=== PATIENT | male | born 1935 | race Caucasian/White ===

== ENCOUNTER 2016-10-13 13:57 | Inpatient (IN) | payer MEDICARE ==
[~2016-10-13] VITALS: Ht 180.3 cm; Wt 93.0 kg
[2016-10-13 04:48] VITALS: PULSE 89
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
[2016-10-13 14:02] VITALS: BP 120/74; PULSE 102; RESP 25; O2SAT 96
[2016-10-13] MEDS ORDERED: 0.9% Sodium Chloride 1,000 ML IV ONE (14:09)
[2016-10-13] MEDS ORDERED: Clindamycin Inj 900 MG in IV Premix 1 EACH IV ONE (14:10)
[2016-10-13] MEDS ORDERED: Vancomycin Dose per Pharmacist XX ONE (14:10)
[2016-10-13] MEDS ORDERED: Meropenem Inj 2,000 MG in 0.9% Sodium Chloride 100 ML IV ONE (14:10)
[2016-10-13 14:19] LABS: BASOPHILS % (AUTO) 0.1 % (0-3); EOSINOPHILS % (AUTO) 0.1 % (0-5); MONOCYTES % (AUTO) 10.7 % (4-12); Mean Corpuscular Hemoglobin 28.7 pg (27.0-35.0); Mean Corpuscular Volume 84.2 fL (81-100); NEUTROPHILS % (AUTO) 84.4 % (40-74); Platelet Count 275 bil/L (150-400)
--- NOTE | 2016-10-13 14:21 | DRSVH ---
PROCEDURE: CT BRAIN (TPA) ([id number]) INDICATIONS: Stroke TECHNIQUE: Noncontrast 4.5 mm thick angled axial sections acquired from the foramen magnum to the vertex, with c oronal reformats. COMPARISON: None. FINDINGS: Image quality: Excellent. CSF spaces: Basal cisterns are patent. No extra-axial fluid collections. The ventricles are symmet gina in size and shape. Brain: No intracranial bleeds or masses. There is cerebral volume loss for age, with resultant vent ricular and sulcal prominence. There are periventricular and deep white matter chronic small vessel ischemic changes. There is intracranial internal carotid artery atherosclerosis. Skull and face: Calvarium and visualized facial bones appear intact, without suspicious lesions. Sinuses: Visualized sinuses and mastoids are clear. IMPRESSION: No acute process. Findings relayed to Dr. Smallwood via the ER administrative assistant front desk staff person Mart yates on 10.13.16 at 1419 hrs. This study fulfills neurological imaging criteria for inclusion or exclusion of acute stroke therapie s based on available published neurological guidelines. Dictated by: Osito Goldstein M.D. on 10/13/2016 at 14:18 Approved by: Osito Goldstein M.D. on 10/13/2016 at 14:19
[2016-10-13 14:38] LABS: INR 2.26 ratio
[2016-10-13] MEDS ORDERED: Vancomycin Inj 2,000 MG in 0.9% Sodium Chloride 500 ML IV ONE (14:40)
[2016-10-13 14:43] LABS: TROPONIN T < 0.010 ug/L (0.0-0.011)
[2016-10-13 15:19] VITALS: BP 105/71; PULSE 93; RESP 20; O2SAT 99
--- NOTE | 2016-10-13 15:43 | DRSVH ---
PROCEDURE: X-RAY RIGHT FOOT COMPLETE, MINIMUM THREE VIEWS ([id number]) INDICATIONS: necrosis TECHNIQUE: 2 views of the foot were acquired. COMPARISON: None. FINDINGS: Bones: No fractures or dislocations. No suspicious bony lesions. Soft tissues: No tibiotalar joint effusion. Achilles tendon appears normal. There is a 1.6 cm oval radiolucency in the plantar soft tissues beneath the first metatarsal head compatible with ulceration . There is extensive calcification in the region of the plantar aponeurosis. Vascular calcifications in the distal leg. IMPRESSION: 1. Soft tissue ulceration under the first metatarsal head. Generalized swelling. No osteomyelitis or subcutaneous air is seen. 2. Calcific plantar fasciitis. 3. Small vessel calcifications may reflect diabetes. Dictated by: Dillon Stewart M.D. on 10/13/2016 at 15:39 Approved by: Dillon Stewart M.D. on 10/13/2016 at 15:42
[2016-10-13 17:27] VITALS: BP 177/77; PULSE 77; RESP 20; O2SAT 99
[2016-10-13] MEDS ORDERED: Ondansetron 2 mg/mL 2 mL Inj IVPUSH PRN (18:10)
[2016-10-13] MEDS ORDERED: Polyethylene Glycol (PEG) 17 Gm Powder PO PRN (18:10)
[2016-10-13] MEDS ORDERED: Alum-Mag Hydrox-Simeth 30 mL Suspension PO PRN (18:10)
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
[2016-10-13 19:23] VITALS: BP 109/65; PULSE 125; RESP 20; O2SAT 99
[2016-10-13] MEDS ORDERED: METO-272 PO (19:26)
[2016-10-13] MEDS ORDERED: WARF5TAB PO (19:26)
[2016-10-13] MEDS ORDERED: METF500T7 PO (19:27)
[2016-10-13] MEDS ORDERED: METF-495 PO (19:27)
[2016-10-13] MEDS ORDERED: LISI10TA PO (19:27)
[2016-10-13] MEDS ORDERED: WARF7.5T PO (19:27)
--- NOTE | 2016-10-13 19:30 | PCM.CONPHA ---
Subjective Date of Service: October 13, 2016 fall and foot ulcer Reason for Pharmacy Consult: Vancomycin Dosing Objective Vital Signs Date Time Temp Pulse Resp B/P Pulse Ox O2 Delivery O2 Flow Rate FiO2 10/13/16 17:27 36.2 77 20 177/77 99 Room Air 10/13/16 15:19 38.5 93 20 105/71 99 Room Air 10/13/16 14:02 38.5 102 25 120/74 96 Room Air Test 10/13/16 14:15 10/13/16 18:48 White Blood Count 19.8th/mm3 (3.8-10.1) Red Blood Count 4.63mil/mm3 (4.40-5.80) Hemoglobin 13.3g/dL (13.8-17.2) Hematocrit 39.0% (41.0-50.0) Mean Corpuscular Volume 84.2fL (81-100) Mean Corpuscular Hemoglobin 28.7pg (27.0-35.0) Mean Corpuscular Hemoglobin Concent 34.1% (32.0-37.0) Red Cell Distribution Width 13.1% (12.3-15.4) Platelet Count 275bil/L (150-400) Neutrophils (%) (Auto) 84.4% (40-74) Lymphocytes (%) (Auto) 4.2% (14-46) Monocytes (%) (Auto) 10.7% (4-12) Eosinophils (%) (Auto) 0.1% (0-5) Basophils (%) (Auto) 0.1% (0-3) Prothrombin Time 24.6sec (8.1-12.5) Prothromb Time International Ratio 2.26ratio Activated Partial Thromboplast Time 39.7sec (22.8-33.0) Sodium Level 130mEq/L (134-144) Potassium Level 4.4mEq/L (3.5-5.2) Chloride Level 92mEq/L (97-108) Carbon Dioxide Level 19mmol/L (18-29) Blood Urea Nitrogen 19mg/dL (8-27) Creatinine 0.81mg/dL (0.76-1.27) Estimat Glomerular Filtration Rate 97mL/min (>59) Glucose Level 243mg/dL (60-99) Calcium Level 9.3mg/dL (8.5-10.1) Total Bilirubin 2.9mg/dL (0.0-1.2) Aspartate Amino Transf (AST/SGOT) 41U/L (0-50) Alanine Aminotransferase (ALT/SGPT) 23U/L (0-44) Alkaline Phosphatase 130U/L (25-160) Troponin T < 0.010ug/L (0.0-0.011) Pro-B-Type Natriuretic Peptide 1945pg/mL (0-486) Total Protein 7.4g/dL (6.4-8.4) Albumin 3.5g/dL (3.4-5.0) Lactic Acid Level 1.3mmol/L (0.4-2.0) Assessment/Plan Assessment/Plan VANCOMYCIN MANAGEMENT A\ 81yo M with Rt foot infection and sepsis with PMH of Diabetes Pt supplied Cq=117jv Wt=99kg Pt received Vancomycin 2000mg IV x1 in the ER 10/13 1440; Goal Vancomycin trough 10-15 SCr=0.81 GFR=92 WBC=19.8 and febrile Also receiving Zosyn Cultures pending P\ Will start Vancomycin 1000mg IV Q12H starting at 0300 and vancomycin trough before the 4th dose 10/15 0230 Creatinine daily x3 Pharmacy will continue to monitor and adjust vancomycin as necessary. Felipe [facility] October 13, 2016 19:30
--- NOTE | 2016-10-13 19:30 | NUR ---
Med history Med history obtained based on pt. description of medications and needs to be verified for accuracy when his clinic and pharmacy: [facility] ([place]) open tomorrow morning at 0800.
--- NOTE | 2016-10-13 19:43 | DRSVH ---
PROCEDURE: X-RAY CHEST, TWO VIEWS ([id number]) INDICATIONS: 81 year-old male with fever and syncope. TECHNIQUE: 2 views of the chest were acquired. COMPARISON: None. FINDINGS: Surgical changes and devices: None. Lungs and pleura: No pleural effusions or pneumothorax. Lungs are clear. Mediastinum: Mediastinal contours are normal. There is moderate cardiomegaly. Bones and chest wall: No suspicious bony abnormalities. There is thoracic spine disc degeneration. Soft tissues appear unremarkable. IMPRESSION: Moderate cardiomegaly, without acute cardiopulmonary disease. Dictated by: Wade Royal M.D. on 10/13/2016 at 19:40 Approved by: Wade Royal M.D. on 10/13/2016 at 19:41
[2016-10-13 19:50] VITALS: BP 107/75; PULSE 100; RESP 16; O2SAT 97
[2016-10-13] MEDS: 0.9% Sodium Chloride 1,000 ML IV SCH (20:25)
[2016-10-13] MEDS: Insulin Human REGular 300 Unit/3 mL Inj SUBQ SCH (20:27)
[2016-10-13 22:16] LABS: APPEARANCE,URINE HAZY (CLEAR,HAZY); COLOR,URINE AMBER (YELLOW); OCCULT BLOOD,URINE SMALL (NEGATIVE); PH,URINE 5.5 (5.0-8.0)
[2016-10-13 22:18] LABS: ICTOTEST,URINE NEGATIVE (Negative)
[2016-10-14] VITALS (19 sets, daily range): BP systolic 90–144; BP diastolic 5–81; PULSE 75–97; RESP 13–20; O2SAT 96–99
[2016-10-14] MEDS: Piperacillin-Tazo 3.375 Gm Inj 3.375 GM in Dextrose 5% Minibag Plus 50 ML IV SCH ×3 (00:49→16:40)
[2016-10-14] MEDS ORDERED: Vancomycin Inj 1,000 MG in IV Premix 1 EACH IV SCH (03:00)
[2016-10-14 03:21] LABS: BASOPHILS % (AUTO) 0.1 % (0-3); EOSINOPHILS % (AUTO) 0.1 % (0-5); MONOCYTES % (AUTO) 10.5 % (4-12); Mean Corpuscular Hemoglobin 28.4 pg (27.0-35.0); Mean Corpuscular Volume 85.7 fL (81-100); NEUTROPHILS % (AUTO) 81.3 % (40-74); Platelet Count 224 bil/L (150-400)
[2016-10-14 03:34] LABS: INR 2.88 ratio
[2016-10-14 03:57] LABS: Magnesium 1.9 mg/dL (1.6-2.6)
--- NOTE | 2016-10-14 05:56 | NUR ---
Admit Pt arrived to [facility] room 2007 at approx. 1930 from ED via bed; all belongings transferred with pt. Admit documentation and med rec completed per patient's best ability; medication doses to be confirmed via fax this AM from pt's clinic per admit nurse. Tele afib 100s-120s, pt asymptomatic. Able to transfer with SBA, though pt encouraged to be NWB to affected foot and elevate extremity as much as possible. Pt denies pain. RA. VSS. Information on advance directives given to pt. MRSA swab and UA obtained and sent to lab.
[2016-10-14] MEDS: 0.9% Sodium Chloride 1,000 ML IV SCH ×3 (08:08→22:40)
[2016-10-14] MEDS: Insulin Human REGular 300 Unit/3 mL Inj SUBQ SCH ×4 (08:08→22:40)
[2016-10-14] MEDS ORDERED: Vancomycin Dose per Pharmacist XX SCH (08:30)
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
[2016-10-14] MEDS ORDERED: Gentamicin 40 mg/mL 2 mL Inj IRRIGATION ONE (12:36)
[2016-10-14] MEDS ORDERED: Lactated Ringer's 1,000 ML IV ONE (12:36)
[2016-10-14] MEDS ORDERED: Lactated Ringer's 500 ML IV PRN (13:03)
[2016-10-14] MEDS ORDERED: Lactated Ringer's 1,000 ML IV SCH (13:03)
[2016-10-14] MEDS ORDERED: Labetalol 5 mg/mL 4 mL Inj IV PRN (13:05)
[2016-10-14] MEDS ORDERED: Atropine 0.4 mg/mL Inj IVPUSH PRN (13:05)
[2016-10-14] MEDS ORDERED: Phenylephrine 10,000 mCg/mL Inj IVPUSH PRN (13:05)
[2016-10-14] MEDS ORDERED: EPHEDrine Sulfate 50 mg/mL Inj IVPUSH PRN (13:05)
[2016-10-14] MEDS ORDERED: fentaNYL-PF 50 mCg/mL 2 mL Inj IVPUSH PRN (13:05)
[2016-10-14] MEDS ORDERED: Ondansetron 2 mg/mL 2 mL Inj IVPUSH PRN (13:05)
[2016-10-14] MEDS ORDERED: Propofol 10,000 mCg/mL 20 mL Inj ONE (13:31)
[2016-10-14] MEDS ORDERED: fentaNYL-PF 50 mCg/mL 2 mL Inj ONE (13:31)
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
--- NOTE | 2016-10-14 13:35 | PCM.ANEP1 ---
Post Anesthesia Phase 1 PACU Phase 1 Assessment Date of Service: October 14, 2016 Vital Signs Vital Signs Date Time Temp Pulse Resp B/P Pulse Ox O2 Delivery O2 Flow Rate FiO2 10/14/16 13:25 87 17 98/54 98 Room Air 10/14/16 13:23 36.9 82 15 93/5 99 Room Air 10/14/16 11:35 37.4 75 18 144/81 98 Room Air 10/14/16 08:00 97 10/14/16 07:56 37.1 96 20 114/49 96 Room Air Anesthetic Administered: MAC Level of Alertness: Awake, talking BURGESS's with Equal Strength: Yes Pain: No Nausea or Vomiting: No Cardiovascular Function and Hy: No Oxygen Delivery: Room Air Lungs: Clear to Auscultation, Normal Air Movement Dermatome Level: Full Sensation Complications: No Follow up Care: No Bryn Handley MD October 14, 2016 13:35
--- NOTE | 2016-10-14 13:45 | NUR ---
Wound Care Wound orders received, Podiatry note reviewed. Podiatry to manage wound care during hospitalization.
--- NOTE | 2016-10-14 16:23 | NUR ---
Social Work: Initial Assessment Data & Assessment: See Initial Assessment. EMR reviewed. Patient is a 81 y/o male that admitted on 10/13/16 with foot infection, sepsis and AFIB with RVR per H&P. Patient's NOK is Kenny Delgado, but the patient was unable to recall the telephone number. Patient does not have a PCP. Patient re-admit score is 2 no risk. Patient's insurance is Medicare. Patient does not have VA or LTC benefits. Patient lives home alone . Patient reports being independent at baseline with no DME. Patient does not drive. Patient use [employer] for transportation. Patient has no history of HH or SNF. Patient currently has a PT evaluation pending. SW will continue to follow the patient and assist with discharge planning needs. SW wrote contact information on [employer]. Plan: SW will continue to follow and assist patient with discharge planning needs. Attila Driscoll LMSW, JODI Addendum: 10/14/16 at 1630 by ATTILA TOBIAS Amended: Links added.
[2016-10-14] MEDS ORDERED: Magnesium Hydroxide 10 mL Oral Concentration PO ONE (22:25)
[2016-10-15] VITALS (7 sets, daily range): BP systolic 113–135; BP diastolic 70–85; PULSE 89–97; RESP 18–20; O2SAT 94–97
[2016-10-15] MEDS: Piperacillin-Tazo 3.375 Gm Inj 3.375 GM in Dextrose 5% Minibag Plus 50 ML IV SCH ×4 (00:38→18:56)
[2016-10-15] MEDS ORDERED: Vancomycin Serum Trough XX ONE (02:30)
[2016-10-15 03:01] LABS: INR 2.28 ratio
--- NOTE | 2016-10-15 05:45 | NUR ---
Right Lower Extremity Pt BG at HS 310; 4 units administered for coverage. Pt able to rest throughout night, no c/o pain. Encouraged to elevate RLE as much as possible. VSS. Afib 100s-120s. RLE dressing C/D/I, CSM intact.
[2016-10-15 07:41] LABS: BASOPHILS % (AUTO) 0.2 % (0-3); EOSINOPHILS % (AUTO) 0.7 % (0-5); MONOCYTES % (AUTO) 10.2 % (4-12); Mean Corpuscular Hemoglobin 28.4 pg (27.0-35.0); Mean Corpuscular Volume 87.1 fL (81-100); NEUTROPHILS % (AUTO) 81.8 % (40-74); Platelet Count 248 bil/L (150-400)
[2016-10-15] MEDS: Insulin Human REGular 300 Unit/3 mL Inj SUBQ SCH ×4 (08:33→20:50)
[2016-10-15] MEDS: 0.9% Sodium Chloride 1,000 ML IV SCH (08:34)
--- NOTE | 2016-10-15 09:27 | NUR ---
Evaluation completed. Please go to "Notes" then click on "Assessments and Notes" (bottom left corner of screen). Then select appropriate discipline tab on top of screen.
--- NOTE | 2016-10-15 13:45 | NUR ---
[facility] signed
--- NOTE | 2016-10-15 16:07 | PCM.PNMED ---
Subjective Date of Service October 15, 2016 Subjective Mr. Varma is a cheerful, vigorous 81-year-old man here with non-insulin- dependent diabetes mellitus, atrial fibrillation on Coumadin here with right foot cellulitis and sepsis, now s/p right foot plantar I&D and debridement with Dr Cortez on 10/14/16. Our patient is more tired today, but still cheerful, has a good appetite, normal voiding and stooling. Exam Vital Signs Vital Sign - Last Date Time Temp Pulse Resp B/P Pulse Ox O2 Delivery O2 Flow Rate FiO2 10/15/16 11:04 92 10/15/16 08:24 36.6 20 135/85 97 Room Air Intake and Output 10/14/16 10/14/16 10/15/16 Cumulative From/Thru 15:00 23:00 07:00 10/13/16 19:50 - 10/15/16 06:08 Intake Total 1873 ml 820 ml 2308 ml 6042 ml Output Total 1365 ml 600 ml 875 ml 2840 ml Balance 508 ml 220 ml 1433 ml 3202 ml Intake Oral 873 ml 820 ml 400 ml 2093 ml IV Total 1000 ml 1908 ml 3949 ml Output Urine Total 1350 ml 600 ml 875 ml 2825 ml Estimated Blood Loss 15 ml 15 ml # Bowel Movements 1 1 Exam General: Alert, Oriented X3, Cooperative, No Acute Distress Head: Normal Eyes: EOMI, Scleral Anicteric Nose: Mucous Membr Moist/[place] Mouth: Mucous Membr Moist/[place] Chest & Lungs: Chest Wall Normal, Clear to auscultation & percussion Cardiovascular: Other (irreg/irreg), normal rate Abdomen: Non-tender, Non-distended, Normoactive bowel tones, Soft Extremities: 2+ edema of right foot up the the right knee, left lower extremity without significant edema Skin: Right foot under extensive post-surgical dressings which we did not disturb, no sign of erythema or drainage. Neurological: Grossly Neurologically Intact, Cranial Nerves 2-12 Intact, Normal Speech Lab and Diagnostics Result Diagram: 10/15/168 10/15/16 0238 X-Rays, CTs and MRIs Date of Service: 10/13/16 4148 PROCEDURE: CT BRAIN (TPA) ([id number]) IMPRESSION: No acute process. Dictated by: Osito Goldstein M.D. on 10/13/2016 at 14:18 Approved by: Osito Goldstein M.D. on 10/13/2016 at 14:19 Date of Service: 10/13/16 1409 PROCEDURE: X-RAY RIGHT FOOT COMPLETE, MINIMUM THREE VIEWS ([id number]) IMPRESSION: 1. Soft tissue ulceration under the first metatarsal head. Generalized swelling. No osteomyelitis or subcutaneous air is seen. 2. Calcific plantar fasciitis. 3. Small vessel calcifications may reflect diabetes. Dictated by: Dillon Stewart M.D. on 10/13/2016 at 15:39 Approved by: Dillon Stewart M.D. on 10/13/2016 at 15:42 12-lead ECG Afib at rate of abou 115 bpm Assessment & Plan 81 year old male with history of non-insulin dependent diabetes mellitus and atrial fibrillation (on Coumadin) presents to the hospital with questionable fall vs syncope and noted to be febrile with possible sepsis and significant cellulitis of right foot. 1. Sepsis with source of right foot cellulitis. Present on admission. Improving -White blood cell count 11.1, down from 19.8 on admission, pulse and respirations normal -MRSA nasal screen negative -Blood culture positive for gram-positive cocci -Continue Vanco and Zosyn 2. Right foot cellulitis. Present on admission. Active -Podiatry in the person of Dr Cortez took the patient to the OR on 10/14/16 for I& D and debridement of the right plantar foot abcess -Podiatry will change the dressing daily -Podiatry indicates possible return to OR on 10/17/16 for further debridement. 3. Ground-level fall, present on admission. Under evaluation -Brain CT negative for any acute process -Troponins negative -A. fib with RVR may have contributed to his weakness along with the sepsis 4. Mild hyponatremia, present on admission, resolved 5. Chronic A. fib with acute RVR, present on admission. active -Patient reports attempt many years ago to electrocardioversion from A. fib that was unsuccessful -Tele reports rate around 110 with runs around 150 and spikes with activity to 180. -Continue Telemetry -Heparin 5000 sq TID until after possible surgery on Monday -Metoprolol restarted 10/15/16 -Dr. Ferreira of cardiology reviewed the patient's chart on 10/14/16 and gave the opinion that this patient is a good surgical candidate, given his stable chronic atrial fibrillation with a normal rate, normal systolic blood pressure, and vigorous daily activity. 6. Diabetes mellitus type II, present on admission. Not controlled -HA1c is 7.9 -Hold metformin -Started patient on low-dose correctional scale insulin while hospitalized 7. Elevated Hepatic Enzymes, not present on admission. active -AST/ALT is 151/48, Alk Phos 181 secondary to ischemic injury with A Fib vs possible right sided heart failure -monitor -order Echo tomorrow if not improving 8. Hyponatremia, not present on admission. Active -possibly from fluid overload -monitor 9. Lactic acidosis, present on admission. -Likely due to dehydration, resolved on 10/14, but with transaminitis and hyponatremia manifesting on 10/15 it may be returning -LA with morning labs PRN medications available for nausea, heartburn, constipation: Ondansetron, Maalox, Senna, Miralax Patient is admitted under inpatient status with expected length of stay greater than 2 midnights due to severity of presenting symptoms, risk of adverse event, and complexity of treatment plan. Pain Evaluation: Adequate Pain Control GI Prophylaxis: Not indicated VTE Prophylaxis: Theraputic Anticoag with Warfarin Resuscitation Status: CPR: Attempt Resuscitation (discussed and verified with patient) Attending Statement The patient was seen and examined together with Dr. Rizzo on 10/15/2016 and I agree with the history, exam and plan as outlined in the note above. . Jose Alfredo Rizzo DO October 15, 2016 16:06 Ean Jimenes MD October 16, 2016 16:34
[2016-10-15] MEDS: Vancomycin Dose per Pharmacist XX SCH (17:18)
[2016-10-15] MEDS: Heparin 5,000 Unit/mL Inj SUBQ SCH (17:18)
[2016-10-15] MEDS: Vancomycin Inj 1,000 MG in IV Premix 1 EACH IV SCH (17:20)
--- NOTE | 2016-10-15 18:06 | NUR ---
Arrhythmia Per cafeteria monitor, Pt having frequent/brief accelerations in HR to the 150s-180s, Pt normally takes metoprolol at home, spoke with MD, Pt restarted on PO metoprolol this afternoon, cafeteria monitor reports that accelerations less frequent this afternoon.
--- NOTE | 2016-10-15 20:04 | PCM.PNPOD ---
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 no complaints of pain. 1 day status post I& D of right foot abscess. no new complaints overnight. Postop General: No Complaints Gastrointestinal: Good Appetite Pain Management: No or Minimal Pain Objective Vital Sign - Last Date Time Temp Pulse Resp B/P Pulse Ox O2 Delivery O2 Flow Rate FiO2 10/15/16 16:07 36.7 93 18 127/74 97 Room Air Intake and Output 10/14/16 10/14/16 10/15/16 Cumulative From/Thru 15:00 23:00 07:00 10/13/16 19:50 - 10/15/16 06:08 Intake Total 1873 ml 820 ml 2308 ml 6042 ml Output Total 1365 ml 600 ml 875 ml 2840 ml Balance 508 ml 220 ml 1433 ml 3202 ml Intake Oral 873 ml 820 ml 400 ml 2093 ml IV Total 1000 ml 1908 ml 3949 ml Output Urine Total 1350 ml 600 ml 875 ml 2825 ml Estimated Blood Loss 15 ml 15 ml # Bowel Movements 1 1 Result Diagram: 10/15/16 0238 10/15/16 0238 Lab Test 10/13/16 14:15 10/13/16 18:48 10/13/16 22:00 10/14/16 03:00 Activated Partial Thromboplast Time 39.7sec (22.8-33.0) Hemoglobin A1c 7.9% (4.8-5.6) Troponin T < 0.010ug/L (0.0-0.011) Pro-B-Type Natriuretic Peptide 1945pg/mL (0-486) Lactic Acid Level 1.3mmol/L (0.4-2.0) Urine Color [place] (YELLOW) Urine Appearance Hazy (CLEAR,HAZY) Urine pH 5.5 (5.0-8.0) Urine Specific [place] 1.035 (1.003-1.035) Urine Protein 100mg/dL (NEG,TRACE) Urine Glucose (UA) >1000mg/dL (NEGATIVE) Urine Ketones 15mg/dL (NEGATIVE) Urine Occult Blood Small (NEGATIVE) Urine Nitrite Negative (NEGATIVE) Urine Bilirubin Negative (NEGATIVE) Urine Ictotest Negative (Negative) Urine Urobilinogen 2.0mg/dL (NORMAL) Urine Leukocyte Esterase Negative (NEGATIVE) Urine RBC 0-2/hpf (0-2) Urine WBC 0-5/hpf (0-5) Urine Epithelial Cells Few/hpf (NONE-MOD) Urine Crystals None seen (NONE SEEN) Urine Bacteria Few/hpf (NONE-FEW) Urine Hyaline Casts 5/20/lpf (NONE) Urine Granular Casts Occasional (NONE SEEN) Urine Waxy Casts None seen (NONE SEEN) Urine Red Blood Cell Casts None seen (NONE SEEN) Urine White Blood Cell Casts None seen (NONE SEEN) Urine Mucus Present (None Seen) Urine Trichomonas None seen (NONE SEEN) Urine Yeast None (NONE SEEN) Urinalysis Comment None Urine Culture Reflexed Not indicated Magnesium Level 1.9mg/dL (1.6-2.6) Procalcitonin 0.99ng/mL (0.00-0.08) Test 10/15/16 02:38 White Blood Count 11.1th/mm3 (3.8-10.1) Red Blood Count 3.80mil/mm3 (4.40-5.80) Hemoglobin 10.8g/dL (13.8-17.2) Hematocrit 33.1% (41.0-50.0) Mean Corpuscular Volume 87.1fL (81-100) Mean Corpuscular Hemoglobin 28.4pg (27.0-35.0) Mean Corpuscular Hemoglobin Concent 32.6% (32.0-37.0) Red Cell Distribution Width 13.3% (12.3-15.4) Platelet Count 248bil/L (150-400) Neutrophils (%) (Auto) 81.8% (40-74) Lymphocytes (%) (Auto) 6.4% (14-46) Monocytes (%) (Auto) 10.2% (4-12) Eosinophils (%) (Auto) 0.7% (0-5) Basophils (%) (Auto) 0.2% (0-3) Prothrombin Time 24.8sec (8.1-12.5) Prothromb Time International Ratio 2.28ratio Sodium Level 129mEq/L (134-144) Potassium Level 4.9mEq/L (3.5-5.2) Chloride Level 94mEq/L (97-108) Carbon Dioxide Level 15mmol/L (18-29) Blood Urea Nitrogen 16mg/dL (8-27) Creatinine 0.41mg/dL (0.76-1.27) Estimat Glomerular Filtration Rate 213mL/min (>59) Glucose Level 164mg/dL (60-99) Calcium Level 7.9mg/dL (8.5-10.1) Total Bilirubin 1.1mg/dL (0.0-1.2) Aspartate Amino Transf (AST/SGOT) 151U/L (0-50) Alanine Aminotransferase (ALT/SGPT) 48U/L (0-44) Alkaline Phosphatase 181U/L (25-160) Total Protein 5.1g/dL (6.4-8.4) Albumin 2.4g/dL (3.4-5.0) Vancomycin Level Trough 2.9mcg/mL Exam General: Alert, Oriented X3, Cooperative, No Acute Distress Lungs: Clear to Auscultation, Normal Air Movement Lower Extremities: Right: Edema localized Extremity warm Lower Extremity Pulses: Palpable: Right Dorsalis Pedis (faint) Right Posterior Tibal (faint) Postop Sensory Motor: Distal Motor Intact, Motor 5/5 Podiatry WOUND : Wound Location/Description right foot plantar ulceration full thickness to tendon without exposed bone. minimal purulent discharge is noted. no mal odor. minimal erythema extending only to the wound edge. local edema. medial 1st metatarsal I&D incision site full thickness wound without exposed bone. local necrotic tissue to the wound edges approx. .5cm proximally and plantarly. no purulent discharge is noted. no mal odor. minimal surrounding erythema. Incision General Appearence: Erythmia, Necrotic Surgical Cast or Splint: None Assessment & Plan Impression improving DM ulcer with cellulitis of the right foot Problems: Plan dressing changed today. wound flushed with 10% betadine in saline solution. packing gauze changed. wound dressed with packing gauze, 4x4 gauze, ABD pads kerlix and tape. Dressing to be changed daily by podiatry service only. Continue broad spectrum ABX. will follow wound cultures. consult infectious disease for senior living ABX recs once culture results are finalized. non weightbearing right foot. plan for return to OR for wound debridement monday10/17/16. podiatry will follow daily. VTE Prophylaxis: Theraputic Anticoag with Warfarin Buster Cortez DPM October 15, 2016 20:04
[2016-10-16] VITALS (10 sets, daily range): BP systolic 105–149; BP diastolic 73–98; PULSE 69–99; RESP 16–26; O2SAT 96–100
[2016-10-16] MEDS: Heparin 5,000 Unit/mL Inj SUBQ SCH ×3 (00:53→17:15)
[2016-10-16] MEDS: Piperacillin-Tazo 3.375 Gm Inj 3.375 GM in Dextrose 5% Minibag Plus 50 ML IV SCH ×3 (00:54→17:15)
[2016-10-16 03:17] LABS: EOSINOPHILS % (AUTO) 1.8 % (0-5); Mean Corpuscular Hemoglobin 28.7 pg (27.0-35.0); Mean Corpuscular Volume 86.3 fL (81-100); NEUTROPHILS % (AUTO) 76.3 % (40-74); Platelet Count 257 bil/L (150-400)
[2016-10-16 03:18] LABS: BASOPHILS % (AUTO) 0.2 % (0-3)
[2016-10-16 03:30] LABS: INR 1.71 ratio
[2016-10-16] MEDS: Vancomycin Inj 1,000 MG in IV Premix 1 EACH IV SCH (05:24)
--- NOTE | 2016-10-16 06:05 | NUR ---
Right Foot RLE dressing in place, C/D/I, CSM intact, pt denies pain. Encouraged to elevate extremity as tolerated, NWB when OOB. Pt able to rest throughout shift, no acute events. VSS, tele afib 80s.
[2016-10-16] MEDS ORDERED: Insulin GLARgine 100 Unit/mL Syringe SUBQ ONE (08:00)
[2016-10-16] MEDS: Vancomycin Dose per Pharmacist XX SCH (08:11)
[2016-10-16] MEDS: Insulin Human REGular 300 Unit/3 mL Inj SUBQ SCH ×3 (08:15→17:24)
--- NOTE | 2016-10-16 17:13 | PCM.PNMED ---
Subjective Date of Service October 16, 2016 Subjective Hospital day 4. No events overnight. Patient reports that he is feeling well today. He has been up out of bed and into the chair, but is otherwise nonweightbearing given his right foot infection. Denies fever/chills, rash. Focused ROS otherwise negative except as noted above. Exam Vital Signs Vital Sign - Last Date Time Temp Pulse Resp B/P Pulse Ox O2 Delivery O2 Flow Rate FiO2 10/16/16 13:28 Room Air 10/16/16 12:29 37.4 89 20 105/73 97 Intake and Output 10/15/16 10/15/16 10/16/16 Cumulative From/Thru 15:00 23:00 07:00 10/13/16 19:50 - 10/16/16 06:31 Intake Total 1794 ml 644 ml 8480 ml Output Total 1800 ml 1925 ml 6565 ml Balance -6 ml -1281 ml 1915 ml Intake Oral 874 ml 350 ml 3317 ml IV Total 920 ml 294 ml 5163 ml Output Urine Total 1800 ml 1925 ml 6550 ml Estimated Blood Loss 15 ml # Bowel Movements 1 1 3 Exam General: Alert, Oriented X3, Cooperative, No Acute Distress Head: Normal, atraumatic Eyes: Pupils equal and reactive to light bilaterally, EOMI, Scleral Anicteric conjunctiva are not injected Nose: Mucous Membr Moist/[place] Mouth: Mucous Membr Moist/[place]. No soft palate petechiae. Chest & Lungs: Chest Wall Normal, Clear to auscultation & percussion Cardiovascular: Other (irreg/irreg), normal rate. No murmur appreciated. Radial and posterior tibial pulses are 2+ bilaterally. Abdomen: Non-tender, Non-distended, Normoactive bowel tones, Soft Extremities: 2+ edema of right foot up the the right knee, left lower extremity without significant edema. Nails and finger/toe tips are without peripheral signs of endocarditis. Skin: Right foot under extensive post-surgical dressings which we did not disturb, no sign of erythema or drainage. Neurological: Grossly Neurologically Intact, Cranial Nerves 2-12 Intact, Normal Speech Psych: Normal mood and affect. IVs and Medications Medications Reviewed: Medications were reviewed in detail Lab and Diagnostics Laboratory Tests Test 10/16/16 03:05 White Blood Count 10.0th/mm3 (3.8-10.1) Red Blood Count 4.08mil/mm3 (4.40-5.80) Hemoglobin 11.7g/dL (13.8-17.2) Hematocrit 35.2% (41.0-50.0) Mean Corpuscular Volume 86.3fL (81-100) Mean Corpuscular Hemoglobin 28.7pg (27.0-35.0) Mean Corpuscular Hemoglobin Concent 33.2% (32.0-37.0) Red Cell Distribution Width 13.1% (12.3-15.4) Platelet Count 257bil/L (150-400) Neutrophils (%) (Auto) 76.3% (40-74) Lymphocytes (%) (Auto) 8.8% (14-46) Monocytes (%) (Auto) 12.0% (4-12) Eosinophils (%) (Auto) 1.8% (0-5) Basophils (%) (Auto) 0.2% (0-3) Band Neutrophils % 1% (1-5) Prothrombin Time 18.5sec (8.1-12.5) Prothromb Time International Ratio 1.71ratio Sodium Level 134mEq/L (134-144) Potassium Level 4.2mEq/L (3.5-5.2) Chloride Level 99mEq/L (97-108) Carbon Dioxide Level 23mmol/L (18-29) Blood Urea Nitrogen 12mg/dL (8-27) Creatinine 0.64mg/dL (0.76-1.27) Estimat Glomerular Filtration Rate 127mL/min (>59) Glucose Level 171mg/dL (60-99) Lactic Acid Level 1.1mmol/L (0.4-2.0) Calcium Level 8.6mg/dL (8.5-10.1) Total Bilirubin 1.2mg/dL (0.0-1.2) Aspartate Amino Transf (AST/SGOT) 60U/L (0-50) Alanine Aminotransferase (ALT/SGPT) 45U/L (0-44) Alkaline Phosphatase 196U/L (25-160) Total Protein 5.8g/dL (6.4-8.4) Albumin 2.6g/dL (3.4-5.0) Procalcitonin 0.40ng/mL (0.00-0.08) Result Diagram: 10/16/16 0305 10/16/16 0305 Microbiology 10/13: Blood cultures 2/4 positive for staph aureus, 2/4 positive for coag- negative staph. Both are pansensitive. * Please note CoNS is sensitive to clindamycin, erythromycin, Linezolid, oxacillin, rifampin, tetracycline, Bactrim, Vanco MRSA nasal screen negative 10/14: Abscess and surgical foot sample both growing staph aureus and strep viridans. 10/16: Repeat blood cultures now pending X-Rays, CTs and MRIs Date of Service: 10/13/16 1358 PROCEDURE: CT BRAIN (TPA) ([id number]) IMPRESSION: No acute process. Dictated by: Osito Goldstein M.D. on 10/13/2016 at 14:18 Approved by: Osito Goldstein M.D. on 10/13/2016 at 14:19 Date of Service: 10/13/16 1409 PROCEDURE: X-RAY RIGHT FOOT COMPLETE, MINIMUM THREE VIEWS ([id number]) IMPRESSION: 1. Soft tissue ulceration under the first metatarsal head. Generalized swelling. No osteomyelitis or subcutaneous air is seen. 2. Calcific plantar fasciitis. 3. Small vessel calcifications may reflect diabetes. Dictated by: Dillon Stewart M.D. on 10/13/2016 at 15:39 Approved by: Dillon Stewart M.D. on 10/13/2016 at 15:42 12-lead ECG 10/13/16: Afib RVR with rate of 113. No ST or T-wave changes suggestive of acute ischemia. Assessment & Plan 81 year old male with history of non-insulin dependent diabetes mellitus and atrial fibrillation (on Coumadin) presents to the hospital with questionable fall vs syncope and noted to be febrile with possible sepsis and significant cellulitis of right foot. Hospital day 4. 1. Sepsis with source of right foot cellulitis in the setting of diabetic ulceration. Present on admission. Resolved -WBC greater than 12,000, tachycardia, fever greater than 38C, tachypnea: All at time of admission -Microbiological workup as noted above -Continue Zosyn, and stopped vancomycin in the setting of negative MRSA screen ( also to save this gentleman's renal function given his age) -Appropriate IV fluid administration at time of presentation -Lactic acid normalized with fluid resuscitation 2. Right foot cellulitis and setting of diabetic ulceration. Present on admission. -Podiatry took the patient to the OR on 10/14/16 for I&D and debridement of the right plantar foot ulcer/abscess (microbiology on sample as noted above) -Podiatry will continue to follow with dressing changes -Podiatry indicates possible return to OR on 10/17/16 for further debridement. 3. Ground-level fall without LOC, prior to admission. -Brain CT negative for any acute process -Troponins negative -A. fib with RVR may have contributed to his weakness along with the sepsis -Seizure unlikely -Continue to monitor -Echo ordered (for evaluation of positive blood cultures), and we will see if this demonstrates any structural heart disease. 4. Mild hyponatremia, presumed acute. Present on admission. -Improved with fluid administration, and suspicion is for hypovolemic etiology -We will continue to monitor labs closely. 5. Chronic A. fib with acute RVR, present on admission. -Patient reports attempt many years ago to electrocardioversion from A. fib that was unsuccessful -Continue Telemetry -As we are holding his warfarin for surgical procedures, we will initiate therapeutic heparin drip today (please notify podiatry of this addition so that medication can be held for needed procedures) -Metoprolol restarted 10/15/16 6. Diabetes mellitus type II, present on admission. Not controlled -HA1c is 7.9 -Hold metformin for now -Change low-dose to medium-dose correctional scale insulin while hospitalized -Added one-time dose of Lantus 6 units today, and patient's blood sugars continue to be high. * Lantus tonight at bedtime 7. Elevated Hepatic Enzymes, not present on admission. Improving -Echo as noted -Monitor CMP 8. Staph bacteremia, acute. Present on admission -Potentially related to his right foot infection as noted in detail above -MSSA and coag-negative staph (appears to be very sensitive) -Concern for the possibility of possible endocarditis * Repeat blood cultures * Echo -Management of right foot infection as noted above 9. Lactic acidosis, present on admission. Resolved PRN medications available for nausea, heartburn, constipation: Ondansetron, Maalox, Senna, Miralax Patient is admitted under inpatient status with expected length of stay greater than 2 midnights due to severity of presenting symptoms, risk of adverse event, and complexity of treatment plan. Disposition: Likely to discharge in several days. Anticipate patient will go home, but we will see what physical therapy recommends once they have been able to assess him pregnancies this will likely not occur until his debridement/ surgeries have come to a conclusion). Pain Evaluation: Adequate Pain Control GI Prophylaxis: Not indicated VTE Prophylaxis: Other (therapeutic heparin drip as warfarin is being held for surgical interventions) Resuscitation Status: CPR: Attempt Resuscitation Attending Statement The patient was seen and examined together with Dr. Martinez on 10/16/2016 and I agree with the history, exam and plan as outlined in the note above. . Ren Dowling DO October 16, 2016 17:13 Ean Jimenes MD October 31, 2016 08:00
[2016-10-16] MEDS: Insulin LISPRO 300 Unit/3 mL Inj SUBQ SCH ×2 (17:30→22:12)
--- NOTE | 2016-10-16 18:10 | PCM.PNPOD ---
Subjective Date of Service: October 16, 2016 Date of Service: October 16, 2016 Visit Information: Reason for Visit Foot Infection, Sepsis, Afib W/Rvr Surgery/Surgery Date Post-Op Day # Date of Admission: October 13, 2016 at 17:51 Hospital Day # Subjective: day 2 status post incision and drainage of right foot abscess/cellulitis. no new events overnight. no complaints of pain. Postop General: No Complaints Gastrointestinal: Good Appetite Pain Management: No or Minimal Pain Postop Activity: Ambulates with Assist Device Objective Vital Sign - Last Date Time Temp Pulse Resp B/P Pulse Ox O2 Delivery O2 Flow Rate FiO2 10/16/16 17:05 36.6 69 26 149/98 97 Room Air Intake and Output 10/15/16 10/15/16 10/16/16 Cumulative From/Thru 15:00 23:00 07:00 10/13/16 19:50 - 10/16/16 06:31 Intake Total 1794 ml 644 ml 8480 ml Output Total 1800 ml 1925 ml 6565 ml Balance -6 ml -1281 ml 1915 ml Intake Oral 874 ml 350 ml 3317 ml IV Total 920 ml 294 ml 5163 ml Output Urine Total 1800 ml 1925 ml 6550 ml Estimated Blood Loss 15 ml # Bowel Movements 1 1 3 Result Diagram: 10/16/16 0305 10/16/16 0305 Lab Test 10/13/16 14:15 10/13/16 22:00 10/14/16 03:00 10/15/16 02:38 Hemoglobin A1c 7.9% (4.8-5.6) Troponin T < 0.010ug/L (0.0-0.011) Pro-B-Type Natriuretic Peptide 1945pg/mL (0-486) Urine Color Annia (YELLOW) Urine Appearance Hazy (CLEAR,HAZY) Urine pH 5.5 (5.0-8.0) Urine Specific [place] 1.035 (1.003-1.035) Urine Protein 100mg/dL (NEG,TRACE) Urine Glucose (UA) >1000mg/dL (NEGATIVE) Urine Ketones 15mg/dL (NEGATIVE) Urine Occult Blood Small (NEGATIVE) Urine Nitrite Negative (NEGATIVE) Urine Bilirubin Negative (NEGATIVE) Urine Ictotest Negative (Negative) Urine Urobilinogen 2.0mg/dL (NORMAL) Urine Leukocyte Esterase Negative (NEGATIVE) Urine RBC 0-2/hpf (0-2) Urine WBC 0-5/hpf (0-5) Urine Epithelial Cells Few/hpf (NONE-MOD) Urine Crystals None seen (NONE SEEN) Urine Bacteria Few/hpf (NONE-FEW) Urine Hyaline Casts 10/22/lpf (NONE) Urine Granular Casts Occasional (NONE SEEN) Urine Waxy Casts None seen (NONE SEEN) Urine Red Blood Cell Casts None seen (NONE SEEN) Urine White Blood Cell Casts None seen (NONE SEEN) Urine Mucus Present (None Seen) Urine Trichomonas None seen (NONE SEEN) Urine Yeast None (NONE SEEN) Urinalysis Comment None Urine Culture Reflexed Not indicated Magnesium Level 1.9mg/dL (1.6-2.6) Vancomycin Level Trough 2.9mcg/mL Test 10/16/16 03:05 10/16/16 17:40 White Blood Count 10.0th/mm3 (3.8-10.1) Red Blood Count 4.08mil/mm3 (4.40-5.80) Hemoglobin 11.7g/dL (13.8-17.2) Hematocrit 35.2% (41.0-50.0) Mean Corpuscular Volume 86.3fL (81-100) Mean Corpuscular Hemoglobin 28.7pg (27.0-35.0) Mean Corpuscular Hemoglobin Concent 33.2% (32.0-37.0) Red Cell Distribution Width 13.1% (12.3-15.4) Platelet Count 257bil/L (150-400) Neutrophils (%) (Auto) 76.3% (40-74) Lymphocytes (%) (Auto) 8.8% (14-46) Monocytes (%) (Auto) 12.0% (4-12) Eosinophils (%) (Auto) 1.8% (0-5) Basophils (%) (Auto) 0.2% (0-3) Band Neutrophils % 1% (1-5) Prothrombin Time 18.5sec (8.1-12.5) Prothromb Time International Ratio 1.71ratio Sodium Level 134mEq/L (134-144) Potassium Level 4.2mEq/L (3.5-5.2) Chloride Level 99mEq/L (97-108) Carbon Dioxide Level 23mmol/L (18-29) Blood Urea Nitrogen 12mg/dL (8-27) Creatinine 0.64mg/dL (0.76-1.27) Estimat Glomerular Filtration Rate 127mL/min (>59) Glucose Level 171mg/dL (60-99) Lactic Acid Level 1.1mmol/L (0.4-2.0) Calcium Level 8.6mg/dL (8.5-10.1) Total Bilirubin 1.2mg/dL (0.0-1.2) Aspartate Amino Transf (AST/SGOT) 60U/L (0-50) Alanine Aminotransferase (ALT/SGPT) 45U/L (0-44) Alkaline Phosphatase 196U/L (25-160) Total Protein 5.8g/dL (6.4-8.4) Albumin 2.6g/dL (3.4-5.0) Procalcitonin 0.40ng/mL (0.00-0.08) Exam General: Alert, Oriented X3, Cooperative, No Acute Distress Lungs: Clear to Auscultation, Normal Air Movement Lower Extremities: Right: Edema localized Extremity warm Lower Extremity Pulses: Palpable: Right Dorsalis Pedis (faint) Right Posterior Tibal (faint) Postop Sensory Motor: Distal Motor Intact, Motor 5/5 Podiatry WOUND : Wound Location/Description right foot medial incision and drainage incision with local necrotic wound edges. minimal local erythema extending over the dorsum of the forefoot. no exposed bone or tendon. no mal odor. no purulent drainage noted. right plantar foot ulceration full thickness to subcutaneous tissue and tendon without exposed bone. no mal odor. no purulent drainage noted. no surrounding erythema. Surgical Cast or Splint: None Assessment & Plan Impression improving right foot status post incision and drainage Problems: Plan dressing changed today and wound flushed with betadine and saline solution. wound packed with iodoform packing gauze, dry sterile gauze, kerlix and a loosely applied delfin bandage. partial weight bearing to right heel for toileting and transfers only. continue IV antibiotics. consult Infectious disease tomorrow for residential antibiotic recommendation. plan for return to the OR tomorrow after 5pm for further washout and wound debridement. please make NPO tomorrow after 9 AM. podiatry to follow daily. VTE Prophylaxis: Other (therapeutic heparin drip as warfarin is being held for surgical interventions) Ullom,Buster A DPM October 16, 2016 18:10
[2016-10-16] MEDS: Heparin 25,000 UNIT in 0.9% Sodium Chloride 475 ML IV SCH (18:15)
--- NOTE | 2016-10-16 19:53 | NUR ---
Heparin gtt Heparin gtt order on Pt for a fib/thrombosis prophylaxis this evening per MD, base PTT drawn by lab, initial rate 18units/Kg/Hr per protocol, Pt's admit weight 95.1kg, next PTT ordered for ~2230 tonight.
[2016-10-16] MEDS: Insulin GLARgine 100 Unit/mL Syringe SUBQ SCH (22:13)
[2016-10-17] VITALS (10 sets, daily range): BP systolic 99–150; BP diastolic 43–89; PULSE 65–99; RESP 16–20; O2SAT 96–98
[2016-10-17] MEDS: Piperacillin-Tazo 3.375 Gm Inj 3.375 GM in Dextrose 5% Minibag Plus 50 ML IV SCH ×4 (02:46→17:32)
[2016-10-17 05:35] LABS: BASOPHILS % (AUTO) 0.5 % (0-3); EOSINOPHILS % (AUTO) 2.5 % (0-5); MONOCYTES % (AUTO) 11.8 % (4-12); Mean Corpuscular Hemoglobin 28.1 pg (27.0-35.0); Mean Corpuscular Volume 85.7 fL (81-100); NEUTROPHILS % (AUTO) 69.6 % (40-74); Platelet Count 307 bil/L (150-400)
--- NOTE | 2016-10-17 05:37 | NUR ---
Heparin GTT Patient's PTT at 0009 this morning 66.4 at heparin dose of 18 units/kg/hour. No change to current dose, next PTT in six hours. No signs of bleeding noted.
[2016-10-17 06:22] LABS: INR 1.54 ratio
[2016-10-17] MEDS: Insulin LISPRO 300 Unit/3 mL Inj SUBQ SCH ×4 (08:16→22:48)
[2016-10-17] MEDS: Heparin 25,000 UNIT in 0.9% Sodium Chloride 475 ML IV SCH ×2 (10:46→21:07)
[2016-10-17] MEDS: Heparin 5,000 Unit/mL Inj IVPUSH PRN (12:10)
[2016-10-17] MEDS ORDERED: Dextrose 10% 250 ML IV PRN (12:15)
[2016-10-17] MEDS ORDERED: Propofol 10,000 mCg/mL 20 mL Inj ONE (12:34)
[2016-10-17] MEDS ORDERED: Vancomycin Serum Trough XX ONE (15:30)
--- NOTE | 2016-10-17 16:27 | NUR ---
Heparin gtt Heparin drip running at 19units/kg/hr at beginning of shift. PTT at 1115 was 36.4, bolus of 2400units of heparin given and rate increased to 21units/kg/hr as per protocol in AUG. Heparin drip put on hold starting at 1215 as per MD orders, pt will be going for surgery this evening.
[2016-10-17] MEDS ORDERED: Lactated Ringer's 1,000 ML IV ONE (17:09)
[2016-10-17] MEDS ORDERED: Lidocaine 2%-Epi 1:100,000 20 mL Inj INFILTRATE ONE (17:32)
--- NOTE | 2016-10-17 17:33 | PCM.PNMED ---
Subjective Date of Service October 17, 2016 Subjective Mr. Varma is an 81 year old male with history of non-insulin dependent diabetes mellitus and atrial fibrillation (on Coumadin) who presented to the hospital with right foot cellulitis and bacteremia. Today is hospital day 5. No overnight events. This morning, he states that he does not have fever, chills, cough, chest pain, or dyspnea. His right foot does not hurt. Exam Vital Signs Vital Sign - Last Date Time Temp Pulse Resp B/P Pulse Ox O2 Delivery O2 Flow Rate FiO2 10/17/16 12:29 36.9 71 20 124/73 96 Room Air Intake and Output 10/16/16 10/16/16 10/17/16 Cumulative From/Thru 15:00 23:00 07:00 10/13/16 19:50 - 10/17/16 06:10 Intake Total 1363 ml 1234 ml 00059 ml Output Total 1700 ml 3200 ml 91134 ml Balance -337 ml -1966 ml -388 ml Intake Oral 940 ml 800 ml 5057 ml IV Total 423 ml 434 ml 6020 ml Output Urine Total 1700 ml 3200 ml 97591 ml Estimated Blood Loss 15 ml # Voids 6 6 # Bowel Movements 2 1 6 Exam General: Alert, Oriented X3, Cooperative, No Acute Distress Head: Normal, atraumatic Eyes: EOMI, Scleral Anicteric conjunctiva are not injected Mouth: Mucous Membr Moist/[place]. Chest & Lungs: Chest Wall Normal, Clear to auscultation & percussion Cardiovascular: Other (irreg/irreg), normal rate. No murmur appreciated. Radial pulses are 2+ bilaterally. Abdomen: Non-tender, Non-distended, Normoactive bowel tones, Soft Extremities: 1+ edema of right foot up the the right knee, left lower extremity without significant edema. Nails and finger/toe tips are without peripheral signs of endocarditis. Skin: Right foot under extensive post-surgical dressings which we did not disturb, no sign of erythema or drainage. Neurological: Grossly Neurologically Intact, Cranial Nerves 2-12 Intact, Normal Speech Psych: Normal mood and affect. IVs and Medications Medications Reviewed: Medications were reviewed in detail Lab and Diagnostics Result Diagram: 10/17/1652910/17/16529 Microbiology 10/13: Blood cultures 2/4 positive for staph aureus, 2/4 positive for coag- negative staph. Both are pansensitive. * Please note CoNS is sensitive to clindamycin, erythromycin, Linezolid, oxacillin, rifampin, tetracycline, Bactrim, Vanco MRSA nasal screen negative 10/14: Abscess and surgical foot sample both growing staph aureus and strep viridans. 10/16: Repeat blood cultures now pending X-Rays, CTs and MRIs Date of Service: 10/13/16 1358 PROCEDURE: CT BRAIN (TPA) ([id number]) IMPRESSION: No acute process. Dictated by: Osito Goldstein M.D. on 10/13/2016 at 14:18 Approved by: Osito Goldstein M.D. on 10/13/2016 at 14:19 Date of Service: 10/13/16 1409 PROCEDURE: X-RAY RIGHT FOOT COMPLETE, MINIMUM THREE VIEWS ([id number]) IMPRESSION: 1. Soft tissue ulceration under the first metatarsal head. Generalized swelling. No osteomyelitis or subcutaneous air is seen. 2. Calcific plantar fasciitis. 3. Small vessel calcifications may reflect diabetes. Dictated by: Dillon Stewart M.D. on 10/13/2016 at 15:39 Approved by: Dillon Stewart M.D. on 10/13/2016 at 15:42 12-lead ECG 10/13/16: Afib RVR with rate of 113. No ST or T-wave changes suggestive of acute ischemia. Assessment & Plan 81 year old male with history of non-insulin dependent diabetes mellitus and atrial fibrillation (on Coumadin) presents to the hospital with questionable fall vs syncope and noted to be febrile with possible sepsis and significant cellulitis of right foot. Hospital day 4. 1. Sepsis with source of right foot cellulitis in the setting of diabetic ulceration. Present on admission. Resolved -WBC greater than 12,000, tachycardia, fever greater than 38C, tachypnea: All at time of admission -Microbiological workup as noted above -Continue Zosyn, and stopped vancomycin in the setting of negative MRSA screen ( also to save this gentleman's renal function given his age) -Appropriate IV fluid administration at time of presentation -Lactic acid normalized with fluid resuscitation -Consider transitioning to oral antibiotics once sensitivities are back from the foot culture -Infectious diseases consulted and following. Their time and recommendations are appreciated. 2. Right foot cellulitis and setting of diabetic ulceration. Present on admission. -Podiatry took the patient to the OR on 10/14/16 for I&D and debridement of the right plantar foot ulcer/abscess (microbiology on sample as noted above) -Podiatry will continue to follow with dressing changes -Podiatry indicates return to OR on 10/17/16, today, for further debridement. 3. Ground-level fall without LOC, prior to admission. -Brain CT negative for any acute process -Troponins negative -A. fib with RVR may have contributed to his weakness along with the sepsis -Seizure unlikely -Continue to monitor -Echo ordered (for evaluation of positive blood cultures), and we will see if this demonstrates any structural heart disease. Echocardiogram has been completed but results are not yet available. 4. Mild hyponatremia, presumed acute. Present on admission. -Improved with fluid administration, and suspicion is for hypovolemic etiology -We will continue to monitor labs closely. 5. Chronic A. fib with acute RVR, present on admission. -Patient reports attempt many years ago to electrocardioversion from A. fib that was unsuccessful -Continue Telemetry -As we are holding his warfarin for surgical procedures, we will initiate therapeutic heparin drip today (please notify podiatry of this addition so that medication can be held for needed procedures). Heparin was held prior to procedure today but should be resumed afterwards. -Metoprolol restarted 10/15/16 6. Diabetes mellitus type II, present on admission. Not controlled -HA1c is 7.9 -Hold metformin for now -Change low-dose to medium-dose correctional scale insulin while hospitalized -Added one-time dose of Lantus 6 units today, and patient's blood sugars continue to be high. * Lantus tonight at bedtime 7. Elevated Hepatic Enzymes, not present on admission. Improving -Echo as noted -Monitor CMP 8. Staph bacteremia, acute. Present on admission -Potentially related to his right foot infection as noted in detail above -MSSA and coag-negative staph (appears to be very sensitive) -Concern for the possibility of possible endocarditis * Repeat blood cultures * Echo -Management of right foot infection as noted above 9. Lactic acidosis, present on admission. Resolved PRN medications available for nausea, heartburn, constipation: Ondansetron, Maalox, Senna, Miralax Patient is admitted under inpatient status with expected length of stay greater than 2 midnights due to severity of presenting symptoms, risk of adverse event, and complexity of treatment plan. Disposition: Likely to discharge in several days. Anticipate patient will go home, but we will see what physical therapy recommends once they have been able to assess him pregnancies this will likely not occur until his debridement/ surgeries have come to a conclusion). GI Prophylaxis: Not indicated VTE Prophylaxis: Other (therapeutic heparin drip as warfarin is being held for surgical interventions) Resuscitation Status: CPR: Attempt Resuscitation Attending Statement The patient was seen and examined together with Dr. Garcia on 10/17/2016 and I agree with the history, exam and plan as outlined in the note above. . Norah Garcia DO October 17, 2016 17:00 Ean Jimenes MD October 18, 2016 16:11
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
[2016-10-17] MEDS ORDERED: Lactated Ringer's 500 ML IV PRN (17:38)
[2016-10-17] MEDS ORDERED: Lactated Ringer's 1,000 ML IV SCH (17:38)
[2016-10-17] MEDS ORDERED: HYDROmorphone 1 mg/mL Inj IVPUSH PRN (17:40)
[2016-10-17] MEDS ORDERED: EPHEDrine Sulfate 50 mg/mL Inj IVPUSH PRN (17:40)
[2016-10-17] MEDS ORDERED: fentaNYL-PF 50 mCg/mL 2 mL Inj IVPUSH PRN (17:40)
[2016-10-17] MEDS ORDERED: Phenylephrine 10,000 mCg/mL Inj IVPUSH PRN (17:40)
[2016-10-17] MEDS ORDERED: MetoCLOpramide 5 mg/mL 2 mL Inj IVPUSH PRN (17:40)
[2016-10-17] MEDS ORDERED: Dexamethasone 4 mg/mL Inj IVPUSH PRN (17:40)
[2016-10-17] MEDS ORDERED: Ondansetron 2 mg/mL 2 mL Inj IVPUSH PRN (17:40)
--- NOTE | 2016-10-17 18:04 | PCM.PODPO ---
Podiatry Operative Report Date of Service: October 17, 2016 (9455) Date of Service October 17, 2016 Pre Operative Diagnosis Abscess cellulitis right foot Diabetic foot ulceration right foot Post Operative Diagnosis Same as preoperative diagnoses Procedure Washout and debridement right foot Surgeon Surgeon: Buster Cortez Assistants: None Indication for Procedure Abscess and cellulitis of right foot Findings Liquefied fat necrosis of the right plantar first and second metatarsal abscesses extension into the plantar medial compartment and first webspace including the lateral aspect of the base of the right hallux. Full-thickness necrosis of the wound edge of the medial incision and drainage site Details of Procedure Patient identified in the preoperative holding area. Patient transported into the operating room and placed on the operating room table in the normal supine position. The patient was then prepped and draped in the normal aseptic technique a 10 mL block consisting of 2% lidocaine with epinephrine was given to the right first ray. Blunt dissection was performed through previous incision and drainage wound medially and through the plantar first metatarsal ulceration. Minimal purulent drainage was noted. A small collection of purulent drainage was identified coming from the lateral aspect of the hallux base and a stab incision with a #15 blade was made on the plantar and dorsal surface of the lateral aspect of the left hallux which was then probed and productive for a small amount less than 2 mL of purulent discharge. A fresh # 15 blade was then utilized to excise the wound edges of the medial incision and drainage site which were necrotic with approximately 1/2 cm including a portion that extended plantarly toward the plantar medial ulceration. Full-thickness debridement was performed of all necrotic and nonviable deep soft tissue. The abductor hallucis tendon was identified and found to be necrotic was excised. Capsular tissue appeared healthy overlying the first metatarsal head and there was no directly exposed bone. The sesamoid apparatus was identified and no directly necrosis of this area was noted. The entirety of this ulceration following full thickness excisional debridement was copiously flushed with large amounts of normal saline. Widespread compression was placed to the right foot and no further purulent discharge was noted. The wound was then packed with 1/2 inch iodoform packing gauze to all wounds which connected centrally to the plantar ulceration. The wounds were then dressed with sterile 4 x 4 gauze and AVD pads Kerlix and a noncompressive Nicanor bandage Grafts, Implants: None Complications There were no periprocedural complications identified. Condition Stable Anesthetic Administered: MAC Catheters: None Output, Estimated Blood Loss: 15 Blood Admin during surgery: No Surgical Cast or Splint: None Surgical Specimen Removed: Yes Specimen sent to Pathology: No Post Operative Plan Transfer back to floors when stable Restart inpatient medication per hospitalist service recommendations continue intravenous antibiotic therapy broad-spectrum, follow-up wound cultures and narrow appropriately Dressings are to be changed daily by the podiatry service only Please page me with any questions or concerns Patient is likely stable for discharge to outpatient care with wound care center follow-up visits within the next 24-48 hours provided long-term antibiotic plan has been established through infectious disease. I will discuss with the patient that at this time there is no exposed bone however he is still high risk for development of osteomyelitis of his right hallux and first metatarsal if this has not already occurred. Buster Cortez DPM October 17, 2016 18:04
--- NOTE | 2016-10-17 18:05 | PCM.ANEP1 ---
Post Anesthesia Phase 1 PACU Phase 1 Assessment Date of Service: October 17, 2016 ([id number]) Vital Signs Vital Signs Date Time Temp Pulse Resp B/P Pulse Ox O2 Delivery O2 Flow Rate FiO2 10/17/16 18:00 37.1 82 16 99/67 96 Room Air 10/17/16 12:29 36.9 71 20 124/73 96 Room Air 10/17/16 10:47 92 Anesthetic Administered: MAC Level of Alertness: Awake, talking BURGESS's with Equal Strength: Yes Pain: No Nausea or Vomiting: No Cardiovascular Function and Hy: No Oxygen Delivery: Room Air Lungs: Clear to Auscultation, Normal Air Movement Dermatome Level: Full Sensation Complications: No Follow up Care: No Jameson Moulton MD October 17, 2016 18:05
[2016-10-17] MEDS ORDERED: CeFAZolin Inj 2 GM in IV Premix 1 EACH IV SCH (18:45)
--- NOTE | 2016-10-17 18:45 | DRSVH ---
[facility] [address] [place] [address] Echocardiogram Report Name: RUSTY SILVESTRE Study Date: 10/17/2016 Height: 71 in Hospital Exam Location: [facility] Weight: 209 lb Gender: Male BSA: 2.1 m2 : 1935 Age: 81 yrs BP: 146/80 mmHg Reason For Study: POSITIVE BLOOD CULTURES Ordering Physician: Performed By: Nidia Sarah [facility], HOSPITALIST ([place]) Interpretation Summary Afib with controlled rate. Normal LV size; mild concentric LVH; normal wall motion and LV systolic function. EF is 55-60%. Severe biatrial enlargement; mild RV enlargement. Mitral valve leaflets are slightly calcified; mild central regurgitation. Aortic valve is a trileaflets structure; there is trace central aortic regurgitation. Tricuspid valve leaflets are normal; there is moderate central tricuspid regurgitation. Estimated PA systolic pressure is 43 mm Hg assuming RA pressure of 8 mm Hg. No obvious vegetations seen. However, if index of suspicion is high, consider ISREAL. Procedure: A two-dimensional transthoracic echocardiogram with color flow and Doppler was performed. The study quality was technically adequate. There is no prior echocardiogram noted for this patient. The patient was in atrial fibrillation with heart rates between 56-84 bpm during the exam. Left Ventricle: Proximal septal thickening is noted. The left ventricle is normal in size. There is mild concentric left ventricular hypertrophy. The ejection fraction is estimated to be 55-60%. Diastolic function could not be accurately assessed due to atrial fibrillation. Right Ventricle: The right ventricle is mildly dilated. Right ventricular systolic function is at the lower limits of normal. Atria: Both atria are severely dilated. There is no Doppler evidence for an interatrial shunt. Mitral Valve: The mitral valve leaflets are slightly calcified. There is no vegetation seen on the mitral valve. There are multiple regurgitant jets present. There is mild mitral regurgitation. Aortic Valve: The aortic valve is normal in structure and function. There is no aortic valvular vegetation. There is trace aortic regurgitation. Tricuspid Valve: The tricuspid valve leaflets are thin and pliable. There is no tricuspid valve vegetation. There is moderate tricuspid regurgitation. The right ventricular systolic pressure is estimated at 43 mmHg assuming a right atrial pressure of 8 mm Hg. Pulmonic Valve: The pulmonic valve leaflets are thin and pliable; valve motion is normal. There is no vegetation on the pulmonic valve. There is mild pulmonic regurgitation. Great Vessels: The aortic root is normal size. The ascending aorta is mildly enlarged. The aortic arch is mildly enlarged. The IVC is dilated (diameter is greater than 2.1 cm) yet it collapses greater than 50% with a sniff. This suggests a right atrial pressure of 8 mm Hg. Pericardium/ Pleura There is no pericardial effusion. MMode/2D Measurements & Calculations LVIDd: 4.9 cm RA long axis LVOT diam: 2.3 cm LVIDs: 2.9 cm LA A2 area: 34.6 cm AoV Opening FS: 41.7 % LA A4 area: 39.0 cm RA area EPSS: 0.32 cm LA length (vol) Ao root diam IVSd: 1.2 cm : 40.1 cm LVPWd: 1.2 cm LA vol: 156.9 ml RA vol asc Aorta Diam LA vol index : 182.ml RA Ao Arch Diam (Prox : 84.8 mm2 Trans): 3.4 cm IVC diam: 2.5 cm LV figueroa. diameter/BSA LV sys. diameter/BSA RVD1 (basal) TAPSE: 1.7 cm (cm/m^2): 2.3 (cm/m^2): 1.3 Doppler Measurements & Calculations Ao V2 max MV E max jerry Med Peak E' Jerry TR max jerry : 96.3 cm/sec : 79.1 cm/sec : 296.6 cm/sec Ao max PG MV P1/2t: 47.6 msec E/E' med: 8.1 TR max PG : 3.7 mmHg Lat Peak E' Jerry : 35.2 mmHg Ao mean PG MR ERO: 0.02 cm2 PA V2 max E/E' lat: 7.6 : 88.9 cm/sec LVOT Max Jerry E/e' average: 7.9 PA mean PG : 75.7 cm/sec PA Accel Time RASHI(I,D): 3.2 cm : 0.10 sec sev ratio MV P1/2t max jerry Ao V2 mean LV V1 max PG MR flow rate : 68.5 cm/sec : 11.1 cm3/sec MVA(P1/2t) Ao V2 VTI: 19.4 cm LV V1 VTI: 14.7 cm MR PISA radius : 4.6 cm2 RASHI(V,D): 3.4 cm2 PA V2 mean RASHI indexed to BSA : 59.5 cm/sec (cm^2/m^2): 1.5 Reading Physician:06:44 PM
--- NOTE | 2016-10-17 20:30 | NUR ---
Heparin gtt restarted Heprin gtt restarted at 18units/kg/hr after initial PTT drawn after surgery. Next ptt at 0200. Pilar Khan (staff occupational therapist) checked initial start rate of heparin infusion with this RN
--- NOTE | 2016-10-17 22:29 | CONS ---
[address] [address] CONSULTATION REPORT PATIENT: RUSTY SILVESTRE : 1935 MR#: [id number] ADMIT: 10/13/2016 JOB ID: [id number] DATE OF SERVICE: 10/17/2016 REQUESTING PHYSICIAN: I thank Dr. Garcia for this timely consult. REASON FOR CONSULT: Bacteremic right foot soft tissue infection in a diabetic. HISTORY OF PRESENT ILLNESS: The patient is an 81-year-old diabetic gentleman with multiple underlying medical problems including peripheral vascular disease and chronic atrial fibrillation. Despite his medical problems, he is in great shape and he says at the behest of his weigher and grader he bicycles all over the [place] He also sometimes rides public transportation and has aspirations of getting a new car in the near future. On October 13 the patient was riding his bicycle, actually in search of a new boot for a swollen tender right foot, when he fell and was found unresponsive by bystanders and transported. He was subsequently found to have a severe infection of his right foot. The history actually goes back further than October 13 to about October 07 when the patient had developed a callus on his plantar right foot and was attempting to file it down. He reports that he became too vigorous with the filing and soon willie blood. Following this self-inflicted wound he attempted to take care of his foot on his own, but it became red, swollen and tender over a period of several days. This in turn led him to his errand on October 13 when he was riding his bike to a store to try and find a more appropriate boot for a swollen tender foot; fell and was subsequently found and transported here. The patient reports that since his two debridements here in the hospital he is much improved. Surprisingly, he states that at no point during this did he have any fevers, chills or sweats, any pulmonary or GI symptoms, or really any constitutional symptoms of any kind. He also tells us, somewhat surprisingly, that he has very little neuropathy and has good sensation in his feet. The patient is mainly concerned now about getting out of the hospital and returning to his active lifestyle and perhaps buying a car. This evening, he says he has no fevers, chills, sweats, headache, cough, shortness of breath or GI symptomatology. He has minimal pain in his right foot even though it was just debrided within the last couple hours. PAST MEDICAL HISTORY: 1. Diabetes mellitus, longstanding. 2. Peripheral vascular disease. 3. Atrial fibrillation, requiring anticoagulation with Coumadin. SOCIAL HISTORY: The patient lives by himself in [place]. The patient is a lifelong nonsmoker, nondrinker. 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 He has many local friends and acquaintances, however. FAMILY HISTORY: Negative for heart disease or malignancy. REVIEW OF SYSTEMS: Patient has no headache, no visual change. No sore throat. No cough, shortness of breath, chest pain, nausea, vomiting, diarrhea, or dysuria. He says he has no neuropathy in his feet. No problems with his left foot and that his only ongoing medical problem is need for anticoagulation and this current infection in his right foot. Remainder of the review of systems negative. PHYSICAL EXAMINATION: Reveals a comfortable, elderly gentleman in no acute distress. Temp 37.1, his pulse is 65, respiratory rate 18, blood pressure 121/77. He is saturating well on room air. Examination of the mental status reveals him to be clear, alert and oriented. He does move around a bit from topic to topic, but is able to provide a helpful history. His head is without trauma. No temporal wasting. Eyes without scleral icterus or conjunctivitis. Oral cavity with reasonably poor dentition but no pharyngitis or thrush. No cervical adenopathy or JVD. Lungs are clear. Cardiac tones: Regular rate and rhythm without any significant murmur. Abdomen: Soft, nontender, without organomegaly. No Liu catheter. His right foot is in a postop boot that was just fashioned in the OR and so we obviously did not remove it. He does have a shallow abrasion over his left knee and his left ankle where he fell off the bicycle on the day of admission, which led in part to his transport here. On his exposed left foot though he has a diminished peripheral pulse but reasonable capillary refill. He does have intact sensation and does have good strength on the left. We are unable to completely assess his right foot. The patient has no evidence of synovitis. Neurologically: Grossly intact as mentioned. LABORATORIES: Include white count started off at 20,000; now 10,000. He did have a left shift, that is now resolved. His creatinine is 0.55. AST is coming down, it is now 53. Alk phos stable at 209. Albumin 2.7. Procalcitonin 0.4. Urinalysis without white cells. Micro studies include positive blood cultures for Staphylococcus aureus, two of four bottles from October 13 are positive. Two bottles also have coag-negative Staph interestingly, which is also oxacillin susceptible fortunately. MRSA screen of the nose is negative. Cultures from the foot abscess x2 have grown Staph aureus, which is also MSSA and Strep mitis which is penicillin sensitive. Followup blood cultures done yesterday at noon remain negative. IMAGING: Includes a foot x-ray from admission that shows small calcifications and calcific plantar fasciitis. Soft tissue ulceration is seen under the first metatarsal head but no involvement of the bone. Chest x-ray shows cardiomegaly. IMPRESSION: This is an unfortunate diabetic gentleman who about 10 days ago was filing a callus off his right foot and went a bit too deep. He subsequently developed a fairly severe right foot infection which has required two debridements of soft tissue, but no noted involvement of the bone so far. Tendon was involved, some actually had to be resected. This quite severe soft tissue foot infection has been associated with bacteremia and we now also must deal with workup and treatment of methicillin-sensitive Staphylococcus aureus bacteremia. RECOMMENDATIONS: 1. Echocardiogram has already been ordered. If this is equivocal, we may need to pursue a transesophageal echocardiogram. 2. Serial blood cultures were started yesterday and will order two more sets today. 3. Antibiotics will be switched from Zosyn to cefazolin and Flagyl. 4. The patient will require a peripherally inserted central catheter line for long-term IV antibiotics, but not until blood cultures are consistently and reproducibly negative. 5. Additional Podiatry workup per Dr. Cortez. Thank you very much for this consult.
[2016-10-17] MEDS: Insulin GLARgine 100 Unit/mL Syringe SUBQ SCH (22:48)
[2016-10-18] VITALS (9 sets, daily range): BP systolic 105–146; BP diastolic 0–86; PULSE 61–90; RESP 16–22; O2SAT 96–99
[2016-10-18] MEDS: Heparin 5,000 Unit/mL Inj IVPUSH PRN ×2 (04:01→11:35)
[2016-10-18] MEDS: CeFAZolin Inj 2 GM in IV Premix 1 EACH IV SCH ×3 (04:09→17:47)
[2016-10-18 06:54] LABS: BASOPHILS % (AUTO) 0.4 % (0-3); EOSINOPHILS % (AUTO) 2.1 % (0-5); MONOCYTES % (AUTO) 11.6 % (4-12); Mean Corpuscular Volume 86.2 fL (81-100); Platelet Count 338 bil/L (150-400)
[2016-10-18 06:58] LABS: INR 1.49 ratio
[2016-10-18] MEDS: Insulin LISPRO 300 Unit/3 mL Inj SUBQ SCH ×4 (08:51→21:41)
--- NOTE | 2016-10-18 09:48 | CONS ---
[address] [address] CONSULTATION REPORT PATIENT: RUSTY SILVESTRE : 1935 MR#: [id number] ADMIT: 10/13/2016 JOB ID: [id number] DATE OF SERVICE: 10/18/2016 CARDIOLOGY CONSULTATION: REASON FOR CONSULT: Hospitalist asked us to see this patient regarding ISREAL to rule out endocarditis for a MRSA bacteremia. CHIEF COMPLAINT: Infection of right foot. PRESENT HISTORY: This 81-year-old pleasant male who has a history of longstanding diabetes mellitus, chronic atrial fibrillation, anticoagulation, status post two cardioversions in the past. His section housekeeper is Dr. Lucero at [facility] who he has not seen from last couple of years. PVD got admitted on October 13, 2016 for right foot infection, ulcer and fall. He was found to have MRSA bacteremia and soft tissue infection of the right foot. He underwent debridement. Because of MRSA bacteremia, ID was consulted and he requested a ISREAL to rule out endocarditis. At present, the patient denies any fevers, chills or tender spot in his fingers or new vision disturbances or hematuria or new rashes. He had an echocardiogram on October 17, 2016 which revealed normal LV size with LV ejection fraction 55%-60%, lower limits of right ventricular function, severe biatrial enlargement, mild mitral regurgitation, trivial aortic regurgitation, moderate tricuspid regurgitation, pulmonary artery systolic pressure about 43 mmHg. No obvious vegetation was seen. The patient denies any history of dysphagia or esophageal varices or acid peptic disease or stomach ulcer or loose teeth or history of significant sleep apnea or cirrhosis liver. He can swallow okay. PAST MEDICAL HISTORY: 1. History of non insulin diabetes mellitus. 2. Chronic atrial fibrillation, was on Coumadin. 3. History of cardioversion in the past. PAST SURGICAL HISTORY: As stated above. ALLERGIES: No known allergies. MEDICATION IN THE HOSPITAL: He is getting cefazolin, IV heparin. He is on insulin, p.o. Flagyl, metoprolol tartrate 50 mg daily. SOCIAL HISTORY: Denies any tobacco abuse, alcohol abuse. FAMILY HISTORY: Noncontributory. REVIEW OF SYSTEMS: Ten point review of systems were obtained and negative except as stated above. PHYSICAL EXAMINATION: Blood pressure 146/79, heart rate 86, irregular, respiratory rate 20, oxygen saturation room air 96%. HEENT: No significant anemia, jaundice. Neck: No apparent JVP or carotid bruits. Chest: No obvious crepitation or rhonchi. CVS: S1 variable, P2 not significantly loud. No S3 no S4. No significant murmur on my physical examination. Abdomen: No obvious pulsatile mass or bruit. Extremities: The right foot under dressing. The left foot, no evidence of critical limb ischemia. LINEN ROOM WORKER: Alert, oriented to time, place and person. Able to move all the four extremities. LABORATORIES: WBC 9.4, hemoglobin 12.2, platelets 338. Polymorphs 72. Sodium 135, potassium 4.2, BUN 11, creatinine 0.51. Now bilirubin, AST, ALT normal. PTT 44.1. EKG on admission atrial fibrillation with controlled ventricular rate with some nonspecific ST-T changes. QTc 436 msec. It was done on October 13, 2016. ASSESSMENT AND PLAN: MRSA bacteremia with underlying infected right foot with underlying chronic AFib, type 2 diabetes mellitus, moderate TR on echocardiogram. I discussed with the patient about ISREAL. Benefits and risks, which include, but not limited to, risk of GI bleed, GI perforation, aspiration, anesthesia related complications, etc., and details discussed. The patient verbalizes the understanding. All the questions were answered. The patient has chronic atrial fibrillation. He is on rate control strategy plus anticoagulation. At present, he is getting IV heparin. Clinically he appears compensated. Thanks for the cardiology consult. We will proceed with ISREAL with the help of anesthesiologist.
[2016-10-18] MEDS ORDERED: Propofol 10,000 mCg/mL 20 mL Inj ONE (10:56)
--- NOTE | 2016-10-18 11:03 | PCM.PNMED ---
Subjective Date of Service October 18, 2016 Subjective tolerated washout well yesterday by Podiatry pt denied any pain on Rt foot had mild degree temp37.7 at [place] plan for ISREAL this afternoon per kept in NPO heparin gtt running Exam Vital Signs Vital Sign - Last Date Time Temp Pulse Resp B/P Pulse Ox O2 Delivery O2 Flow Rate FiO2 10/18/16 05:12 36.8 90 20 134/85 96 Room Air Intake and Output 10/17/16 10/17/16 10/18/16 Cumulative From/Thru 15:00 23:00 07:00 10/13/16 19:50 - 10/18/16 06:47 Intake Total 569 ml 1300 ml 01047 ml Output Total 200 ml 1200 ml 83461 ml Balance 369 ml 100 ml 81 ml Intake Oral 800 ml 5857 ml IV Total 569 ml 500 ml 7089 ml Output Urine Total 200 ml 1200 ml 40833 ml Estimated Blood Loss 15 ml # Voids 6 # Bowel Movements 6 IVs and Medications Medications Reviewed: Medications were reviewed in detail Lab and Diagnostics Result Diagram: 10/18/16 0555 10/18/16 0555 Microbiology 10/13: Blood cultures 2/4 positive for staph aureus, 2/4 positive for coag- negative staph. Both are pansensitive. * Please note CoNS is sensitive to clindamycin, erythromycin, Linezolid, oxacillin, rifampin, tetracycline, Bactrim, Vanco MRSA nasal screen negative 10/14: Abscess and surgical foot sample both growing staph aureus and strep viridans. 10/16: Repeat blood cultures now pending X-Rays, CTs and MRIs Date of Service: 10/13/16 1358 PROCEDURE: CT BRAIN (TPA) ([id number]) IMPRESSION: No acute process. Dictated by: Osito Goldstein M.D. on 10/13/2016 at 14:18 Approved by: Osito Goldstein M.D. on 10/13/2016 at 14:19 Date of Service: 10/13/16 1409 PROCEDURE: X-RAY RIGHT FOOT COMPLETE, MINIMUM THREE VIEWS ([id number]) IMPRESSION: 1. Soft tissue ulceration under the first metatarsal head. Generalized swelling. No osteomyelitis or subcutaneous air is seen. 2. Calcific plantar fasciitis. 3. Small vessel calcifications may reflect diabetes. Dictated by: Dillon Stewart M.D. on 10/13/2016 at 15:39 Approved by: Dillon Stewart M.D. on 10/13/2016 at 15:42 12-lead ECG 10/13/16: Afib RVR with rate of 113. No ST or T-wave changes suggestive of acute ischemia. Assessment & Plan 81 year old male with history of non-insulin dependent diabetes mellitus and atrial fibrillation (on Coumadin) presents to the hospital with questionable fall vs syncope and noted to be febrile with possible sepsis and significant cellulitis of right foot. acute, active #Right foot cellulitis and setting of diabetic ulceration. Present on admission. s/p 10/14/16 for I&D and debridement of the right plantar foot ulcer/ abscess, 10/17 again by Podiatry. TTE unremarkable. no s/s of OM. -appreciate Podiatry will continue to follow with dressing changes -s/p Zosyn, vancomycin, switched to [id number] q8h based on culture MSSA, BCX ngtd, likely 4wks course via PICC, appreciate ID input. -ISREAL today per . #Sepsis with source of right foot cellulitis in the setting of diabetic ulceration. Present on admission.WBC greater than 12,000, tachycardia, fever greater than 38C, tachypnea: All at time of admission, Resolved -pt is clinically stable, had minor episode fever, overall trends wbc improving. HD stable. -Microbiological workup as noted above #Chronic A. fib with acute RVR, present on admission. Patient reports attempt many years ago to electrocardioversion from A. fib that was unsuccessful -rate controlled well, continue Telemetry -As we are holding his warfarin for surgical procedures, started on heparin gtt , will resume coumadin today or tomorrow. -Metoprolol restarted 10/15/16 #Diabetes mellitus type II, HA1c is 7.9, -Hold metformin for now, -continue ow-dose to medium-dose correctional scale insulin, -increase lantus 6 to 10unit given fasting>180s, to promote faster healing process. chronic, stable, resolved #Ground-level fall without LOC, prior to admission. -Brain CT negative for any acute process -Troponins negative -A. fib with RVR may have contributed to his weakness along with the sepsis -Seizure unlikely -Continue to monitor -Echo ordered (for evaluation of positive blood cultures), and we will see if this demonstrates any structural heart disease. Echocardiogram has been completed but results are not yet available. #Mild hyponatremia, presumed acute. Present on admission. Improved with fluid administration, and suspicion is for hypovolemic etiology #Elevated Hepatic Enzymes, not present on admission. resolved. #Lactic acidosis, present on admission. Resolved Disposition: pending, likely home GI Prophylaxis: Not indicated VTE Prophylaxis: Other (therapeutic heparin drip as warfarin is being held for surgical interventions) Resuscitation Status: CPR: Attempt Resuscitation Time spent 35min Luis Kauffman MD October 18, 2016 08:06
--- NOTE | 2016-10-18 11:28 | NUR ---
Heparin gtt Heparin gtt running at 20 units/kg/hr. PTT 47.3. 25 unit bolus of heparin given and gtt increased by 2 units. Heparin gtt now running at 22 units/kg/hr per heparin protocol.
--- NOTE | 2016-10-18 14:15 | NUR ---
Off unit Patient off floor to [facility] with heparin gtt running per sleeve turner.
--- NOTE | 2016-10-18 14:25 | NUR ---
Pt received into room 1 CHAN for ISREAL procedure with Dr Valera and anesthesiologist. Ana Jarvis R.N. checked in patient, both iv's patent at present. Saline soln infusion infusing at 20cc/hr.That is stopped now and saline on anesthesia tubing attached. Pt is alert and oriented, talkative and pain free.
[2016-10-18] MEDS ORDERED: Lactated Ringer's 500 ML IV PRN (15:27)
[2016-10-18] MEDS ORDERED: Lactated Ringer's 1,000 ML IV SCH (15:27)
[2016-10-18] MEDS ORDERED: EPHEDrine Sulfate 50 mg/mL Inj IVPUSH PRN (15:30)
[2016-10-18] MEDS ORDERED: Phenylephrine 10,000 mCg/mL Inj IVPUSH PRN (15:30)
--- NOTE | 2016-10-18 15:31 | PCM.HPANE ---
Patient Data Surgeon Admitting Provider:Migue Garcia Attending Provider:Migue Garcia Primary Care Physician:La Nena Other Provider: Reason for Visit Foot Infection, Sepsis, Afib W/Rvr Ht/WT & BMI Height (Feet): 5 Height (Inches): 11.00 Weight (Kilograms): 94.800 Body Mass Index 29.35 Allergies Coded Allergies: No Known Allergies (Unverified , 10/13/16) Past Anesthesia History Anesthesia History: Denies:: Abnormal Airway, Anesthesia Reactions, Difficult Intubation, Fam Anesthesia Reaction, Fam Malignant Hypertherm, Malignant Hyperthermia Diabetes History Hx Diabetes?: Yes (type 2) Current Bedside Blood Glucose: 139 MRSA MRSA: No Medications Home Meds Incl Beta Ankit: Yes Date Beta Ankit Taken: October 17, 2016 Time Beta Ankit Taken: 0800 Reported Medications Lisinopril 10 Mg [id number] Mg PO DAILY 30 Days Ref 0 10/13/16 Metformin ER 500 Mg [id number] Mg PO QAM Ref 0 10/13/16 Metformin ER 500 Mg Tablet1,000 Mg PO HS Ref 0 10/13/16 Warfarin Sodium (Coumadin)7.5 Mg Tablet7.5 Mg PO DIRECTED 30 Days Ref 0 10/13/16 Warfarin Sodium (Coumadin)5 Mg Joytkh35 Mg PO monday 30 Days Ref 0 10/13/16 Metoprolol Succinate ER 50 Mg Tab.er.24h50 Mg PO DAILY Ref 0 10/13/16 History History of ENT Problems?: No HEENT History: Denies:: Abnormal Airway Cataracts Difficult Intubation Dysphagia Glaucoma Hearing Problem Sinus Problem TMJ Denture Type: None Teeth Condition: Missing Teeth Hx of Heart Problems?: Yes Cardiovascular History: Positive for:: Irregular Heartbeat Denies:: Cardiac Surgery Chest Pain Congestive Heart Failure Edema Heart Murmur Hypertension Pacemaker Thrombophlebitis Hx of Respiratory Problem?: No Respiratory History: Denies:: Tuberculosis Hx Neurologic Problems?: No Hx of GI Problems?: No Hx of Problems?: No Male Hx: Denies:: Prostate Problems Scrotal Mass Testicular Surgery Hx Musculoskeletal Problems?: No Hx of Psycho/Social Problems?: No Hx Surgeries?: No Hx Any Other Health Problems?: Yes Other History: Positive for:: Hospitalization ("Horse broke my pelvis once - no surgery") Denies:: Cancer Thyroid Disease History Blood Transfusions: Positive for:: Accept Blood Products? Denies:: Blood Transfusions Hx Diabetes: Yes (type 2)Bedside Blood Glucose: 139 Hx Alcohol Use: NoHx Substance Use: No Smoking Status: Never Smoker Have You Smoked inLast 12 mo: No Stop/Bang Treated for Sleep Apnea?: No Do You Have a CPAP Machine?: No S-Snoring: Do You Snore Loudly: No T-Tired: feel tired, fatigued: No O-Obsered: Observed not breath: No P-Blood Pressure: treated: No B- Body Mass Index > 35 kg/m2: No A- Age over 50: Yes N- Neck Large Circumference: No G- Gender Male: Yes PATSY Total Score: 1 Risk Assessment Category Category 1A: Patient has history of documented sleep apnea, and HAS NOT received any narcotic, sedative or anesthesia administration during this stay. Category 1B: Patient has history of documented sleep apnea, and HAS received any narcotic , sedative or anesthesia administration during this stay Category 2: Patient has SUSPECTED Obstructive Sleep Apnea, and HAS received any narcotic , sedative or anesthesia administration during this stay. Category 3: Patient has SUSPECTED Obstructive Sleep Apnea and HAS NOT received narcotic, sedative or anesthesia administration during this stay. Category 4: Outpatient in Procedural Areas with known sleep apnea or who screen positive for High Risk via the STOP/BANG questionnaire. Exam Exam Vital Signs Vital Signs Date Time Temp Pulse Resp B/P Pulse Ox O2 Delivery O2 Flow Rate FiO2 10/18/16 14:15 36.5 61 18 142/0 99 Room Air 10/18/16 10:13 Room Air 10/18/16 08:33 36.7 86 20 146/79 96 Room Air General Appearance: Alert, Oriented X3, Cooperative, No Acute Distress HEENT/AIRWAY: MP 2 Lungs: Clear to Auscultation, Normal Air Movement Heart: Other (irreg irreg) Meds/Labs/Diagnostics Admission Meds Current Medications Lidocaine/ Epinephrine 10 ml 10 ml STK-MED ONCE INFILTRATE Last administered on 10/17/16 17:32; Start 10/17/16 at 17:32; Stop 10/17/16 at 17:34; Status DC Lactated Ringer's 1,000 ml @ ud STK-MED ONCE IV Last administered on 17:09; Start 10/17/16 at 17:09; Stop 10/17/16 at 17:34; Status DC Cefazolin Sodium/ Dextrose/Premix (Ancef Inj / D5W 50mL/IV Premix) 50 ml @ 100 mls/hr Q8 IV Last administered on 10/17/16 19:55; Start 10/17/16 at 18:45; Stop 10/17/16 at 20:55; Status DC Metronidazole HCl 500 mg 500 mg Q12 PO Last administered on 10/18/16 08:51; Start 10/17/16 at 20:30 Cefazolin Sodium/ Dextrose/Premix (Ancef Inj / D5W 50mL/IV Premix) 50 ml @ 100 mls/hr Q8 IV Last administered on 10/18/16 08:51; Start 10/18/16 at 04:30 Metoprolol Tartrate (Lopressor) 50 mg DAILY PO Last administered on 10/18/16 08:52; Start 10/18/16 at 08:41; Stop 10/18/16 at 08:53; Status DC Bedside Blood Glucose: 139 Labs Test 10/13/16 14:15 10/13/16 22:00 10/14/16 03:00 10/15/16 02:38 Hemoglobin A1c 7.9% (4.8-5.6) Troponin T < 0.010ug/L (0.0-0.011) Pro-B-Type Natriuretic Peptide 1945pg/mL (0-486) Urine Color Annia (YELLOW) Urine Appearance Hazy (CLEAR,HAZY) Urine pH 5.5 (5.0-8.0) Urine Specific [place] 1.035 (1.003-1.035) Urine Protein 100mg/dL (NEG,TRACE) Urine Glucose (UA) >1000mg/dL (NEGATIVE) Urine Ketones 15mg/dL (NEGATIVE) Urine Occult Blood Small (NEGATIVE) Urine Nitrite Negative (NEGATIVE) Urine Bilirubin Negative (NEGATIVE) Urine Ictotest Negative (Negative) Urine Urobilinogen 2.0mg/dL (NORMAL) Urine Leukocyte Esterase Negative (NEGATIVE) Urine RBC 0-2/hpf (0-2) Urine WBC 0-5/hpf (0-5) Urine Epithelial Cells Few/hpf (NONE-MOD) Urine Crystals None seen (NONE SEEN) Urine Bacteria Few/hpf (NONE-FEW) Urine Hyaline Casts 5/20/lpf (NONE) Urine Granular Casts Occasional (NONE SEEN) Urine Waxy Casts None seen (NONE SEEN) Urine Red Blood Cell Casts None seen (NONE SEEN) Urine White Blood Cell Casts None seen (NONE SEEN) Urine Mucus Present (None Seen) Urine Trichomonas None seen (NONE SEEN) Urine Yeast None (NONE SEEN) Urinalysis Comment None Urine Culture Reflexed Not indicated Magnesium Level 1.9mg/dL (1.6-2.6) Vancomycin Level Trough 2.9mcg/mL Test 10/16/16 03:05 10/18/16 05:55 10/18/16 10:45 Band Neutrophils % 1% (1-5) Lactic Acid Level 1.1mmol/L (0.4-2.0) Procalcitonin 0.40ng/mL (0.00-0.08) White Blood Count 9.4th/mm3 (3.8-10.1) Red Blood Count 4.36mil/mm3 (4.40-5.80) Hemoglobin 12.2g/dL (13.8-17.2) Hematocrit 37.6% (41.0-50.0) Mean Corpuscular Volume 86.2fL (81-100) Mean Corpuscular Hemoglobin 28.0pg (27.0-35.0) Mean Corpuscular Hemoglobin Concent 32.4% (32.0-37.0) Red Cell Distribution Width 13.2% (12.3-15.4) Platelet Count 338bil/L (150-400) Neutrophils (%) (Auto) 72.0% (40-74) Lymphocytes (%) (Auto) 10.7% (14-46) Monocytes (%) (Auto) 11.6% (4-12) Eosinophils (%) (Auto) 2.1% (0-5) Basophils (%) (Auto) 0.4% (0-3) Prothrombin Time 16.1sec (8.1-12.5) Prothromb Time International Ratio 1.49ratio Sodium Level 135mEq/L (134-144) Potassium Level 4.2mEq/L (3.5-5.2) Chloride Level 99mEq/L (97-108) Carbon Dioxide Level 22mmol/L (18-29) Blood Urea Nitrogen 11mg/dL (8-27) Creatinine 0.51mg/dL (0.76-1.27) Estimat Glomerular Filtration Rate 165mL/min (>59) Glucose Level 192mg/dL (60-99) Calcium Level 8.4mg/dL (8.5-10.1) Total Bilirubin 0.8mg/dL (0.0-1.2) Aspartate Amino Transf (AST/SGOT) 35U/L (0-50) Alanine Aminotransferase (ALT/SGPT) 35U/L (0-44) Alkaline Phosphatase 199U/L (25-160) Total Protein 5.5g/dL (6.4-8.4) Albumin 3.0g/dL (3.4-5.0) Activated Partial Thromboplast Time 47.3sec (22.8-33.0) Plan Impression Patient chart reviewed, patient interviewed and anesthestic plan with risks, benefits, and alternatives discussed, and informed consent obtained. NPO per Anesth. Guidelines: Yes ASA Physical Status: ASA3 Severe Disease (A fib) Anesthetic Plan: GA, MAC Bene/Risks/Altern/Consents: Yes HP Complete Prior to Induction: Yes Bryn Handley MD October 18, 2016 14:54
--- NOTE | 2016-10-18 15:33 | PCM.ANEP1 ---
Post Anesthesia Phase 1 PACU Phase 1 Assessment Date of Service: October 17, 2016 ([id number]) Vital Signs Vital Signs Date Time Temp Pulse Resp B/P Pulse Ox O2 Delivery O2 Flow Rate FiO2 10/18/16 14:15 36.5 61 18 142/0 99 Room Air 10/18/16 10:13 Room Air 10/18/16 08:33 36.7 86 20 146/79 96 Room Air Anesthetic Administered: GA, MAC Level of Alertness: Awake, talking BURGESS's with Equal Strength: Yes Pain: Yes (unrated) Nausea or Vomiting: No Cardiovascular Function and Hy: No Oxygen Delivery: Room Air Lungs: Clear to Auscultation, Normal Air Movement Dermatome Level: Full Sensation Complications: No Follow up Care: No Bryn Handley MD October 18, 2016 15:33
--- NOTE | 2016-10-18 16:06 | NUR ---
Back on Unit Patient back on floor from ISREAL. Denies pain and nausea at this time. Patient repositions self to comfort. Call light and tray table within reach. Will continue to monitor patient hourly.
--- NOTE | 2016-10-18 16:10 | NUR ---
Pt tx back to room via wheelchair.He is fully recovered, able to transfer independently from stretcher to [facility] with standby assist. Report to RAntonia at [facility] on arrival to unit.
--- NOTE | 2016-10-18 16:25 | PCM.PNPOD ---
Subjective Date of Service: October 18, 2016 Date of Service: October 18, 2016 Visit Information: Reason for Visit Foot Infection, Sepsis, Afib W/Rvr Surgery/Surgery Date Post-Op Day # Date of Admission: October 13, 2016 at 17:51 Hospital Day # Subjective: Patient evaluated at bedside in no acute distress day 1 status post washout and debridement of right foot abscess and cellulitis. Patient underwent incision and drainage 4 days ago. He denies any significant discomfort of the right foot. He is scheduled to have an echocardiogram performed today. Postop General: No Complaints Gastrointestinal: Good Appetite Pain Management: No or Minimal Pain Objective Vital Sign - Last Date Time Temp Pulse Resp B/P Pulse Ox O2 Delivery O2 Flow Rate FiO2 10/18/16 16:00 75 18 110/78 99 Room Air 10/18/16 15:39 3.00 10/18/16 14:15 36.5 Intake and Output 10/17/16 10/17/16 10/18/16 Cumulative From/Thru 15:00 23:00 07:00 10/13/16 19:50 - 10/18/16 06:47 Intake Total 569 ml 1300 ml 38482 ml Output Total 200 ml 1200 ml 26957 ml Balance 369 ml 100 ml 81 ml Intake Oral 800 ml 5857 ml IV Total 569 ml 500 ml 7089 ml Output Urine Total 200 ml 1200 ml 01715 ml Estimated Blood Loss 15 ml # Voids 6 # Bowel Movements 6 Result Diagram: 10/18/16 0555 10/18/16 0555 Lab Test 10/13/16 14:15 10/13/16 22:00 10/14/16 03:00 10/15/16 02:38 Hemoglobin A1c 7.9% (4.8-5.6) Troponin T < 0.010ug/L (0.0-0.011) Pro-B-Type Natriuretic Peptide 1945pg/mL (0-486) Urine Color Annia (YELLOW) Urine Appearance Hazy (CLEAR,HAZY) Urine pH 5.5 (5.0-8.0) Urine Specific [place] 1.035 (1.003-1.035) Urine Protein 100mg/dL (NEG,TRACE) Urine Glucose (UA) >1000mg/dL (NEGATIVE) Urine Ketones 15mg/dL (NEGATIVE) Urine Occult Blood Small (NEGATIVE) Urine Nitrite Negative (NEGATIVE) Urine Bilirubin Negative (NEGATIVE) Urine Ictotest Negative (Negative) Urine Urobilinogen 2.0mg/dL (NORMAL) Urine Leukocyte Esterase Negative (NEGATIVE) Urine RBC 0-2/hpf (0-2) Urine WBC 0-5/hpf (0-5) Urine Epithelial Cells Few/hpf (NONE-MOD) Urine Crystals None seen (NONE SEEN) Urine Bacteria Few/hpf (NONE-FEW) Urine Hyaline Casts 10/22/lpf (NONE) Urine Granular Casts Occasional (NONE SEEN) Urine Waxy Casts None seen (NONE SEEN) Urine Red Blood Cell Casts None seen (NONE SEEN) Urine White Blood Cell Casts None seen (NONE SEEN) Urine Mucus Present (None Seen) Urine Trichomonas None seen (NONE SEEN) Urine Yeast None (NONE SEEN) Urinalysis Comment None Urine Culture Reflexed Not indicated Magnesium Level 1.9mg/dL (1.6-2.6) Vancomycin Level Trough 2.9mcg/mL Test 10/16/16 03:05 10/18/16 05:55 10/18/16 10:45 Band Neutrophils % 1% (1-5) Lactic Acid Level 1.1mmol/L (0.4-2.0) Procalcitonin 0.40ng/mL (0.00-0.08) White Blood Count 9.4th/mm3 (3.8-10.1) Red Blood Count 4.36mil/mm3 (4.40-5.80) Hemoglobin 12.2g/dL (13.8-17.2) Hematocrit 37.6% (41.0-50.0) Mean Corpuscular Volume 86.2fL (81-100) Mean Corpuscular Hemoglobin 28.0pg (27.0-35.0) Mean Corpuscular Hemoglobin Concent 32.4% (32.0-37.0) Red Cell Distribution Width 13.2% (12.3-15.4) Platelet Count 338bil/L (150-400) Neutrophils (%) (Auto) 72.0% (40-74) Lymphocytes (%) (Auto) 10.7% (14-46) Monocytes (%) (Auto) 11.6% (4-12) Eosinophils (%) (Auto) 2.1% (0-5) Basophils (%) (Auto) 0.4% (0-3) Prothrombin Time 16.1sec (8.1-12.5) Prothromb Time International Ratio 1.49ratio Sodium Level 135mEq/L (134-144) Potassium Level 4.2mEq/L (3.5-5.2) Chloride Level 99mEq/L (97-108) Carbon Dioxide Level 22mmol/L (18-29) Blood Urea Nitrogen 11mg/dL (8-27) Creatinine 0.51mg/dL (0.76-1.27) Estimat Glomerular Filtration Rate 165mL/min (>59) Glucose Level 192mg/dL (60-99) Calcium Level 8.4mg/dL (8.5-10.1) Total Bilirubin 0.8mg/dL (0.0-1.2) Aspartate Amino Transf (AST/SGOT) 35U/L (0-50) Alanine Aminotransferase (ALT/SGPT) 35U/L (0-44) Alkaline Phosphatase 199U/L (25-160) Total Protein 5.5g/dL (6.4-8.4) Albumin 3.0g/dL (3.4-5.0) Activated Partial Thromboplast Time 47.3sec (22.8-33.0) Exam General: Alert, Oriented X3, Cooperative, No Acute Distress Lungs: Clear to Auscultation, Normal Air Movement Lower Extremities: Right: Edema localized Extremity warm Lower Extremity Pulses: Palpable: Right Dorsalis Pedis (faint) Right Posterior Tibal (faint) Postop Sensory Motor: Distal Motor Intact, Motor 5/5 Podiatry WOUND : Wound Location/Description Right medial foot incision and drainage site without surrounding necrotic tissue this is full-thickness to capsular tissue without exposed tendon or bone. This wound connects subcutaneously to the plantar sub-first metatarsal wound. There is no noted purulent drainage today there is a minimal amount of serosanguineous drainage and a moderate amount of yellow drainage noted. There is no malodor erythema extends only to the wound edge Right sub-met one ulceration full-thickness to subcutaneous tissue without exposed bone or tendon this wound probes to the lateral aspect of the right hallux there is no purulent drainage noted there is minimal serosanguineous drainage and a moderate amount of yellow discharge noted. There is a minimal amount of local maceration tissue no surrounding erythema no malodor no signs of acute infection Surgical Cast or Splint: None Assessment & Plan Impression Stable right foot wound status post washout and debridement of right foot abscess Problems: Plan Dressing change today. The wounds were copious he flushed with large amounts of normal saline. The right foot appears stable at this time and there are no further signs of purulent drainage or collection. I have discussed in detail with the patient that although there is no directly exposed bone at this time I am still highly concerned for a possible underlying osteomyelitis of the right hallux and possible distal aspect of the first metatarsal. This patient demonstrates understanding however states repeatedly that he does not at this time was to have his toe amputated. We will continue with conservative local wound care at this time the wound was repacked with sterile 1/2 inch iodoform packing gauze and dressed with dry sterile gauze Kerlix and a noncompressive Nicanor bandage. This dressing is to be changed daily by the podiatry service. This patient has had minimal bleeding associated with his right foot wound and appears to have pretty significant peripheral arterial disease. It would likely benefit this patient significantly to have arterial duplex studies performed of the right lower extremity while he is admitted so that at some point in the future he may receive an interventional cardiology or vascular consultation regarding the blood flow to his lower extremity. Follow IV antibiotic recommendations per Dr. Zhu Partial weightbearing to the right heel for transfers and toileting only no prolonged ambulation Podiatry will continue to follow daily VTE Prophylaxis: Other (therapeutic heparin drip as warfarin is being held for surgical interventions) Buster Cortez DPM October 18, 2016 16:24
--- NOTE | 2016-10-18 17:22 | NUR ---
Heparin drip PTT came back at 88.2. Heparin dosing decreased by 1 unit per protocol. Now running at 21 units/kg/hr.
--- NOTE | 2016-10-18 18:25 | DRSVH ---
[facility] [address] [place] [address] Echocardiogram Report Name: RUSTY SILVESTRE Study Date: 10/18/2016 Height: 71 in Hospital Exam Location: [facility] Weight: 209 lb Gender: Male BSA: 2.1 m2 : 1935 Age: 81 yrs BP: 133/83 mmHg Reason For Study: Atrial fibrillation Performed By: Eleln Campuzano Referring Physician: ENA HERNÁNDEZ Interpretation Summary No obvious valvular vegetation seen. There is a thrombus seen in the left atrial appendage. Spontaneous contrast in LA. The left atrium is severely dilated. Injection of contrast documented no interatrial shunt. Moderate atherosclerotic plaque(s) in the aortic arch. The left ventricle is grossly normal size. The ejection fraction is estimated to be 50-55%. There is no LV thrombus. There is moderate mitral regurgitation. There is moderate tricuspid regurgitation. Procedure: Informed consent for Transesophageal Echocardiogram, and use of a contrast agent as needed, was obtained prior to the procedure. The transesophageal probe was passed without difficulty. Contrast injection with agitated saline was performed. The patient tolerated the procedure well without evidence of orophangeal or esophageal trauma. Comparison is made with the echocardiogram of 10/17/16. Sedation was managed by anesthesiologist; see anesthesiology notes for details. The usual views were obtained; basal, mid- esophageal, transgastric and aortic views. The patient's vital signs, including blood pressure, heart rate, pulse oximetry and cardiac rhythm were monitored throughout the procedure and remained stable. A 2D transesophageal echocardiogram with spectral and color flow Doppler was performed. The patient was in normal sinus rhythm during the exam. There were no complications. Left Ventricle: The left ventricle is grossly normal size. There is no thrombus. The ejection fraction is estimated to be 50-55%. Right Ventricle: The right ventricle is mildly dilated. Right ventricular systolic function is at the lower limits of normal. Atria: The left atrium is severely dilated. Spontaneous contrast in LA. There is a thrombus seen in the left atrial appendage. Spontaneous contrast in left atrial appendage. Injection of contrast documented no interatrial shunt. Mitral Valve: The mitral valve leaflets appear thickened, but open well. The mitral valve leaflets are mildly calcified. There is mild mitral annular calcification. There is no vegetation seen on the mitral valve. There is moderate mitral regurgitation. There are multiple regurgitant jets present. Aortic Valve: The aortic valve is trileaflet. The aortic valve opens well. The aortic valve is mildly calcified. There is no aortic valvular vegetation. There is no aortic valve stenosis. There is trace aortic regurgitation. Tricuspid Valve: The tricuspid valve is normal. There is no tricuspid valve vegetation. There is moderate tricuspid regurgitation. Pulmonic Valve: The pulmonic valve leaflets are thin and pliable; valve motion is normal. There is no vegetation on the pulmonic valve. There is mild to moderate pulmonic regurgitation. Great Vessels: Moderate atherosclerotic plaque(s) in the aortic arch. Reading Physician:IGNACIA
--- NOTE | 2016-10-18 19:23 | PROG NOTE ---
[address] [address] PROGRESS NOTE PATIENT: RUSTY SILVESTRE : 1935 MR#: [id number] ADMIT: 10/13/2016 JOB ID: [id number] DATE: 10/18/2016 REASON FOR FOLLOWUP: MSSA bacteremia arising from a severe right foot infection in a diabetic. INTERVAL HISTORY: Overnight, the patient has felt relatively well. No fevers, chills, sweats. No cough, nausea, vomiting, diarrhea, dysuria. He has minimal pain in his right foot despite the extensive soft tissue debridement which has been done. PHYSICAL EXAMINATION: Reveals an afebrile gentleman, temperature 36.5, pulse 75, respiratory rate 18, blood pressure 110/78 saturating well on room air. No acute distress. Oral cavity negative. Lungs clear. Cardiac tones irregularly irregular. Cardiac tones without new murmur. Abdomen is benign. His foot is dressed in a large bulky dressing with protruding toes he can move. LABORATORIES: Include a white count 9400, creatinine 0.51. Blood cultures from admission on the grew a Staph aureus. Followup blood cultures from the and remain negative. Cultures from the foot debridement grew Staph aureus and Strep mitis. The patient is currently receiving cefazolin in a dose of 2 g q.8 and tolerating that. Transesophageal echo was discussed with the paid search analyst. It shows no involvement of the valves though there is a large clot in the left atrium which probably reflects his 10 years of atrial fibrillation. The patient tells us his INR, which is monitored fairly regularly, is usually between 2.2 and 2.5 so I am not certain what else should be done and it was 2.2 on an admit, so he is doing fairly well with his anticoagulation and yet still has a large left atrial clot. IMPRESSION: This patient has an Methicillin-sensitive staphylococcus aureus bacteremia arising from a right foot infection in the setting of advanced diabetes. Despite this, there is no evidence of endocarditis and we can probably plan on about a four-week total course of IV antibiotics which would take us through about November 09 or . The patient could do this at home conceivably, though he does live alone or perhaps at a care home facility where he could also receive care for his right foot. RECOMMENDATIONS: 1. Will continue with Ancef. 2. In another day or two, it would be feasible to place a PICC and start to think about discharge or placement.
--- NOTE | 2016-10-18 21:36 | PCM.CONPHA ---
Subjective Date of Service: October 18, 2016 fall and foot ulcer Reason for Pharmacy Consult: Anticoagulation Management Objective Vital Signs Date Time Temp Pulse Resp B/P Pulse Ox O2 Delivery O2 Flow Rate FiO2 10/18/16 16:00 75 18 110/78 99 Room Air 10/18/16 15:45 77 18 121/65 98 Room Air 10/18/16 15:39 85 22 124/62 99 Nasal Cannula 3.00 10/18/16 15:36 78 22 125/70 99 Nasal Cannula 3.00 10/18/16 14:15 36.5 61 18 142/0 99 Room Air 10/18/16 10:13 Room Air 10/18/16 08:33 36.7 86 20 146/79 96 Room Air 10/18/16 05:12 36.8 90 20 134/85 96 Room Air 10/18/16 00:28 37.7 88 20 143/86 98 Room Air Intake and Output 10/16/16 10/17/16 10/18/16 00:00 00:00 00:00 Intake Total 4102 ml 2007 ml 1803 ml Output Total 2675 ml 3625 ml 3400 ml Balance 1427 ml -1618 ml -1597 ml Weight (Kilograms): 94.800 Height (Feet): 5 Height (Inches): 11.00 Test 10/13/16 14:15 10/13/16 22:00 10/14/16 03:00 10/15/16 02:38 Hemoglobin A1c 7.9% (4.8-5.6) Troponin T < 0.010ug/L (0.0-0.011) Pro-B-Type Natriuretic Peptide 1945pg/mL (0-486) Urine Color Annai (YELLOW) Urine Appearance Hazy (CLEAR,HAZY) Urine pH 5.5 (5.0-8.0) Urine Specific Taiban 1.035 (1.003-1.035) Urine Protein 100mg/dL (NEG,TRACE) Urine Glucose (UA) >1000mg/dL (NEGATIVE) Urine Ketones 15mg/dL (NEGATIVE) Urine Occult Blood Small (NEGATIVE) Urine Nitrite Negative (NEGATIVE) Urine Bilirubin Negative (NEGATIVE) Urine Ictotest Negative (Negative) Urine Urobilinogen 2.0mg/dL (NORMAL) Urine Leukocyte Esterase Negative (NEGATIVE) Urine RBC 0-2/hpf (0-2) Urine WBC 0-5/hpf (0-5) Urine Epithelial Cells Few/hpf (NONE-MOD) Urine Crystals None seen (NONE SEEN) Urine Bacteria Few/hpf (NONE-FEW) Urine Hyaline Casts 10/22/lpf (NONE) Urine Granular Casts Occasional (NONE SEEN) Urine Waxy Casts None seen (NONE SEEN) Urine Red Blood Cell Casts None seen (NONE SEEN) Urine White Blood Cell Casts None seen (NONE SEEN) Urine Mucus Present (None Seen) Urine Trichomonas None seen (NONE SEEN) Urine Yeast None (NONE SEEN) Urinalysis Comment None Urine Culture Reflexed Not indicated Magnesium Level 1.9mg/dL (1.6-2.6) Vancomycin Level Trough 2.9mcg/mL Test 10/16/16 03:05 10/18/16 05:55 10/18/16 16:39 Band Neutrophils % 1% (1-5) Lactic Acid Level 1.1mmol/L (0.4-2.0) Procalcitonin 0.40ng/mL (0.00-0.08) White Blood Count 9.4th/mm3 (3.8-10.1) Red Blood Count 4.36mil/mm3 (4.40-5.80) Hemoglobin 12.2g/dL (13.8-17.2) Hematocrit 37.6% (41.0-50.0) Mean Corpuscular Volume 86.2fL (81-100) Mean Corpuscular Hemoglobin 28.0pg (27.0-35.0) Mean Corpuscular Hemoglobin Concent 32.4% (32.0-37.0) Red Cell Distribution Width 13.2% (12.3-15.4) Platelet Count 338bil/L (150-400) Neutrophils (%) (Auto) 72.0% (40-74) Lymphocytes (%) (Auto) 10.7% (14-46) Monocytes (%) (Auto) 11.6% (4-12) Eosinophils (%) (Auto) 2.1% (0-5) Basophils (%) (Auto) 0.4% (0-3) Prothrombin Time 16.1sec (8.1-12.5) Prothromb Time International Ratio 1.49ratio Sodium Level 135mEq/L (134-144) Potassium Level 4.2mEq/L (3.5-5.2) Chloride Level 99mEq/L (97-108) Carbon Dioxide Level 22mmol/L (18-29) Blood Urea Nitrogen 11mg/dL (8-27) Creatinine 0.51mg/dL (0.76-1.27) Estimat Glomerular Filtration Rate 165mL/min (>59) Glucose Level 192mg/dL (60-99) Calcium Level 8.4mg/dL (8.5-10.1) Total Bilirubin 0.8mg/dL (0.0-1.2) Aspartate Amino Transf (AST/SGOT) 35U/L (0-50) Alanine Aminotransferase (ALT/SGPT) 35U/L (0-44) Alkaline Phosphatase 199U/L (25-160) Total Protein 5.5g/dL (6.4-8.4) Albumin 3.0g/dL (3.4-5.0) Activated Partial Thromboplast Time 88.2sec (22.8-33.0) Assessment/Plan Assessment/Plan Warfarin management per pharmacy Indication: atrial fibrillation Home dose: 10 mg on Mondays, 7.5 mg on all other days of the week Date -October INR 10 mg INR change 1.49 Warf Dose XXXXXX INR is subtherapeutic following held warfarin doses. Patient is anticoagulated on hep drip. Will order conservative dose. Give warfarin 7.5 mg PO once this evening. Pharmacy to continue to monitor and dose warfarin daily. Thank you, Annie Dumont Pharmacist Annie Dumont October 18, 2016 21:36
[2016-10-18] MEDS: Insulin GLARgine 100 Unit/mL Syringe SUBQ SCH (21:39)
[2016-10-19] MEDS: CeFAZolin Inj 2 GM in IV Premix 1 EACH IV SCH ×3 (00:25→17:21)
--- NOTE | 2016-10-19 02:09 | NUR ---
Pain/Heparin Drip On initial assessment, patient denied pain in right foot. Patient refused any kind of pain medication. At 1015. PTT result was 61.5. No changed in dosage per algorithm. Next PTT scheduled for 0415 on 10/19. VSS. Call light within reach. Care continues.
[2016-10-19] MEDS: Heparin 25K Unit/500mL 0.45 NS 25,000 UNIT in IV Premix 1 EACH IV SCH ×2 (02:53→16:07)
[2016-10-19 04:21] LABS: BASOPHILS % (AUTO) 0.7 % (0-3); EOSINOPHILS % (AUTO) 2.2 % (0-5); MONOCYTES % (AUTO) 12.7 % (4-12); Mean Corpuscular Hemoglobin 28.6 pg (27.0-35.0); NEUTROPHILS % (AUTO) 68.4 % (40-74)
[2016-10-19 04:41] LABS: Platelet Count 334 bil/L (150-400)
[2016-10-19 05:22] VITALS: BP 131/65; PULSE 71; RESP 16; O2SAT 94
[2016-10-19 07:38] VITALS: BP 133/79; PULSE 44; RESP 18; O2SAT 96
[2016-10-19 08:41] VITALS: PULSE 66
[2016-10-19] MEDS: Insulin LISPRO 300 Unit/3 mL Inj SUBQ SCH ×4 (08:51→21:52)
[2016-10-19 11:10] LABS: INR 1.51 ratio
--- NOTE | 2016-10-19 11:14 | PCM.PNMED ---
Subjective Date of Service October 19, 2016 Subjective pt tolerated ISREAL well, no complaints Coumadin resumed Exam Vital Signs Vital Sign - Last Date Time Temp Pulse Resp B/P Pulse Ox O2 Delivery O2 Flow Rate FiO2 10/19/16 08:41 66 10/19/16 07:38 36.9 18 133/79 96 Room Air 10/18/16 15:39 3.00 Intake and Output 10/18/16 10/18/16 10/19/16 Cumulative From/Thru 15:00 23:00 07:00 10/13/16 19:50 - 10/19/16 06:41 Intake Total 480 ml 1625 ml 68183 ml Output Total 2200 ml 2225 ml 32893 ml Balance -1720 ml -600 ml -2239 ml Intake Oral 480 ml 200 ml 6537 ml IV Total 1425 ml 8514 ml Output Urine Total 2200 ml 2225 ml 17875 ml Estimated Blood Loss 15 ml # Voids 6 # Bowel Movements 6 Exam NAD, comfortably laying down on the bed no JVD, MMM, no LAD RRR, nl s1, s2 no mrg CTAB, no w,c S,ND,NT,normoactive BS+ Rt foot, sterile dressed, XOCHITL bandaged IVs and Medications Medications Reviewed: Medications were reviewed in detail Lab and Diagnostics Result Diagram: 10/19/16 04110/19/16 0415 Microbiology 10/13: Blood cultures 2/4 positive for staph aureus, 2/4 positive for coag- negative staph. Both are pansensitive. * Please note CoNS is sensitive to clindamycin, erythromycin, Linezolid, oxacillin, rifampin, tetracycline, Bactrim, Vanco MRSA nasal screen negative 10/14: Abscess and surgical foot sample both growing staph aureus and strep viridans. 10/16: Repeat blood cultures now pending X-Rays, CTs and MRIs Date of Service: 10/13/16 1448 PROCEDURE: CT BRAIN (TPA) ([id number]) IMPRESSION: No acute process. Dictated by: Osito Goldstein M.D. on 10/13/2016 at 14:18 Approved by: Osito Goldstein M.D. on 10/13/2016 at 14:19 Date of Service: 10/13/16 1409 PROCEDURE: X-RAY RIGHT FOOT COMPLETE, MINIMUM THREE VIEWS ([id number]) IMPRESSION: 1. Soft tissue ulceration under the first metatarsal head. Generalized swelling. No osteomyelitis or subcutaneous air is seen. 2. Calcific plantar fasciitis. 3. Small vessel calcifications may reflect diabetes. Dictated by: Dillon Stewart M.D. on 10/13/2016 at 15:39 Approved by: Dillon Stewart M.D. on 10/13/2016 at 15:42 12-lead ECG 10/13/16: Afib RVR with rate of 113. No ST or T-wave changes suggestive of acute ischemia. Assessment & Plan 81 year old male with history of non-insulin dependent diabetes mellitus and atrial fibrillation (on Coumadin) presents to the hospital with questionable fall vs syncope and noted to be febrile with possible sepsis and significant cellulitis of right foot. acute, active #Right foot cellulitis and setting of diabetic ulceration. Present on admission. s/p 10/14/16 for I&D and debridement of the right plantar foot ulcer/ abscess, 10/17 again by Podiatry. TTE/ISREAL unremarkable. no s/s of OM. -appreciate Podiatry will continue to follow with dressing changes -s/p Zosyn, vancomycin, switched to [id number] q8h based on culture MSSA, BCX ngtd, likely 4wks course via PICC, appreciate ID input. #Sepsis with source of right foot cellulitis in the setting of diabetic ulceration. Present on admission.WBC greater than 12,000, tachycardia, fever greater than 38C, tachypnea: All at time of admission, Resolved -pt is clinically stable, overall trends wbc improving. HD stable. -Microbiological workup as noted above #Chronic A. fib with acute RVR, present on admission. Patient reports attempt many years ago to electrocardioversion from A. fib that was unsuccessful -rate controlled well, continue Telemetry -bridge with heparin gtt, resume coumadin -Metoprolol restarted 10/15/16 #Diabetes mellitus type II, HA1c is 7.9, -Hold metformin for now, -continue ow-dose to medium-dose correctional scale insulin, -increase lantus 6 to 10unit given fasting>180s, to promote faster healing process. chronic, stable, resolved #Ground-level fall without LOC, prior to admission. -Brain CT negative for any acute process -Troponins negative -A. fib with RVR may have contributed to his weakness along with the sepsis -Seizure unlikely -Continue to monitor -Echo ordered (for evaluation of positive blood cultures), and we will see if this demonstrates any structural heart disease. Echocardiogram has been completed but results are not yet available. #Mild hyponatremia, presumed acute. Present on admission. Improved with fluid administration, and suspicion is for hypovolemic etiology #Elevated Hepatic Enzymes, not present on admission. resolved. #Lactic acidosis, present on admission. Resolved Disposition: 1-2 days takes time for bridging, home with HH, infusion GI Prophylaxis: Not indicated VTE Prophylaxis: Other (therapeutic heparin drip as warfarin is being held for surgical interventions) Resuscitation Status: CPR: Attempt Resuscitation Time spent 35min Luis Kauffman MD October 19, 2016 11:14
--- NOTE | 2016-10-19 12:06 | PCM.PHAPRO ---
Progress Warfarin Management by Pharmacy: * Indication: afib * Home Dose: warfarin 10mg on Mo and 7.5mg all other days * Inr Goal: 2-3 * [id number] Score: 4 * Concurrent Anticoagulation: Heparin Infusion * Drug Interactions: metronidazole (significant), cefazolin(lesser significance) * Coagulation Trends: October 19-October 1.49 1.54 1.49 0.05 7.5 MG 7.5MG Plan: Day 2 of warfarin this evening as this had been held upon admission (10/13) for procedure. Was resumed yesterday. Will repeat home dose of 7.5mg this evening with close monitoring as pt is receiving metronidazole. Bridged with Heparin Infusion as inr remains subtherapeutic today Daisy Valdez [facility] October 19, 2016 12:06
--- NOTE | 2016-10-19 13:32 | NUR ---
Heparin gtt Last PTT was 84.2 in goal range iwth no changes made to rate at 21 units/kg/hr (39 mls/hr). PTT at 1100 results are 98.6 which required a 2 unit/kg/hr rate reduction. Current rate is now 19 units/kg/hr (36.1 mls/hr) and the next PTT draw is scheduled for 6 hours from then at 1700. Stools are being monitored for bleeding.
[2016-10-19 13:48] VITALS: BP 126/77; PULSE 76; RESP 18; O2SAT 98
--- NOTE | 2016-10-19 15:50 | NUR ---
Social Work: Continued Discharge Planning D: EMR reviewed. Pt is on day 6 of hospitalization. SW met with pt at bedside to discuss SNF v HH + infusion services. SW explained SNF will be covered by Medicare because it has been deemed medically necessary based on course of IVABX (Ancef Q8 - 4 weeks) and RN PT OT needs after discharge. deems SNF medically necessary. Pt was agreeable to discussing SNF rather than HH based on potential out of pocket costs for infusion services. SW provided pt with SNF choicelist. Pt is considering [facility] but would like to think about options. ESPERANZA confirmed we will follow-up with pt 10/20 regarding SNF choice. SW will continue to follow. A: Pt for whom SNF has been deemed medically necessary P: Pt likely to discharge to SNF. Pt provided with choicelist. SW to follow-up with pt regarding SNF choice on 10/20. PASSR completed and in folder. BERTO Westfall
--- NOTE | 2016-10-19 16:35 | NUR ---
Wound Care Wound orders received after telephone discussion with Dr Cortez regarding evaluation for possible NPWT application of right foot wound. Pleasant 81 yo male s/p I&D of abscess right foot, now present with 4 ulcerations around the great toe. Plantar ulcer at 1st met head 2cm x 2 cm communicates with lateral ulcer 1st met head 4 cm x 3 cms with undermined flap of skin towards plantar ulcer. Small ulcer at web space great toe and 2nd toe 0.5 cm communicates with dorsal great toe ulcer that is 0.3 cm in diameter. Loose skin removed from foot and toe, wounds irrigated with saline, 1/2" packing between wounds that communicate, covered with saline moist gauze, kerlix wrap and delfin wrap. Stable wounds will consult with Dr Cortez regarding NPWT placement, may be beneficial in the next day or two.
[2016-10-19] MEDS ORDERED: Warfarin 5 MG, Warfarin 2.5 MG PO SCH ×2 (17:00)
[2016-10-19 19:40] VITALS: BP 168/85; PULSE 97; RESP 18; O2SAT 99
[2016-10-19] MEDS: Insulin GLARgine 100 Unit/mL Syringe SUBQ SCH (21:53)
[2016-10-20] MEDS: CeFAZolin Inj 2 GM in IV Premix 1 EACH IV SCH ×3 (00:15→16:56)
[2016-10-20 05:31] VITALS: BP 139/91; PULSE 75; RESP 18; O2SAT 98
--- NOTE | 2016-10-20 06:36 | NUR ---
NOC PT pleasant and cooperative this shift. Slept off and on. Hep gtt infusing and waiting for am PTT results to adjust rate if necessary. PT voids per urinal. Adequate po intake. Denies any pain. Encouraged to keep RLE elevated, but does not do so very well. RLE edematous. Dressing intact with no active bleeding noted. DP palpable through acewrap. PT waiting for PICC likely tomorrow per MD notes. Will CTM.
[2016-10-20 07:04] LABS: INR 1.5 ratio
[2016-10-20] MEDS ORDERED: HEPARIN IV SCH (07:40)
[2016-10-20] MEDS ORDERED: SODIUM CHLORIDE 0.45% IV SCH (07:40)
[2016-10-20 07:57] VITALS: BP 144/75; PULSE 75; RESP 18; O2SAT 97
[2016-10-20] MEDS: Insulin LISPRO 300 Unit/3 mL Inj SUBQ SCH ×4 (09:38→21:40)
--- NOTE | 2016-10-20 10:37 | DRSVH ---
PROCEDURE: US DUPLEX DOPPLER BILATERAL LEG ARTERIES ([id number]) INDICATIONS: rt foot suspect PVD TECHNIQUE: Color and pulse Doppler interrogation was performed of both lower extremity arterial systems, with im age documentation. COMPARISON: None. FINDINGS: Right lower extremity: Vascular Ultrasound Procedure Report Findings(Artery of Lower Extremity)(Right) Common Femoral Artery(Distal) Velocity: 83.90 cm/s Profunda Femoris Artery(Proximal) Velocity: 72.30 cm/s Superficial Femoral Artery(Proximal) Velocity: 57.30 cm/s Superficial Femoral Artery(Mid-longitudinal) Velocity: 96.60 cm/s Superficial Femoral Artery(Distal) Velocity: 112 cm/s, 124 cm/s, 53.60 cm/s Popliteal Artery(Mid-longitudinal) Velocity: 54.70 cm/s Posterior Tibial Artery(Distal) Velocity: 119 cm/s Anterior tibial Artery(Distal) Velocity: 38 cm/second Greyscale findings: Mild plaque Left lower extremity: Vascular Ultrasound Procedure Report Findings(Artery of Lower Extremity)(Left) Common Femoral Artery(Distal) Velocity: 65.90 cm/s Profunda Femoris Artery(Proximal) Velocity: 45.70 cm/s Superficial Femoral Artery(Proximal) Velocity: 138.80 cm/s Superficial Femoral Artery(Mid-longitudinal) Velocity: 74 cm/s Superficial Femoral Artery(Distal) Velocity: 72.30 cm/s Popliteal Artery(Mid-longitudinal) Velocity: 64.30 cm/s Posterior Tibial Artery(Distal) Velocity: 52.80 cm/s Dorsalis Pedis Artery(Distal) Velocity: 38.90 cm/s Greyscale findings: Mild plaque IMPRESSION: 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 50-99% stenosis of the right posterior tibial artery. Dictated by: Robin Lantigua M.D. on 10/20/2016 at 10:33 Approved by: Robin Lantigua M.D. on 10/20/2016 at 10:36
--- NOTE | 2016-10-20 11:49 | PCM.PHAPRO ---
Progress Warfarin Management by Pharmacy: * Indication: afib * Home Dose: warfarin 10mg on Mo and 7.5mg all other days * Inr Goal: 2-3 * [id number] Score: 4 * Drug Interactions: metronidazole, cefazolin * Concurrent Anticoagulation: heparin infusion stopped this morning and enoxaparin 90mg subq every 12hrs started * Coagulation Trends: October 19-October 20-October 1.49 1.51 1.5 1.49 0.02 -0.01 7.5 MG 7.5MG 7.5MG Plan: Day 3 this evening of warfarin. Will continue with 7.5mg dose , bridged with enoxaparin. Would anticipate an increase in inr tomorrow Expect the metronidazole to have an impact Daisy Valdez [facility] October 20, 2016 11:49
--- NOTE | 2016-10-20 11:49 | DRSVH ---
PROCEDURE: X-RAY PICC LINE PLACEMENT BY NURSE ([id number]) INDICATIONS: for home iv abx COMPARISON: None. FINDINGS: PICC was placed by the intravenous therapy team from the right side. Fluoroscopic spot fi lm demonstrates tip projected over the lower SVC. IMPRESSION: Tip of PICC projected over the lower SVC . Dictated by: Last ROMEO Interpreted: Romy Beckwith MD on 10/20/2016 at 11:48 Transcribed by: ELIER on 10/20/2016 at 11:49 Approved by: Romy Beckwith M.D. on 10/21/2016 at 9:20
--- NOTE | 2016-10-20 13:13 | NUR ---
Wound Note Patient seen at bedside with Dr Cortez, decision made to apply NPWT to this complex right foot wound complicated by diabetes. Using white foam a wick was placed in medial great toe wound and bridged to white foam wick in plantar ulcer that ran subcutaneously to the lateral great toe ulcer, this was then covered superficially with black foam and bridged to the dorsum of the right foot where track pad was placed. NPWT pressure was brought up to 150 mmHg continuous and a good seal was attained verified on seal check setting. Dressing will need to be changed in 72 hours. Will need NPWT at SNF and follow up appointments at the wound clinic with Dr Cortez.
--- NOTE | 2016-10-20 13:13 | NUR ---
Social Work- Continued D/C Planning Data: EMR reviewed. Pt is on day 7 of hospitalization for foot infection, sepsis, AFIB wtih RVR per H&P. Pt is not medically stable. Pt received PICC line today. LUMBER KILN OPERATOR spoke with pt at bedside regarding SNF choice, pt chose [facility]. LUMBER KILN OPERATOR confirmed with Melvina, admissions at [facility], that they are able to handle IV abx. Pt declined to make second choice for SNF. UR Specialist to make referral to [facility]. Paperwork in pt's chart. PASRR has been faxed and is in pt's hard chart. SW will continue to follow. Assessment: Pt for whom SNF is medically necessary. Plan: Referral has been made to [facility]. Paperwork in pt's chart. PASRR has been faxed and is in pt's hard chart. SW will continue to follow. BERTO [place]
--- NOTE | 2016-10-20 14:05 | NUR ---
Gave access and faxed facesheet to [email or web address] per CUSTOMER RETENTION SPECIALIST
[2016-10-20] MEDS ORDERED: Sodium Chloride LOK Flush 10 mL Syringe IVFLUSH PRN ×2 (16:05)
[2016-10-20 16:42] VITALS: BP 135/73; PULSE 82; RESP 18; O2SAT 97
[2016-10-20] MEDS ORDERED: Warfarin 5 MG, Warfarin 2.5 MG PO SCH ×2 (17:00)
--- NOTE | 2016-10-20 17:15 | NUR ---
Ambulation Pt up SBA to wheelchair for going to the PICC suite. Pt didn't put much weight on right foot when ambulating. After getting back to the room wound care was here to see pt and placed a wound vac. When asking about ambulation wound care suggested keeping him bedrest for today and we will reevaluate tomorrow. Pt made aware and understands. By end of shift would vac still in tact and no drainage noted.
--- NOTE | 2016-10-20 20:10 | PROG NOTE ---
[address] [address] PROGRESS NOTE PATIENT: RUSTY SILVESTRE : 1935 MR#: [id number] ADMIT: 10/13/2016 JOB ID: [id number] DATE: 10/20/2016 REASON FOR FOLLOWUP: Staph aureus bacteremia secondary to severe right foot soft tissue infection without apparent osteomyelitis. INTERVAL HISTORY: Today, the patient underwent arterial Dopplers which showed that he had a fairly high-grade stenosis of the left superficial femoral artery as well as a fairly high-grade stenosis of the right posterior tibial artery. He tolerated that procedure well. The patient tells me today he is feeling fairly well. He has no fevers, chills, or sweats. No cough, shortness of breath or chest pain. No nausea, vomiting, or diarrhea. His appetite is good. He has minimal to no pain in his left foot where he has a large wound VAC. PHYSICAL EXAMINATION: Reveals an afebrile gentleman, temperature 36.2, pulse 75, respiratory rate 18, blood pressure 144/75. He is saturating well on room air. He is awake and alert. Oral cavity negative. Lungs clear. Cardiac tones. Regular rate and rhythm. Abdomen is soft and nontender. His right foot has a very extensive wound VAC over the left medial forefoot and wrapping up over the dorsum of the foot where the extensive debridement was done. The toes appear viable. LABORATORY STUDIES: Include white count 8600, platelet count 333,000, creatinine 0.53, AST 41, ALT 31, alk phos 178, albumin 2.6. Micro studies include the positive blood cultures from the and . Follow-up blood cultures October 16 and are negative. Recall that the x-rays of the foot showed no evidence of osteo we do not have an MRI of the foot, however. IMPRESSION: This is a complex gentleman with methicillin-sensitive Staphylococcus aureus bacteremia who does not have endocarditis by ISREAL and probably does not have osteo, according to Podiatry and x-rays of his foot. He does, however, have a very severe right foot infection which required an extensive debridement and which was bacteremic. At this point, he is receiving Ancef and Flagyl for his foot. We have not cultured anaerobes, however, and the Flagyl is more of a precaution than necessarily indicated as we have cultured Staph aureus from blood as well as Strep mitis and Staph aureus from the wound itself. At this point, I think we can establish that his length of therapy should be at least four weeks since his last negative blood culture which will take us through November 13. RECOMMENDATIONS: 1. Now that the PICC line is installed, we can continue with Ancef 2 g IV q.8 h. through November 13. 2. The Flagyl could reasonably be continued about two weeks. 3. In discussing this case with Cardiology, the patient has quite an extensive left atrial clot in spite of having INRs in the 2-2.5 range over the past few months. The cardiology rn recommended that a higher INR be targeted such as an INR of 3. 4. Adjustments in the Coumadin dose may be necessary given the interaction between Flagyl and Coumadin. We could use ertapenem as a solo agent here rather than Ancef plus Flagyl, but I suspect once he goes to the custodial, the increased cost of ertapenem would be a big issue and it would have to be switched back.
[2016-10-20 21:17] VITALS: BP 127/68; PULSE 70; RESP 20; O2SAT 98
[2016-10-20] MEDS: Insulin GLARgine 100 Unit/mL Syringe SUBQ SCH (21:29)
[2016-10-21] MEDS: CeFAZolin Inj 2 GM in IV Premix 1 EACH IV SCH ×3 (01:12→16:42)
[2016-10-21 05:05] LABS: INR 1.4 ratio
--- NOTE | 2016-10-21 05:09 | NUR ---
activity Per day report, patient encouraged to not put weight on RLE due to recent wound vac application. patient tolerated bedrest well thru noc. wound vac to continuous suction @ 150mm/hg. dressing is CDI. Lg bm via bedpan. patient is pleasant and cooperative, denies pain/discomfort. PICC RUE patent, gauze wrapped over dressing, intact. labs drawn. VS are stable. call light w/in reach. SNF transfer nursing portion paperwork started. CTM for changes.
[2016-10-21 05:47] VITALS: BP 162/96; PULSE 70; RESP 20; O2SAT 96
--- NOTE | 2016-10-21 07:50 | PCM.PNPOD ---
Subjective Date of Service: October 21, 2016 Date of Service: October 21, 2016 Visit Information: Reason for Visit Foot Infection, Sepsis, Afib W/Rvr Surgery/Surgery Date Post-Op Day # Date of Admission: October 13, 2016 at 17:51 Hospital Day # Subjective: 81-year-old male evaluated at bedside in no acute distress. The patient is evaluated today with assistance from the wound care service for potential placement of a wound VAC. Patient denies any new issues or complaints. Patient recently had arterial duplex studies performed which revealed significant stenosis of the right lower extremity arterial flow. Patient denies any issues with pain. He states that he is comfortable with the plan for discharge to a fdc facility. Postop General: No Complaints Gastrointestinal: Good Appetite Pain Management: PO Objective Vital Sign - Last Date Time Temp Pulse Resp B/P Pulse Ox O2 Delivery O2 Flow Rate FiO2 10/21/16 05:47 36.4 70 20 162/96 96 Room Air 10/18/16 15:39 3.00 Intake and Output 10/20/16 10/20/16 10/21/16 Cumulative From/Thru 15:00 23:00 07:00 10/13/16 19:50 - 10/21/16 06:32 Intake Total 1162 ml 764 ml 52871 ml Output Total 1600 ml 1000 ml 69554 ml Balance -438 ml -236 ml -3083 ml Intake Oral 952 ml 640 ml 9129 ml IV Total 210 ml 124 ml 9703 ml Output Urine Total 1600 ml 1000 ml 81382 ml Drainage Total 0 ml 0 ml Estimated Blood Loss 15 ml # Voids 6 # Bowel Movements 7 Result Diagram: 10/21/16 0430 10/19/16 0415 Lab Test 10/13/16 14:15 10/13/16 22:00 10/14/16 03:00 10/15/16 02:38 Hemoglobin A1c 7.9% (4.8-5.6) Troponin T < 0.010ug/L (0.0-0.011) Pro-B-Type Natriuretic Peptide 1945pg/mL (0-486) Urine Color Annia (YELLOW) Urine Appearance Hazy (CLEAR,HAZY) Urine pH 5.5 (5.0-8.0) Urine Specific [place] 1.035 (1.003-1.035) Urine Protein 100mg/dL (NEG,TRACE) Urine Glucose (UA) >1000mg/dL (NEGATIVE) Urine Ketones 15mg/dL (NEGATIVE) Urine Occult Blood Small (NEGATIVE) Urine Nitrite Negative (NEGATIVE) Urine Bilirubin Negative (NEGATIVE) Urine Ictotest Negative (Negative) Urine Urobilinogen 2.0mg/dL (NORMAL) Urine Leukocyte Esterase Negative (NEGATIVE) Urine RBC 0-2/hpf (0-2) Urine WBC 0-5/hpf (0-5) Urine Epithelial Cells Few/hpf (NONE-MOD) Urine Crystals None seen (NONE SEEN) Urine Bacteria Few/hpf (NONE-FEW) Urine Hyaline Casts 5/20/lpf (NONE) Urine Granular Casts Occasional (NONE SEEN) Urine Waxy Casts None seen (NONE SEEN) Urine Red Blood Cell Casts None seen (NONE SEEN) Urine White Blood Cell Casts None seen (NONE SEEN) Urine Mucus Present (None Seen) Urine Trichomonas None seen (NONE SEEN) Urine Yeast None (NONE SEEN) Urinalysis Comment None Urine Culture Reflexed Not indicated Magnesium Level 1.9mg/dL (1.6-2.6) Vancomycin Level Trough 2.9mcg/mL Test 10/16/16 03:05 10/19/16 04:15 10/21/16 04:30 Band Neutrophils % 1% (1-5) Lactic Acid Level 1.1mmol/L (0.4-2.0) Procalcitonin 0.40ng/mL (0.00-0.08) White Blood Count 8.6th/mm3 (3.8-10.1) Red Blood Count 4.37mil/mm3 (4.40-5.80) Mean Corpuscular Volume 86.0fL (81-100) Mean Corpuscular Hemoglobin 28.6pg (27.0-35.0) Mean Corpuscular Hemoglobin Concent 33.2% (32.0-37.0) Red Cell Distribution Width 13.2% (12.3-15.4) Platelet Count 334bil/L (150-400) Neutrophils (%) (Auto) 68.4% (40-74) Lymphocytes (%) (Auto) 11.3% (14-46) Monocytes (%) (Auto) 12.7% (4-12) Eosinophils (%) (Auto) 2.2% (0-5) Basophils (%) (Auto) 0.7% (0-3) Sodium Level 135mEq/L (134-144) Potassium Level 4.4mEq/L (3.5-5.2) Chloride Level 100mEq/L (97-108) Carbon Dioxide Level 22mmol/L (18-29) Blood Urea Nitrogen 12mg/dL (8-27) Creatinine 0.53mg/dL (0.76-1.27) Estimat Glomerular Filtration Rate 158mL/min (>59) Glucose Level 164mg/dL (60-99) Calcium Level 8.8mg/dL (8.5-10.1) Total Bilirubin 0.7mg/dL (0.0-1.2) Aspartate Amino Transf (AST/SGOT) 44U/L (0-50) Alanine Aminotransferase (ALT/SGPT) 31U/L (0-44) Alkaline Phosphatase 178U/L (25-160) Total Protein 6.3g/dL (6.4-8.4) Albumin 2.6g/dL (3.4-5.0) Hemoglobin 12.8g/dL (13.8-17.2) Hematocrit 39.4% (41.0-50.0) Prothrombin Time 15.1sec (8.1-12.5) Prothromb Time International Ratio 1.40ratio Activated Partial Thromboplast Time 37.1sec (22.8-33.0) Exam General: Alert, Oriented X3, Cooperative, No Acute Distress Lungs: Clear to Auscultation, Normal Air Movement Lower Extremities: Right: Edema localized Extremity warm Lower Extremity Pulses: Palpable: Right Dorsalis Pedis (faint) Right Posterior Tibal (faint) Postop Sensory Motor: Distal Motor Intact, Motor 5/5 Podiatry WOUND : Wound Location/Description Right foot plantar first metatarsal ulceration full-thickness to subcutaneous tissue without exposed bone. This wound probes laterally to the first intermetatarsal space and the lateral aspect of the hallux. This wound also probes medially and connects subcutaneously to the large medial wound. There is minimal local erythema mild serosanguineous drainage is present there is no malodor and no purulent drainage noted today. Minimal local maceration tissue to the wound edges only and no significant erythema surrounding the wound. This wound has not changed in size since prior measurements. Wound edges surrounding the medial incision and drainage wound site are mildly macerated inferiorly with no surrounding erythema there is normal capillary refill time to the wound edges. 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 This dressing is to be changed every 48-72 hours by either podiatry or the wound care team. Continue antibiotic recommendations per Dr. Zhu This patient is cleared to partially weight-bear to his right heel with very limited activity essentially for transferring and toileting only. No prolonged ambulation. Suggest consultation to interventional cardiology, Dr. Duong or Todd, for evaluation of peripheral arterial disease and consideration of potential revascularization, This patient is stable for discharge to outpatient care at a fdc facility with follow-up at the wound care center with either myself or another available physician as I will be away toward the end of next week. Podiatry will continue to follow while admitted VTE Prophylaxis: Other (therapeutic heparin drip as warfarin is being held for surgical interventions) Buster Cortez DPM October 21, 2016 07:50
[2016-10-21 08:22] LABS: Mean Corpuscular Hemoglobin 28.3 pg (27.0-35.0); Mean Corpuscular Volume 86.4 fL (81-100); Platelet Count 334 bil/L (150-400)
[2016-10-21] MEDS: Insulin LISPRO 300 Unit/3 mL Inj SUBQ SCH ×4 (08:42→21:03)
[2016-10-21 08:47] LABS: BASOPHILS % (AUTO) 2 % (0-3); EOSINOPHILS % (AUTO) 1 % (0-5); MONOCYTES % (AUTO) 9 % (4-12); NEUTROPHILS % (AUTO) 66 % (40-74)
[2016-10-21 09:44] VITALS: BP 109/67; PULSE 75; RESP 18; O2SAT 97
--- NOTE | 2016-10-21 11:18 | PCM.PHAPRO ---
Progress Date of Service: October 21, 2016 Warfarin Dosing INR = 1.40, hgb/hct = 12.9/39.4, plts 334 Pt continues on warfarin for afib. INR is still subtherapeutic. Warfarin dosing has been conservative since pt is on metronidazole & cefazolin which may potentiate the INR. Pt also on therapeutic enoxaparin 90mg subcut BID. Since INR has been low for several days on warfarin 7.5 mg, will give warfarin 10mg PO tonight. INRs are ordered. Pharmacy will follow. Date October 19-October 20-October 21-October INR 1.49 1.51 1.5 1.40 INR change 1.49 0.02 -0.01 -0.1 Warf Dose 7.5 MG 7.5MG 7.5MG 10mg Odalis Mckeon S PharmD October 21, 2016 11:18
--- NOTE | 2016-10-21 11:32 | PCM.PNMED ---
Subjective Date of Service October 20, 2016 Subjective no overnight event afebrile, HD stable plan to place PICC likely tomorrow denied any complaints, Exam Vital Signs Vital Sign - Last Date Time Temp Pulse Resp B/P Pulse Ox O2 Delivery O2 Flow Rate FiO2 10/20/16 07:57 36.2 75 18 144/75 97 Room Air 10/18/16 15:39 3.00 Intake and Output 10/19/16 10/19/16 10/20/16 Cumulative From/Thru 15:00 23:00 07:00 10/13/16 19:50 - 10/20/16 06:21 Intake Total 1855 ml 06063 ml Output Total 2025 ml 73822 ml Balance -170 ml -2409 ml Intake Oral 1000 ml 7537 ml IV Total 855 ml 9369 ml Output Urine Total 2025 ml 70991 ml Estimated Blood Loss 15 ml # Voids 6 # Bowel Movements 1 7 Exam NAD, comfortably laying down on the bed no JVD, MMM, no LAD RRR, nl s1, s2 no mrg CTAB, no w,c S,ND,NT,normoactive BS+ Rt foot, sterile dressed, XOCHITL bandaged IVs and Medications Medications Reviewed: Medications were reviewed in detail Lab and Diagnostics Result Diagram: 10/19/16 04110/19/16 0415 Microbiology 10/13: Blood cultures 2/4 positive for staph aureus, 2/4 positive for coag- negative staph. Both are pansensitive. * Please note CoNS is sensitive to clindamycin, erythromycin, Linezolid, oxacillin, rifampin, tetracycline, Bactrim, Vanco MRSA nasal screen negative 10/14: Abscess and surgical foot sample both growing staph aureus and strep viridans. 10/16: Repeat blood cultures now pending X-Rays, CTs and MRIs Date of Service: 10/13/16 1358 PROCEDURE: CT BRAIN (TPA) ([id number]) IMPRESSION: No acute process. Dictated by: Osito Goldstein M.D. on 10/13/2016 at 14:18 Approved by: Osito Goldstein M.D. on 10/13/2016 at 14:19 Date of Service: 10/13/16 1409 PROCEDURE: X-RAY RIGHT FOOT COMPLETE, MINIMUM THREE VIEWS ([id number]) IMPRESSION: 1. Soft tissue ulceration under the first metatarsal head. Generalized swelling. No osteomyelitis or subcutaneous air is seen. 2. Calcific plantar fasciitis. 3. Small vessel calcifications may reflect diabetes. Dictated by: Dillon Stewart M.D. on 10/13/2016 at 15:39 Approved by: Dillon Stewart M.D. on 10/13/2016 at 15:42 12-lead ECG 10/13/16: Afib RVR with rate of 113. No ST or T-wave changes suggestive of acute ischemia. Assessment & Plan 81 year old male with history of non-insulin dependent diabetes mellitus and atrial fibrillation (on Coumadin) presents to the hospital with questionable fall vs syncope and noted to be febrile with possible sepsis and significant cellulitis of right foot. acute, active #Right foot cellulitis and setting of diabetic ulceration. Present on admission. s/p 10/14/16 for I&D and debridement of the right plantar foot ulcer/ abscess, 10/17 again by Podiatry. TTE/ISREAL unremarkable. no s/s of OM. arterial doppler 10/20 showed PVD with 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 50-99% stenosis of the right posterior tibial artery. -appreciate Podiatry will continue to follow with dressing changes -s/p Zosyn, vancomycin, switched to [id number] q8h based on culture MSSA, BCX ngtd, likely 4wks course via PICC, appreciate ID input. -pt will benefit from vascular surgery follow up in outpt given Doppler findings. -PICC ordered, likely scheduled for today, tomorrow #Sepsis with source of right foot cellulitis in the setting of diabetic ulceration. Present on admission.WBC greater than 12,000, tachycardia, fever greater than 38C, tachypnea: All at time of admission, Resolved -pt is clinically stable, overall trends wbc improving. HD stable. -Microbiological workup as noted above #Chronic A. fib with acute RVR, present on admission. Patient reports attempt many years ago to electrocardioversion from A. fib that was unsuccessful -rate controlled well, continue Telemetry -bridge with LMWH, resume coumadin -Metoprolol restarted 10/15/16 #Diabetes mellitus type II, HA1c is 7.9, -Hold metformin for now, -continue ow-dose to medium-dose correctional scale insulin, -increase lantus 6 to 10unit given fasting>180s, to promote faster healing process. chronic, stable, resolved #Ground-level fall without LOC, prior to admission. -Brain CT negative for any acute process -Troponins negative -A. fib with RVR may have contributed to his weakness along with the sepsis -Seizure unlikely -Continue to monitor -Echo ordered (for evaluation of positive blood cultures), and we will see if this demonstrates any structural heart disease. Echocardiogram has been completed but results are not yet available. #Mild hyponatremia, presumed acute. Present on admission. Improved with fluid administration, and suspicion is for hypovolemic etiology #Elevated Hepatic Enzymes, not present on admission. resolved. #Lactic acidosis, present on admission. Resolved Disposition: SNF due to abx infusion, as medicare does not cover home infusion. GI Prophylaxis: Not indicated VTE Prophylaxis: Other (therapeutic heparin drip as warfarin is being held for surgical interventions) Resuscitation Status: CPR: Attempt Resuscitation Time spent 35min Luis Kauffman MD October 20, 2016 11:31
--- NOTE | 2016-10-21 11:39 | PCM.PNMED ---
Subjective Date of Service October 21, 2016 Subjective Wound vac placed, pt was cleared from Podiatry service noticed LA thrombus, significant on ISREAL, as per discussion with Cardiology, recommended INR3 for target currently on Bridging with LMWH and Coumadin, pt tolerated well, agreed to stay for bridging Exam Vital Signs Vital Sign - Last Date Time Temp Pulse Resp B/P Pulse Ox O2 Delivery O2 Flow Rate FiO2 10/21/16 09:44 36.7 75 18 109/67 97 Room Air 10/18/16 15:39 3.00 Intake and Output 10/20/16 10/20/16 10/21/16 Cumulative From/Thru 15:00 23:00 07:00 10/13/16 19:50 - 10/21/16 06:32 Intake Total 1162 ml 764 ml 16162 ml Output Total 1600 ml 1000 ml 79301 ml Balance -438 ml -236 ml -3083 ml Intake Oral 952 ml 640 ml 9129 ml IV Total 210 ml 124 ml 9703 ml Output Urine Total 1600 ml 1000 ml 06239 ml Drainage Total 0 ml 0 ml Estimated Blood Loss 15 ml # Voids 6 # Bowel Movements 7 Exam NAD, comfortably laying down on the bed no JVD, MMM, no LAD RRR, nl s1, s2 no mrg CTAB, no w,c S,ND,NT,normoactive BS+ Rt foot on wound VAC IVs and Medications Medications Reviewed: Medications were reviewed in detail Lab and Diagnostics Result Diagram: 10/21/1642910/21/16 0430 Microbiology 10/13: Blood cultures 2/4 positive for staph aureus, 2/4 positive for coag- negative staph. Both are pansensitive. * Please note CoNS is sensitive to clindamycin, erythromycin, Linezolid, oxacillin, rifampin, tetracycline, Bactrim, Vanco MRSA nasal screen negative 10/14: Abscess and surgical foot sample both growing staph aureus and strep viridans. 10/16: Repeat blood cultures now pending X-Rays, CTs and MRIs Date of Service: 10/13/16 4623 PROCEDURE: CT BRAIN (TPA) ([id number]) IMPRESSION: No acute process. Dictated by: Osito Goldstein M.D. on 10/13/2016 at 14:18 Approved by: Osito Goldstein M.D. on 10/13/2016 at 14:19 Date of Service: 10/13/16 1409 PROCEDURE: X-RAY RIGHT FOOT COMPLETE, MINIMUM THREE VIEWS ([id number]) IMPRESSION: 1. Soft tissue ulceration under the first metatarsal head. Generalized swelling. No osteomyelitis or subcutaneous air is seen. 2. Calcific plantar fasciitis. 3. Small vessel calcifications may reflect diabetes. Dictated by: Dillon Stewart M.D. on 10/13/2016 at 15:39 Approved by: Dillon Stewart M.D. on 10/13/2016 at 15:42 12-lead ECG 10/13/16: Afib RVR with rate of 113. No ST or T-wave changes suggestive of acute ischemia. Assessment & Plan 81 year old male with history of non-insulin dependent diabetes mellitus and atrial fibrillation (on Coumadin) presents to the hospital with questionable fall vs syncope and noted to be febrile with possible sepsis and significant cellulitis of right foot. acute, active #Right foot cellulitis and setting of diabetic ulceration, and probable PVD, Present on admission. s/p 10/14/16 for I&D and debridement of the right plantar foot ulcer/abscess, 10/17 again by Podiatry. TTE/ISREAL unremarkable. no s/s of OM. arterial doppler 10/20 showed PVD with 50-99% stenosis of the left superficial femoral artery, 50-99% stenosis of the right posterior tibial artery. -appreciate Wound service with wound VAC, follow up Podiatry outpt. -s/p Zosyn, vancomycin, switched to [id number] q8h based on culture MSSA, BCX ngtd, plan for 4wks course via PICC until 11/13, appreciate ID input. -pt will benefit from vascular surgery follow up outpt given Doppler findings, will try consult with /Todd in house. #Sepsis with source of right foot cellulitis in the setting of diabetic ulceration. Present on admission.WBC greater than 12,000, tachycardia, fever greater than 38C, tachypnea: All at time of admission, Resolved -pt is clinically stable, overall trends wbc improving. HD stable. -Microbiological workup as noted above #Chronic A. fib with acute RVR, present on admission. Patient reports attempt many years ago to electrocardioversion from A. fib that was unsuccessful -rate controlled well, continue Telemetry -bridge with LMWH, resume coumadin, target3 given current significant LA clots burden on ISREAL. -Metoprolol restarted 10/15/16 #Diabetes mellitus type II, HA1c is 7.9, -Hold metformin for now, -chged Lispro low-dose to medium-dose correctional scale insulin, -increase lantus 6 to 10unit, to 13unit given fasting>180s, to promote faster healing process. chronic, stable, resolved #Ground-level fall without LOC, prior to admission. -Brain CT negative for any acute process -Troponins negative -A. fib with RVR may have contributed to his weakness along with the sepsis -Seizure unlikely -Continue to monitor -Echo ordered (for evaluation of positive blood cultures), and we will see if this demonstrates any structural heart disease. Echocardiogram has been completed but results are not yet available. #Mild hyponatremia, presumed acute. Present on admission. Improved with fluid administration, and suspicion is for hypovolemic etiology #Elevated Hepatic Enzymes, not present on admission. resolved. #Lactic acidosis, present on admission. Resolved Disposition: will keep in house until safely bridge with LMWH/Coumadin, SNF due to abx infusion, as medicare does not cover home infusion. GI Prophylaxis: Not indicated VTE Prophylaxis: Other (therapeutic heparin drip as warfarin is being held for surgical interventions) Resuscitation Status: CPR: Attempt Resuscitation Time spent 35min Luis Kauffman MD October 21, 2016 11:39
--- NOTE | 2016-10-21 13:36 | NUR ---
Social Work- Readiness for Discharge Data: EMR reviewed. Pt is on day 8 of hospitalization for foot infection, sepsis, AFIB wtih RVR per H&P. Pt is not medically stable, anticipate multiple more days of admission as pt's INR levels continue to be low. ESPERANZA spoke with Melvina, admissions at [facility], who si agreeable to accepting pt with MD Jimenez to follow. Melvina has ordered the pt's wound vac and it will be available when pt discharges. Pt agreeable to discharge to [facility] for IV abx and wound care. Paperwork in pt's chart. PASRR has been faxed and is in pt's hard chart. SW will continue to follow. Assessment: Pt for whom SNF is medically necessary secondary to wound care and IV ABX needs. Plan: Pt has been accepted at [facility] with MD Jimenez to follow. Paperwork in pt's chart. PASRR has been faxed and is in pt's hard chart. All updated and agreeable to plan. SW will continue to follow. Chandni Moody MSW
[2016-10-21 14:12] VITALS: BP 100/57; PULSE 60; RESP 16; O2SAT 92
--- NOTE | 2016-10-21 15:22 | PROG NOTE ---
[address] [address] PROGRESS NOTE PATIENT: RUSTY SILVESTRE : 1935 MR#: [id number] ADMIT: 10/13/2016 JOB ID: [id number] DATE: 10/21/2016 INFECTIOUS DISEASE FOLLOW UP NOTE: REASON FOR FOLLOWUP: MSSA bacteremia. INTERVAL HISTORY: This is a complex gentleman with MSSA bacteremia, but negative ISREAL which developed after an infection on the dorsum of his right foot which has been thoroughly debrided. At this point, the patient is receiving Ancef and Flagyl and doing quite well. Today, he tells us he has no fevers, chills or sweats. No pulmonary or GI symptoms and really no pain. We observe the changing of the Wound VAC on his right foot with Noble Hassan of wound management. PHYSICAL EXAMINATION: Reveals an afebrile gentleman, temperature 36.7. He is in no acute distress. Pulse 75, respiratory rate 18, blood pressure 109/67, saturating 97% on room air. Examination of the mental status reveals it to be clear. Lungs are clear. Abdomen benign. Right foot has a Wound VAC which was just changed and seems to be healing reasonably well. LABORATORIES: Include a white count 7200. There are 2% metamyelocytes, which is a little surprising, otherwise normal differential. Creatinine 0.58. Alk phos 185. His follow up blood cultures are negative. ISREAL negative. IMPRESSION: This patient is doing very well with respect to his Staph bacteremia with negative ISREAL. At this point, I think he is at the point where he could be discharged to [facility], which is where he picked to go following discharge, to finish out his course of Ancef. There are considerations in the chart regarding possible revascularization and that is under discussion either as an inpatient or outpatient. RECOMMENDATIONS: 1. Ancef 2 g IV q.8 through November 13. 2. Flagyl 500 mg p.o. b.i.d. through October 30. 3. While he is at [facility], someone should be sure and check a CBC and metabolic panel once a week or so through November 13. I can be involved in following these numbers or the physician who covers at [facility] can do it. If I am to be involved, please go ahead and make this patient an appointment to see me either November 02 or the following Monday in the [facility] but obviously this could be followed by the shelter physician. 4. Note that it has been recommended that the patient's INR be maintained at about 3 because of his left atrial clot. 5. ID will go ahead and sign off at this time. 6. Be sure and note the interaction between Flagyl and Coumadin which will persist as long as he remains on Flagyl until about October 30. 7. Note that I am signing off at this time.
--- NOTE | 2016-10-21 15:36 | NUR ---
Wound Care Rounded on patient to assess NPWT operation, drainage noted under drape at plantar surface of right foot even though there is no seal alarm and black foam is clearly under full pressure by appearance. Complete dressing was removed and new placed utilizing only black foam and incorporating only the plantar and medial foot wounds. Pressure was increased to 175 MMhg in attempt to maximize effectiveness of the NPWT system. Wounds are stable and white count is normal. Next NPWT change due 10/24.
--- NOTE | 2016-10-21 18:26 | NUR ---
Pain, Wound Vac Patient reports no pain to the right lower extremity this shift. Wound vac in place and intact, reenforced at one point due to air leak, then reassessed by wound care. Very minimal output. CMS to affected site intact. Care is ongoing.
[2016-10-21 20:54] VITALS: BP 153/91; PULSE 85; RESP 18; O2SAT 95
[2016-10-21] MEDS: Insulin GLARgine 100 Unit/mL Syringe SUBQ SCH (21:02)
[2016-10-22] MEDS: CeFAZolin Inj 2 GM in IV Premix 1 EACH IV SCH ×3 (00:23→17:41)
--- NOTE | 2016-10-22 02:17 | NUR ---
activity wound vac with small leak at start of shift. reinforced with tegaderm. no leak has occurred since that time. denies pain to foot. able to wiggle toes. encouraged coughing and deep breathing. given emotional support.
[2016-10-22 03:03] LABS: Mean Corpuscular Hemoglobin 28.4 pg (27.0-35.0); Mean Corpuscular Volume 86.3 fL (81-100); Platelet Count 350 bil/L (150-400)
[2016-10-22 03:08] LABS: INR 1.45 ratio
[2016-10-22 03:24] LABS: BASOPHILS % (AUTO) 1 % (0-3); EOSINOPHILS % (AUTO) 3 % (0-5); MONOCYTES % (AUTO) 7 % (4-12); NEUTROPHILS % (AUTO) 68 % (40-74)
[2016-10-22 05:05] VITALS: BP 128/90; PULSE 74; RESP 17; O2SAT 97
--- NOTE | 2016-10-22 08:00 | PCM.PHAPRO ---
Progress Warfarin Dosing Date October 19-October 20-October 21-October 22-October INR 1.49 1.51 1.5 1.40 1.45 INR change 1.49 0.02 -0.01 -0.1 0.05 Warf Dose 7.5 MG 7.5MG 7.5MG 10mg 10mg Nemesio Tariq Pharm.D October 22, 2016 08:00
[2016-10-22 09:15] VITALS: BP 112/72; PULSE 94; RESP 18; O2SAT 97
[2016-10-22] MEDS: Insulin LISPRO 300 Unit/3 mL Inj SUBQ SCH ×4 (09:28→21:36)
--- NOTE | 2016-10-22 12:04 | PCM.PNMED ---
Subjective Date of Service October 22, 2016 Subjective no complaints, pleasant Exam Vital Signs Vital Sign - Last Date Time Temp Pulse Resp B/P Pulse Ox O2 Delivery O2 Flow Rate FiO2 10/22/16 09:15 36.7 94 18 112/72 97 Room Air 10/18/16 15:39 3.00 Intake and Output 10/21/16 10/21/16 10/22/16 Cumulative From/Thru 15:00 23:00 07:00 10/13/16 19:50 - 10/22/16 05:45 Intake Total 772 ml 800 ml 04950 ml Output Total 1425 ml 1500 ml 86144 ml Balance -653 ml -700 ml -4436 ml Intake Oral 772 ml 800 ml 51539 ml IV Total 9703 ml Output Urine Total 1425 ml 1500 ml 69602 ml Drainage Total 0 ml Estimated Blood Loss 15 ml # Voids 6 # Bowel Movements 1 8 Exam NAD, comfortably laying down on the bed no JVD, MMM, no LAD RRR, nl s1, s2 no mrg CTAB, no w,c S,ND,NT,normoactive BS+ Rt foot on wound VAC IVs and Medications Medications Reviewed: Medications were reviewed in detail Lab and Diagnostics Result Diagram: 10/22/16 0245 10/22/16 0245 Microbiology 10/13: Blood cultures 2/4 positive for staph aureus, 2/4 positive for coag- negative staph. Both are pansensitive. * Please note CoNS is sensitive to clindamycin, erythromycin, Linezolid, oxacillin, rifampin, tetracycline, Bactrim, Vanco MRSA nasal screen negative 10/14: Abscess and surgical foot sample both growing staph aureus and strep viridans. 10/16: Repeat blood cultures now pending X-Rays, CTs and MRIs Date of Service: 10/13/16 1358 PROCEDURE: CT BRAIN (TPA) ([id number]) IMPRESSION: No acute process. Dictated by: Osito Goldstein M.D. on 10/13/2016 at 14:18 Approved by: Osito Goldstein M.D. on 10/13/2016 at 14:19 Date of Service: 10/13/16 1409 PROCEDURE: X-RAY RIGHT FOOT COMPLETE, MINIMUM THREE VIEWS ([id number]) IMPRESSION: 1. Soft tissue ulceration under the first metatarsal head. Generalized swelling. No osteomyelitis or subcutaneous air is seen. 2. Calcific plantar fasciitis. 3. Small vessel calcifications may reflect diabetes. Dictated by: Dillon Stewart M.D. on 10/13/2016 at 15:39 Approved by: Dillon Stewart M.D. on 10/13/2016 at 15:42 12-lead ECG 10/13/16: Afib RVR with rate of 113. No ST or T-wave changes suggestive of acute ischemia. Assessment & Plan 81 year old male with history of non-insulin dependent diabetes mellitus and atrial fibrillation (on Coumadin) presents to the hospital with questionable fall vs syncope and noted to be febrile with possible sepsis and significant cellulitis of right foot. acute, active #Right foot cellulitis and setting of diabetic ulceration, and probable PVD, Present on admission. s/p 10/14/16 for I&D and debridement of the right plantar foot ulcer/abscess, 10/17 again by Podiatry. TTE/ISREAL unremarkable. no s/s of OM. arterial doppler 10/20 showed PVD with 50-99% stenosis of the left superficial femoral artery, 50-99% stenosis of the right posterior tibial artery. -appreciate Wound service with wound VAC, follow up Podiatry outpt. -s/p Zosyn, vancomycin, switched to [id number] q8h based on culture MSSA, BCX ngtd, plan for 4wks course via PICC until 11/13, appreciate ID input. -pt will benefit from vascular surgery follow up outpt given Doppler findings, #Sepsis with source of right foot cellulitis in the setting of diabetic ulceration. Present on admission.WBC greater than 12,000, tachycardia, fever greater than 38C, tachypnea: All at time of admission, Resolved -pt is clinically stable, overall trends wbc improving. HD stable. -Microbiological workup as noted above #Chronic A. fib with acute RVR, present on admission. Patient reports attempt many years ago to electrocardioversion from A. fib that was unsuccessful -INR still not in target. -rate controlled well, continue Telemetry -bridge with LMWH, resume coumadin, target3 given current significant LA clots burden on ISREAL. -Metoprolol restarted 10/15/16 #Diabetes mellitus type II, HA1c is 7.9, -Hold metformin for now, -chged Lispro low-dose to medium-dose correctional scale insulin, -increase lantus 6 to 10unit, to 13unit given fasting>180s, to promote faster healing process. chronic, stable, resolved #Ground-level fall without LOC, prior to admission. -Brain CT negative for any acute process -Troponins negative -A. fib with RVR may have contributed to his weakness along with the sepsis -Seizure unlikely -Continue to monitor -Echo ordered (for evaluation of positive blood cultures), and we will see if this demonstrates any structural heart disease. Echocardiogram has been completed but results are not yet available. #Mild hyponatremia, presumed acute. Present on admission. Improved with fluid administration, and suspicion is for hypovolemic etiology #Elevated Hepatic Enzymes, not present on admission. resolved. #Lactic acidosis, present on admission. Resolved Disposition: will keep in house until safely bridge with LMWH/Coumadin, SNF due to abx infusion, as medicare does not cover home infusion. GI Prophylaxis: Not indicated VTE Prophylaxis: Other (therapeutic heparin drip as warfarin is being held for surgical interventions) Resuscitation Status: CPR: Attempt Resuscitation Time spent 35min Luis Kauffman MD October 22, 2016 12:04
--- NOTE | 2016-10-22 12:16 | PCM.PNPOD ---
Subjective Date of Service: October 22, 2016 Visit Information: Reason for Visit Foot Infection, Sepsis, Afib W/Rvr Date of Admission: October 13, 2016 at 17:51 Subjective: Patient is a chatty and pleasant 81-year-old man in no acute distress. He is not having any pain in his right foot. He would like to have revascularization on his leg to improve blood flow so that he can heal. He does not want to have the Wound VAC replaced. Objective Vital Sign - Last Date Time Temp Pulse Resp B/P Pulse Ox O2 Delivery O2 Flow Rate FiO2 10/22/16 09:15 36.7 94 18 112/72 97 Room Air 10/18/16 15:39 3.00 Intake and Output 10/21/16 10/21/16 10/22/16 Cumulative From/Thru 15:00 23:00 07:00 10/13/16 19:50 - 10/22/16 05:45 Intake Total 772 ml 800 ml 91110 ml Output Total 1425 ml 1500 ml 93432 ml Balance -653 ml -700 ml -4436 ml Intake Oral 772 ml 800 ml 97999 ml IV Total 9703 ml Output Urine Total 1425 ml 1500 ml 82512 ml Drainage Total 0 ml Estimated Blood Loss 15 ml # Voids 6 # Bowel Movements 1 8 Result Diagram: 10/22/16 0245 10/22/16 0245 Lab Test 10/13/16 14:15 10/13/16 22:00 10/14/16 03:00 10/15/16 02:38 Hemoglobin A1c 7.9% (4.8-5.6) Troponin T < 0.010ug/L (0.0-0.011) Pro-B-Type Natriuretic Peptide 1945pg/mL (0-486) Urine Color Annia (YELLOW) Urine Appearance Hazy (CLEAR,HAZY) Urine pH 5.5 (5.0-8.0) Urine Specific [place] 1.035 (1.003-1.035) Urine Protein 100mg/dL (NEG,TRACE) Urine Glucose (UA) >1000mg/dL (NEGATIVE) Urine Ketones 15mg/dL (NEGATIVE) Urine Occult Blood Small (NEGATIVE) Urine Nitrite Negative (NEGATIVE) Urine Bilirubin Negative (NEGATIVE) Urine Ictotest Negative (Negative) Urine Urobilinogen 2.0mg/dL (NORMAL) Urine Leukocyte Esterase Negative (NEGATIVE) Urine RBC 0-2/hpf (0-2) Urine WBC 0-5/hpf (0-5) Urine Epithelial Cells Few/hpf (NONE-MOD) Urine Crystals None seen (NONE SEEN) Urine Bacteria Few/hpf (NONE-FEW) Urine Hyaline Casts 10/22/lpf (NONE) Urine Granular Casts Occasional (NONE SEEN) Urine Waxy Casts None seen (NONE SEEN) Urine Red Blood Cell Casts None seen (NONE SEEN) Urine White Blood Cell Casts None seen (NONE SEEN) Urine Mucus Present (None Seen) Urine Trichomonas None seen (NONE SEEN) Urine Yeast None (NONE SEEN) Urinalysis Comment None Urine Culture Reflexed Not indicated Magnesium Level 1.9mg/dL (1.6-2.6) Vancomycin Level Trough 2.9mcg/mL Test 10/16/16 03:05 10/21/16 04:30 10/22/16 02:45 Lactic Acid Level 1.1mmol/L (0.4-2.0) Procalcitonin 0.40ng/mL (0.00-0.08) Myelocytes % 2% (0-0) White Blood Count 9.6th/mm3 (3.8-10.1) Red Blood Count 4.76mil/mm3 (4.40-5.80) Hemoglobin 13.5g/dL (13.8-17.2) Hematocrit 41.1% (41.0-50.0) Mean Corpuscular Volume 86.3fL (81-100) Mean Corpuscular Hemoglobin 28.4pg (27.0-35.0) Mean Corpuscular Hemoglobin Concent 32.8% (32.0-37.0) Red Cell Distribution Width 13.4% (12.3-15.4) Platelet Count 350bil/L (150-400) Neutrophils (%) (Auto) 68% (40-74) Lymphocytes (%) (Auto) 18% (14-46) Monocytes (%) (Auto) 7% (4-12) Eosinophils (%) (Auto) 3% (0-5) Basophils (%) (Auto) 1% (0-3) Band Neutrophils % 2% (1-5) Metamyelocytes % 2% (0-0) Hematology Comments Prothrombin Time 15.6sec (8.1-12.5) Prothromb Time International Ratio 1.45ratio Activated Partial Thromboplast Time 38.4sec (22.8-33.0) Sodium Level 135mEq/L (134-144) Potassium Level 4.5mEq/L (3.5-5.2) Chloride Level 98mEq/L (97-108) Carbon Dioxide Level 24mmol/L (18-29) Blood Urea Nitrogen 15mg/dL (8-27) Creatinine 0.66mg/dL (0.76-1.27) Estimat Glomerular Filtration Rate 123mL/min (>59) Glucose Level 219mg/dL (60-99) Calcium Level 9.3mg/dL (8.5-10.1) Total Bilirubin 0.5mg/dL (0.0-1.2) Aspartate Amino Transf (AST/SGOT) 70U/L (0-50) Alanine Aminotransferase (ALT/SGPT) 30U/L (0-44) Alkaline Phosphatase 197U/L (25-160) Total Protein 5.9g/dL (6.4-8.4) Albumin 3.2g/dL (3.4-5.0) Exam General: Alert, Oriented X3, Cooperative, No Acute Distress Lungs: Clear to Auscultation, Normal Air Movement Lower Extremities: Right: Edema localized (foot, improving. ) Extremity warm (foot, improving) Lower Extremity Pulses: Palpable: Right Dorsalis Pedis (faint) Right Posterior Tibal (faint) Postop Sensory Motor: Distal Motor Intact, Motor 5/5 Podiatry WOUND : Wound Location/Description Right plantar 1st metatarsal. Periwound skin is macerated beyond margins of the wound VAC sponge. Incision General Appearence: Wound Vac Dressing & Drainage Status: Intact Wound Drainage Type: Wound Vac (Unfortunately, no drainage in the canister. ) Surgical Cast or Splint: None Assessment & Plan Problems: (1) Right foot infection Plan: Wound VAC left in place today, but I informed the patient that I would have to remove it tomorrow, explained that the maceration is like a "pickling" effect, if the drainage is not coming out through the tube. He still wanted it kept on until tomorrow. I doubt the VAC will hold a good seal and be a solution for this complex wound. We will await until Monday for possibility of an endovascular intervention, but it may be too risky at this time. I explained to the patient that he has to stay anticoagulated. I will reassess his foot tomorrow, explain further goals of care, and hopefully come up with a plan that he will agree to. Status: Acute ICD Code: L08.9 VTE Prophylaxis: Other (therapeutic heparin drip as warfarin is being held for surgical interventions) Wandy Sandy DPM October 22, 2016 12:16
[2016-10-22 14:07] VITALS: BP 109/55; PULSE 78; RESP 16; O2SAT 96
--- NOTE | 2016-10-22 15:16 | NUR ---
NUTRITION ASSESSMENT: ASSESS:81 YO male admitted with questionable fall vs syncope and noted to be febrile with possible sepsis and significant cellulitis of right foot. Wound VAC left in place today but will have to be removed tomorrow due to maceration. Podiatry doubts the VAC will hold a good seal and be a solution for this complex wound; will revisit Monday for possibility of an endovascular intervention, but it may be too risky at this time. PMHx:NIDDM, chronic A-fib requiring Coumadin. DIET:Consistent carb. PO intake consistently 100% trays. LABS: Reviewed. Cr 0.66, glu 219, A1c 7.9, ALT 70, Alk Phos 197, Alb 3.2. MEDICATIONS: Reviewed. Coumadin. NUTRITION FOCUSED PHYSICAL ASSESSMENT: GI symptoms / stool: BM x 1 today.Wing: 21.0 Skin Integrity: See assessment above. ANTHROPOMETRICS: Current Wt: 95.0 kgBMI: 29.0 kg/m2.Admit weight: 95.1 IBW: 70.5 kg (135% IBW) ESTIMATED NEEDS (WOUNDS): Calories: 2378 - 2853 kcal (25 - 30 kcal / kg BW) Protein: 114 - 143 g protein (1.2 - 1.5 g / kg BW) Fluid: Approx. 2853 mL (30 mL / kg BW) NUTRITION DIAGNOSIS: 1)Increased nutrient needs related to requirement for wound vac, as evidenced by non-healing nature of wound, possible surgical intervention. INTERVENTION: 1) Will add Zachery supplement to lunch and dinner trays to promote healing. MONITOR/EVALUATE: Supplement tolerance, PO intake, labs, GI/nutrition status. Follow up per moderate nutrition risk guidelines.
[2016-10-22 16:30] VITALS: BP 123/69; PULSE 90; RESP 16; O2SAT 97
--- NOTE | 2016-10-22 18:26 | NUR ---
Activity Pt. has been bedrest this shift not ambulating or sitting at the edge of the bed once. Pt. able to turn independently in bed but c/o of bottom being uncomfortable. Calmoseptine cream was applied to Pts. bottom and groin area due to some redness. Pt. has not c/o pain on his right foot nor tingling/burning/numbness in both feet. Pt. at this time states he is eager to go home. Will continue to monitor.
[2016-10-22 20:16] VITALS: BP 127/75; PULSE 87; RESP 16; O2SAT 97
[2016-10-22] MEDS: Insulin GLARgine 100 Unit/mL Syringe SUBQ SCH (21:34)
[2016-10-23] MEDS: CeFAZolin Inj 2 GM in IV Premix 1 EACH IV SCH ×3 (02:09→17:31)
--- NOTE | 2016-10-23 05:25 | NUR ---
Activity/wound vac/pain Pt has been on bedrest this shift due to wound vac with air leakage. Wound Vac continues with suction at 175mmhg and pt was advised by it security specialist to stay on bedrest. No air leaks or issues noted with wound vac. Pt BURGESS and denies tingling and numbness. Pt denies pain, chest pain and shortness of breath. Care ongoing.
[2016-10-23 06:39] VITALS: BP 118/76; PULSE 61; RESP 20; O2SAT 96
[2016-10-23] MEDS: Insulin LISPRO 300 Unit/3 mL Inj SUBQ SCH ×4 (08:36→21:57)
[2016-10-23 10:39] LABS: INR 1.57 ratio
--- NOTE | 2016-10-23 10:50 | PCM.PNMED ---
Subjective Date of Service October 23, 2016 Subjective no complaints overnight Exam Vital Signs Vital Sign - Last Date Time Temp Pulse Resp B/P Pulse Ox O2 Delivery O2 Flow Rate FiO2 10/23/16 06:39 36.9 61 20 118/76 96 Room Air 10/18/16 15:39 3.00 Intake and Output 10/22/16 10/22/16 10/23/16 Cumulative From/Thru 15:00 23:00 07:00 10/13/16 19:50 - 10/23/16 06:39 Intake Total 1136 ml 946 ml 94607 ml Output Total 1350 ml 2590 ml 78685 ml Balance -214 ml -1644 ml -6294 ml Intake Oral 1026 ml 850 ml 71511 ml IV Total 110 ml 86 ml 9899 ml Tube Irrigant 10 ml 10 ml Output Urine Total 1350 ml 2590 ml 85346 ml Drainage Total 0 ml Estimated Blood Loss 15 ml # Voids 4 10 # Bowel Movements 2 10 Exam NAD, comfortably laying down on the bed no JVD, MMM, no LAD RRR, nl s1, s2 no mrg CTAB, no w,c S,ND,NT,normoactive BS+ Rt foot on wound VAC IVs and Medications Medications Reviewed: Medications were reviewed in detail Lab and Diagnostics Result Diagram: 10/23/16 1000 10/22/16 0245 Microbiology 10/13: Blood cultures 2/4 positive for staph aureus, 2/4 positive for coag- negative staph. Both are pansensitive. * Please note CoNS is sensitive to clindamycin, erythromycin, Linezolid, oxacillin, rifampin, tetracycline, Bactrim, Vanco MRSA nasal screen negative 10/14: Abscess and surgical foot sample both growing staph aureus and strep viridans. 10/16: Repeat blood cultures now pending X-Rays, CTs and MRIs Date of Service: 10/13/16 1358 PROCEDURE: CT BRAIN (TPA) ([id number]) IMPRESSION: No acute process. Dictated by: Osito Goldstein M.D. on 10/13/2016 at 14:18 Approved by: Osito Goldstein M.D. on 10/13/2016 at 14:19 Date of Service: 10/13/16 3589 PROCEDURE: X-RAY RIGHT FOOT COMPLETE, MINIMUM THREE VIEWS ([id number]) IMPRESSION: 1. Soft tissue ulceration under the first metatarsal head. Generalized swelling. No osteomyelitis or subcutaneous air is seen. 2. Calcific plantar fasciitis. 3. Small vessel calcifications may reflect diabetes. Dictated by: Dillon Stewart M.D. on 10/13/2016 at 15:39 Approved by: Dillon Stewart M.D. on 10/13/2016 at 15:42 12-lead ECG 10/13/16: Afib RVR with rate of 113. No ST or T-wave changes suggestive of acute ischemia. Assessment & Plan 81 year old male with history of non-insulin dependent diabetes mellitus and atrial fibrillation (on Coumadin) presents to the hospital with questionable fall vs syncope and noted to be febrile with possible sepsis and significant cellulitis of right foot. acute, active #Right foot cellulitis and setting of diabetic ulceration, and probable PVD, Present on admission. s/p 10/14/16 for I&D and debridement of the right plantar foot ulcer/abscess, 10/17 again by Podiatry. TTE/ISREAL unremarkable. no s/s of OM. arterial doppler 10/20 showed PVD with 50-99% stenosis of the left superficial femoral artery, 50-99% stenosis of the right posterior tibial artery. -appreciate Wound service with wound VAC, follow up Podiatry Dr.Ullum herrerapt. -s/p Zosyn, vancomycin, switched to [id number] q8h based on culture MSSA, BCX ngtd, plan for 4wks course via PICC until 11/13, appreciate ID input. -pt will benefit from vascular intervention given given Doppler findings, this has to be arranged with train attendant , as an outpatient upon d/c. #Sepsis with source of right foot cellulitis in the setting of diabetic ulceration. Present on admission.WBC greater than 12,000, tachycardia, fever greater than 38C, tachypnea: All at time of admission, Resolved -pt is clinically stable, overall trends wbc improving. HD stable. -Microbiological workup as noted above #Chronic A. fib with acute RVR, present on admission. Patient reports attempt many years ago to electrocardioversion from A. fib that was unsuccessful -INR still not in target. -rate controlled well, continue Telemetry -bridge with LMWH, resume coumadin, target3 given current significant LA clots burden on ISREAL. -Metoprolol restarted 10/15/16 #Diabetes mellitus type II, HA1c is 7.9, -Hold metformin for now, -chged Lispro low-dose to medium-dose correctional scale insulin, -increase lantus 6 to 10unit, to 13unit given fasting>180s, to promote faster healing process. chronic, stable, resolved #Ground-level fall without LOC, prior to admission. -Brain CT negative for any acute process -Troponins negative -A. fib with RVR may have contributed to his weakness along with the sepsis -Seizure unlikely -Continue to monitor -Echo ordered (for evaluation of positive blood cultures), and we will see if this demonstrates any structural heart disease. Echocardiogram has been completed but results are not yet available. #Mild hyponatremia, presumed acute. Present on admission. Improved with fluid administration, and suspicion is for hypovolemic etiology #Elevated Hepatic Enzymes, not present on admission. resolved. #Lactic acidosis, present on admission. Resolved Disposition: will keep in house until safely bridge with LMWH/Coumadin, discharge to SNF due to abx infusion, as medicare does not cover home infusion. GI Prophylaxis: Not indicated VTE Prophylaxis: Other (therapeutic heparin drip as warfarin is being held for surgical interventions) Resuscitation Status: CPR: Attempt Resuscitation Time spent 35min Luis Kauffman MD October 23, 2016 10:50
--- NOTE | 2016-10-23 11:13 | PCM.PHAPRO ---
Progress Warfarin Dosing Date October 19-October 20-October 21-October 22-October 23-October INR 1.49 1.51 1.5 1.40 1.45 1.57 INR change 1.49 0.02 -0.01 -0.1 0.05 0.12 Warf Dose 7.5 MG 7.5MG 7.5MG 10mg 10mg 10mg Nemesio Tariq Pharm.D October 23, 2016 11:13
[2016-10-23 15:05] VITALS: BP 117/73; PULSE 75; RESP 17; O2SAT 97
--- NOTE | 2016-10-23 15:49 | NUR ---
Foot dressing / Rash MD Sandy removed woundvac from pts right foot and redressed with packing, kerlix and delfin wrap. Per MD Sandy pt can ambulated heel touch weight bearing only to bathroom. Rash noted significantly in billy areas. Per previous CASHIER HOST/HOSTESS who worked with pt day before the rash has doubled in size. Per pt no burning, itching or abnormal feelings. Rash extends from buttock up to lateral hips, between legs in scrotal area, and all over scrotum. Slight greyness on penis head noted as well. Per pt everything feels normal. Calmoseptine was used previous day, changing to barrier wipes until further notice from MD or wound care. Care continues.
--- NOTE | 2016-10-23 16:04 | NUR ---
ANGIE Signed BERTO Joshi
--- NOTE | 2016-10-23 16:10 | NUR ---
Social Work Note: Continued Discharge Planning Data& Assessment: Per MD in morning rounds, pt is not medically ready for discharge at this time. SW met with pt at bedside to check in and assess for any unmet needs. Pt confirmed plan to discharge to [facility] when medically ready. Pt explained the MD took the wound vac off of his foot today and would like to see the wound tomorrow. Pt denies any other needs at this time. SW to continue to follow for wound care needs and coordination for discharge to [facility] when medically ready. Plan: Anticipated discharge to [facility] when medically ready. Pt denies any other needs at this time. SW to continue to follow. BERTO Joshi
--- NOTE | 2016-10-23 17:09 | PCM.PNPOD ---
Subjective Date of Service: October 23, 2016 Visit Information: Reason for Visit Foot Infection, Sepsis, Afib W/Rvr Date of Admission: October 13, 2016 at 17:51 Subjective: Patient is seen at bedside, resting comfortably without complaints. Objective Vital Sign - Last Date Time Temp Pulse Resp B/P Pulse Ox O2 Delivery O2 Flow Rate FiO2 10/23/16 15:05 36.6 75 17 117/73 97 Room Air 10/18/16 15:39 3.00 Intake and Output 10/22/16 10/22/16 10/23/16 Cumulative From/Thru 15:00 23:00 07:00 10/13/16 19:50 - 10/23/16 06:39 Intake Total 1136 ml 946 ml 07089 ml Output Total 1350 ml 2590 ml 37825 ml Balance -214 ml -1644 ml -6294 ml Intake Oral 1026 ml 850 ml 17552 ml IV Total 110 ml 86 ml 9899 ml Tube Irrigant 10 ml 10 ml Output Urine Total 1350 ml 2590 ml 56469 ml Drainage Total 0 ml Estimated Blood Loss 15 ml # Voids 4 10 # Bowel Movements 2 10 Result Diagram: 10/23/16 1000 10/22/16 0245 Lab Test 10/13/16 14:15 10/13/16 22:00 10/14/16 03:00 10/15/16 02:38 Hemoglobin A1c 7.9% (4.8-5.6) Troponin T < 0.010ug/L (0.0-0.011) Pro-B-Type Natriuretic Peptide 1945pg/mL (0-486) Urine Color Annia (YELLOW) Urine Appearance Hazy (CLEAR,HAZY) Urine pH 5.5 (5.0-8.0) Urine Specific [place] 1.035 (1.003-1.035) Urine Protein 100mg/dL (NEG,TRACE) Urine Glucose (UA) >1000mg/dL (NEGATIVE) Urine Ketones 15mg/dL (NEGATIVE) Urine Occult Blood Small (NEGATIVE) Urine Nitrite Negative (NEGATIVE) Urine Bilirubin Negative (NEGATIVE) Urine Ictotest Negative (Negative) Urine Urobilinogen 2.0mg/dL (NORMAL) Urine Leukocyte Esterase Negative (NEGATIVE) Urine RBC 0-2/hpf (0-2) Urine WBC 0-5/hpf (0-5) Urine Epithelial Cells Few/hpf (NONE-MOD) Urine Crystals None seen (NONE SEEN) Urine Bacteria Few/hpf (NONE-FEW) Urine Hyaline Casts 10/22/lpf (NONE) Urine Granular Casts Occasional (NONE SEEN) Urine Waxy Casts None seen (NONE SEEN) Urine Red Blood Cell Casts None seen (NONE SEEN) Urine White Blood Cell Casts None seen (NONE SEEN) Urine Mucus Present (None Seen) Urine Trichomonas None seen (NONE SEEN) Urine Yeast None (NONE SEEN) Urinalysis Comment None Urine Culture Reflexed Not indicated Magnesium Level 1.9mg/dL (1.6-2.6) Vancomycin Level Trough 2.9mcg/mL Test 10/16/16 03:05 10/21/16 04:30 10/22/16 02:45 10/23/16 10:00 Lactic Acid Level 1.1mmol/L (0.4-2.0) Procalcitonin 0.40ng/mL (0.00-0.08) Myelocytes % 2% (0-0) White Blood Count 9.6th/mm3 (3.8-10.1) Red Blood Count 4.76mil/mm3 (4.40-5.80) Mean Corpuscular Volume 86.3fL (81-100) Mean Corpuscular Hemoglobin 28.4pg (27.0-35.0) Mean Corpuscular Hemoglobin Concent 32.8% (32.0-37.0) Red Cell Distribution Width 13.4% (12.3-15.4) Platelet Count 350bil/L (150-400) Neutrophils (%) (Auto) 68% (40-74) Lymphocytes (%) (Auto) 18% (14-46) Monocytes (%) (Auto) 7% (4-12) Eosinophils (%) (Auto) 3% (0-5) Basophils (%) (Auto) 1% (0-3) Band Neutrophils % 2% (1-5) Metamyelocytes % 2% (0-0) Hematology Comments Activated Partial Thromboplast Time 38.4sec (22.8-33.0) Sodium Level 135mEq/L (134-144) Potassium Level 4.5mEq/L (3.5-5.2) Chloride Level 98mEq/L (97-108) Carbon Dioxide Level 24mmol/L (18-29) Blood Urea Nitrogen 15mg/dL (8-27) Creatinine 0.66mg/dL (0.76-1.27) Estimat Glomerular Filtration Rate 123mL/min (>59) Glucose Level 219mg/dL (60-99) Calcium Level 9.3mg/dL (8.5-10.1) Total Bilirubin 0.5mg/dL (0.0-1.2) Aspartate Amino Transf (AST/SGOT) 70U/L (0-50) Alanine Aminotransferase (ALT/SGPT) 30U/L (0-44) Alkaline Phosphatase 197U/L (25-160) Total Protein 5.9g/dL (6.4-8.4) Albumin 3.2g/dL (3.4-5.0) Hemoglobin 13.6g/dL (13.8-17.2) Hematocrit 41.5% (41.0-50.0) Prothrombin Time 16.9sec (8.1-12.5) Prothromb Time International Ratio 1.57ratio Exam General: Alert, Oriented X3, Cooperative, No Acute Distress Lungs: Clear to Auscultation, Normal Air Movement Lower Extremities: Right: Edema localized (Improved, right foot) Extremity warm (Erythema improved, right foot) Lower Extremity Pulses: Palpable: Right Dorsalis Pedis (faint) Right Posterior Tibal (faint) Postop Sensory Motor: Distal Motor Intact, Motor 5/5 Podiatry WOUND : Wound Location/Description Right medial 1st metatarsal head wound is granulating in nicely, plantar wound as well. Sizes: Right medial 3.5cm x 2cm, 0.3cm deep. Right plantar 1st met 2cm x1.5cm and 0.4cm deep. Tunneling medially to connect to the medial wound with a 4cm depth. Right great toe lateral puncture 0.3cm x 0.3cm and 3cm deep, tunneling proximally and plantarly. Large amount of skin maceration circumferential around the base of the toe and plantar metatarsal head area. Less than 5ml of drainage in canister, significantly soaked sponge and surroundings skin. Drainage in tube dry. Surgical Cast or Splint: None Assessment & Plan Problems: (1) Right foot infection Plan: Wound VAC removed today, but not fully excluded as a type of therapy after the lateral egress wounds heal. Good granulation formed over two-three days so vascular intervention is not emergent, but definitely would help. He can be discharged tomorrow with the current dressing to be changed daily. I irrigated all tunnels with saline solution, pushed packing through to remove debris passively, then repacked with clean iodoform between all open areas, lightly enough to allow drainage into betadine/saline soaked gauze and dry kerlix. Hopefully, the maceration will be improved by tomorrow. Either I or Dr. Cortez will be by tomorrow morning to change the dressing. Follow up in the wound center or in the [facility] podiatry office with Dr. Cortez should be set up within 7-10 days of discharge. Status: Acute ICD Code: L08.9 VTE Prophylaxis: Other (therapeutic heparin drip as warfarin is being held for surgical interventions) Wandy Sandy DPM October 23, 2016 17:09
[2016-10-23 20:59] VITALS: BP 112/68; PULSE 89; RESP 20; O2SAT 98
[2016-10-23] MEDS: Insulin GLARgine 100 Unit/mL Syringe SUBQ SCH (21:55)
[2016-10-24] MEDS: CeFAZolin Inj 2 GM in IV Premix 1 EACH IV SCH ×3 (02:02→18:09)
--- NOTE | 2016-10-24 04:03 | NUR ---
Activity Pt awake through majority of shift, finally falling asleep for an ~hour at 0300. Pt denies pain, no c/o, pleasant and cooperative with care. Anxiety/restlessness d/t being stuck in the bed; talkative. No issues thus far this shift. Care continues.
[2016-10-24 04:23] LABS: INR 1.66 ratio
[2016-10-24 06:38] VITALS: BP 151/89; PULSE 81; RESP 20; O2SAT 98
--- NOTE | 2016-10-24 07:48 | PCM.PHAPRO ---
Progress Warfarin Dosing -October 22-October 23-October 24-October 1.40 1.45 1.57 1.66 -0.1 0.05 0.12 0.09 10mg 10mg 10mg 15 MG Nemesio Tariq Pharm.D October 24, 2016 07:48
[2016-10-24] MEDS: Insulin LISPRO 300 Unit/3 mL Inj SUBQ SCH ×4 (08:15→22:03)
--- NOTE | 2016-10-24 09:02 | PCM.PNMED ---
Subjective Date of Service October 24, 2016 Subjective No new complaints. Pain controlled. INR 1.66 Exam Vital Signs Vital Sign - Last Date Time Temp Pulse Resp B/P Pulse Ox O2 Delivery O2 Flow Rate FiO2 10/24/16 06:38 36.9 81 20 151/89 98 Room Air 10/18/16 15:39 3.00 Intake and Output 10/23/16 10/23/16 10/24/16 Cumulative From/Thru 15:00 23:00 07:00 10/13/16 19:50 - 10/24/16 06:38 Intake Total 1692 ml 993 ml 16561 ml Output Total 1250 ml 1850 ml 28777 ml Balance 442 ml -857 ml -6709 ml Intake Oral 1492 ml 650 ml 39998 ml IV Total 200 ml 343 ml 96762 ml Tube Irrigant 10 ml Output Urine Total 1250 ml 1850 ml 28464 ml Drainage Total 0 ml Estimated Blood Loss 15 ml # Voids 10 # Bowel Movements 0 10 Exam NAD, comfortably laying down on the bed no JVD, MMM, no LAD RRR, nl s1, s2 no mrg CTAB, no w,c S,ND,NT,normoactive BS+ Rt foot cleanly dressed IVs and Medications Medications Reviewed: Medications were reviewed in detail Lab and Diagnostics Result Diagram: 10/23/16 1000 10/22/16 0245 Microbiology 10/13: Blood cultures 2/4 positive for staph aureus, 2/4 positive for coag- negative staph. Both are pansensitive. * Please note CoNS is sensitive to clindamycin, erythromycin, Linezolid, oxacillin, rifampin, tetracycline, Bactrim, Vanco MRSA nasal screen negative 10/14: Abscess and surgical foot sample both growing staph aureus and strep viridans. 10/16: Repeat blood cultures now pending X-Rays, CTs and MRIs Date of Service: 10/13/16 1358 PROCEDURE: CT BRAIN (TPA) ([id number]) IMPRESSION: No acute process. Dictated by: Osito Goldstein M.D. on 10/13/2016 at 14:18 Approved by: Osito Goldstein M.D. on 10/13/2016 at 14:19 Date of Service: 10/13/16 1409 PROCEDURE: X-RAY RIGHT FOOT COMPLETE, MINIMUM THREE VIEWS ([id number]) IMPRESSION: 1. Soft tissue ulceration under the first metatarsal head. Generalized swelling. No osteomyelitis or subcutaneous air is seen. 2. Calcific plantar fasciitis. 3. Small vessel calcifications may reflect diabetes. Dictated by: Dillon Stewart M.D. on 10/13/2016 at 15:39 Approved by: Dillon Stewart M.D. on 10/13/2016 at 15:42 12-lead ECG 10/13/16: Afib RVR with rate of 113. No ST or T-wave changes suggestive of acute ischemia. Assessment & Plan 81 year old male with history of non-insulin dependent diabetes mellitus and atrial fibrillation (on Coumadin) presents to the hospital with questionable fall vs syncope and noted to be febrile with possible sepsis and significant cellulitis of right foot. acute, active #Right foot cellulitis and setting of diabetic ulceration, and probable PVD, Present on admission. -s/p 10/14/16 for I&D and debridement of the right plantar foot ulcer/abscess, again by Podiatry. TTE/ISREAL unremarkable. no s/s of OM. arterial doppler 10/20 showed PVD with 50-99% stenosis of the left superficial femoral artery, 50-99% stenosis of the right posterior tibial artery. -appreciate Wound service with wound VAC, follow up Podiatry Dr.Ullum herrerapt. -s/p Zosyn, vancomycin, switched to [id number] q8h based on culture MSSA, BCX ngtd, plan for 4wks course via PICC until 11/13,also will continue flagyl 500mg bid thru October 30.needs cbc and bmp checked once weekly while on antibiotics .appreciate ID input. -pt will benefit from vascular intervention given given Doppler findings, this has to be arranged with generator technician , as an outpatient upon d/c. #Sepsis with source of right foot cellulitis in the setting of diabetic ulceration. Present on admission.WBC greater than 12,000, tachycardia, fever greater than 38C, tachypnea: All at time of admission, Resolved -pt is clinically stable, overall trends wbc improving. HD stable. -Microbiological workup as noted above #Chronic A. fib with acute RVR, present on admission. Patient reports attempt many years ago to electrocardioversion from A. fib that was unsuccessful -INR still not in target.INR 1.66 today -rate controlled well, continue Telemetry -bridge with LMWH, resume coumadin, target3 given current significant LA clots burden on ISREAL. -Metoprolol restarted 10/15/16 #Diabetes mellitus type II, HA1c is 7.9, -Hold metformin for now, -chged Lispro low-dose to medium-dose correctional scale insulin, -increase lantus 6 to 10unit, to 13unit given fasting>180s, to promote faster healing process. chronic, stable, resolved #Ground-level fall without LOC, prior to admission. -Brain CT negative for any acute process -Troponins negative -A. fib with RVR may have contributed to his weakness along with the sepsis -Seizure unlikely -Continue to monitor -Echo ordered (for evaluation of positive blood cultures), and we will see if this demonstrates any structural heart disease. Echocardiogram has been completed but results are not yet available. #Mild hyponatremia, presumed acute. Present on admission. Improved with fluid administration, and suspicion is for hypovolemic etiology #Elevated Hepatic Enzymes, not present on admission. resolved. #Lactic acidosis, present on admission. Resolved Disposition: will keep in house until safely bridge with LMWH/Coumadin, discharge to SNF due to abx infusion, as medicare does not cover home infusion. GI Prophylaxis: Not indicated VTE Prophylaxis: Other (therapeutic heparin drip as warfarin is being held for surgical interventions) VTE Mechanical Devices: Intermittant Pneumatic CD Resuscitation Status: CPR: Attempt Resuscitation Marcus Mcdonald MD October 24, 2016 09:02
[2016-10-24 09:07] LABS: Magnesium 1.9 mg/dL (1.6-2.6); Mean Corpuscular Hemoglobin 28.3 pg (27.0-35.0); Mean Corpuscular Volume 87.5 fL (81-100)
[2016-10-24 09:08] LABS: BASOPHILS % (AUTO) 0.6 % (0-3); MONOCYTES % (AUTO) 8.9 % (4-12); NEUTROPHILS % (AUTO) 73.6 % (40-74); Platelet Count 384 bil/L (150-400)
[2016-10-24 14:43] VITALS: BP 110/72; PULSE 117; RESP 20; O2SAT 98
[2016-10-24 14:56] VITALS: PULSE 73
--- NOTE | 2016-10-24 15:46 | NUR ---
Skin Significant rashy redness to scrotum, bilat groin and buttocks, descending down posterior thighs. Denies itching, no foul odor. MD aware, Nystatin order pending.
[2016-10-24] MEDS: Nystatin 100,000 Unit/Gm 15 Gm Powder TOPICAL SCH ×2 (16:38→21:49)
--- NOTE | 2016-10-24 17:29 | PCM.PNPOD ---
Subjective Date of Service: October 24, 2016 Visit Information: Reason for Visit Foot Infection, Sepsis, Afib W/Rvr Date of Admission: October 13, 2016 at 17:51 Subjective: Patient seen at bedside, resting comfortably, in no acute distress. He is agreeable to current treatments, including anticoagulation and foot ulcer/wound treatment, as well as SNF placement. Objective Vital Sign - Last Date Time Temp Pulse Resp B/P Pulse Ox O2 Delivery O2 Flow Rate FiO2 10/24/16 14:56 73 10/24/16 14:43 36.8 20 110/72 98 Room Air 10/18/16 15:39 3.00 Intake and Output 10/23/16 10/23/16 10/24/16 Cumulative From/Thru 15:00 23:00 07:00 10/13/16 19:50 - 10/24/16 06:38 Intake Total 1692 ml 993 ml 84041 ml Output Total 1250 ml 1850 ml 81764 ml Balance 442 ml -857 ml -6709 ml Intake Oral 1492 ml 650 ml 20375 ml IV Total 200 ml 343 ml 06565 ml Tube Irrigant 10 ml Output Urine Total 1250 ml 1850 ml 35389 ml Drainage Total 0 ml Estimated Blood Loss 15 ml # Voids 10 # Bowel Movements 0 10 Result Diagram: 10/24/16 0345 10/24/16 0345 Lab Test 10/13/16 14:15 10/13/16 22:00 10/15/16 02:38 10/16/16 03:05 Hemoglobin A1c 7.9% (4.8-5.6) Troponin T < 0.010ug/L (0.0-0.011) Pro-B-Type Natriuretic Peptide 1945pg/mL (0-486) Urine Color Annia (YELLOW) Urine Appearance Hazy (CLEAR,HAZY) Urine pH 5.5 (5.0-8.0) Urine Specific [place] 1.035 (1.003-1.035) Urine Protein 100mg/dL (NEG,TRACE) Urine Glucose (UA) >1000mg/dL (NEGATIVE) Urine Ketones 15mg/dL (NEGATIVE) Urine Occult Blood Small (NEGATIVE) Urine Nitrite Negative (NEGATIVE) Urine Bilirubin Negative (NEGATIVE) Urine Ictotest Negative (Negative) Urine Urobilinogen 2.0mg/dL (NORMAL) Urine Leukocyte Esterase Negative (NEGATIVE) Urine RBC 0-2/hpf (0-2) Urine WBC 0-5/hpf (0-5) Urine Epithelial Cells Few/hpf (NONE-MOD) Urine Crystals None seen (NONE SEEN) Urine Bacteria Few/hpf (NONE-FEW) Urine Hyaline Casts 10/22/lpf (NONE) Urine Granular Casts Occasional (NONE SEEN) Urine Waxy Casts None seen (NONE SEEN) Urine Red Blood Cell Casts None seen (NONE SEEN) Urine White Blood Cell Casts None seen (NONE SEEN) Urine Mucus Present (None Seen) Urine Trichomonas None seen (NONE SEEN) Urine Yeast None (NONE SEEN) Urinalysis Comment None Urine Culture Reflexed Not indicated Vancomycin Level Trough 2.9mcg/mL Lactic Acid Level 1.1mmol/L (0.4-2.0) Procalcitonin 0.40ng/mL (0.00-0.08) Test 10/21/16 04:30 10/22/16 02:45 10/24/16 03:45 Myelocytes % 2% (0-0) Band Neutrophils % 2% (1-5) Metamyelocytes % 2% (0-0) Hematology Comments Activated Partial Thromboplast Time 38.4sec (22.8-33.0) White Blood Count 13.5th/mm3 (3.8-10.1) Red Blood Count 4.88mil/mm3 (4.40-5.80) Hemoglobin 13.8g/dL (13.8-17.2) Hematocrit 42.7% (41.0-50.0) Mean Corpuscular Volume 87.5fL (81-100) Mean Corpuscular Hemoglobin 28.3pg (27.0-35.0) Mean Corpuscular Hemoglobin Concent 32.3% (32.0-37.0) Red Cell Distribution Width 13.6% (12.3-15.4) Platelet Count 384bil/L (150-400) Neutrophils (%) (Auto) 73.6% (40-74) Lymphocytes (%) (Auto) 12.5% (14-46) Monocytes (%) (Auto) 8.9% (4-12) Eosinophils (%) (Auto) 1.0% (0-5) Basophils (%) (Auto) 0.6% (0-3) Prothrombin Time 17.9sec (8.1-12.5) Prothromb Time International Ratio 1.66ratio Sodium Level 134mEq/L (134-144) Potassium Level 4.6mEq/L (3.5-5.2) Chloride Level 97mEq/L (97-108) Carbon Dioxide Level 25mmol/L (18-29) Blood Urea Nitrogen 18mg/dL (8-27) Creatinine 0.61mg/dL (0.76-1.27) Estimat Glomerular Filtration Rate 135mL/min (>59) Glucose Level 176mg/dL (60-99) Calcium Level 9.3mg/dL (8.5-10.1) Magnesium Level 1.9mg/dL (1.6-2.6) Total Bilirubin 0.5mg/dL (0.0-1.2) Aspartate Amino Transf (AST/SGOT) 58U/L (0-50) Alanine Aminotransferase (ALT/SGPT) 25U/L (0-44) Alkaline Phosphatase 171U/L (25-160) Total Protein 6.6g/dL (6.4-8.4) Albumin 3.1g/dL (3.4-5.0) Exam General: Alert, Oriented X3, Cooperative, No Acute Distress Lungs: Clear to Auscultation, Normal Air Movement Lower Extremities: Right: Edema localized (Improved, right foot) Extremity warm (Erythema improved, right foot) Lower Extremity Pulses: Palpable: Right Dorsalis Pedis (faint) Right Posterior Tibal (faint) Postop Sensory Motor: Distal Motor Intact, Motor 5/5 Podiatry WOUND : Wound Location/Description Medial 1st met wound is 3.5 x 2cm in size, connecting to plantar foot wound under the metatarsal head, 2cm x 1.5cm in size, 4cm tunnel between them. Egress wound on the lateral aspect of the toe 0.3cm x 0.3cm and 1cm deep. Maceration resolved completely. Range of motion of toe improved. Drainage serosanguineous, no purulence. New granulation tissue evident. Adequate blood supply. Surgical Cast or Splint: None Assessment & Plan Problems: (1) Right foot infection Plan: Good granulation so vascular intervention is not emergent, but definitely would help. He can be discharged from podiatry standpoint with the current dressing to be changed daily. I irrigated all tunnels with saline solution, pushed packing through to remove debris passively, then repacked with clean iodoform between all open areas, lightly enough to allow drainage into betadine/saline soaked gauze and dry kerlix. Dr. Cortez will be by tomorrow to change the dressing. Follow up in the wound center or in the [facility] podiatry office with Dr. Cortez should be set up within 7-10 days of discharge. Status: Acute ICD Code: L08.9 VTE Prophylaxis: Other (therapeutic heparin drip as warfarin is being held for surgical interventions) Wandy Sandy DPM October 24, 2016 17:29
[2016-10-24 20:19] VITALS: BP 123/73; PULSE 97; RESP 20; O2SAT 96
[2016-10-24] MEDS: Insulin GLARgine 100 Unit/mL Syringe SUBQ SCH (21:52)
[2016-10-25] MEDS: CeFAZolin Inj 2 GM in IV Premix 1 EACH IV SCH ×2 (02:22→10:41)
--- NOTE | 2016-10-25 03:14 | NUR ---
Rash On initial assessment, patient has a significant red rash on right buttocks, scrotum, perineum area , and the rash appears to be branching out to thigh area. All areas washed and dried and Nystatin powder applied. Patient denies any pain in area and denies left foot pain. VSS. Call light within reach. Care continues.
[2016-10-25 05:39] VITALS: BP 128/76; PULSE 59; RESP 18; O2SAT 96
[2016-10-25 07:32] LABS: BASOPHILS % (AUTO) 0.5 % (0-3); EOSINOPHILS % (AUTO) 1.1 % (0-5); MONOCYTES % (AUTO) 10.5 % (4-12); Mean Corpuscular Hemoglobin 28.3 pg (27.0-35.0); Mean Corpuscular Volume 86.4 fL (81-100); NEUTROPHILS % (AUTO) 72.1 % (40-74); Platelet Count 376 bil/L (150-400)
[2016-10-25 07:41] LABS: Magnesium 1.9 mg/dL (1.6-2.6)
[2016-10-25] MEDS: Insulin LISPRO 300 Unit/3 mL Inj SUBQ SCH ×2 (08:33→12:33)
[2016-10-25] MEDS: Nystatin 100,000 Unit/Gm 15 Gm Powder TOPICAL SCH (10:17)
--- NOTE | 2016-10-25 11:01 | NUR ---
Spoke with Adryan ARROYO at [facility] and let him know patient is likely to discharge this afternoon. Updated NEUROLOGY DIRECTOR Addendum: 10/25/16 at 1244 by JUAN CARLOS PATEL CM Faxed orders to [facility] and placed copy in chart. [facility] will transport at 1400 Updated NEUROLOGY DIRECTOR
[2016-10-25 11:09] LABS: INR 2.07 ratio
--- NOTE | 2016-10-25 11:41 | PCM.DIMED ---
Discharge Instructions Date of Service October 25, 2016 Dates of Hospitalization October 13, 2016 at 17:51 Discharge Diagnosis Discharge Diagnosis #Right foot cellulitis and setting of diabetic ulceration, and probable PVD, Present on admission. -s/p 10/14/16 for I&D and debridement of the right plantar foot ulcer/abscess, again by Podiatry. #Sepsis with source of right foot cellulitis in the setting of diabetic ulceration. Present on admission. # PVD -arterial doppler 10/20 showed PVD with 50-99% stenosis of the left superficial femoral artery, 50-99% stenosis of the right posterior tibial artery. #Chronic A. fib with acute RVR, present on admission. Patient reports attempt many years ago to electrocardioversion from A. fib that was unsuccessful #Diabetes mellitus type II, HA1c is 7.9, chronic, stable, resolved #Ground-level fall without LOC, prior to admission. #Mild hyponatremia, presumed acute. Present on admission. Improved #Elevated Hepatic Enzymes, not present on admission. resolved. #Lactic acidosis, present on admission. Resolved Diet Discharge Diet: Heart Healthy, Diabetic Activity Discharge Activity: Other (continue physical therapy at long term facility) Call your provider Call your provider for: Fever or Chills, Shortness of breath, Bleeding, Chest pain, Vomitting, Excessive diarrhea, Weakness (unilateral) Patient Instructions Patient Instructions You were hospitalized due to diabetic foot infection and MSSA bacteremia. You underwent debridement. Please continue antibiotics Ancef 2 gm every 8 hours until November 13. Please continue metronidazole 500 mg by mouth twice a day until October 30. Please get CBC and CMp checked once weekly until November 13. Please continue nystatin and triamcinolone for your groin yeast infection.Please continue warfarin as prescribed. You had transesophageal echocardiogram done which revealed thrombus seen in left atrium appendage. try to keep INR between 2.5 and 3 if possible.get INR checked daily for the next 3-4 days until INR is persistently 2.5-3 for 2 days.You also have peripheral vascular disease : arterial doppler 10/20 showed PVD with 50-99% stenosis of the left superficial femoral artery, 50-99% stenosis of the right posterior tibial artery. Please follow-up with Dr. Brooks outpatient for evaluation of intervention. Follow-up Provider: Jefferson Jimenez MD Follow-up with PCP in: 1 week Provider: Pito Brooks MD Follow-up in: 2 weeks Marcus Mcdonald MD October 25, 2016 11:41
[2016-10-25] MEDS ORDERED: OXYC1TAB24 PO (11:44)
[2016-10-25] MEDS ORDERED: METR500T PO (11:44)
[2016-10-25] MEDS ORDERED: NYST1POW25 TOPICAL (11:44)
[2016-10-25] MEDS ORDERED: [UNRECOGNIZED DRUG - CODE] IV (11:44)
[2016-10-25] MEDS ORDERED: TRIA80OI TOPICAL (11:44)
[2016-10-25] MEDS ORDERED: INSU100V7 SUBQ (11:44)
[2016-10-25] MEDS ORDERED: LOV100 SUBQ (11:44)
--- NOTE | 2016-10-25 12:30 | NUR ---
Social Work- Readiness for Discharge/Discharge Data& Assessment: EMR reviewed. Pt is on day 12 of hospitalization for foot infection, sepsis, AFIB with RVR per H&P. Per MD in morning rounds, pt is medically ready for discharge. UR Specialist spoke with [facility] regarding pt's discharge, [facility] agreeable to accepting pt today. ESPERANZA met with pt at bedside, pt agreeable to discharge plan. [facility] coordinated transportation via wheelchair van at 1400. Pt to discharge to [facility] with MD Jimenez to follow, transportation via wheelchair van at 1400. UC, RN, pt/family, and [facility] all updated and agreeable to plan. Assessment: Pt for whom SNF is medically necessary. Plan: Pt to discharge to [facility] with MD Jimenez to follow, transportation via wheelchair van at 1400. UC, RN, pt/family, and [facility] all updated and agreeable to plan. BERTO Florence
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
--- NOTE | 2016-10-25 14:29 | PCM.PNPOD ---
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 Patient states that he is doing well today and has no pain associated with his right foot. He is happy that he is going to be discharged this afternoon to a intermediate facility. Postop General: No Complaints Gastrointestinal: Good Appetite Pain Management: PO Objective Vital Sign - Last Date Time Temp Pulse Resp B/P Pulse Ox O2 Delivery O2 Flow Rate FiO2 10/25/16 05:39 36.6 59 18 128/76 96 Room Air Intake and Output 10/24/16 10/24/16 10/25/16 Cumulative From/Thru 15:00 23:00 07:00 10/13/16 19:50 - 10/25/16 06:01 Intake Total 1581 ml 1269 ml 88621 ml Output Total 1350 ml 2000 ml 23200 ml Balance 231 ml -731 ml -7209 ml Intake Oral 1520 ml 1037 ml 41018 ml IV Total 61 ml 232 ml 83881 ml Tube Irrigant 10 ml Output Urine Total 1350 ml 2000 ml 34912 ml Drainage Total 0 ml Estimated Blood Loss 15 ml # Voids 10 # Bowel Movements 0 1 11 Result Diagram: 10/25/16 0510 10/25/16 0510 Lab Test 10/13/16 14:15 10/13/16 22:00 10/15/16 02:38 10/16/16 03:05 Hemoglobin A1c 7.9% (4.8-5.6) Troponin T < 0.010ug/L (0.0-0.011) Pro-B-Type Natriuretic Peptide 1945pg/mL (0-486) Urine Color Annia (YELLOW) Urine Appearance Hazy (CLEAR,HAZY) Urine pH 5.5 (5.0-8.0) Urine Specific [place] 1.035 (1.003-1.035) Urine Protein 100mg/dL (NEG,TRACE) Urine Glucose (UA) >1000mg/dL (NEGATIVE) Urine Ketones 15mg/dL (NEGATIVE) Urine Occult Blood Small (NEGATIVE) Urine Nitrite Negative (NEGATIVE) Urine Bilirubin Negative (NEGATIVE) Urine Ictotest Negative (Negative) Urine Urobilinogen 2.0mg/dL (NORMAL) Urine Leukocyte Esterase Negative (NEGATIVE) Urine RBC 0-2/hpf (0-2) Urine WBC 0-5/hpf (0-5) Urine Epithelial Cells Few/hpf (NONE-MOD) Urine Crystals None seen (NONE SEEN) Urine Bacteria Few/hpf (NONE-FEW) Urine Hyaline Casts 10/22/lpf (NONE) Urine Granular Casts Occasional (NONE SEEN) Urine Waxy Casts None seen (NONE SEEN) Urine Red Blood Cell Casts None seen (NONE SEEN) Urine White Blood Cell Casts None seen (NONE SEEN) Urine Mucus Present (None Seen) Urine Trichomonas None seen (NONE SEEN) Urine Yeast None (NONE SEEN) Urinalysis Comment None Urine Culture Reflexed Not indicated Vancomycin Level Trough 2.9mcg/mL Lactic Acid Level 1.1mmol/L (0.4-2.0) Procalcitonin 0.40ng/mL (0.00-0.08) Test 10/21/16 04:30 10/22/16 02:45 10/25/16 05:10 10/25/16 10:40 Myelocytes % 2% (0-0) Band Neutrophils % 2% (1-5) Metamyelocytes % 2% (0-0) Hematology Comments Activated Partial Thromboplast Time 38.4sec (22.8-33.0) White Blood Count 11.1th/mm3 (3.8-10.1) Red Blood Count 4.91mil/mm3 (4.40-5.80) Hemoglobin 13.9g/dL (13.8-17.2) Hematocrit 42.4% (41.0-50.0) Mean Corpuscular Volume 86.4fL (81-100) Mean Corpuscular Hemoglobin 28.3pg (27.0-35.0) Mean Corpuscular Hemoglobin Concent 32.8% (32.0-37.0) Red Cell Distribution Width 13.8% (12.3-15.4) Platelet Count 376bil/L (150-400) Neutrophils (%) (Auto) 72.1% (40-74) Lymphocytes (%) (Auto) 12.4% (14-46) Monocytes (%) (Auto) 10.5% (4-12) Eosinophils (%) (Auto) 1.1% (0-5) Basophils (%) (Auto) 0.5% (0-3) Sodium Level 133mEq/L (134-144) Potassium Level 4.7mEq/L (3.5-5.2) Chloride Level 96mEq/L (97-108) Carbon Dioxide Level 26mmol/L (18-29) Blood Urea Nitrogen 19mg/dL (8-27) Creatinine 0.62mg/dL (0.76-1.27) Estimat Glomerular Filtration Rate 132mL/min (>59) Glucose Level 199mg/dL (60-99) Calcium Level 8.9mg/dL (8.5-10.1) Magnesium Level 1.9mg/dL (1.6-2.6) Total Bilirubin 0.5mg/dL (0.0-1.2) Aspartate Amino Transf (AST/SGOT) 38U/L (0-50) Alanine Aminotransferase (ALT/SGPT) 20U/L (0-44) Alkaline Phosphatase 168U/L (25-160) Total Protein 5.9g/dL (6.4-8.4) Albumin 3.2g/dL (3.4-5.0) Prothrombin Time 22.5sec (8.1-12.5) Prothromb Time International Ratio 2.07ratio Exam General: Alert, Oriented X3, Cooperative, No Acute Distress Lungs: Clear to Auscultation, Normal Air Movement Lower Extremities: Right: Edema localized (Improved, right foot) Extremity warm (Erythema improved, right foot) Lower Extremity Pulses: Palpable: Right Dorsalis Pedis (faint) Right Posterior Tibal (faint) Postop Sensory Motor: Distal Motor Intact, Motor 5/5 Podiatry WOUND : Wound Location/Description Right plantar first metatarsal head ulceration full-thickness to subcutaneous tissue without exposed bone or tendon this wound probes to the medial incision and drainage site. There has been a significant increase in the amount of granulation tissue to the wound base this wound today appears 30% fibrotic with 70% red firm granulation tissue. There is minimal serosanguineous drainage. No purulent drainage is noted. The billy-ulcerative tissue is intact with no signs of maceration and no signs of erythema. Surgical Cast or Splint: None Assessment & Plan Impression Improving right lower extremity wound status post incision and drainage of right plantar first metatarsal abscess Problems: (1) Right foot infection Plan: Patient is doing quite well today. His dressing was changed today and the wound was inspected in detail. Dressing applied today consisting of 1/2 inch iodoform packing gauze into the plantar and medial wounds and covered with moist to dry sterile gauze soaked with normal saline and dressed with Kerlix and a loosely applied Nicanor bandage. This patient is stable for discharge today Outpatient intermediate facility wound orders: Dressing is to be changed every 24 hours and is to include 1/2 inch iodoform packing gauze to the plantar first metatarsal and medial first metatarsal ulcerations. This is to be covered with moist to dry saline soaked gauze Kerlix and a loosely applied 4 inch Nicanor bandage Continue antibiotic therapy per Dr. Zhu recommendations Patient is cleared to weight-bear to his right heel with limited activity He will follow-up at the wound care center within 7-10 days. Due to the holiday I will not be in the wound care center next week and he may need to follow up with another physician prior to seeing me in 2 weeks time. Podiatry will continue to follow Status: Acute ICD Code: L08.9 VTE Prophylaxis: Other (therapeutic heparin drip as warfarin is being held for surgical interventions) Buster Cortez DPM October 25, 2016 14:29
--- NOTE | 2016-10-25 14:47 | NUR ---
Discharge note- Up with fww to bathroom. Tolerated activity well. Denies pain. Dr Horn in and changed patient's foot dressing. I called Dr Horn's office prior to discharge to have him call in follow up dressing change instructions and when to follow up and asked that he call [facility] with orders. Patient discharged via cabulance and personal belongings. Report called to receiving nurse,
== END 2016-10-25 14:31 | DRG 854 ==
LOC: SED 13:57 → PCC 17:51 → OSC 10-17 17:20
PROVIDERS: ADMIT Internal Medicine; ATTEND Internal Medicine
PROC: 0JBQ0ZZ Excision of Right Foot Subcutaneous Tissue and Fascia, Open Approach (ICD-10-PCS; principal; 2016-10-14 13:30)
PROC: 0JBQ0ZZ Excision of Right Foot Subcutaneous Tissue and Fascia, Open Approach (ICD-10-PCS; 2016-10-17)
PROC: B24BZZ4 Ultrasonography of Heart with Aorta, Transesophageal (ICD-10-PCS; 2016-10-18)
DX: A41.01 Sepsis due to Methicillin susceptible Staphylococcus aureus (principal); L03.115 Cellulitis of right lower limb; E87.1 Hypo-osmolality and hyponatremia; E87.2 Acidosis; E11.628 Type 2 diabetes mellitus with other skin complications; B95.61 Methicillin susceptible Staphylococcus aureus infection as the cause of diseases classified elsewhere; E11.621 Type 2 diabetes mellitus with foot ulcer; L97.519 Non-pressure chronic ulcer of other part of right foot with unspecified severity; I48.2 Chronic atrial fibrillation; V19.88XA Pedal cyclist (driver) (passenger) injured in other specified transport accidents, initial encounter; Y93.55 Activity, bike riding; Y99.8 Other external cause status; Z79.01 Long term (current) use of anticoagulants; E11.65 Type 2 diabetes mellitus with hyperglycemia

== ENCOUNTER 2016-11-23 12:46 | Inpatient (IN) | payer MEDICARE ==
[~2016-11-23] VITALS: Ht 180.3 cm; Wt 92.0 kg
[~2016-11-23 12:46] MED LIST: INSU100V7 SUBQ; LISI10TA PO; LOV100 SUBQ; METF-495 PO; METF500T7 PO; METO-272 PO; METR500T PO; NYST1POW25 TOPICAL; OXYC1TAB24 PO; TRIA80OI TOPICAL; WARF5TAB PO; WARF7.5T PO; [UNRECOGNIZED DRUG - CODE] IV
[2016-11-23 13:21] VITALS: BP 108/71; PULSE 83; RESP 18; O2SAT 98
[2016-11-23 13:59] LABS: BASOPHILS % (AUTO) 0.2 % (0-3); EOSINOPHILS % (AUTO) 0.2 % (0-5); MONOCYTES % (AUTO) 12.8 % (4-12); Mean Corpuscular Hemoglobin 28.2 pg (27.0-35.0); Mean Corpuscular Volume 84.7 fL (81-100); Platelet Count 263 bil/L (150-400)
--- NOTE | 2016-11-23 16:36 | ED.REPORT ---
HPI-Extremity Problem Lower Date of Service Nov 23, 2016 ED Provider: Dr. Templeton 81 y/o male with a hx of non-insulin dependent DM and A-fib (on Coumadin) presents to the ED due to right big toe infection, onset last month. The pt was sent to the ED by Dr. Scott due to worsening infection. He denies fever, vomiting and any pain in the foot. The pt states "I have no idea what's going on down there" and feels fine. Nursing Notes Stated Complaint: RT FOOT INFECTED/SENT DR Chief Complaint: Extremity Trauma Nursing Notes Reviewed: Yes Allergies: Coded Allergies: No Known Allergies (Unverified , 11/23/16) Scheduled Cefazolin Sodium/Water (Cefazolin Sod-Water 2 G/20 ml) 2 Gm/20 Ml Syringe 2 GM IV Q8H Enoxaparin (Lovenox) 100 Mg/Ml Syringe 90 MG SUBQ Q12H Insulin Glargine (Lantus U100 Insulin Vial) 100 Unit/Ml Vial 13 UNIT SUBQ HS Lisinopril (Lisinopril) 10 Mg Tablet 10 MG PO DAILY Metformin ER (Metformin ER) 500 Mg Tablet 1,000 MG PO HS Metformin ER (Metformin ER) 500 Mg Tablet 500 MG PO QAM Metoprolol Succinate ER (Metoprolol Succinate ER) 50 Mg Tab.er.24h 50 MG PO DAILY Metronidazole (Flagyl) 500 Mg Tablet 500 MG PO Q12 Nystatin (Nystatin) 1 Each Powder.ea. 1 APPLIC TOPICAL BID Triamcinolone Acetonide (Triamcinolone Acetonide Ointment) 80 Gm Oint...g. 1 APPLIC TOPICAL BID Warfarin Sodium (Coumadin) 5 Mg Tablet 10 MG PO monday Warfarin Sodium (Coumadin) 7.5 Mg Tablet 7.5 MG PO DIRECTED Scheduled PRN oxyCODONE-Acetaminophen 5-325 mg (oxyCODONE-Acetaminophen 5-325 mg) 1 Each Tablet 1 TAB PO Q4H PRN PRN For Pain General Time Seen by MD: 16:35 Chief Complaint Other (Right toe 1 infection) Hx Obtained From: Patient Arrived By: Walk-in Onset Occurred: More than a week ago... (4 weeks) Symptom Duration: Since onset Severity: Current: No pain currently Severity: Maximum: No pain Recent Healthcare: Recent doctor visit Similar Sx Previous: No Past Medical History Past Medical History Reports: Diabetes mellitus Reports: Atrial fibrillation Past Surgical History none reported Smoking History Never Smoker Social History Other Social History: Good social support Ambulatory Status Independent Review of Systems Reports: erythema on the right big toe Constitutional: Denies: Fever Musculoskeletal: Denies: Extremity pain (right big toe) Complete sys rev & neg: except as marked. GI: Denies: Vomiting Physical Exam Initial Vital Signs Vital Signs (First) Date Time Temp Pulse Resp B/P Pulse Ox O2 Delivery O2 Flow Rate FiO2 11/23/16 13:21 37 83 18 108/71 98 Room Air Initial VS: Reviewed Head / Eyes: Atraumatic, Normocephalic Neck: Supple, Non-tender, Full range of motion Abdomen / GI: Soft, Non-tender Upper Extremities: Vascular intact, Neuro intact, No swelling, No tenderness Skin: Warm, Dry Neurologic: Alert, Oriented, Nonfocal Lower Extremity / Pelvis / MS: Atraumatic, Full range of motion, No swelling, Non-tender, No erythema, No deformity, Neurologic intact, Vascular intact Ankle / Foot: Atraumatic, Full range of motion, No deformity Erythema over the right great toe and right dorsal foot. 2cm chronic ulcer appearing over the medial right great toe with purluent discharge and packing in place. General/Constitutional: Awake, Alert, No acute distress, Cooperative Respiratory / Chest: Atraumatic, Breath sounds NL, Breath sounds = bilat, No respiratory distress, No rales, No rhonchi, No wheezing Cardiovascular: Heart rate NL, Regular rhythm, Heart sounds NL, No gallop, No murmurs, No rubs Interpretation & Diagnostics Lab Results Interpretation Result Diagram: 11/23/16 1342 11/23/16 1342 Test 11/23/16 13:42 11/23/16 14:55 White Blood Count 12.2th/mm3 (3.8-10.1) Red Blood Count 4.44mil/mm3 (4.40-5.80) Hemoglobin 12.5g/dL (13.8-17.2) Hematocrit 37.6% (41.0-50.0) Mean Corpuscular Volume 84.7fL (81-100) Mean Corpuscular Hemoglobin 28.2pg (27.0-35.0) Mean Corpuscular Hemoglobin Concent 33.2% (32.0-37.0) Red Cell Distribution Width 13.7% (12.3-15.4) Platelet Count 263bil/L (150-400) Neutrophils (%) (Auto) 74.0% (40-74) Lymphocytes (%) (Auto) 12.3% (14-46) Monocytes (%) (Auto) 12.8% (4-12) Eosinophils (%) (Auto) 0.2% (0-5) Basophils (%) (Auto) 0.2% (0-3) Sodium Level 134mEq/L (134-144) Potassium Level 4.3mEq/L (3.5-5.2) Chloride Level 96mEq/L (97-108) Carbon Dioxide Level 23mmol/L (18-29) Blood Urea Nitrogen 13mg/dL (8-27) Creatinine 0.52mg/dL (0.76-1.27) Estimat Glomerular Filtration Rate 162mL/min (>59) Glucose Level 157mg/dL (60-99) Calcium Level 9.1mg/dL (8.5-10.1) Total Bilirubin 1.9mg/dL (0.0-1.2) Aspartate Amino Transf (AST/SGOT) 14U/L (0-50) Alanine Aminotransferase (ALT/SGPT) < 5U/L (0-44) Alkaline Phosphatase 101U/L (25-160) Total Protein 6.6g/dL (6.4-8.4) Albumin 3.8g/dL (3.4-5.0) Hold Bullock Top Tube Received (Received) Urine Color Yellow (YELLOW) Urine Appearance Clear (CLEAR,HAZY) Urine pH 5.5 (5.0-8.0) Urine Specific [place] <1.005 (1.003-1.035) Urine Protein Negativemg/dL (NEG,TRACE) Urine Glucose (UA) 100mg/dL (NEGATIVE) Urine Ketones Negativemg/dL (NEGATIVE) Urine Occult Blood Negative (NEGATIVE) Urine Nitrite Negative (NEGATIVE) Urine Bilirubin Negative (NEGATIVE) Urine Urobilinogen Normalmg/dL (NORMAL) Urine Leukocyte Esterase Negative (NEGATIVE) Urine RBC 0-2/hpf (0-2) Urine WBC 0-5/hpf (0-5) Urine Epithelial Cells Few/hpf (NONE-MOD) Urine Crystals None seen (NONE SEEN) Urine Bacteria Many/hpf (NONE-FEW) Urine Hyaline Casts None/lpf (NONE) Urine Granular Casts None seen (NONE SEEN) Urine Waxy Casts None seen (NONE SEEN) Urine Red Blood Cell Casts None seen (NONE SEEN) Urine White Blood Cell Casts None seen (NONE SEEN) Urine Mucus None seen (None Seen) Urine Trichomonas None seen (NONE SEEN) Urine Yeast None (NONE SEEN) Urinalysis Comment None Urine Culture Reflexed Indicated Hold Urine Received (Received) X-Ray Interpretation Xray Interpretation: IMPRESSION: Soft tissue swelling and probable gas within the soft tissues. Although no bony erosions are identified, plain film radiography is relatively insensitive in the acute phases of osteomyelitis and may not demonstrate radiographic changes for 15 days. If acute osteomyelitis is of clinical concern, nuclear medicine regional bone scan or MRI is recommended. Dictated by: Taylor Mckay M.D. on 11/23/2016 at 17:17 Approved by: Taylor Mckay M.D. on 11/23/2016 at 17:18 X-Ray Ordered: Foot right Interpretation / Wet Read by: Interpret - Radiologist Re-Eval/Medical Decision Med Decision/Clinical Course 81-year-old male history of diabetes presenting with right great toe ulcer and surrounding cellulitis. Sent in by podiatry for admission for IV antibiotics. X-ray no evidence of osteolytic there is small amount of gas. Patient will be admitted for IV antibiotics. Podiatry to see. Culture sent. MRI pending. Re-Evaluation/Progress : Time of Eval: 16:55 Re-Evaluation/Progress Note: Rechecked pt. Discussed lab results, imaging results, diagnosis and plan to admit. Pt understands and agrees with the plan for admission. All questions addressed. Consultation #1: Consulted With: Primary care physician Call Returned at: 16:50 Pharmacognosist: Agrees with eval, Agrees with plan Note: Dr. Bustos recommends admitting patient Consultation #2: Referral / Consult Name: Gabino Wilkerson MD Consulted With: Hospitalist Call Returned at: 17:00 Pharmacognosist: Will see patient, Agrees with eval, Agrees with plan, Accepts admit Counseled Regarding: Diagnosis, Lab results, Need for admission Discharge & Departure Impression: Primary Impression: Diabetic infection of right foot Disposition: ADMITTED TO HOSPITAL Discharge Condition All VS Reviewed: Yes Referrals: NOPCP (PCP) [facility] Scribe Attestation Portions of this note were transcribed by Dheeraj Yeh. I, , personally performed the history, physical exam and medical decision- making;I reviewed and confirmed the accuracy of the information in the transcribed note. Signed by Jessi Wynn. 11/23/16 17:33 Carl Templeton MD Nov 23, 2016 16:36 Dheeraj Yeh Nov 23, 2016 16:39
[2016-11-23] MEDS ORDERED: Vancomycin Dose per Pharmacist XX ONE (16:45)
[2016-11-23] MEDS ORDERED: Piperacillin-Tazo 3.375 Gm Inj 3.375 GM in Dextrose 5% Minibag Plus 50 ML IV ONE (16:45)
[2016-11-23] MEDS ORDERED: Ondansetron 2 mg/mL 2 mL Inj IVPUSH PRN ×2 (17:05→17:15)
[2016-11-23] MEDS ORDERED: Alum-Mag Hydrox-Simeth 30 mL Suspension PO PRN ×2 (17:05→17:15)
[2016-11-23] MEDS ORDERED: Polyethylene Glycol (PEG) 17 Gm Powder PO PRN (17:15)
[2016-11-23] MEDS ORDERED: HYDROcodone-APAP 5-325 mg Tablet PO PRN (17:15)
[2016-11-23] MEDS ORDERED: Glucose 40% Oral Gel 15 Gm Tube PO PRN (17:20)
--- NOTE | 2016-11-23 17:20 | DRSVH ---
PROCEDURE: X-RAY TOESS, TWO VIEWS INDICATIONS: Right great toe infection r/o osteo TECHNIQUE: 3 views of the right great toe(s) acquired. COMPARISON: None. FINDINGS: Bones: No fractures or dislocations. No suspicious bony lesions. Soft tissues: No suspicious soft tissue densities. There is swelling of the great toe and likely gas within the subcutaneous tissues. IMPRESSION: Soft tissue swelling and probable gas within the soft tissues. Although no bony erosions are identified, plain film radiography is relatively insensitive in the acute phases of osteomyelitis and may not demonstrate radiographic changes for 15 days. If acute osteomyelitis is of clinical con cern, nuclear medicine regional bone scan or MRI is recommended. Dictated by: Taylor Mckay M.D. on 11/23/2016 at 17:17 Approved by: Taylor Mckay M.D. on 11/23/2016 at 17:18
[2016-11-23 17:48] LABS: APPEARANCE,URINE CLEAR (CLEAR,HAZY); COLOR,URINE YELLOW (YELLOW); OCCULT BLOOD,URINE NEGATIVE (NEGATIVE); PH,URINE 5.5 (5.0-8.0); UROBILINOGEN,URINE NORMAL (NORMAL)
--- NOTE | 2016-11-23 17:51 | PCM.HPMED ---
Subjective Date of Service Nov 23, 2016 Primary Provider: Admitting Physician: Gabino Wilkerson MD Primary Care Physician: Nopdhiraj Attending Physician: Gabino Wilkerson MD Admit Status: From the Emergency Department, Full Admit, Remote Telemetry Chief Complaint: Right foot infection History of Present Illness: This is a pleasant 81-year-old gentleman with a history of type II diabetes. He has battled a right foot infection since October 11. He initially had a right foot medial aspect callus which she tried to scrape down. This revealed a deeper wound. The patient was followed by podiatry and ultimately went to [facility] and received IV antibiotics for a total of 21 days. The patient went home from [facility] on November 13. Since then he is in significant care twice on the and as well as having home wound care on and Monday. The patient had debridement of his wound recently. Last 24 hours she has developed pronounced redness of the great toe and area around the wound is well [address] dorsal aspect of the foot. He denies pain, no increased discharge. No fevers or chills. 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 No recent MR imaging. Patient also notes recent arterial studies indicated peripheral arterial disease. Review of Systems: No chest pain, sore throat, rhinorrhea. No visual changes. He denies any weight gain. No nausea or diarrhea. No recent discharge from his foot wound. No myalgias or malaise. All else reviewed and otherwise negative except as noted above in history of present illness Allergies Coded Allergies: No Known Allergies (Unverified , 11/23/16) Home Medications Metformin 1500 mg twice a day, Coumadin 10 mg on Monday and 7.5 mg on all other days, metoprolol 50 mg daily, lisinopril 10 mg daily PMH Diabetes mellitus 2 Peripheral artery disease Atrial fibrillation, chronic Hypertension Surgical History Circumcision Family History Diabetes mellitus 2 Social History Occupation: retired Hx Alcohol Use: No Hx Substance Use: No Hx Tobacco Use: No Smoking Status: Never Smoker Living Arrangement: Alone Exam Vital Signs Vital Sign - Last Date Time Temp Pulse Resp B/P Pulse Ox O2 Delivery O2 Flow Rate FiO2 11/23/16 13:21 37 83 18 108/71 98 Room Air Exam Oriented 3. No distress. Fluent speech. Normal affect. Normal skull. Normal nose and ears. Anicteric sclera, symmetric pupils Oropharynx is unremarkable, no facial droop. Neck is supple, normal thyroid. No adenopathy. Lungs are clear, normal effort rate. Heart is regular without murmur gallop or rub. Abdomen soft, nondistended or tender. Extremities are free of pedal edema. The right foot is red over the great toe next to toes as well as the dorsal and medial aspect of the foot. There is a large open wound with packing on the medial aspect. Skin is warm. There is no obvious fluctuance. Good radial and pedal pulses. Skin is free of rash, lesions. No petechiae or ecchymosis. Joints are grossly normal. Cranial nerves are grossly normal. Motor strength is normal in all extremities. Normal muscular tone. Lab and Diagnostics Result Diagram: 11/23/16 1342 11/23/16 1342 X-Rays, CTs and MRIs Foot x-ray IMPRESSION: Soft tissue swelling and probable gas within the soft tissues. Although no bony erosions are identified, plain film radiography is relatively insensitive in the acute phases of osteomyelitis and may not demonstrate radiographic changes for 15 days. If acute osteomyelitis is of clinical concern , nuclear medicine regional bone scan or MRI is recommended. Assessment & Plan Right foot diabetic soft tissue infection associated with chronic wound. POA. The plan is IV linezolid and Zosyn as well as an MRI of the foot to rule out osteo-and further delineate the extent of his soft tissue infection. Swab nares and wound for MRSA Diabetes mellitus 2, POA. Will hold metformin and use Lantus 5 at bedtime and correctional lispro Chronic atrial fibrillation, POA. Will hold Coumadin tonight case patient requires a procedure. Peripheral arterial disease, POA. We will notify Dr. Collins on his admission tomorrow Patient is full resuscitation this was discussed today Inpatient status with anticipated length of stay of overt tonight's Pain Evaluation: Adequate Pain Control Resuscitation Status: CPR: Attempt Resuscitation Time spent 45 minutes Gabino Wilkerson MD Nov 23, 2016 17:51
[2016-11-23 18:36] VITALS: BP 124/70; PULSE 88; RESP 18; O2SAT 99
[2016-11-23 20:06] VITALS: BP 142/91; PULSE 94; RESP 18; O2SAT 99
--- NOTE | 2016-11-23 20:13 | DRSVH ---
PROCEDURE: MRI FOREFOOT RIGHT WITH AND WITHOUT CONTRAST (81997) INDICATIONS: foot infection TECHNIQUE: Noncontrast sagittal T1 spin echo and T2 fast spin echo with fat saturation, long-axis T1 spin echo a nd T2 fast spin echo with fat saturation; short-axis T1 spin echo, proton density fast spin echo, and T2 fast spin echo with fat saturation through the forefoot. Post-contrast short axis, long axis, an d sagittal T1 spin echo with fat saturation through the forefoot. COMPARISON: None. FINDINGS: Image quality: Patient motion artifact limits evaluation. Bones and joints: Increased TEAR signal and decreased T1 signal is present at the base of the proxim al phalanx of the first digit. There is corresponding enhancement of the bone in this region on the p ostcontrast images. Similarly, there is edema and enhancement within the distal aspect of the proxima l phalanx of the first digit with corresponding increase TEAR signal and marrow edema. Soft tissues: A serpiginous soft tissue defect is present under the first TMT joint extending under the first proximal phalanx. There is enhancement within the margins of this soft tissue defect and tr delfin T2 hyperintense fluid within the central portion. There is extensive edema and enhancement of the soft tissues throughout the forefoot. IMPRESSION: Please note, this is a markedly limited study given patient motion artifact. 1. Penetrating ulcer under the first MTP joint with extensive cellulitis and edema. 2. Marked marrow edema and subtle enhancement at the base and distal aspect of the proximal phalanx o f the first digit consistent with osteomyelitis. Dictated by: Taylor Mckay M.D. on 11/23/2016 at 20:04 Approved by: Taylor Mckay M.D. on 11/23/2016 at 20:11
[2016-11-23] MEDS: 0.9% Sodium Chloride 1,000 ML IV SCH (20:15)
[2016-11-23] MEDS: Linezolid Inj 600 MG in IV Premix 1 EACH IV SCH (20:17)
[2016-11-23] MEDS: Insulin LISPRO 300 Unit/3 mL Inj SUBQ SCH ×2 (20:28→22:16)
--- NOTE | 2016-11-23 21:58 | PCM.CHPPOD ---
Subjective Date of service Nov 23, 2016 History of Present Illness 81 year old male admitted to the hospital with cellulitis of the right foot. Patient has a recent history of admission for DM foot infection requiring incision and drainage followed by prolonged antibiotics. Patient states that he was quite active over the weekend. Last evaluated at the wound care center 2 days ago with no significant cellulitis however increased edema was noted at that time. Patient denies any recent fever, chills, nausea or vomiting. Allergy Allergies: Coded Allergies: No Known Allergies (Unverified , 11/23/16) Medications Insulin Glargine (Lantus U100 Insulin Vial) 100 Unit/Ml Vial 13 UNIT SUBQ HS Lisinopril (Lisinopril) 10 Mg Tablet 10 MG PO DAILY Metformin ER (Metformin ER) 500 Mg Tablet 1,000 MG PO HS Metformin ER (Metformin ER) 500 Mg Tablet 500 MG PO QAM Metoprolol Succinate ER (Metoprolol Succinate ER) 50 Mg Tab.er.24h 50 MG PO DAILY Warfarin Sodium (Coumadin) 5 Mg Tablet 10 MG PO monday Warfarin Sodium (Coumadin) 7.5 Mg Tablet 7.5 MG PO DIRECTED Past Medical History Surgeries: No Medical History: Surgical History: Social History Occupation: retired Hx Alcohol Use: No Hx Substance Use: No Hx Tobacco Use: No Smoking Status: Never Smoker Podiatry Consult Exam Vital Signs Vital Sign - Last Date Time Temp Pulse Resp B/P Pulse Ox O2 Delivery O2 Flow Rate FiO2 11/23/16 20:06 36.6 94 18 142/91 99 Room Air Result Diagram: 11/23/16 1342 11/23/16 1342 Lab Test 11/23/16 13:42 11/23/16 14:55 White Blood Count 12.2th/mm3 (3.8-10.1) Red Blood Count 4.44mil/mm3 (4.40-5.80) Hemoglobin 12.5g/dL (13.8-17.2) Hematocrit 37.6% (41.0-50.0) Mean Corpuscular Volume 84.7fL (81-100) Mean Corpuscular Hemoglobin 28.2pg (27.0-35.0) Mean Corpuscular Hemoglobin Concent 33.2% (32.0-37.0) Red Cell Distribution Width 13.7% (12.3-15.4) Platelet Count 263bil/L (150-400) Neutrophils (%) (Auto) 74.0% (40-74) Lymphocytes (%) (Auto) 12.3% (14-46) Monocytes (%) (Auto) 12.8% (4-12) Eosinophils (%) (Auto) 0.2% (0-5) Basophils (%) (Auto) 0.2% (0-3) Sodium Level 134mEq/L (134-144) Potassium Level 4.3mEq/L (3.5-5.2) Chloride Level 96mEq/L (97-108) Carbon Dioxide Level 23mmol/L (18-29) Blood Urea Nitrogen 13mg/dL (8-27) Creatinine 0.52mg/dL (0.76-1.27) Estimat Glomerular Filtration Rate 162mL/min (>59) Glucose Level 157mg/dL (60-99) Calcium Level 9.1mg/dL (8.5-10.1) Total Bilirubin 1.9mg/dL (0.0-1.2) Aspartate Amino Transf (AST/SGOT) 14U/L (0-50) Alanine Aminotransferase (ALT/SGPT) < 5U/L (0-44) Alkaline Phosphatase 101U/L (25-160) Total Protein 6.6g/dL (6.4-8.4) Albumin 3.8g/dL (3.4-5.0) Hold Bullock Top Tube Received (Received) Urine Color Yellow (YELLOW) Urine Appearance Clear (CLEAR,HAZY) Urine pH 5.5 (5.0-8.0) Urine Specific [place] <1.005 (1.003-1.035) Urine Protein Negativemg/dL (NEG,TRACE) Urine Glucose (UA) 100mg/dL (NEGATIVE) Urine Ketones Negativemg/dL (NEGATIVE) Urine Occult Blood Negative (NEGATIVE) Urine Nitrite Negative (NEGATIVE) Urine Bilirubin Negative (NEGATIVE) Urine Urobilinogen Normalmg/dL (NORMAL) Urine Leukocyte Esterase Negative (NEGATIVE) Urine RBC 0-2/hpf (0-2) Urine WBC 0-5/hpf (0-5) Urine Epithelial Cells Few/hpf (NONE-MOD) Urine Crystals None seen (NONE SEEN) Urine Bacteria Many/hpf (NONE-FEW) Urine Hyaline Casts None/lpf (NONE) Urine Granular Casts None seen (NONE SEEN) Urine Waxy Casts None seen (NONE SEEN) Urine Red Blood Cell Casts None seen (NONE SEEN) Urine White Blood Cell Casts None seen (NONE SEEN) Urine Mucus None seen (None Seen) Urine Trichomonas None seen (NONE SEEN) Urine Yeast None (NONE SEEN) Urinalysis Comment None Urine Culture Reflexed Indicated Hold Urine Received (Received) Exam General: Alert, Oriented X3, Cooperative, No Acute Distress Podiatry WOUND : Wound Location/Description right foot with erythema of the dorsum of the distal medial foot extending to the 1st MTPJ. moderate serous and yellow drainage from the medial and plantar foot wounds. mild mal odor. no directly exposed bone however plantar wound probes to the plantar aspect of the right great toe. Incision General Appearence: Erythmia Dressing & Drainage Status: Changed, Odor Assessment & Plan Assessment Cellulitis of daksha right foot with DM foot ulcer and possible underlying osteomyelitis. Problems: Plan Non weightbearing to the right foot. broad spectrum IV antibiotics- consult Dr. Zhu who followed patient at previous admission. Suggest consultation to Dr. Brooks- Patient was to have a follow up visit with him today regarding possible revascularization. Suggest MRI of right forefoot to eval for possible osteomyelitis of the great toe and first metatarsal. please keep NPO after 9 AM for possible surgical intervention after 5pm if needed for incision and drainage vs partial first ray amputation. Buster Cortez DPM Nov 23, 2016 21:58
[2016-11-23] MEDS: Insulin GLARgine 100 Unit/mL Syringe SUBQ SCH (22:15)
[2016-11-23] MEDS: Piperacillin-Tazo 3.375 Gm Inj 3.375 GM in Dextrose 5% Minibag Plus 50 ML IV SCH (22:18)
[2016-11-24] VITALS (9 sets, daily range): BP systolic 104–152; BP diastolic 68–93; PULSE 75–95; RESP 15–23; O2SAT 94–100
[2016-11-24 05:49] LABS: BASOPHILS % (AUTO) 0.2 % (0-3); EOSINOPHILS % (AUTO) 1.3 % (0-5); Mean Corpuscular Hemoglobin 28.2 pg (27.0-35.0); Mean Corpuscular Volume 85.6 fL (81-100); NEUTROPHILS % (AUTO) 70.5 % (40-74); Platelet Count 232 bil/L (150-400)
[2016-11-24] MEDS: 0.9% Sodium Chloride 1,000 ML IV SCH ×3 (06:03→23:14)
[2016-11-24] MEDS: Piperacillin-Tazo 3.375 Gm Inj 3.375 GM in Dextrose 5% Minibag Plus 50 ML IV SCH ×4 (06:05→22:24)
[2016-11-24 06:12] LABS: INR 2.29 ratio
[2016-11-24] MEDS: Insulin LISPRO 300 Unit/3 mL Inj SUBQ SCH ×4 (08:12→22:34)
[2016-11-24] MEDS ORDERED: 0.9% Sodium Chloride 250 ML ONE (08:12)
[2016-11-24] MEDS: Linezolid Inj 600 MG in IV Premix 1 EACH IV SCH ×2 (08:19→20:00)
[2016-11-24] MEDS ORDERED: MeTOProlol 1 mg/mL 5 mL Inj ONE (09:34)
[2016-11-24] MEDS ORDERED: Propofol 10 mg/mL 20 mL Inj ONE (09:34)
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
--- NOTE | 2016-11-24 14:02 | DRSVH ---
PROCEDURE: US VEINOUS LEG DUPLEX UNILATERAL, RIGHT INDICATIONS: Right leg swelling and erythema TECHNIQUE: Real-time imaging, as well as color and pulse Doppler interrogation, were performed of the lower extr emity deep veins from the inguinal ligament to the popliteal fossa. COMPARISON: None. FINDINGS: The deep veins are normally compressible, and free of intraluminal thrombus. Color and pu lse Doppler demonstrate normal phasic intraluminal flow. There is normal augmentation response to di stal compression maneuver. IMPRESSION: No DVT found. Dictated by: Kenny Chapman M.D. on 11/24/2016 at 14:00 Approved by: Kenny Chapman M.D. on 11/24/2016 at 14:00
[2016-11-24] MEDS ORDERED: Lactated Ringer's 500 ML IV PRN (18:03)
[2016-11-24] MEDS ORDERED: Lactated Ringer's 1,000 ML IV SCH (18:03)
--- NOTE | 2016-11-24 18:04 | PCM.PNMED ---
Subjective Date of Service Nov 24, 2016 Subjective Patient seems mostly and 90s in the hospital recurrence of his infected foot. No complaints chest pain, dyspnea, nausea or vomiting or even bleeding. Exam Vital Signs Vital Sign - Last Date Time Temp Pulse Resp B/P Pulse Ox O2 Delivery O2 Flow Rate FiO2 11/24/16 16:02 36.7 75 20 138/78 98 Room Air Intake and Output 11/23/16 11/23/16 11/24/16 Cumulative From/Thru 15:00 23:00 07:00 11/23/16 13:21 - 11/24/16 06:45 Intake Total 836 ml 836 ml Output Total 1425 ml 1425 ml Balance -589 ml -589 ml Intake Oral 836 ml 836 ml Output Urine Total 1425 ml 1425 ml # Bowel Movements 1 1 Exam Gen.- A+ O 3 no apparent distress. Well appearing elderly male in bed Head-atraumatic/normocephalic Eyes- open conjunctiva clear, pupils equal, nonicteric Mouth- no deformity of lips ENT- ears no deformity, nose no deformity, hearing intact Neck- supple/trach midline CVS-normal rate Lungs-regular rate nonlabored GI-flat Musc- moving 4 no obvious deformity- right foot is markedly more swollen the left particularly great toe Neuro- cranial nerves II through XII intact to gross examination, nonfocal Skin- warm and dry, no rashes/lesions/wounds noted Open eschar under bandage millimeters in diameter probably around the first tarsal metatarsal joint Psych- pleasant and appropriate, Lab and Diagnostics Result Diagram: 11/24/16 0530 11/24/16 0530 X-Rays, CTs and MRIs Foot x-ray IMPRESSION: Soft tissue swelling and probable gas within the soft tissues. Although no bony erosions are identified, plain film radiography is relatively insensitive in the acute phases of osteomyelitis and may not demonstrate radiographic changes for 15 days. If acute osteomyelitis is of clinical concern , nuclear medicine regional bone scan or MRI is recommended. Assessment & Plan 81-year-old male admitted 11/23 for treatment of wound/ulcer of diabetes 11/24 INR elevated, patient probably having debridement anyway treatment plan per Dr. Cortez podiatry Right foot diabetic soft tissue infection associated with chronic wound. POA. The plan is IV linezolid and Zosyn as well as an MRI of the foot to rule out osteo-and further delineate the extent of his soft tissue infection. Swab nares and wound for MRSA Diabetes mellitus 2, POA. Will hold metformin and use Lantus 5 at bedtime and correctional lispro -BS 121-241 today no changes. Chronic atrial fibrillation, POA. Continue holding Coumadin Peripheral arterial disease, POA. will advise Dr. Brooks probably needs to coordinate care with podiatry. Patient is full resuscitation this was discussed today Inpatient status with anticipated length of stay of overt tonight's VTE Mechanical Devices: Intermittant Pneumatic CD Resuscitation Status: CPR: Attempt Resuscitation David Dyson MD Nov 24, 2016 18:04
[2016-11-24] MEDS ORDERED: Ondansetron 2 mg/mL 2 mL Inj IVPUSH PRN (18:05)
[2016-11-24] MEDS ORDERED: Atropine 0.4 mg/mL Inj IVPUSH PRN (18:05)
[2016-11-24] MEDS ORDERED: fentaNYL-PF 50 mCg/mL 2 mL Inj IVPUSH PRN (18:05)
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
[2016-11-24] MEDS ORDERED: Bupivacaine-MPF 0.5% 30 mL Inj INFILTRATE ONE (18:18)
--- NOTE | 2016-11-24 18:33 | PCM.PODPO ---
Podiatry Operative Report Date of Service: Nov 24, 2016 Date of Service Nov 24, 2016 Pre Operative Diagnosis 1. Abscess cellulitis right foot 2. Possible osteomyelitis right great toe Post Operative Diagnosis Same as preoperative diagnosis Procedure Incision and drainage with bone biopsy of the right hallux Surgeon Surgeon: Buster Cortez Assistants: None Indication for Procedure Possible osteomyelitis of the right great toe Findings No noted abscess collection around the base of the first metatarsal or first metatarsophalangeal joint. The right hallux and first metatarsal head appear of normal color. The right hallux bone was moderately osteopenic in nature Details of Procedure Patient was identified in the preoperative holding area and the right lower extremity was identified as the correct extremity. The patient was transported into the operating room and placed under Mac anesthesia by the anesthesia service in the supine position in the normal technique. A preoperative timeout was performed the patient was then prepped and draped in normal aseptic technique attention was first paid to the dorsal aspect of the right first metatarsophalangeal joint and approximately 6 cm long incision was made utilizing a #10 blade. Once that initially her skin blunt dissection was carried down through subcutaneous tissue to identify capsular tissue. A #10 blade was then utilized to incise the capsular tissue identifying the first metatarsal phalangeal joint and base of the proximal phalanx. Direct visualization of the metatarsophalangeal joint revealed normal appearance in color without any noted abscess collection around the base of the great toe. Dorsal to the first metatarsal A amount of necrotic adipose tissue was noted and sharply debrided with a rongeur. This wound was not grossly flushed with large amounts of normal saline. Deep inspection of the plantar and medial wound was performed with a hemostat no abscess collections were noted. The medial wound connects to its distal aspect to the plantar medial ulceration. The medial and plantar wound were sharply debrided. All wounds were copiously flushed with large amounts of normal saline. A rongeur was utilized to remove a small portion of bone from the dorsal proximal aspect of the proximal phalanx distal to the articular surface. The bone was noted to be soft in nature. A specimen of bone was sent for wound culture and for pathologic analysis. This wound was again flushed with normal saline. The dorsal incision was partially closed utilizing number 3. 0 Prolene. The remainder of the wounds were then packed with sterile iodoform packing gauze all wounds were dressed with sterile 4 x 4 gauze and ABD pad Kerlix and an Nicanor bandage. The patient was awoken by anesthesia and transported out of the operating room. No complications occurred during this procedure. Grafts, Implants: None Complications There were no periprocedural complications identified. Condition Stable Anesthetic Administered: MAC Catheters: None Output, Estimated Blood Loss: 50 Blood Admin during surgery: No Surgical Cast or Splint: None Surgical Specimen Removed: Yes Specimen sent to Pathology: Yes Surgical Specimen description: Right hallux bone Post Operative Plan Elevate right foot Nonweightbearing right foot Restart inpatient medications per hospitalist service Continue broad-spectrum antibiotics Follow-up the bone culture and pathologic analysis of the right great toe Daily dressing changes by podiatry service only Advance diet as tolerated Transfer back to floors when stable Buster Cortez DPM Nov 24, 2016 18:33
--- NOTE | 2016-11-24 20:27 | PCM.ANEP1 ---
Post Anesthesia PACU Phase 1 Assessment Vital Signs Vital Signs Date Time Temp Pulse Resp B/P Pulse Ox O2 Delivery O2 Flow Rate FiO2 11/24/16 19:11 36.6 76 20 148/93 99 Room Air 11/24/16 18:54 36.2 86 23 131/75 97 Room Air 11/24/16 18:41 86 15 104/82 97 Room Air 11/24/16 18:35 82 16 108/68 97 Room Air 11/24/16 18:30 36.7 95 20 122/68 100 Simple Mask 9 11/24/16 16:02 36.7 75 20 138/78 98 Room Air Anesthetic Administered: MAC Level of Alertness: Awake, talking BURGESS's with Equal Strength: Yes Pain: No Nausea or Vomiting: No CV Function & Hydration Stable: No Airway Device: N/A Oxygen Delivery: Room Air Lungs: Clear to Auscultation, Normal Air Movement Dermatome Level: Full Sensation PACU Phase 2 Assessment Complications: No Follow up Care: N/A Patient Instructions Provided: N/A Bryn Handley MD Nov 24, 2016 20:27
[2016-11-24] MEDS: Insulin GLARgine 100 Unit/mL Syringe SUBQ SCH (22:33)
[2016-11-25 00:14] VITALS: BP 121/82; PULSE 81; RESP 20; O2SAT 97
[2016-11-25 04:40] VITALS: BP 119/75; PULSE 77; RESP 20; O2SAT 97
[2016-11-25] MEDS: Piperacillin-Tazo 3.375 Gm Inj 3.375 GM in Dextrose 5% Minibag Plus 50 ML IV SCH ×3 (05:58→22:44)
[2016-11-25 07:46] VITALS: BP 132/84; PULSE 80; RESP 16; O2SAT 99
[2016-11-25] MEDS: 0.9% Sodium Chloride 1,000 ML IV SCH (07:50)
[2016-11-25] MEDS: Insulin LISPRO 300 Unit/3 mL Inj SUBQ SCH ×4 (07:50→22:43)
[2016-11-25] MEDS: Linezolid Inj 600 MG in IV Premix 1 EACH IV SCH ×3 (09:58→19:58)
--- NOTE | 2016-11-25 12:55 | PROG NOTE ---
[address] [address] PROGRESS NOTE PATIENT: RUSTY SILVESTRE : 1935 MR#: [id number] ADMIT: 11/23/2016 JOB ID: [id number] DATE: 11/25/2016 INFECTIOUS DISEASE FOLLOWUP NOTE: REASON FOR FOLLOWUP: Severe right diabetic foot infection. INTERVAL HISTORY: Over yesterday the patient underwent debridement by Dr. Cortez. At that time there was no clear-cut evidence of osteo but he did debride what was an abscess and cellulitis and obtained cultures as well as a bone biopsy of the right great toe. The patient tolerated the procedure well and now is free of any complaint. He denies fevers, chills, sweats, cough, shortness of breath, nausea, vomiting, or diarrhea. He has no pain in his foot as he has diminished sensation in his feet. PHYSICAL EXAMINATION: Reveals an afebrile comfortable man, watching TV. Temp 36.8, pulse 80, respiratory rate 16, blood pressure 132/84, saturating 99%. He is awake and alert. Lungs are clear. Abdomen benign. No new heart murmurs. His right foot is in a large dressing. LABORATORIES: Include a white count now down to 8400. His CRP that we obtained yesterday morning is 10.1, however, which is dramatically elevated and does cause increased concern about osteo. He has no pyuria. Blood cultures from the are negative. A MRSA screen of the nares is negative. A foot culture done in the OR yesterday has rare polys with no organisms. The venous duplex study we ordered yesterday showed no DVT on the right. IMPRESSION: This patient is doing relatively well postop from his foot debridement. It still remains unclear to me whether or not he has osteomyelitis. Recall that this patient was treated aggressively for four weeks with IV therapy for MSSA infection back in October and did well for a while, and then has relapsed with a new and worsening right forefoot ulcer. There was questionable osteo on the MRI and it has now been debrided, and we await the bone biopsy and cultures to establish whether or not there is osteo. RECOMMENDATIONS: 1. Will continue with linezolid and Zosyn as very broad coverage. 2. Will change the linezolid to oral. 3. As noted yesterday it would be very reasonable for the patient to see his underliner, Dr. Brooks, to see if anything else can be done to improve his blood flow to that foot. 4. I will continue to follow this patient with you and will see him back after the weekend, when hopefully we will have final reports on both micro and the histopath.
[2016-11-25 14:58] VITALS: BP 124/90; PULSE 80; RESP 18; O2SAT 97
--- NOTE | 2016-11-25 15:31 | PCM.PNPOD ---
Subjective Date of Service: Nov 25, 2016 Date of Service: Nov 25, 2016 Visit Information: Reason for Visit Diabetic Foot Infection Surgery/Surgery Date Post-Op Day #1 Date of Admission: Nov 23, 2016 at 17:29 Hospital Day # Subjective: Patient evaluated at bedside resting comfortably in no acute distress. Day 1 status post incision and drainage right first metatarsal phalangeal joint with bone biopsy of the first proximal phalanx. Patient has no new issues or complaints overnight Postop General: No Complaints Gastrointestinal: Good Appetite Pain Management: PO Objective Vital Sign - Last Date Time Temp Pulse Resp B/P Pulse Ox O2 Delivery O2 Flow Rate FiO2 11/25/16 14:58 36.7 80 18 124/90 97 Room Air 11/24/16 18:30 9 Intake and Output 11/24/16 11/24/16 11/25/16 Cumulative From/Thru 15:00 23:00 07:00 11/23/16 13:21 - 11/25/16 06:12 Intake Total 1742 ml 1610 ml 1500 ml 5688 ml Output Total 1375 ml 1775 ml 4575 ml Balance 1742 ml 235 ml -275 ml 1113 ml Intake Oral 636 ml 840 ml 2312 ml IV Total 1742 ml 974 ml 660 ml 3376 ml Output Urine Total 1325 ml 1775 ml 4525 ml Estimated Blood Loss 50 ml 50 ml # Voids 6 6 # Bowel Movements 0 1 Result Diagram: 11/24/16 0530 11/24/16 0530 Lab Test 11/23/16 13:42 11/23/16 14:55 11/24/16 05:30 Hemoglobin A1c 8.1% (4.8-5.6) Hold Bullock Top Tube Received (Received) Urine Color Yellow (YELLOW) Urine Appearance Clear (CLEAR,HAZY) Urine pH 5.5 (5.0-8.0) Urine Specific [place] <1.005 (1.003-1.035) Urine Protein Negativemg/dL (NEG,TRACE) Urine Glucose (UA) 100mg/dL (NEGATIVE) Urine Ketones Negativemg/dL (NEGATIVE) Urine Occult Blood Negative (NEGATIVE) Urine Nitrite Negative (NEGATIVE) Urine Bilirubin Negative (NEGATIVE) Urine Urobilinogen Normalmg/dL (NORMAL) Urine Leukocyte Esterase Negative (NEGATIVE) Urine RBC 0-2/hpf (0-2) Urine WBC 0-5/hpf (0-5) Urine Epithelial Cells Few/hpf (NONE-MOD) Urine Crystals None seen (NONE SEEN) Urine Bacteria Many/hpf (NONE-FEW) Urine Hyaline Casts None/lpf (NONE) Urine Granular Casts None seen (NONE SEEN) Urine Waxy Casts None seen (NONE SEEN) Urine Red Blood Cell Casts None seen (NONE SEEN) Urine White Blood Cell Casts None seen (NONE SEEN) Urine Mucus None seen (None Seen) Urine Trichomonas None seen (NONE SEEN) Urine Yeast None (NONE SEEN) Urinalysis Comment None Urine Culture Reflexed Indicated Hold Urine Received (Received) White Blood Count 8.4th/mm3 (3.8-10.1) Red Blood Count 4.43mil/mm3 (4.40-5.80) Hemoglobin 12.5g/dL (13.8-17.2) Hematocrit 37.9% (41.0-50.0) Mean Corpuscular Volume 85.6fL (81-100) Mean Corpuscular Hemoglobin 28.2pg (27.0-35.0) Mean Corpuscular Hemoglobin Concent 33.0% (32.0-37.0) Red Cell Distribution Width 13.7% (12.3-15.4) Platelet Count 232bil/L (150-400) Neutrophils (%) (Auto) 70.5% (40-74) Lymphocytes (%) (Auto) 14.5% (14-46) Monocytes (%) (Auto) 13.0% (4-12) Eosinophils (%) (Auto) 1.3% (0-5) Basophils (%) (Auto) 0.2% (0-3) Prothrombin Time 24.9sec (8.1-12.5) Prothromb Time International Ratio 2.29ratio Sodium Level 136mEq/L (134-144) Potassium Level 4.1mEq/L (3.5-5.2) Chloride Level 100mEq/L (97-108) Carbon Dioxide Level 23mmol/L (18-29) Blood Urea Nitrogen 11mg/dL (8-27) Creatinine 0.54mg/dL (0.76-1.27) Estimat Glomerular Filtration Rate 155mL/min (>59) Glucose Level 158mg/dL (60-99) Calcium Level 8.7mg/dL (8.5-10.1) Total Bilirubin 1.2mg/dL (0.0-1.2) Aspartate Amino Transf (AST/SGOT) 13U/L (0-50) Alanine Aminotransferase (ALT/SGPT) 5U/L (0-44) Alkaline Phosphatase 91U/L (25-160) C-Reactive Protein 10.1mg/dL (0.0-0.5) Total Protein 5.9g/dL (6.4-8.4) Albumin 3.5g/dL (3.4-5.0) Exam General: Alert, Oriented X3, Cooperative, No Acute Distress Lungs: Clear to Auscultation, Normal Air Movement Lower Extremities: Right: Edema localized Extremity warm Lower Extremity Pulses: Doppler: Right Dorsalis Pedis Right Posterior Tibal Postop Sensory Motor: Distal Motor Intact, Motor 5/5, Decreased Sensation Podiatry WOUND : Wound Location/Description Dressing is clean dry and intact with no noted strikethrough today Surgical Cast or Splint: None Assessment & Plan Impression Stable right first metatarsal ulceration with possible underlying osteomyelitis of the great toe Problems: Plan No dressing change necessary today. Patient will remain partial weightbearing to his right heel with limited activity for toileting and transfers only. His dressing will be changed tomorrow by the podiatry service. Plan to follow up wound cultures and potentially continue antibiotic therapy versus a potential amputation of the great toe if necessary next week. Buster Cortez DPM Nov 25, 2016 15:31
[2016-11-25] MEDS: Sodium Chloride LOK Flush 10 mL Syringe IVFLUSH SCH (15:40)
[2016-11-25] MEDS ORDERED: Warfarin 5 MG, Warfarin 2.5 MG PO ONE ×2 (17:00)
--- NOTE | 2016-11-25 18:34 | PCM.PNMED ---
Subjective Date of Service Nov 25, 2016 Subjective Patient has no new complaints but is not giving him too much pain. No chest pain no dyspnea and no nausea or vomiting Exam Vital Signs Vital Sign - Last Date Time Temp Pulse Resp B/P Pulse Ox O2 Delivery O2 Flow Rate FiO2 11/25/16 14:58 36.7 80 18 124/90 97 Room Air 11/24/16 18:30 9 Intake and Output 11/24/16 11/24/16 11/25/16 Cumulative From/Thru 15:00 23:00 07:00 11/23/16 13:21 - 11/25/16 06:12 Intake Total 1742 ml 1610 ml 1500 ml 5688 ml Output Total 1375 ml 1775 ml 4575 ml Balance 1742 ml 235 ml -275 ml 1113 ml Intake Oral 636 ml 840 ml 2312 ml IV Total 1742 ml 974 ml 660 ml 3376 ml Output Urine Total 1325 ml 1775 ml 4525 ml Estimated Blood Loss 50 ml 50 ml # Voids 6 6 # Bowel Movements 0 1 Exam Gen.- A+ O 3 no apparent distress. Well appearing elderly male in bed Head-atraumatic/normocephalic Eyes- open conjunctiva clear, pupils equal, nonicteric Mouth- no deformity of lips ENT- ears no deformity, nose no deformity, hearing intact Neck- supple/trach midline CVS-normal rate Lungs-regular rate nonlabored GI-flat Musc- moving 4 no obvious deformity- right foot is markedly more swollen the left particularly great toe Neuro- cranial nerves II through XII intact to gross examination, nonfocal Skin- warm and dry, no rashes/lesions/wounds noted Today the bandage and right upper much larger, the swelling of the foot and toes seem to be diminished. Did not open it to evaluate. Psych- pleasant and appropriate, Lab and Diagnostics Result Diagram: 11/24/16 0530 11/24/16 0530 X-Rays, CTs and MRIs US VEINOUS LEG DUPLEX UNILATERAL, RIGHT: Kenny Chapman M.D. on 11/24/2016 at 14:00 No DVT found. Dictated by: Kenny Chapman M.D. on 11/24/2016 at 14:00 MRI FOREFOOT RIGHT WITH AND WITHOUT CONTRAST: Taylor Mckay M.D. on 11/23/2016 at 20:04 Please note, this is a markedly limited study given patient motion artifact. 1. Penetrating ulcer under the first MTP joint with extensive cellulitis and edema. 2. Marked marrow edema and subtle enhancement at the base and distal aspect of the proximal phalanx of the first digit consistent with osteomyelitis. Dictated by: Taylor Mckay M.D. on 11/23/2016 at 20:04 Foot x-ray IMPRESSION: Soft tissue swelling and probable gas within the soft tissues. Although no bony erosions are identified, plain film radiography is relatively insensitive in the acute phases of osteomyelitis and may not demonstrate radiographic changes for 15 days. If acute osteomyelitis is of clinical concern , nuclear medicine regional bone scan or MRI is recommended. Assessment & Plan 81-year-old male admitted 11/23 for treatment of wound/ulcer of diabetes 11/24 INR elevated, patient probably having debridement anyway treatment plan per Dr. Cortez podiatry 11/25 debridement of foot took place last night, cultures are pending, plan is to keep patient on IV antibiotics probably through the weekend. 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 POA. - IV linezolid/Zosyn 11/23- - Swab nares and wound for MRSA (-) 11/23 -MRI + first hallux osteomyelitis 11/23 -Wound cultures 11/24 still pending -Thank you Dr. Zhu infectious disease for following/managing antibiotics Diabetes mellitus 2, POA. Will hold metformin and use Lantus 5 at bedtime and correctional lispro -BS 121-241 today no changes. Chronic atrial fibrillation, POA. Continue holding Coumadin Peripheral arterial disease- -Dr Martines contacted to call Dr. Brooks 11/24 Patient is full resuscitation this was discussed today VTE Mechanical Devices: Intermittant Pneumatic CD Resuscitation Status: CPR: Attempt Resuscitation David Dyson MD Nov 25, 2016 18:34
[2016-11-25 20:31] VITALS: BP 124/71; PULSE 82; RESP 18; O2SAT 97
[2016-11-25] MEDS: Insulin GLARgine 100 Unit/mL Syringe SUBQ SCH (22:43)
[2016-11-26] MEDS: Sodium Chloride LOK Flush 10 mL Syringe IVFLUSH SCH ×4 (00:10→22:44)
[2016-11-26 04:53] VITALS: BP 141/90; PULSE 94; RESP 18; O2SAT 98
[2016-11-26] MEDS: Piperacillin-Tazo 3.375 Gm Inj 3.375 GM in Dextrose 5% Minibag Plus 50 ML IV SCH ×3 (05:57→22:21)
[2016-11-26] MEDS: Linezolid Inj 600 MG in IV Premix 1 EACH IV SCH (08:00)
[2016-11-26 08:27] LABS: INR 1.52 ratio
[2016-11-26 08:35] VITALS: BP 136/88; PULSE 83; RESP 18; O2SAT 100
[2016-11-26] MEDS: MeTOProlol XL 50 mg ER24 Tablet PO SCH (08:37)
[2016-11-26] MEDS: Insulin LISPRO 300 Unit/3 mL Inj SUBQ SCH ×4 (08:38→21:05)
[2016-11-26] MEDS: metFORMIN ER 500 mg ER24 Tablet PO SCH ×2 (09:25→18:32)
[2016-11-26 14:23] VITALS: BP 113/74; PULSE 89; RESP 16; O2SAT 98
--- NOTE | 2016-11-26 14:51 | PCM.PNPOD ---
Subjective Date of Service: Nov 26, 2016 Visit Information: Reason for Visit Diabetic Foot Infection Surgery/Surgery Date Post-Op Day # Date of Admission: Nov 23, 2016 at 17:29 Hospital Day # Subjective: Patient seen resting comfortably in bed with his right foot elevated. Postop General: No Complaints Gastrointestinal: Good Appetite Pain Management: No or Minimal Pain Objective Vital Sign - Last Date Time Temp Pulse Resp B/P Pulse Ox O2 Delivery O2 Flow Rate FiO2 11/26/16 14:23 36.9 89 16 113/74 98 Room Air 11/24/16 18:30 9 Intake and Output 11/25/16 11/25/16 11/26/16 Cumulative From/Thru 15:00 23:00 07:00 11/23/16 13:21 - 11/26/16 06:27 Intake Total 2374 ml 2036 ml 52745 ml Output Total 1425 ml 3980 ml 9980 ml Balance 949 ml -1944 ml 118 ml Intake Oral 1876 ml 1600 ml 5788 ml IV Total 498 ml 436 ml 4310 ml Output Urine Total 1425 ml 3980 ml 9930 ml Estimated Blood Loss 50 ml # Voids 5 11 # Bowel Movements 1 2 Result Diagram: 11/24/16 0530 11/24/16 0530 Lab Test 11/23/16 13:42 11/23/16 14:55 11/24/16 05:30 11/26/16 07:58 Hemoglobin A1c 8.1% (4.8-5.6) Hold Bullock Top Tube Received (Received) Urine Color Yellow (YELLOW) Urine Appearance Clear (CLEAR,HAZY) Urine pH 5.5 (5.0-8.0) Urine Specific [place] <1.005 (1.003-1.035) Urine Protein Negativemg/dL (NEG,TRACE) Urine Glucose (UA) 100mg/dL (NEGATIVE) Urine Ketones Negativemg/dL (NEGATIVE) Urine Occult Blood Negative (NEGATIVE) Urine Nitrite Negative (NEGATIVE) Urine Bilirubin Negative (NEGATIVE) Urine Urobilinogen Normalmg/dL (NORMAL) Urine Leukocyte Esterase Negative (NEGATIVE) Urine RBC 0-2/hpf (0-2) Urine WBC 0-5/hpf (0-5) Urine Epithelial Cells Few/hpf (NONE-MOD) Urine Crystals None seen (NONE SEEN) Urine Bacteria Many/hpf (NONE-FEW) Urine Hyaline Casts None/lpf (NONE) Urine Granular Casts None seen (NONE SEEN) Urine Waxy Casts None seen (NONE SEEN) Urine Red Blood Cell Casts None seen (NONE SEEN) Urine White Blood Cell Casts None seen (NONE SEEN) Urine Mucus None seen (None Seen) Urine Trichomonas None seen (NONE SEEN) Urine Yeast None (NONE SEEN) Urinalysis Comment None Urine Culture Reflexed Indicated Hold Urine Received (Received) White Blood Count 8.4th/mm3 (3.8-10.1) Red Blood Count 4.43mil/mm3 (4.40-5.80) Hemoglobin 12.5g/dL (13.8-17.2) Hematocrit 37.9% (41.0-50.0) Mean Corpuscular Volume 85.6fL (81-100) Mean Corpuscular Hemoglobin 28.2pg (27.0-35.0) Mean Corpuscular Hemoglobin Concent 33.0% (32.0-37.0) Red Cell Distribution Width 13.7% (12.3-15.4) Platelet Count 232bil/L (150-400) Neutrophils (%) (Auto) 70.5% (40-74) Lymphocytes (%) (Auto) 14.5% (14-46) Monocytes (%) (Auto) 13.0% (4-12) Eosinophils (%) (Auto) 1.3% (0-5) Basophils (%) (Auto) 0.2% (0-3) Sodium Level 136mEq/L (134-144) Potassium Level 4.1mEq/L (3.5-5.2) Chloride Level 100mEq/L (97-108) Carbon Dioxide Level 23mmol/L (18-29) Blood Urea Nitrogen 11mg/dL (8-27) Creatinine 0.54mg/dL (0.76-1.27) Estimat Glomerular Filtration Rate 155mL/min (>59) Glucose Level 158mg/dL (60-99) Calcium Level 8.7mg/dL (8.5-10.1) Total Bilirubin 1.2mg/dL (0.0-1.2) Aspartate Amino Transf (AST/SGOT) 13U/L (0-50) Alanine Aminotransferase (ALT/SGPT) 5U/L (0-44) Alkaline Phosphatase 91U/L (25-160) C-Reactive Protein 10.1mg/dL (0.0-0.5) Total Protein 5.9g/dL (6.4-8.4) Albumin 3.5g/dL (3.4-5.0) Prothrombin Time 16.4sec (8.1-12.5) Prothromb Time International Ratio 1.52ratio Exam General: Alert, Oriented X3, Cooperative, No Acute Distress Lower Extremities: Right: Edema localized (Improved) Extremity warm (focal erythema around 1st metatarsophalangeal joint) Lower Extremity Pulses: Doppler: Right Dorsalis Pedis Right Posterior Tibal Postop Sensory Motor: Distal Motor Intact, Motor 5/5, Decreased Sensation Podiatry WOUND : Wound Location/Description Extensive wounds in the periarticular right 1st metatarsophalangeal joint area, packed open dorsally and through-and through plantarly to medially. Biopsy of 1st proximal phalanx pending. Surgical Cast or Splint: None Assessment & Plan Problems: (1) Diabetic infection of right foot Plan: Await bone biopsy to decide on amputation of right great toe. Wounds irrigated with normal saline, repacked with 1/2" plain packing gauze, dressed with 4x4" gauze, ABD pad, Kerlix, and Nicanor wrap. Plan on daily dressing changes. Dr. Cortez to review biopsy results on Monday and proceed with amputation of great toe, if necessary.IV antibiotics to continue per Dr. Zhu 's recommendations. Status: Acute ICD Code: E11.69 Wandy Sandy DPM Nov 26, 2016 14:51
--- NOTE | 2016-11-26 15:46 | PCM.PNMED ---
Subjective Date of Service Nov 26, 2016 Subjective No complex chest pain, dyspnea, nausea or vomiting. Exam Vital Signs Vital Sign - Last Date Time Temp Pulse Resp B/P Pulse Ox O2 Delivery O2 Flow Rate FiO2 11/26/16 14:23 36.9 89 16 113/74 98 Room Air 11/24/16 18:30 9 Intake and Output 11/25/16 11/25/16 11/26/16 Cumulative From/Thru 15:00 23:00 07:00 11/23/16 13:21 - 11/26/16 06:27 Intake Total 2374 ml 2036 ml 89290 ml Output Total 1425 ml 3980 ml 9980 ml Balance 949 ml -1944 ml 118 ml Intake Oral 1876 ml 1600 ml 5788 ml IV Total 498 ml 436 ml 4310 ml Output Urine Total 1425 ml 3980 ml 9930 ml Estimated Blood Loss 50 ml # Voids 5 11 # Bowel Movements 1 2 Exam Gen.- A+ O 3 no apparent distress. Well appearing elderly male in bed Head-atraumatic/normocephalic Eyes- open conjunctiva clear, pupils equal, nonicteric Mouth- no deformity of lips ENT- ears no deformity, nose no deformity, hearing intact Neck- supple/trach midline CVS-normal rate Lungs-regular rate nonlabored GI-flat Musc- moving 4 no obvious deformity- right foot is markedly more swollen the left particularly great toe Neuro- cranial nerves II through XII intact to gross examination, nonfocal Skin- warm and dry, no rashes/lesions/wounds noted Today the bandage and right upper much larger, the swelling of the foot and toes seem to be diminished. Did not open it to evaluate. Psych- pleasant and appropriate, Lab and Diagnostics Result Diagram: 11/24/16 0530 11/24/16 0530 X-Rays, CTs and MRIs US VEINOUS LEG DUPLEX UNILATERAL, RIGHT: Kenny Chapman M.D. on 11/24/2016 at 14:00 No DVT found. Dictated by: Kenny Chapman M.D. on 11/24/2016 at 14:00 MRI FOREFOOT RIGHT WITH AND WITHOUT CONTRAST: Taylor Mckay M.D. on 11/23/2016 at 20:04 Please note, this is a markedly limited study given patient motion artifact. 1. Penetrating ulcer under the first MTP joint with extensive cellulitis and edema. 2. Marked marrow edema and subtle enhancement at the base and distal aspect of the proximal phalanx of the first digit consistent with osteomyelitis. Dictated by: Taylor Mckay M.D. on 11/23/2016 at 20:04 Foot x-ray IMPRESSION: Soft tissue swelling and probable gas within the soft tissues. Although no bony erosions are identified, plain film radiography is relatively insensitive in the acute phases of osteomyelitis and may not demonstrate radiographic changes for 15 days. If acute osteomyelitis is of clinical concern , nuclear medicine regional bone scan or MRI is recommended. Assessment & Plan 81-year-old male admitted 11/23 for treatment of wound/ulcer of diabetes 11/24 INR elevated, patient probably having debridement anyway treatment plan per Dr. Cortez podiatry 11/25 debridement of foot took place last night, cultures are pending, plan is to keep patient on IV antibiotics probably through the weekend. 11/26 holding warfarin for potential amputation next week. No bridge necessary. Blood sugars seem to be in the 200s now will increase the Lantus back to 10 units. We will consider adding prandial. 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 POA. - IV linezolid/Zosyn 11/23- - Swab nares and wound for MRSA (-) 11/23 -MRI + first hallux osteomyelitis 11/23 -Wound cultures 11/24 still pending -Thank you Dr. Zhu infectious disease for following/managing antibiotics Diabetes mellitus 2, POA. Will hold metformin and use Lantus 5 at bedtime and correctional lispro, uncontrolled increase Lantus to 10 units 11/26 Chronic atrial fibrillation, POA. Continue holding Coumadin Peripheral arterial disease-Dr Martines contacted to call Dr. Brooks 11/24, recommend follow-up to cardiology Tuesday 11/28. Patient is full resuscitation this was discussed today VTE Mechanical Devices: Intermittant Pneumatic CD Resuscitation Status: CPR: Attempt Resuscitation David Dyson MD Nov 26, 2016 15:46
[2016-11-26 20:00] VITALS: BP 137/72; PULSE 74; RESP 16; O2SAT 98
[2016-11-26] MEDS: Insulin GLARgine 100 Unit/mL Syringe SUBQ SCH (21:06)
[2016-11-27 06:01] VITALS: BP 133/65; PULSE 87; RESP 18; O2SAT 98
[2016-11-27] MEDS: Piperacillin-Tazo 3.375 Gm Inj 3.375 GM in Dextrose 5% Minibag Plus 50 ML IV SCH ×3 (06:12→21:32)
[2016-11-27] MEDS: metFORMIN ER 500 mg ER24 Tablet PO SCH ×2 (07:30→17:45)
[2016-11-27] MEDS: Sodium Chloride LOK Flush 10 mL Syringe IVFLUSH SCH ×3 (08:25→23:47)
[2016-11-27 08:30] VITALS: BP 130/88; PULSE 84; RESP 16; O2SAT 97
[2016-11-27] MEDS: MeTOProlol XL 50 mg ER24 Tablet PO SCH (08:37)
[2016-11-27] MEDS: Insulin LISPRO 300 Unit/3 mL Inj SUBQ SCH ×5 (08:37→20:29)
[2016-11-27 08:51] LABS: INR 1.43 ratio
--- NOTE | 2016-11-27 12:49 | PCM.PNPOD ---
Subjective Date of Service: Nov 27, 2016 Visit Information: Reason for Visit Diabetic Foot Infection Postop day 3 I&D and bone biopsy, right foot. Date of Admission: Nov 23, 2016 at 17:29 Postop General: No Complaints Gastrointestinal: Good Appetite Pain Management: No or Minimal Pain Objective Vital Sign - Last Date Time Temp Pulse Resp B/P Pulse Ox O2 Delivery O2 Flow Rate FiO2 11/27/16 08:30 36.7 84 16 130/88 97 Room Air 11/24/16 18:30 9 Intake and Output 11/26/16 11/26/16 11/27/16 Cumulative From/Thru 15:00 23:00 07:00 11/23/16 13:21 - 11/27/16 06:13 Intake Total 1712 ml 940 ml 77637 ml Output Total 1500 ml 1575 ml 44938 ml Balance 212 ml -635 ml -305 ml Intake Oral 1136 ml 800 ml 7724 ml IV Total 576 ml 140 ml 5026 ml Output Urine Total 1500 ml 1575 ml 33313 ml Estimated Blood Loss 50 ml # Voids 11 # Bowel Movements 1 1 4 Result Diagram: 11/24/16 0530 11/24/16 0530 Lab Test 11/23/16 13:42 11/23/16 14:55 11/24/16 05:30 11/27/16 07:25 Hemoglobin A1c 8.1% (4.8-5.6) Hold Bullock Top Tube Received (Received) Urine Color Yellow (YELLOW) Urine Appearance Clear (CLEAR,HAZY) Urine pH 5.5 (5.0-8.0) Urine Specific [place] <1.005 (1.003-1.035) Urine Protein Negativemg/dL (NEG,TRACE) Urine Glucose (UA) 100mg/dL (NEGATIVE) Urine Ketones Negativemg/dL (NEGATIVE) Urine Occult Blood Negative (NEGATIVE) Urine Nitrite Negative (NEGATIVE) Urine Bilirubin Negative (NEGATIVE) Urine Urobilinogen Normalmg/dL (NORMAL) Urine Leukocyte Esterase Negative (NEGATIVE) Urine RBC 0-2/hpf (0-2) Urine WBC 0-5/hpf (0-5) Urine Epithelial Cells Few/hpf (NONE-MOD) Urine Crystals None seen (NONE SEEN) Urine Bacteria Many/hpf (NONE-FEW) Urine Hyaline Casts None/lpf (NONE) Urine Granular Casts None seen (NONE SEEN) Urine Waxy Casts None seen (NONE SEEN) Urine Red Blood Cell Casts None seen (NONE SEEN) Urine White Blood Cell Casts None seen (NONE SEEN) Urine Mucus None seen (None Seen) Urine Trichomonas None seen (NONE SEEN) Urine Yeast None (NONE SEEN) Urinalysis Comment None Urine Culture Reflexed Indicated Hold Urine Received (Received) White Blood Count 8.4th/mm3 (3.8-10.1) Red Blood Count 4.43mil/mm3 (4.40-5.80) Hemoglobin 12.5g/dL (13.8-17.2) Hematocrit 37.9% (41.0-50.0) Mean Corpuscular Volume 85.6fL (81-100) Mean Corpuscular Hemoglobin 28.2pg (27.0-35.0) Mean Corpuscular Hemoglobin Concent 33.0% (32.0-37.0) Red Cell Distribution Width 13.7% (12.3-15.4) Platelet Count 232bil/L (150-400) Neutrophils (%) (Auto) 70.5% (40-74) Lymphocytes (%) (Auto) 14.5% (14-46) Monocytes (%) (Auto) 13.0% (4-12) Eosinophils (%) (Auto) 1.3% (0-5) Basophils (%) (Auto) 0.2% (0-3) Sodium Level 136mEq/L (134-144) Potassium Level 4.1mEq/L (3.5-5.2) Chloride Level 100mEq/L (97-108) Carbon Dioxide Level 23mmol/L (18-29) Blood Urea Nitrogen 11mg/dL (8-27) Creatinine 0.54mg/dL (0.76-1.27) Estimat Glomerular Filtration Rate 155mL/min (>59) Glucose Level 158mg/dL (60-99) Calcium Level 8.7mg/dL (8.5-10.1) Total Bilirubin 1.2mg/dL (0.0-1.2) Aspartate Amino Transf (AST/SGOT) 13U/L (0-50) Alanine Aminotransferase (ALT/SGPT) 5U/L (0-44) Alkaline Phosphatase 91U/L (25-160) C-Reactive Protein 10.1mg/dL (0.0-0.5) Total Protein 5.9g/dL (6.4-8.4) Albumin 3.5g/dL (3.4-5.0) Prothrombin Time 15.4sec (8.1-12.5) Prothromb Time International Ratio 1.43ratio Exam General: Alert, Oriented X3, Cooperative, No Acute Distress Lower Extremities: Right: Edema localized (Improved) Extremity warm (focal erythema around 1st metatarsophalangeal joint) Lower Extremity Pulses: Doppler: Right Dorsalis Pedis Right Posterior Tibal Postop Sensory Motor: Distal Motor Intact, Motor 5/5, Decreased Sensation Podiatry WOUND : Wound Location/Description Extensive wounds in the periarticular right 1st metatarsophalangeal joint area, packed open dorsally and through-and through plantarly to medially. Biopsy of 1st proximal phalanx pending. Surgical Cast or Splint: None Assessment & Plan Problems: (1) Diabetic infection of right foot Plan: Await bone biopsy to decide on amputation of right great toe. Clinically , tissue looks healthier with each day. Wounds irrigated with normal saline, repacked with 1/2" plain packing gauze, dressed with 4x4" gauze, ABD pad, Kerlix, and Nicanor wrap. Plan on daily dressing changes. Dr. Cortez to review biopsy results on Monday and proceed with amputation of great toe, if necessary.IV antibiotics to continue per Dr. Zhu 's recommendations. Status: Acute ICD Code: E11.69 Wandy Sandy DPM Nov 27, 2016 12:49
--- NOTE | 2016-11-27 15:03 | PCM.PNMED ---
Subjective Date of Service Nov 27, 2016 Subjective No complaints of chest pain, dyspnea, nausea or vomiting. Exam Vital Signs Vital Sign - Last Date Time Temp Pulse Resp B/P Pulse Ox O2 Delivery O2 Flow Rate FiO2 11/27/16 08:30 36.7 84 16 130/88 97 Room Air 11/24/16 18:30 9 Intake and Output 11/26/16 11/26/16 11/27/16 Cumulative From/Thru 15:00 23:00 07:00 11/23/16 13:21 - 11/27/16 06:13 Intake Total 1712 ml 940 ml 35447 ml Output Total 1500 ml 1575 ml 93828 ml Balance 212 ml -635 ml -305 ml Intake Oral 1136 ml 800 ml 7724 ml IV Total 576 ml 140 ml 5026 ml Output Urine Total 1500 ml 1575 ml 28675 ml Estimated Blood Loss 50 ml # Voids 11 # Bowel Movements 1 1 4 Exam Gen.- A+ O 3 no apparent distress. Well appearing elderly male in bed Head-atraumatic/normocephalic Eyes- open conjunctiva clear, pupils equal, nonicteric Mouth- no deformity of lips ENT- ears no deformity, nose no deformity, hearing intact Neck- supple/trach midline CVS-normal rate Lungs-regular rate nonlabored GI-flat Musc- moving 4 no obvious deformity- right foot is markedly more swollen the left particularly great toe Neuro- cranial nerves II through XII intact to gross examination, nonfocal Skin- warm and dry, no rashes/lesions/wounds noted Today the bandage and right upper much larger, the swelling of the foot and toes seem to be diminished. Did not open it to evaluate. Psych- pleasant and appropriate, Lab and Diagnostics Result Diagram: 11/24/16 0530 11/24/16 0530 X-Rays, CTs and MRIs US VEINOUS LEG DUPLEX UNILATERAL, RIGHT: Kenny Chapman M.D. on 11/24/2016 at 14:00 No DVT found. Dictated by: Kenny Chapman M.D. on 11/24/2016 at 14:00 MRI FOREFOOT RIGHT WITH AND WITHOUT CONTRAST: Taylor Mckay M.D. on 11/23/2016 at 20:04 Please note, this is a markedly limited study given patient motion artifact. 1. Penetrating ulcer under the first MTP joint with extensive cellulitis and edema. 2. Marked marrow edema and subtle enhancement at the base and distal aspect of the proximal phalanx of the first digit consistent with osteomyelitis. Dictated by: Taylor Mckay M.D. on 11/23/2016 at 20:04 Foot x-ray IMPRESSION: Soft tissue swelling and probable gas within the soft tissues. Although no bony erosions are identified, plain film radiography is relatively insensitive in the acute phases of osteomyelitis and may not demonstrate radiographic changes for 15 days. If acute osteomyelitis is of clinical concern , nuclear medicine regional bone scan or MRI is recommended. Assessment & Plan 81-year-old male admitted 11/23 for treatment of wound/ulcer of diabetes 11/24 INR elevated, patient probably having debridement anyway treatment plan per Dr. Cortez podiatry 11/25 debridement of foot took place last night, cultures are pending, plan is to keep patient on IV antibiotics probably through the weekend. 11/26 holding warfarin for potential amputation next week. No bridge necessary. Blood sugars seem to be in the 200s now will increase the Lantus back to 10 units. We will consider adding prandial. 11/27 continuing to hold warfarin, blood sugar still in the 200s increase Lantus to 13 units, adding 5 units prandial. hyperglycemia/DM2- metformin 1500mg QD resumed 11/26 Lantus to 13 units 11/27 Chronic atrial fibrillation, POA. 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 POA. - IV linezolid/Zosyn 11/23- - Swab nares and wound for MRSA (-) 11/23 -MRI + first hallux osteomyelitis 11/23 -Wound cultures 11/24 still pending -Thank you Dr. Zhu infectious disease for following/managing antibiotics Peripheral arterial disease-Dr Martines contacted to call Dr. Brooks 11/24, recommend follow-up to cardiology Tuesday 11/28. Patient is full resuscitation this was discussed today VTE Mechanical Devices: Intermittant Pneumatic CD Resuscitation Status: CPR: Attempt Resuscitation David Dyson MD Nov 27, 2016 15:03
[2016-11-27 20:20] VITALS: BP 120/67; PULSE 78; RESP 18; O2SAT 97
[2016-11-27] MEDS: Insulin GLARgine 100 Unit/mL Syringe SUBQ SCH (20:27)
[2016-11-27] MEDS ORDERED: 0.9% Sodium Chloride 250 ML ONE (20:29)
[2016-11-28] MEDS: Piperacillin-Tazo 3.375 Gm Inj 3.375 GM in Dextrose 5% Minibag Plus 50 ML IV SCH ×3 (04:49→22:02)
[2016-11-28 06:03] VITALS: BP 127/79; PULSE 56; RESP 20; O2SAT 98
[2016-11-28 06:55] LABS: INR 1.32 ratio
[2016-11-28] MEDS: metFORMIN ER 500 mg ER24 Tablet PO SCH ×2 (08:23→17:20)
[2016-11-28] MEDS: Insulin LISPRO 300 Unit/3 mL Inj SUBQ SCH ×7 (08:24→22:00)
[2016-11-28] MEDS: Sodium Chloride LOK Flush 10 mL Syringe IVFLUSH SCH ×3 (08:25→22:03)
[2016-11-28] MEDS: MeTOProlol XL 50 mg ER24 Tablet PO SCH (08:25)
[2016-11-28 11:35] VITALS: BP 102/61; PULSE 74; RESP 17; O2SAT 97
--- NOTE | 2016-11-28 11:43 | PATH ---
SURGICAL PATHOLOGY Attending Physician:Buster Cortez, CASE STATUS: Signed Out PATIENT NAME: RUSTY SILVESTRE PID: [id number] : 1935 DATE COLLECTED:11/24/2016 00:00 SPECIMEN: Skin, biopsy CLINICAL HISTORY: OSTEOMYELITIS RIGHT GREAT TOE AT ABSCESS RIGHT FOOT 1). RIGHT HALLUX FINAL DIAGNOSIS: 1.RIGHT HALLUX BIOPSY: FRAGMENTS OF BONE WITH MILD PERIOSTEAL INFLAMMATION. Negative for osteonecrosis or acute marrow inflammation. ICD10 L03.031 GROSS DESCRIPTION: Received in formalin, labeled with the patient's name and "R hallux" is one fragment of firm mejia tissue measuring 0.5 x 0.3 x 0.3 cm. The fragment is bisected and totally submitted in one cassette. ([id number]) MICRO DESCRIPTION: See diagnosis. ICD-9 CODES: CPT CODES: 1: 94082 Electronically Signed Out Lyndsay Langley MD [facility] [address], [place] [address] Technical component performed at [facility], [facility] [address], [place], [address]
--- NOTE | 2016-11-28 14:35 | PCM.PNMED ---
Subjective Date of Service Nov 28, 2016 Subjective bone bx showed no evidence of OM awaits Podiatry eval today pt remained asymptomatic, Exam Vital Signs Vital Sign - Last Date Time Temp Pulse Resp B/P Pulse Ox O2 Delivery O2 Flow Rate FiO2 11/28/16 11:35 36.7 74 17 102/61 97 Room Air 11/24/16 18:30 9 Intake and Output 11/27/16 11/27/16 11/28/16 Cumulative From/Thru 15:00 23:00 07:00 11/23/16 13:21 - 11/28/16 06:03 Intake Total 2046 ml 975 ml 11022 ml Output Total 2000 ml 1500 ml 96523 ml Balance 46 ml -525 ml -784 ml Intake Oral 2046 ml 975 ml 60382 ml IV Total 5026 ml Output Urine Total 2000 ml 1500 ml 42229 ml Estimated Blood Loss 50 ml # Voids 11 # Bowel Movements 1 5 Exam NAD, comfortably laying down on the bed no JVD, MMM, no LAD RRR, nl s1, s2 no mrg CTAB, no w,c S,ND,NT,normoactive BS+ Rt foot XOCHITL bandaged, wrapped IVs and Medications Medications Reviewed: Medications were reviewed in detail Lab and Diagnostics Result Diagram: 11/24/16 0530 11/24/16 0530 X-Rays, CTs and MRIs US VEINOUS LEG DUPLEX UNILATERAL, RIGHT: Kenny Chapman M.D. on 11/24/2016 at 14:00 No DVT found. Dictated by: Kenny Chapman M.D. on 11/24/2016 at 14:00 MRI FOREFOOT RIGHT WITH AND WITHOUT CONTRAST: Taylor Mckay M.D. on 11/23/2016 at 20:04 Please note, this is a markedly limited study given patient motion artifact. 1. Penetrating ulcer under the first MTP joint with extensive cellulitis and edema. 2. Marked marrow edema and subtle enhancement at the base and distal aspect of the proximal phalanx of the first digit consistent with osteomyelitis. Dictated by: Taylor Mckay M.D. on 11/23/2016 at 20:04 Foot x-ray IMPRESSION: Soft tissue swelling and probable gas within the soft tissues. Although no bony erosions are identified, plain film radiography is relatively insensitive in the acute phases of osteomyelitis and may not demonstrate radiographic changes for 15 days. If acute osteomyelitis is of clinical concern , nuclear medicine regional bone scan or MRI is recommended. Assessment & Plan 81-year-old male admitted 11/23 for treatment of wound/ulcer of diabetes 11/24 INR elevated, patient probably having debridement anyway treatment plan per Dr. Cortez podiatry 11/25 debridement of foot took place last night, cultures are pending, plan is to keep patient on IV antibiotics probably through the weekend. 11/26 holding warfarin for potential amputation next week. No bridge necessary. Blood sugars seem to be in the 200s now will increase the Lantus back to 10 units. We will consider adding prandial. 11/27 continuing to hold warfarin, blood sugar still in the 200s increase Lantus to 13 units, adding 5 units prandial. 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 POA. IV linezolid/Zosyn 11/23-, Swab nares and wound for MRSA (-) 11/23, MRI + first hallux osteomyelitis 11/23, Wound cultures 11/24 ngtd, -Thank you Dr. Zhu infectious disease for following/managing antibiotics -bone bx 11/24 showed no osteonecrosis, awaits Podiatry input regarding surgical tx suspected PVD, 50-99% stenosis of the left superficial femoral artery, 50-99% stenosis of the right posterior tibial artery on arterial doppler from previous admission. Pt was already seen by , CTA with runoff 11/18 showed no signs of stenosis, pt is not a candidate for intervention per . chronic, stable, hyperglycemia/DM2- metformin 1500mg QD resumed 11/26 Lantus to 13 units 11/27, in target, continue Chronic atrial fibrillation, POA. Continue holding Coumadin until pt is clear from Podiatry FUll code dispo: 1-2days home VTE Mechanical Devices: Intermittant Pneumatic CD Resuscitation Status: CPR: Attempt Resuscitation Time spent 35min Luis Kauffman MD Nov 28, 2016 14:35
[2016-11-28] MEDS: Nystatin 100,000 Unit/Gm 15 Gm Powder TOPICAL SCH ×2 (15:39→21:59)
--- NOTE | 2016-11-28 15:55 | PCM.PNPOD ---
Subjective Date of Service: Nov 28, 2016 Date of Service: Nov 28, 2016 Visit Information: Reason for Visit Diabetic Foot Infection Surgery/Surgery Date Post-Op Day # Date of Admission: Nov 23, 2016 at 17:29 Hospital Day # Subjective: 81-year-old male with recent history of abscess of the right first metatarsal phalangeal joint is evaluated at bedside in no acute distress. Patient recently underwent incision and drainage with bone biopsy of the right hallux. His bone culture has returned negative, and pathology is negative for osteomyelitis today. He denies any new issues or complaints today. Postop General: No Complaints Gastrointestinal: Good Appetite Pain Management: PO Objective Vital Sign - Last Date Time Temp Pulse Resp B/P Pulse Ox O2 Delivery O2 Flow Rate FiO2 11/28/16 11:35 36.7 74 17 102/61 97 Room Air 11/24/16 18:30 9 Intake and Output 11/27/16 11/27/16 11/28/16 Cumulative From/Thru 15:00 23:00 07:00 11/23/16 13:21 - 11/28/16 06:03 Intake Total 2046 ml 975 ml 99968 ml Output Total 2000 ml 1500 ml 62334 ml Balance 46 ml -525 ml -784 ml Intake Oral 2046 ml 975 ml 88748 ml IV Total 5026 ml Output Urine Total 2000 ml 1500 ml 86791 ml Estimated Blood Loss 50 ml # Voids 11 # Bowel Movements 1 5 Result Diagram: 11/24/16 0530 11/24/16 0530 Lab Test 11/23/16 13:42 11/23/16 14:55 11/24/16 05:30 11/28/16 05:40 Hemoglobin A1c 8.1% (4.8-5.6) Hold Bullock Top Tube Received (Received) Urine Color Yellow (YELLOW) Urine Appearance Clear (CLEAR,HAZY) Urine pH 5.5 (5.0-8.0) Urine Specific [place] <1.005 (1.003-1.035) Urine Protein Negativemg/dL (NEG,TRACE) Urine Glucose (UA) 100mg/dL (NEGATIVE) Urine Ketones Negativemg/dL (NEGATIVE) Urine Occult Blood Negative (NEGATIVE) Urine Nitrite Negative (NEGATIVE) Urine Bilirubin Negative (NEGATIVE) Urine Urobilinogen Normalmg/dL (NORMAL) Urine Leukocyte Esterase Negative (NEGATIVE) Urine RBC 0-2/hpf (0-2) Urine WBC 0-5/hpf (0-5) Urine Epithelial Cells Few/hpf (NONE-MOD) Urine Crystals None seen (NONE SEEN) Urine Bacteria Many/hpf (NONE-FEW) Urine Hyaline Casts None/lpf (NONE) Urine Granular Casts None seen (NONE SEEN) Urine Waxy Casts None seen (NONE SEEN) Urine Red Blood Cell Casts None seen (NONE SEEN) Urine White Blood Cell Casts None seen (NONE SEEN) Urine Mucus None seen (None Seen) Urine Trichomonas None seen (NONE SEEN) Urine Yeast None (NONE SEEN) Urinalysis Comment None Urine Culture Reflexed Indicated Hold Urine Received (Received) White Blood Count 8.4th/mm3 (3.8-10.1) Red Blood Count 4.43mil/mm3 (4.40-5.80) Hemoglobin 12.5g/dL (13.8-17.2) Hematocrit 37.9% (41.0-50.0) Mean Corpuscular Volume 85.6fL (81-100) Mean Corpuscular Hemoglobin 28.2pg (27.0-35.0) Mean Corpuscular Hemoglobin Concent 33.0% (32.0-37.0) Red Cell Distribution Width 13.7% (12.3-15.4) Platelet Count 232bil/L (150-400) Neutrophils (%) (Auto) 70.5% (40-74) Lymphocytes (%) (Auto) 14.5% (14-46) Monocytes (%) (Auto) 13.0% (4-12) Eosinophils (%) (Auto) 1.3% (0-5) Basophils (%) (Auto) 0.2% (0-3) Sodium Level 136mEq/L (134-144) Potassium Level 4.1mEq/L (3.5-5.2) Chloride Level 100mEq/L (97-108) Carbon Dioxide Level 23mmol/L (18-29) Blood Urea Nitrogen 11mg/dL (8-27) Creatinine 0.54mg/dL (0.76-1.27) Estimat Glomerular Filtration Rate 155mL/min (>59) Glucose Level 158mg/dL (60-99) Calcium Level 8.7mg/dL (8.5-10.1) Total Bilirubin 1.2mg/dL (0.0-1.2) Aspartate Amino Transf (AST/SGOT) 13U/L (0-50) Alanine Aminotransferase (ALT/SGPT) 5U/L (0-44) Alkaline Phosphatase 91U/L (25-160) C-Reactive Protein 10.1mg/dL (0.0-0.5) Total Protein 5.9g/dL (6.4-8.4) Albumin 3.5g/dL (3.4-5.0) Prothrombin Time 14.2sec (8.1-12.5) Prothromb Time International Ratio 1.32ratio Exam General: Alert, Oriented X3, Cooperative, No Acute Distress Lower Extremities: Right: Edema localized (Improved) Extremity warm (focal erythema around 1st metatarsophalangeal joint) Lower Extremity Pulses: Doppler: Right Dorsalis Pedis Right Posterior Tibal Postop Sensory Motor: Distal Motor Intact, Motor 5/5, Decreased Sensation Podiatry WOUND : Wound Location/Description Right medial first metatarsal phalangeal joint ulceration full-thickness to subcutaneous tissue and probes to the plantar wound. The wound bed is 90% granular with red spongy granulation tissue and 10% fibrotic slough. There is a moderate amount of serous and yellow drainage noted. No purulent drainage no malodor no signs of acute infection Right plantar first metatarsal ulceration full-thickness to subcutaneous tissue without exposed bone or tendon this wound is round in nature and probes to the medial ulceration. There is a moderate amount of serous and serosanguineous drainage no purulent drainage noted no surrounding erythema no malodor no signs of acute infection. Dorsal first metatarsal phalangeal joint incision and drainage wound site is 100% granular distally the remainder of the wound is well coapted with all sutures intact and in place there are no signs of acute infection no surrounding erythema very minimal local edema is present. Surgical Cast or Splint: None Assessment & Plan Impression Stable right foot ulcerations with possible osteomyelitis of the right great toe Problems: (1) Diabetic infection of right foot Plan: Wound dressings changed today and wounds were flushed with normal saline. Dressings were packed with sterile plain packing gauze the wounds were then dressed with Kerlix and an Nicanor bandage. I have discussed the culture results with the patient today and will discuss the pathology results at a second visit this afternoon as they had not yet returned prior to my visit with the patient. At this time he is stable for discharge to outpatient care provided home health is established to provide dressing changes every 48 hours consisting of sterile plain packing gauze, 4 x 4 gauze, ABDs pad, Kerlix and a loosely applied Nicanor bandage. Please continue to follow antibiotic recommendations per Dr. Zhu. I have discussed with the patient that even though his results are negative biopsy there is still some risk of an underlying bone infection which may at some point require amputation of his right great toe. Upon discharge she will need to follow-up at the wound care center within 5-7 days. I have directed the patient to significantly limit his activity as I believe his excessive ambulation over the previous weekend prior to his admission lead to excessive edema and ultimately his recurrent cellulitis. Podiatry will continue to follow daily. Status: Acute ICD Code: E11.69 Buster Cortez DPM Nov 28, 2016 15:55
--- NOTE | 2016-11-28 17:38 | PROG NOTE ---
[address] [address] PROGRESS NOTE PATIENT: RUSTY SILVESTRE : 1935 MR#: [id number] ADMIT: 11/23/2016 JOB ID: [id number] DATE: 11/28/2016 REASON FOR FOLLOWUP: Possible osteomyelitis, right plantar foot. INTERVAL HISTORY: Recall this is a gentleman who was treated for a bacteremic MSSA infection of the foot and did very well only to have a breakdown of the same area and be readmitted to the hospital. The question here is whether he still has deep space infection of his foot and especially whether or not he has osteomyelitis. For his part, over the weekend, the patient has felt well. No fevers, chills, or sweats. No significant pulmonary or GI symptoms. He has no significant pain in that right foot. PHYSICAL EXAM: Temp 36.7, pulse 74, respiratory rate 17, blood pressure 121/61. He is saturating well on room air. No acute distress. Mental status is normal. Lungs clear. Abdomen benign. His right foot is wrapped in a large dressing. LABORATORIES: Include white count 12,000 when he came in. The next day it was 8000, not repeated. As CRP was 10.1 on the , it has not been repeated. Urinalysis was negative. Micro studies include negative blood cultures. A MRSA screen of the nares which is negative and the culture taken at that time of bone biopsy on the by Dr. Cortez that had rare polys, no organisms and no growth. The histo path on that foot biopsy showed fragments of bone with mild periosteal inflammation which is negative for osteonecrosis or marrow inflammation. Dr. Cortez saw the patient today, and he felt that even though the bone biopsy was negative, there is still risk of an underlying bone infection which could lead to amputation of his right great toe and that he will need close followup. Impression: I agree with Dr. Cortez that this patient's course has been quite worrisome, but that we have no definitive evidence of osteo by bone biopsy or culture. The patient has grown a variety of strep species as well as MSSA in the past, and these prior isolates at least have been sensitive to clindamycin which I think would be a logical choice here. RECOMMENDATIONS: 1. Will check the final cultures from the foot tomorrow. 2. Assuming I do not find any new pathogens, I think the patient might reasonably be discharged on clindamycin 300 q.i.d. for perhaps a three week course so, of course, to complete basically another month of therapy. Thank you very much. SUGEY
[2016-11-28 20:00] VITALS: BP 121/71; PULSE 80; RESP 16; O2SAT 96
[2016-11-28] MEDS ORDERED: 0.9% Sodium Chloride 250 ML ONE (21:44)
[2016-11-28] MEDS: Insulin GLARgine 100 Unit/mL Syringe SUBQ SCH (21:59)
[2016-11-29 04:50] VITALS: BP 121/78; PULSE 52; RESP 18; O2SAT 98
[2016-11-29] MEDS: Piperacillin-Tazo 3.375 Gm Inj 3.375 GM in Dextrose 5% Minibag Plus 50 ML IV SCH ×2 (06:40→14:00)
[2016-11-29 07:02] LABS: INR 1.23 ratio
[2016-11-29] MEDS: Sodium Chloride LOK Flush 10 mL Syringe IVFLUSH SCH (08:30)
[2016-11-29] MEDS: metFORMIN ER 500 mg ER24 Tablet PO SCH (08:50)
[2016-11-29] MEDS: MeTOProlol XL 50 mg ER24 Tablet PO SCH (08:50)
[2016-11-29] MEDS: Nystatin 100,000 Unit/Gm 15 Gm Powder TOPICAL SCH (08:51)
[2016-11-29] MEDS: Insulin LISPRO 300 Unit/3 mL Inj SUBQ SCH ×4 (08:52→12:17)
[2016-11-29] MEDS ORDERED: INSU100V7 SUBQ (09:46)
[2016-11-29] MEDS ORDERED: CLIN-78 PO (09:46)
[2016-11-29] MEDS ORDERED: SYRI-1324 MC (09:47)
--- NOTE | 2016-11-29 11:06 | PCM.DIMED ---
Discharge Instructions Date of Service Nov 29, 2016 Dates of Hospitalization Nov 23, 2016 at 17:29 Discharge Diagnosis Discharge Diagnosis Right foot diabetic soft tissue infection, probable osteomyelitis DM2 Chronic atrial fibrillation Medication Instructions Additional med instructions Please take Clindamycin four times per day for 3weeks. Patient Instructions Patient Instructions You were hospitalized with diabetic foot ulcer, possible bone infection. You tolerated irrigation and drainage procedure well, currently there was no signs of definite bone infection. Your condition improved with antibiotics and surgical intervention. Please note that home health is established to provide dressing changes every 48 hours consisting of sterile plain packing gauze, 4 x 4 gauze, ABDs pad, Kerlix and a loosely applied Nicanor bandage. Please continue antibiotics as above Please follow up with Wound Care center as scheduled. Follow-up with PCP in: 2 weeks Luis Kauffman MD Nov 29, 2016 11:06
--- NOTE | 2016-11-30 16:32 | PCM.DC.MED ---
Discharge Summary Date of Service Nov 29, 2016 Dates of Hospitalization Date of Hospital Admission Nov 23, 2016 at 17:29 Date of Discharge: Nov 29, 2016 Providers: Admitting Physician: Luis Hernández MD Primary Care Physician: La Nena Attending Physician: Luis Hernández MD Diagnosis at Time of Discharge Diagnosis at Time of Discharge Right foot diabetic soft tissue infection, probable osteomyelitis DM2 Chronic atrial fibrillation Consultations Infectious disease Podiatry Procedures XRay, CTs & MRIs US VEINOUS LEG DUPLEX UNILATERAL, RIGHT: Kenny Chapman M.D. on 11/24/2016 at 14:00 No DVT found. Dictated by: Kenny Chapman M.D. on 11/24/2016 at 14:00 MRI FOREFOOT RIGHT WITH AND WITHOUT CONTRAST: Taylor Mckay M.D. on 11/23/2016 at 20:04 Please note, this is a markedly limited study given patient motion artifact. 1. Penetrating ulcer under the first MTP joint with extensive cellulitis and edema. 2. Marked marrow edema and subtle enhancement at the base and distal aspect of the proximal phalanx of the first digit consistent with osteomyelitis. Dictated by: Taylor Mckay M.D. on 11/23/2016 at 20:04 Foot x-ray IMPRESSION: Soft tissue swelling and probable gas within the soft tissues. Although no bony erosions are identified, plain film radiography is relatively insensitive in the acute phases of osteomyelitis and may not demonstrate radiographic changes for 15 days. If acute osteomyelitis is of clinical concern , nuclear medicine regional bone scan or MRI is recommended. Brief History HPI obtained by Dr. Wilkerson on 11/23 This is a pleasant 81-year-old gentleman with a history of type II diabetes. He has battled a right foot infection since October 11. He initially had a right foot medial aspect callus which she tried to scrape down. This revealed a deeper wound. The patient was followed by podiatry and ultimately went to [facility] halfway facility and received IV antibiotics for a total of 21 days. The patient went home from [facility] on November 13. Since then he is in significant care twice on the and as well as having home wound care on and Monday. The patient had debridement of his wound recently. Last 24 hours she has developed pronounced redness of the great toe and area around the wound is well [address] dorsal aspect of the foot. He denies pain, no increased discharge. No fevers or chills. 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 No recent MR imaging. Patient also notes recent arterial studies indicated peripheral arterial disease. Hospital Course 81-year-old male admitted 11/23 for treatment of wound/ulcer of diabetes acute dx Right foot diabetic soft tissue infection associated with chronic wound. pt was followed by Podiatry and ID. pt was started on IV linezolid/Zosyn 11/23, Swab nares and wound for MRSA (-) 11/23, MRI showed first hallux osteomyelitis , Wound cultures 11/24 ngtd. Bone bx 11/24 showed no osteonecrosis. abx eventually switched to Clindamycin 300mg qid for three weeks. Of note patient has grown a variety of strep species as well as MSSA in the past, thought that clindamycin will work well. As per Podiatry even though bone bx are negative, there is still some risk of an underlying bone infection which may at some point require amputation of his right great toe. Upon discharge, pt will follow up with wound care center in 5-7 days. PVD, ruled out, no tx required. Arterial doppler from previous admission showed 50-99% stenosis of the left superficial femoral artery, 50-99% stenosis of the right posterior tibial artery. Follow up visit prior admission with was already happened. CTA with runoff 11/18 showed no high-grade stenosis,but scattered atheromatous calcifications are present throughout the bilateral lower extremity arteries, Solitary low to moderate grade stenosis within the distal portion of the right SFA. It was confirmed that patient is not a candidate for intervention per . chronic dx hyperglycemia/DM2 continued metformin 1500mg QD resumed 11/26 Lantus to 13 units Chronic atrial fibrillation, Coumadin was held than resumed Exam Vital Signs (Last) Date Time Temp Pulse Resp B/P Pulse Ox O2 Delivery O2 Flow Rate FiO2 11/29/16 04:50 36.4 52 18 121/78 98 Room Air 11/24/16 18:30 9 Exam NAD, comfortably laying down on the bed no JVD, MMM, no LAD RRR, nl s1, s2 no mrg CTAB, no w,c S,ND,NT,normoactive BS+ Rt foot NICANOR bandaged, wrapped, sensory intact Test 11/23/16 13:42 11/23/16 14:55 11/24/16 05:30 11/29/16 05:55 Hemoglobin A1c 8.1% (4.8-5.6) Hold [place] Top Tube Received (Received) Urine Color Yellow (YELLOW) Urine Appearance Clear (CLEAR,HAZY) Urine pH 5.5 (5.0-8.0) Urine Specific [place] <1.005 (1.003-1.035) Urine Protein Negativemg/dL (NEG,TRACE) Urine Glucose (UA) 100mg/dL (NEGATIVE) Urine Ketones Negativemg/dL (NEGATIVE) Urine Occult Blood Negative (NEGATIVE) Urine Nitrite Negative (NEGATIVE) Urine Bilirubin Negative (NEGATIVE) Urine Urobilinogen Normalmg/dL (NORMAL) Urine Leukocyte Esterase Negative (NEGATIVE) Urine RBC 0-2/hpf (0-2) Urine WBC 0-5/hpf (0-5) Urine Epithelial Cells Few/hpf (NONE-MOD) Urine Crystals None seen (NONE SEEN) Urine Bacteria Many/hpf (NONE-FEW) Urine Hyaline Casts None/lpf (NONE) Urine Granular Casts None seen (NONE SEEN) Urine Waxy Casts None seen (NONE SEEN) Urine Red Blood Cell Casts None seen (NONE SEEN) Urine White Blood Cell Casts None seen (NONE SEEN) Urine Mucus None seen (None Seen) Urine Trichomonas None seen (NONE SEEN) Urine Yeast None (NONE SEEN) Urinalysis Comment None Urine Culture Reflexed Indicated Hold Urine Received (Received) White Blood Count 8.4th/mm3 (3.8-10.1) Red Blood Count 4.43mil/mm3 (4.40-5.80) Hemoglobin 12.5g/dL (13.8-17.2) Hematocrit 37.9% (41.0-50.0) Mean Corpuscular Volume 85.6fL (81-100) Mean Corpuscular Hemoglobin 28.2pg (27.0-35.0) Mean Corpuscular Hemoglobin Concent 33.0% (32.0-37.0) Red Cell Distribution Width 13.7% (12.3-15.4) Platelet Count 232bil/L (150-400) Neutrophils (%) (Auto) 70.5% (40-74) Lymphocytes (%) (Auto) 14.5% (14-46) Monocytes (%) (Auto) 13.0% (4-12) Eosinophils (%) (Auto) 1.3% (0-5) Basophils (%) (Auto) 0.2% (0-3) Sodium Level 136mEq/L (134-144) Potassium Level 4.1mEq/L (3.5-5.2) Chloride Level 100mEq/L (97-108) Carbon Dioxide Level 23mmol/L (18-29) Blood Urea Nitrogen 11mg/dL (8-27) Creatinine 0.54mg/dL (0.76-1.27) Estimat Glomerular Filtration Rate 155mL/min (>59) Glucose Level 158mg/dL (60-99) Calcium Level 8.7mg/dL (8.5-10.1) Total Bilirubin 1.2mg/dL (0.0-1.2) Aspartate Amino Transf (AST/SGOT) 13U/L (0-50) Alanine Aminotransferase (ALT/SGPT) 5U/L (0-44) Alkaline Phosphatase 91U/L (25-160) C-Reactive Protein 10.1mg/dL (0.0-0.5) Total Protein 5.9g/dL (6.4-8.4) Albumin 3.5g/dL (3.4-5.0) Prothrombin Time 13.2sec (8.1-12.5) Prothromb Time International Ratio 1.23ratio Discharge Medications Discharge Medications Clindamycin (Clindamycin) 300 Mg Capsule 300 MG PO QID Prescribed by: LUIS HERNÁNDEZ MD Insulin Glargine (Lantus U100 Insulin Vial) 100 Unit/Ml Vial 13 UNIT SUBQ HS Prescribed by: LUIS HERNÁNDEZ MD Lisinopril (Lisinopril) 10 Mg Tablet 10 MG PO DAILY (Reported) Metformin ER (Metformin ER) 500 Mg Tablet 1,000 MG PO HS (Reported) Metformin ER (Metformin ER) 500 Mg Tablet 500 MG PO QAM (Reported) Metoprolol Succinate ER (Metoprolol Succinate ER) 50 Mg Tab.er.24h 50 MG PO DAILY (Reported) Warfarin Sodium (Coumadin) 5 Mg Tablet 10 MG PO monday (Reported) Warfarin Sodium (Coumadin) 7.5 Mg Tablet 7.5 MG PO DIRECTED (Reported) Durable Medical Equipment Syring W-O Ndl,Disp,Insul, 1Ml (Insulin Syringe) 1 Each Disp.syrin 1 EACH [facility] ( DME) Prescribed by: LUIS HERNÁNDEZ MD Additional med instructions Please take Clindamycin four times per day for 3weeks. Followup Plan Disposition: Home with home health Patient Instructions You were hospitalized with diabetic foot ulcer, possible bone infection. You tolerated irrigation and drainage procedure well, currently there was no signs of definite bone infection. Your condition improved with antibiotics and surgical intervention. Please note that home health is established to provide dressing changes every 48 hours consisting of sterile plain packing gauze, 4 x 4 gauze, ABDs pad, Kerlix and a loosely applied Nicanor bandage. Please continue antibiotics as above Please follow up with Wound Care center as scheduled. Follow-up with PCP in: 2 weeks Time spent 65 minutes Luis Hernández MD Nov 29, 2016 17:30
== END 2016-11-29 14:30 | disposition home health service (06) | DRG 988 ==
LOC: SED 12:46 → OSC 17:29
PROVIDERS: ADMIT Internal Medicine; ATTEND Hospitalist
PROC: 0QBQ0ZX Excision of Right Toe Phalanx, Open Approach, Diagnostic (ICD-10-PCS; principal; 2016-11-24 17:00)
DX: E11.621 Type 2 diabetes mellitus with foot ulcer (principal); M86.9 Osteomyelitis, unspecified; E11.628 Type 2 diabetes mellitus with other skin complications; L03.031 Cellulitis of right toe; I48.2 Chronic atrial fibrillation; E11.69 Type 2 diabetes mellitus with other specified complication; Z79.01 Long term (current) use of anticoagulants; Z79.84 Long term (current) use of oral hypoglycemic drugs

== ENCOUNTER 2017-01-02 12:15 | Inpatient (IN) | payer MEDICARE ==
[~2017-01-02] VITALS: Ht 180.3 cm; Wt 93.0 kg
[~2017-01-02 12:15] MED LIST changes: +CLIN-78 PO; -LOV100 SUBQ; -METR500T PO; -NYST1POW25 TOPICAL; -OXYC1TAB24 PO; +SYRI-1324 MC; -TRIA80OI TOPICAL; -[UNRECOGNIZED DRUG - CODE] IV
[2017-01-02] MEDS ORDERED: WARF5TAB7 PO (13:57)
[2017-01-02 14:15] VITALS: BP 126/78; PULSE 77; RESP 21; O2SAT 96
[2017-01-02] MEDS ORDERED: Ondansetron 2 mg/mL 2 mL Inj IVPUSH PRN (14:15)
[2017-01-02] MEDS ORDERED: Alum-Mag Hydrox-Simeth 30 mL Suspension PO PRN (14:15)
[2017-01-02] MEDS ORDERED: Polyethylene Glycol (PEG) 17 Gm Powder PO PRN (14:15)
[2017-01-02 15:08] LABS: APPEARANCE,URINE HAZY (CLEAR,HAZY); COLOR,URINE DARK YELLOW (YELLOW); OCCULT BLOOD,URINE SMALL (NEGATIVE); PH,URINE 5.5 (5.0-8.0); UROBILINOGEN,URINE NORMAL (NORMAL)
[2017-01-02] MEDS: 0.9% Sodium Chloride 1,000 ML IV SCH ×2 (15:28→23:22)
--- NOTE | 2017-01-02 15:52 | NUR ---
Inpatient Wound Nurse Patient seen by [facility] RN for evaluation of R diabetic foot ulcer. With removal of dressing, wound was highly odorous. Blackened tissue noted between great toe and second toe, heavily macerated, peeling edges, exposed tissue is beefy red and non-granulating, normal temp, extending distally to proximally from great toe tip to area of first met head. Three areas packed with string gauze are on dorsal, medial, and plantar met head. String gauze was not removed, as patient was somewhat antagonistic, did not feel wound mechanical technical service specialist was needed as patient is having "my big toe amputated tomorrow morning at 5 am." Since patient is having surgery, no aggressive wound care will be started at this time. [facility] RN will meet with patient tomorrow to assess for further wound care. Wound Center updated, already aware of patient's admit.
[2017-01-02] MEDS: Heparin 5,000 Unit/mL Inj SUBQ SCH (17:20)
[2017-01-02] MEDS: Vancomycin Dose per Pharmacist XX SCH (17:55)
[2017-01-02 18:05] LABS: BASOPHILS % (AUTO) 0.1 % (0-3); EOSINOPHILS % (AUTO) 0.1 % (0-5); MONOCYTES % (AUTO) 12.6 % (4-12); Mean Corpuscular Hemoglobin 27.3 pg (27.0-35.0); Mean Corpuscular Volume 82.3 fL (81-100); NEUTROPHILS % (AUTO) 77.6 % (40-74); Platelet Count 304 bil/L (150-400)
--- NOTE | 2017-01-02 18:45 | NUR ---
Skin, NPO, lab specimen Sent MRSA nasal swab to lab. Will start IV antibiotics as soon as blood culture is collected by supervisor laboratory animal facility. Pt. denied R. foot pain, he stated, "It doesn't hurt me." Applied SCDs to non-affected L. leg. Pt. was encouraged to turn Q2 hours as he had blanching red sacrum. Pt. was cooperative with advice. Nystatin powder was ordered for yeasty groin, perineum, and gluteal fold. Dr. Cortez came to assess pt. Dr. Cortez instructed pt. to NPO after 0900 on 01/03/17, anticipate surgery in the late afternoon. Pt. verbalized understanding.
--- NOTE | 2017-01-02 19:07 | PCM.HPMED ---
Subjective Date of Service Jan 02, 2017 Primary Provider: Admitting Physician: Migue Garcia Primary Care Physician: La Nena Attending Physician: Migue Garcia Chief Complaint: Foot ulcer History of Present Illness: 81-year-old male with history of type II diabetes and severe neuropathy who is been admitted here twice in the last 2 months due to a chronic right foot infection for which she has been following wound care. Today he was seeing Dr. Cortez and after his assessment he was directed to the hospital for admission and evaluation for ongoing osteomyelitis. After his admission in October he went to [facility] and completed a 21 day course of antibiotics. However, following his discharge from [facility] the patient developed worsening infection which he had to be admitted to the hospital for additional debridement. 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 However the patient was discharged in improved condition has been doing better since that time until he was seen today at wound care. Patient states that he does not been having fevers chills, nausea, vomiting, diarrhea, lightheadedness, dizziness, or other signs of possible sepsis. The patient does seem to be a little slow cognitively. Patient states he is compliant with his diabetic medication. He was directly admitted to the floor. Spoke with podiatry's office and they will plan for a debridement tomorrow. Review of Systems: Complete review of systems performed; pertinent positives and negatives per history of present illness, all other systems reviewed and are negative Allergies Coded Allergies: No Known Allergies (Unverified , 01/02/17) Home Medications Lantus 13 units subcutaneous at bedtime Lisinopril 10 mg by mouth at bedtime Metoprolol succinate 50 mg by mouth at bedtime Warfarin 5 mg by mouth Monday and Monday Warfarin 7.5 mg by mouth Monday, Monday, , Monday, Monday Exam Vital Signs & I/O Vital Sign- Last 8 Hours Date Time Temp Pulse Resp B/P Pulse Ox O2 Delivery O2 Flow Rate FiO2 01/02/17 15:30 37.2 01/02/17 14:15 38.0 77 21 126/78 96 Room Air Lab & Micro Results Laboratory Tests Test 01/02/17 14:30 01/02/17 17:49 Urine Color Dark yellow (YELLOW) Urine Appearance Hazy (CLEAR,HAZY) Urine pH 5.5 (5.0-8.0) Urine Specific [place] 1.025 (1.003-1.035) Urine Protein 30mg/dL (NEG,TRACE) Urine Glucose (UA) 500mg/dL (NEGATIVE) Urine Ketones Negativemg/dL (NEGATIVE) Urine Occult Blood Small (NEGATIVE) Urine Nitrite Negative (NEGATIVE) Urine Bilirubin Negative (NEGATIVE) Urine Urobilinogen Normalmg/dL (NORMAL) Urine Leukocyte Esterase Negative (NEGATIVE) Urine RBC 0-2/hpf (0-2) Urine WBC 0-5/hpf (0-5) Urine Epithelial Cells Occasional/hpf (NONE-MOD) Urine Crystals None seen (NONE SEEN) Urine Bacteria Few/hpf (NONE-FEW) Urine Hyaline Casts None/lpf (NONE) Urine Granular Casts None seen (NONE SEEN) Urine Waxy Casts None seen (NONE SEEN) Urine Red Blood Cell Casts None seen (NONE SEEN) Urine White Blood Cell Casts None seen (NONE SEEN) Urine Mucus Present (None Seen) Urine Trichomonas None seen (NONE SEEN) Urine Yeast None (NONE SEEN) Urinalysis Comment None Urine Culture Reflexed Not indicated White Blood Count 12.7th/mm3 (3.8-10.1) Red Blood Count 3.96mil/mm3 (4.40-5.80) Hemoglobin 10.8g/dL (13.8-17.2) Hematocrit 32.6% (41.0-50.0) Mean Corpuscular Volume 82.3fL (81-100) Mean Corpuscular Hemoglobin 27.3pg (27.0-35.0) Mean Corpuscular Hemoglobin Concent 33.1% (32.0-37.0) Red Cell Distribution Width 14.1% (12.3-15.4) Platelet Count 304bil/L (150-400) Neutrophils (%) (Auto) 77.6% (40-74) Lymphocytes (%) (Auto) 9.2% (14-46) Monocytes (%) (Auto) 12.6% (4-12) Eosinophils (%) (Auto) 0.1% (0-5) Basophils (%) (Auto) 0.1% (0-3) Sodium Level 128mEq/L (134-144) Potassium Level 4.1mEq/L (3.5-5.2) Chloride Level 92mEq/L (97-108) Carbon Dioxide Level 21mmol/L (18-29) Blood Urea Nitrogen 17mg/dL (8-27) Creatinine 0.64mg/dL (0.76-1.27) Estimat Glomerular Filtration Rate 127mL/min (>59) Glucose Level 229mg/dL (60-99) Calcium Level 8.4mg/dL (8.5-10.1) Total Bilirubin 1.1mg/dL (0.0-1.2) Aspartate Amino Transf (AST/SGOT) 89U/L (0-50) Alanine Aminotransferase (ALT/SGPT) 54U/L (0-44) Alkaline Phosphatase 225U/L (25-160) Total Protein 6.4g/dL (6.4-8.4) Albumin 3.0g/dL (3.4-5.0) Procalcitonin 0.11ng/mL (0.00-0.08) Microbiology 01/02/17 Blood Culture, Received Pending Result Diagram: 01/02/17174801/02/171748 Review of Systems: Constitutional: Negative, except as otherwise mentioned in the history above. Ophthalmologic: Negative, except as otherwise mentioned in the history above. Cardiovascular: Negative, except as otherwise mentioned in the history above. Respiratory: Negative, except as otherwise mentioned in the history above. Gastrointestinal: Negative, except as otherwise mentioned in the history above. Genitourinary: Negative, except as otherwise mentioned in the history above. Musculoskeletal: Negative, except as otherwise mentioned in the history above. Neurological: Negative, except as otherwise mentioned in the history above. Psychiatric: Negative, except as otherwise mentioned in the history above. Hematologic/Lymphatic: Negative, except as otherwise mentioned in the history above. Allergic/Immunologic: Negative, except as otherwise mentioned in the history above. PMH Diabetes mellitus 2 Peripheral artery disease Atrial fibrillation, chronic Hypertension Surgical History prior foot ulcer debridement Family History Diabetes mellitus 2 Social History Hx Alcohol Use: No Hx Substance Use: No Hx Tobacco Use: No Smoking Status: Never Smoker Exam Vital Signs Vital Sign - Last Date Time Temp Pulse Resp B/P Pulse Ox O2 Delivery O2 Flow Rate FiO2 01/02/17 15:30 37.2 01/02/17 14:15 77 21 126/78 96 Room Air Exam General: Cooperative age-appropriate male in no acute distress HEENT: PERRLA, EOMI, nonicteric, membranes moist Lymph: No lymphadenopathy Cardio: Regular Respiratory: CTA bilaterally, no wheezes, no crackles Abdomen: Soft, positive bowel sounds, nontender, nondistended Extremities: No edema, right lower extremity heavily bandaged but no moisture or bleeding through bandages Psych: Appropriate mood and affect Neuro: CN II through XII grossly intact, sensation intact throughout Skin: No rash Lab and Diagnostics Result Diagram: 01/02/17174801/02/171748 Assessment & Plan 81-year-old male who presents to the hospital from wound care due to worsening right diabetic foot ulcer with concern for osteomyelitis. Right foot diabetic ulcer with concern for osteomyelitis with leukocytosis; present on admission; ongoing -Sent over from wound clinic; discussion with Dr. Cortez's staff-plan to take patient to OR for debridement tomorrow -Swab nares and wound for MRSA -Blood cultures were obtained due to fever -Ceftriaxone, Vanco, and Flagyl; can consider discontinuing Flagyl after exploration -500 mL bolus and 100 mL/hour normal saline -NPO at midnight Diabetes mellitus 2 with severe neuropathy; present on admission; ongoing -Home dose is Lantus 13 units -Lantus 10 units hs tonight -Low correctional correctional lispro -Last A1c in November was 8.1 -Diabetic/heart healthy diet Chronic atrial fibrillation, POA; ongoing -Will hold Coumadin -Debridement tomorrow -Continued metoprolol Elevated transaminases; present on admission; ongoing -Alkaline phosphatase of 225 and mild elevation in AST/ALT -patient does not complain of any pain -Right upper quadrant ultrasound -We will reorder in the morning Hypertension-hold lisinopril until after procedure Peripheral arterial disease Disposition: Patient is being admitted to inpatient status with expected length of stay greater than two midnights due to to severity of presentation, duration of treatment, and risks of adverse events disposition Full code Patient carries a 0.9% risk of having a major cardiovascular event during this low risk surgery. Pain Evaluation: Adequate Pain Control VTE Mechanical Devices: Intermittant Pneumatic CD Resuscitation Status: CPR: Attempt Resuscitation Attending Statement The patient was seen and examined together with Dr. Vanegas on 01/02/17 and I agree with the history, exam and plan as outlined in the note above. Bryn Vanegas DO Jan 02, 2017 19:07 Migue Garcia Jan 02, 2017 19:48
--- NOTE | 2017-01-02 19:13 | NUR ---
admit patient admitted as a direct admit to room [address] Garcia notified immediately and told by him to notify evening resident Dr. Vanegas. Dr. Vanegas notified and came to see patient and do orders. Dr. Vanegas notified that patient with temp of 38.0 on arrival and notified that home med list complete. patient oriented to room and call light and states understanding. scd placed to left leg, the leg without a wound. dressing to right foot and lower leg done per wound center today and dressing c/d/i. report given to marie barrios at 1500. albert to start iv line and iv fluids as ordered. Addendum: 01/02/17 at 1916 by SAMSON NARANJO RN ua sent as ordered.
[2017-01-02] MEDS ORDERED: 0.9% Sodium Chloride 500 ML IV ONE (19:20)
[2017-01-02] MEDS ORDERED: Glucose 40% Oral Gel 15 Gm Tube PO PRN (19:25)
[2017-01-02] MEDS: cefTRIAXone Inj 2,000 MG in Dextrose 5% Minibag Plus 50 ML IV SCH (19:42)
[2017-01-02 20:09] VITALS: BP 127/63; PULSE 79; RESP 16; O2SAT 99
[2017-01-02] MEDS: metroNIDAZOLE Inj 500 MG in IV Premix 1 EACH IV SCH (20:29)
[2017-01-02] MEDS ORDERED: Vancomycin Inj 1,750 MG in 0.9% Sodium Chloride 500 ML IV ONE (20:45)
[2017-01-02] MEDS: MeTOProlol XL 50 mg ER24 Tablet PO SCH (21:36)
[2017-01-02] MEDS: Nystatin 100,000 Unit/Gm 15 Gm Powder TOPICAL SCH (21:37)
[2017-01-02] MEDS: Insulin GLARgine 100 Unit/mL Syringe SUBQ SCH (21:46)
[2017-01-02] MEDS: Insulin LISPRO 300 Unit/3 mL Inj SUBQ SCH (21:46)
[2017-01-02 23:42] VITALS: BP 121/66; PULSE 77; RESP 17; O2SAT 98
[2017-01-03] MEDS: Heparin 5,000 Unit/mL Inj SUBQ SCH ×3 (01:15→15:36)
[2017-01-03] MEDS: metroNIDAZOLE Inj 500 MG in IV Premix 1 EACH IV SCH ×3 (04:43→18:29)
[2017-01-03 05:15] VITALS: BP 126/68; PULSE 101; RESP 17; O2SAT 99
--- NOTE | 2017-01-03 05:22 | NUR ---
Activity Pt ambulates to br with FWW and SBA. Multiple formed small BMs this shift, voiding independently in urinal. Dressing to foot intact, no drainage visable. No complaints of pain. Pt turns in bed independently, heels elevated on pillow. NPO at midnight, cs at 0300 was 123. IVF infusing and ABX as ordered. No sob or chest pain. Care continues
[2017-01-03 05:39] LABS: BASOPHILS % (AUTO) 0.1 % (0-3); EOSINOPHILS % (AUTO) 0.7 % (0-5); MONOCYTES % (AUTO) 16.9 % (4-12); Mean Corpuscular Hemoglobin 27.1 pg (27.0-35.0); Mean Corpuscular Volume 83.9 fL (81-100); NEUTROPHILS % (AUTO) 71.1 % (40-74); Platelet Count 296 bil/L (150-400)
[2017-01-03] MEDS: Insulin LISPRO 300 Unit/3 mL Inj SUBQ SCH ×4 (07:42→21:36)
[2017-01-03] MEDS: Nystatin 100,000 Unit/Gm 15 Gm Powder TOPICAL SCH ×2 (10:31→21:22)
[2017-01-03] MEDS: 0.9% Sodium Chloride 1,000 ML IV SCH ×2 (10:31→21:21)
[2017-01-03 10:50] VITALS: BP 122/80; PULSE 100; RESP 18; O2SAT 99
[2017-01-03] MEDS: Vancomycin Inj 1,000 MG in IV Premix 1 EACH IV SCH (12:27)
[2017-01-03] MEDS: Vancomycin Dose per Pharmacist XX SCH (12:32)
--- NOTE | 2017-01-03 12:51 | PCM.PNMED ---
Subjective Date of Service Jan 03, 2017 Subjective Initial temp 38. No new complaints. LFTs not much changed. Awaiting debridement today. Exam Vital Signs Vital Sign - Last Date Time Temp Pulse Resp B/P Pulse Ox O2 Delivery O2 Flow Rate FiO2 01/03/17 10:50 36.9 100 18 122/80 99 Room Air Intake and Output 01/02/17 01/02/17 01/03/17 Cumulative From/Thru 15:00 23:00 07:00 01/02/17 13:45 - 01/03/17 05:15 Intake Total 661 ml 2644 ml 3305 ml Output Total 625 ml 1650 ml 2275 ml Balance 36 ml 994 ml 1030 ml Intake Oral 336 ml 800 ml 1136 ml IV Total 325 ml 1844 ml 2169 ml Output Urine Total 625 ml 1650 ml 2275 ml # Bowel Movements 2 2 Exam General: Cooperative age-appropriate male in no acute distress HEENT: PERRLA, EOMI, nonicteric, membranes moist Lymph: No lymphadenopathy Cardio: Regular Respiratory: CTA bilaterally, no wheezes, no crackles Abdomen: Soft, positive bowel sounds, nontender, nondistended Extremities: No edema, right lower extremity heavily bandaged but no moisture or bleeding through bandages Psych: Appropriate mood and affect Neuro: CN II through XII grossly intact, sensation intact throughout Skin: No rash IVs and Medications Medications Reviewed: Medications were reviewed in detail Lab and Diagnostics Result Diagram: 01/03/1752401/03/17 0525 X-Rays, CTs and MRIs PROCEDURE: X-RAY RIGHT FOOT COMPLETE, MINIMUM THREE VIEWS ([id number]) INDICATIONS: RIGHT FIRST TOE PAIN IMPRESSION: 1. Marked soft tissue swelling and abnormal appearance of the first metatarsal head as well as the adjacent proximal phalanx suspicious for a further characterization is warranted, MRI of the foot with and without contrast is recommended. infection (osteomyelitis). Recommend clinical correlation. 1. Dictated by: Last ROMEO Interpreted: Taylor Mckay MD on 01/02/2017 at 10:55 Assessment & Plan 81-year-old male who presents to the hospital from wound care due to worsening right diabetic foot ulcer with concern for osteomyelitis. #Right foot diabetic ulcer with concern for osteomyelitis with leukocytosis; present on admission; ongoing -Sent over from wound clinic; discussion with Dr. Cortez's staff-plan to take patient to OR for debridement today -Swab nares and wound for MRSA -Blood cultures pending -Ceftriaxone, Vanco, and Flagyl; can consider discontinuing Flagyl after exploration -500 mL bolus and 100 mL/hour normal saline -NPO for procedure -ID consult placed #Diabetes mellitus 2 with severe neuropathy; present on admission; ongoing -Home dose is Lantus 13 units -Lantus 10 units hs tonight -Low correctional correctional lispro -Last A1c in November was 8.1 -Diabetic/heart healthy diet #Chronic atrial fibrillation, POA; ongoing -Will hold Coumadin -Debridement today -Continued metoprolol #Elevated transaminases; present on admission; ongoing -Alkaline phosphatase of 225 and mild elevation in AST/ALT -patient does not complain of any pain -Right upper quadrant ultrasound #Hypertension-hold lisinopril until after procedure #Peripheral arterial disease Disposition: Patient is being admitted to inpatient status with expected length of stay greater than two midnights due to to severity of presentation, duration of treatment, and risks of adverse events disposition Full code Patient carries a 0.9% risk of having a major cardiovascular event during this low risk surgery. VTE Mechanical Devices: Intermittant Pneumatic CD Resuscitation Status: CPR: Attempt Resuscitation Marcus Mcdonald MD Jan 03, 2017 12:51
[2017-01-03 14:04] VITALS: BP 120/77; PULSE 95; RESP 19; O2SAT 99
--- NOTE | 2017-01-03 14:08 | DRSVH ---
PROCEDURE: US ABDOMEN INDICATIONS: Elevated transaminases; choledocholithiasis. TECHNIQUE: Real-time scanning was performed of the abdominal and retroperitoneal organs, with image documentation. COMPARISON: None. FINDINGS: Liver length: 17.29 cm Gallbladder wall thickness: 2.70 mm CHD: 1.90 mm CBD: 4.80 mm Spleen length: 10.44 cm Right kidney length: 11.76 cm Left kidney length: 12.6 cm Aorta (proximal): 2.15 cm Aorta (mid): 1.92 cm Aorta (distal): 2.27 cm RCIA: 1.34 cm LCIA: 1.22 cm Liver: The liver is normal in size and homogeneous in echotexture. Gallbladder: Normal gallbladder. Biliary ducts: Intrahepatic bile ducts are non-dilated. Extrahepatic bile duct caliber is normal. Normal is 6-7 mm or less in diameter, or 10 mm or less post-cholecystectomy. Pancreas: The visualized portions of the pancreas are sonographically normal. Spleen: Spleen is normal in size and homogeneous in echotexture. Kidneys: Kidneys are normal in size and echotexture. No hydronephrosis or nephrolithiasis. No vivek d masses. Aorta: Visualized aorta is normal in caliber at less than 3 cm. Iliacs: Proximal common iliac arteries are normal in caliber at less than 2.5 cm. IVC: Intrahepatic inferior vena cava is patent. Miscellaneous: No free abdominal fluid. IMPRESSION: Normal exam. Dictated by: Last Blandon Foster Interpreted: Emerson Temple MD on 01/03/2017 at 12:58 Transcribed by: ROMMEL on 01/03/2017 at 17:07 Approved by: Emerson Temple M.D. on 01/03/2017 at 15:35
--- NOTE | 2017-01-03 17:04 | PCM.CHPPOD ---
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 no new complaints overnight. 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 Allergy Allergies: Coded Allergies: No Known Allergies (Unverified , 01/02/17) Medications Insulin Glargine (Lantus U100 Insulin Vial) 100 Unit/Ml Vial 13 UNIT SUBQ HS Lisinopril (Lisinopril) 10 Mg Tablet 10 MG PO HS Metoprolol Succinate ER (Metoprolol Succinate ER) 50 Mg Tab.er.24h 50 MG PO HS Warfarin Sodium (Coumadin) 5 Mg Tablet 5 MG PO Monday and Monday Warfarin Sodium (Warfarin Sodium) 5 Mg Tablet 7.5 MG PO Mon,,,Fr,Sa Past Medical History Surgeries: Yes (appendix, biopsy right toe wound) Medical History: Surgical History: Social History Hx Alcohol Use: No Hx Substance Use: No Hx Tobacco Use: No Smoking Status: Never Smoker Podiatry Consult Exam Vital Signs Vital Sign - Last Date Time Temp Pulse Resp B/P Pulse Ox O2 Delivery O2 Flow Rate FiO2 01/03/17 14:04 36.8 95 19 120/77 99 Room Air Intake and Output 01/02/17 01/02/17 01/03/17 Cumulative From/Thru 15:00 23:00 07:00 01/02/17 13:45 - 01/03/17 05:15 Intake Total 661 ml 2644 ml 3305 ml Output Total 625 ml 1650 ml 2275 ml Balance 36 ml 994 ml 1030 ml Intake Oral 336 ml 800 ml 1136 ml IV Total 325 ml 1844 ml 2169 ml Output Urine Total 625 ml 1650 ml 2275 ml # Bowel Movements 2 2 Result Diagram: 01/03/17 0525 01/03/17 0525 Lab Test 01/02/17 14:30 01/03/17 05:25 Urine Color Dark yellow (YELLOW) Urine Appearance Hazy (CLEAR,HAZY) Urine pH 5.5 (5.0-8.0) Urine Specific [place] 1.025 (1.003-1.035) Urine Protein 30mg/dL (NEG,TRACE) Urine Glucose (UA) 500mg/dL (NEGATIVE) Urine Ketones Negativemg/dL (NEGATIVE) Urine Occult Blood Small (NEGATIVE) Urine Nitrite Negative (NEGATIVE) Urine Bilirubin Negative (NEGATIVE) Urine Urobilinogen Normalmg/dL (NORMAL) Urine Leukocyte Esterase Negative (NEGATIVE) Urine RBC 0-2/hpf (0-2) Urine WBC 0-5/hpf (0-5) Urine Epithelial Cells Occasional/hpf (NONE-MOD) Urine Crystals None seen (NONE SEEN) Urine Bacteria Few/hpf (NONE-FEW) Urine Hyaline Casts None/lpf (NONE) Urine Granular Casts None seen (NONE SEEN) Urine Waxy Casts None seen (NONE SEEN) Urine Red Blood Cell Casts None seen (NONE SEEN) Urine White Blood Cell Casts None seen (NONE SEEN) Urine Mucus Present (None Seen) Urine Trichomonas None seen (NONE SEEN) Urine Yeast None (NONE SEEN) Urinalysis Comment None Urine Culture Reflexed Not indicated White Blood Count 8.9th/mm3 (3.8-10.1) Red Blood Count 3.80mil/mm3 (4.40-5.80) Hemoglobin 10.3g/dL (13.8-17.2) Hematocrit 31.9% (41.0-50.0) Mean Corpuscular Volume 83.9fL (81-100) Mean Corpuscular Hemoglobin 27.1pg (27.0-35.0) Mean Corpuscular Hemoglobin Concent 32.3% (32.0-37.0) Red Cell Distribution Width 14.1% (12.3-15.4) Platelet Count 296bil/L (150-400) Neutrophils (%) (Auto) 71.1% (40-74) Lymphocytes (%) (Auto) 10.9% (14-46) Monocytes (%) (Auto) 16.9% (4-12) Eosinophils (%) (Auto) 0.7% (0-5) Basophils (%) (Auto) 0.1% (0-3) Sodium Level 135mEq/L (134-144) Potassium Level 4.4mEq/L (3.5-5.2) Chloride Level 101mEq/L (97-108) Carbon Dioxide Level 23mmol/L (18-29) Blood Urea Nitrogen 12mg/dL (8-27) Creatinine 0.64mg/dL (0.76-1.27) Estimat Glomerular Filtration Rate 127mL/min (>59) Glucose Level 136mg/dL (60-99) Calcium Level 8.0mg/dL (8.5-10.1) Total Bilirubin 0.7mg/dL (0.0-1.2) Aspartate Amino Transf (AST/SGOT) 91U/L (0-50) Alanine Aminotransferase (ALT/SGPT) 57U/L (0-44) Alkaline Phosphatase 232U/L (25-160) Total Protein 5.4g/dL (6.4-8.4) Albumin 2.7g/dL (3.4-5.0) Procalcitonin 0.09ng/mL (0.00-0.08) Exam General: Alert, Oriented X3, Cooperative Lower Extremity Pulses: Palpable: Right Dorsalis Pedis Right Posterior Tibal Podiatry WOUND : Wound Location/Description no strike through noted on dressing. no wound evaluation today. Assessment & Plan Assessment osteomyelitis of the right first metatarsal. Problems: Plan Dressing is intact and clean and dry without strike through, no dressing change today. OR cancelled today due to OR availability. patient rescheduled for tomorrow afternoon for first ray resection and debridement. Advance diet tonight and please make NPO after 9AM tomorrow AM for surgery tomorrow at 5PM. continue IV antibiotics. Plan for discharge 24-48 hours after surgical resection of the first ray. Limited weightbearing of the right foot for toileting nd transfers only. VTE Mechanical Devices: Intermittant Pneumatic CD Buster Cortez DPM Jan 03, 2017 17:04
--- NOTE | 2017-01-03 19:37 | NUR ---
Foot dressing Pt had no pain during shift. Surgery was deferred to 01/04/17 at 1700 and pt is to be NPO at 0900 that day. Dressing was removed by infectious disease MD and rewrapped by RN. Pt was unhappy with how foot was rewrapped and that it was not done to his specifications and what had been previously done at wound care. No instructions for dressings were given in chart. Bed in low, call light in reach, care continues.
[2017-01-03 19:40] VITALS: BP 128/70; PULSE 77; RESP 16; O2SAT 96
[2017-01-03] MEDS: cefTRIAXone Inj 2,000 MG in Dextrose 5% Minibag Plus 50 ML IV SCH (20:05)
--- NOTE | 2017-01-03 20:42 | CONS ---
[address] [address] CONSULTATION REPORT PATIENT: RUSTY SILVESTRE : 1935 MR#: [id number] ADMIT: 01/02/2017 JOB ID: [id number] DATE OF SERVICE: 01/03/2017 REASON FOR CONSULTATION: Infection, right medial forefoot. HISTORY OF THE PRESENT ILLNESS: The patient is a complex, 81-year-old gentleman well known to me from admissions in October and November of this year. The patient has longstanding peripheral arterial disease as well as diabetes with some degree of neuropathy in the feet. Despite these problems, he has an avid bicyclist and often seen whizzing around various areas of [facility] on his bicycle. He was admitted to this facility back in October, and at that time, had a severe ulcer underlying his right medial forefoot. This had arisen as a callus and he self-debrided it at home using a pocket knife which ultimately caused a defect in the plantar surface of his foot which became infected. At the time of his October admission, he was bacteremic with MSSA. A transesophageal echo showed no endocarditis but he did have a large clot in his left atrium, which was thought to be due to his underlying AFib. In any event, there was no evidence of osteo, but he was bacteremic and so we treated him aggressively with a prolonged course of IV Ancef, which finished only on November 13. During the time, he was being treated in late October and early November, he was at the [facility] in [place]. He was subsequently discharged and did quite well for about a week and then came back with some redness around the right great toe, which was new after about 10 days. At that time, I was invited to see the patient again on that admission. During that admission, Dr. Cortez and I both extensively investigated the patient's situation. We decided to hold off on antibiotics for a bit until deep cultures and a bone biopsy were done as well as additional blood cultures. The foot culture and blood cultures were negative and a bone biopsy showed no evidence of osteo. It was concluded he did not have osteo at that point, though a CRP was moderately elevated and an MRI suggested that osteo was a possibility, though of course not proven as the biopsy and cultures were actually negative. He was eventually discharged home on a prolonged course of oral clindamycin which finished about two weeks ago. During that time, the patient reports his toe dramatically improved and he returned to his usual state of health and full activities. He has been followed in the wound clinic during the month of December and has been doing reasonably well except for the development of a right foot plantar ulceration, which was felt to be noninfected. On December 26, he underwent debridement at the Wound Center by Dr. Cortez and he was seen again yesterday by Dr. Cortez, who was concerned that the ulceration underneath the right great toe was worsening. During yesterday's evaluation in the Wound Center, no purulent discharge was found but there was a moderate degree of edema and warmth in the distal medial forefoot on the right side. He was concerned about a possible pathologic fracture as there is some crepitus which is easily noted by palpation of the 1st metatarsophalangeal joint. Dr. Cortez yesterday ordered and x-ray of the toe to help decide whether this was a fracture or osteo and the radiologist interpreted that as showing abnormal appearance of the 1st metatarsal head, as well as the proximal phalanx of the great toe suspicious for osteo. They also noted there was diffuse swelling of the right great toe. On that basis, the patient was admitted and scheduled for debridement today. He was also started on very broad-spectrum antibiotics which, in retrospect, maybe we should have deferred given the fact that patient is still nontoxic and is scheduled for some major debridement here in the near future. In any event, he was started on vancomycin, ceftriaxone, and Flagyl and blood cultures done. This evening, I am interviewing the patient. He tells me he has had no fevers, chills, or sweats. No pulmonary or GI symptoms. No genitourinary symptoms and essentially no pain in the right medial forefoot. He states he is guided completely by what Dr. Cortez tells him about this situation involving the right forefoot, and at this point, he is just waiting for surgery. The surgery was scheduled for this afternoon but had to be canceled due to lack of OR time and it has been tentatively rescheduled for tomorrow. PAST MEDICAL HISTORY: 1. Peripheral vascular disease. 2. Diabetes mellitus. 3. Chronic atrial fibrillation with formation of left atrial clot. 4. Recurrent right forefoot infections, as described above. SOCIAL HISTORY: The patient lives by himself in [place]. 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 FAMILY HISTORY: Negative in first- and second-degree relatives for TB. No history of heart disease. REVIEW OF SYSTEMS: Was done. The patient states as usual that he feels fine. He is stoic, as he has been on prior admissions. He says absolutely no fevers, chills, or weight loss. No headache, no sore throat. No cough, shortness of breath or chest pain. No nausea, vomiting, diarrhea, or dysuria. He notes there has been some swelling around his right great toe but it has not bothered him a whole lot nor has it slowed him down much. He notes there has been a bit of drainage from that area and it has not been foul smelling. Remainder of the review of systems negative. PHYSICAL EXAMINATION: Reveals an afebrile gentleman in no acute distress. He did have a temperature to 38.0 yesterday at the exact time he was admitted. Since then, afebrile. All temperatures around 37.0. His pulse 95, respiratory rate 19, blood pressure 120/77. He is saturating quite well on room air. He is alert, conversational and without any confusion whatsoever. Head without trauma. Eyes without conjunctivitis or scleral icterus. Oral cavity is benign. His neck is supple without adenopathy or JVD. His lungs quite clear. Cardiac tones: Irregular rate and rhythm without significant murmur. Abdomen soft, nontender. No organomegaly. Penis and scrotum were normal. There is no Liu catheter. No suprapubic fullness. No swelling of the joints is noted. Lower extremities have some venous stasis changes bilaterally. There is diminished capillary refill bilaterally, but there is evidence of perfusion and his feet are reasonably warm bilaterally. The medial right forefoot is grossly erythematous and swollen, including pretty much the entire great toe, parts of the adjacent 2nd toe and the distal right medial forefoot. There is packing present around the base of the right great toe and I did not pull the packing out though I did remove the dressings overlying this area. On these dressings there is serosanguineous drainage, which is not grossly purulent. The patient does have sensation in his feet, though it is not normal but he can certainly appreciate when his feet are being touched and has some degree of proprioception. Neurologically, he is intact with excellent strength in all four extremities. LABORATORIES: Include white count last night 12,700, this morning 8900. Diff basically normal. Creatinine 0.64. AST 91, ALT 57, alk phos 232. A CRP a month ago was 10. I have ordered a repeat for tonight but it has not been drawn yet. Procalcitonin negative x2. Urinalysis yesterday without white cells. Micro studies include negative blood cultures. A MRSA screen of the nares is pending but is preliminarily positive and we await confirmation. Note that on prior admissions, he has been MRSA negative. The cultures of the foot done during his last admission were negative and the biopsy specimen from the October 24 admission was negative for osteomyelitis. IMAGING: Includes the x-ray of the foot yesterday which was previously discussed but appears to show possible osteomyelitis involving the 1st proximal phalangeal base as well as the 1st metatarsal head. The abdominal ultrasound done today to evaluate his slightly elevated liver function tests totally normal. IMPRESSION: This is a difficult case which I have been involved with now for over two months. The patient originally presented with a callus on the underside of his right plantar forefoot which had developed secondary to some self-surgery in an effort to debride the callus. This eventually resulted in MSSA bacteremia which we treated aggressively. The patient seemed to have an excellent response. Unfortunately within just a couple weeks, he experienced some redness of the right great toe and was re-evaluated here. During his re-evaluation he was found to have a questionable MRI scan for osteo with an elevated CRP but no fever or leukocytosis Deep cultures and a biopsy of the bone did not establish a diagnosis of osteomyelitis or any other infection and a MRSA screen was negative so he was sent home with oral clindamycin which he took for two weeks and did reasonably well. He was carefully followed in Podiatry/Wound Clinic where he was noted to have a persistent ulceration but without much in the way of purulent drainage. Unfortunately, during yesterday's evaluation by Podiatry in the Wound Center it was noted that there was much more drainage and concern about either pathologic fracture of bone or osteo. A radiograph suggested the possibility of osteo and he was admitted for debridement today which has now been postponed until tomorrow, January 04. Unfortunately, I suspect that the patient does indeed have osteomyelitis and that the combination of diabetic neuropathy as well as macro and microvascular disease has produced a very difficult situation here in terms of keeping his great toe. RECOMMENDATIONS: 1. Will continue with these antibiotics as we now have some evidence based on our preliminary MRSA screen that he may indeed have MRSA this time and that could represent a reason why his foot has worsened once again. 2. We await the results of tomorrow's debridement and cultures by Dr. Cortez. 3. I have added a CRP onto his labs. 4. Will continue to closely follow this patient with you.
[2017-01-03] MEDS: MeTOProlol XL 50 mg ER24 Tablet PO SCH (21:21)
[2017-01-03] MEDS: Insulin GLARgine 100 Unit/mL Syringe SUBQ SCH (21:34)
[2017-01-04] MEDS: Heparin 5,000 Unit/mL Inj SUBQ SCH ×3 (00:36→21:26)
[2017-01-04] MEDS: Vancomycin Inj 1,000 MG in IV Premix 1 EACH IV SCH ×2 (01:37→12:09)
[2017-01-04] MEDS: metroNIDAZOLE Inj 500 MG in IV Premix 1 EACH IV SCH ×3 (02:57→21:35)
[2017-01-04 04:40] VITALS: BP 123/70; PULSE 73; RESP 16; O2SAT 98
[2017-01-04 07:54] LABS: Magnesium 1.9 mg/dL (1.6-2.6)
[2017-01-04 07:56] LABS: ERYTHROCYTE SEDIMENTATION RATE 70 mm/hr (0-30)
[2017-01-04] MEDS: Insulin LISPRO 300 Unit/3 mL Inj SUBQ SCH ×4 (08:00→23:05)
--- NOTE | 2017-01-04 08:07 | NUR ---
Pain Patient stated that he had no pain. Patient up independent to bathroom, stand by assist. Patient alert and oriented x 3. Vitals stable. Patient to be NPO at 0900. Patient denies neuropathy. Care continues.
[2017-01-04] MEDS: Vancomycin Dose per Pharmacist XX SCH (08:30)
[2017-01-04 08:56] LABS: BASOPHILS % (AUTO) 0.3 % (0-3); Mean Corpuscular Hemoglobin 27.4 pg (27.0-35.0); Mean Corpuscular Volume 83.9 fL (81-100); NEUTROPHILS % (AUTO) 69.8 % (40-74); Platelet Count 311 bil/L (150-400)
[2017-01-04] MEDS: 0.9% Sodium Chloride 1,000 ML IV SCH ×2 (09:05→16:11)
[2017-01-04] MEDS: Nystatin 100,000 Unit/Gm 15 Gm Powder TOPICAL SCH ×2 (09:05→21:35)
--- NOTE | 2017-01-04 13:29 | NUR ---
NUTRITION ASSESSMENT: ASSESS: 81 YO male admitted with infected diabetic foot ulcer. Pt with history of osteomyelitis. Pt to undergo surgery today for 1st ray resection and debridement. Pt is currently NPO for procedure but was eating 100% of meals prior to NPO status. PMHx: NIDDM, chronic A-fib requiring Coumadin. DIET: NPO for procedure but Consistent carb prior with po intake of 100% of meals. LABS: Reviewed. Cr .52, Glu 119, A1C 7.7, AST 104, ALT 56, Alk Phos 266, Alb 2.7. MEDICATIONS: Reviewed. GI symptoms / stool: BM x 2 (01/03) Skin Integrity: Undergoing R 1st metatarsal amputation today. ANTHROPOMETRICS: Current Wt: 89.8 kg ESTIMATED NEEDS (WOUNDS): Calories: 2005-6010 kcal (25 - 30 kcal / kg BW) Protein: 110-135 g protein (1.2 - 1.5 g / kg BW) NUTRITION DIAGNOSIS: 1.) Increased nutrient needs related to increased demand for nutrients as evidenced by chronic diabetic foot ulcer. INTERVENTION: 1.) Will add gelatein plus BID between meals to encourage adequate po intake. MONITOR/EVALUATE: PO intake, labs, wounds, GI/nutrition status. Follow per moderate nutrition risk guidelines.
--- NOTE | 2017-01-04 13:44 | PCM.PNMED ---
Subjective Date of Service Jan 04, 2017 Subjective No new complaints or events. Surgery postponed for today. Exam Vital Signs Vital Sign - Last Date Time Temp Pulse Resp B/P Pulse Ox O2 Delivery O2 Flow Rate FiO2 01/04/17 04:40 36.7 73 16 123/70 98 Room Air Intake and Output 01/03/17 01/03/17 01/04/17 Cumulative From/Thru 15:00 23:00 07:00 01/02/17 13:45 - 01/04/17 04:40 Intake Total 2044 ml 1600 ml 6949 ml Output Total 900 ml 1800 ml 4975 ml Balance 1144 ml -200 ml 1974 ml Intake Oral 500 ml 1600 ml 3236 ml IV Total 1544 ml 3713 ml Output Urine Total 900 ml 1800 ml 4975 ml # Bowel Movements 0 0 2 Exam General: Cooperative age-appropriate male in no acute distress HEENT: PERRLA, EOMI, nonicteric, membranes moist Lymph: No lymphadenopathy Cardio: Regular Respiratory: CTA bilaterally, no wheezes, no crackles Abdomen: Soft, positive bowel sounds, nontender, nondistended Extremities: No edema, right lower extremity heavily bandaged but no moisture or bleeding through bandages Psych: Appropriate mood and affect Neuro: CN II through XII grossly intact, sensation intact throughout Skin: No rash IVs and Medications Medications Reviewed: Medications were reviewed in detail Lab and Diagnostics Result Diagram: 01/04/17 0540 01/04/17 0540 X-Rays, CTs and MRIs PROCEDURE: X-RAY RIGHT FOOT COMPLETE, MINIMUM THREE VIEWS ([id number]) INDICATIONS: RIGHT FIRST TOE PAIN IMPRESSION: 1. Marked soft tissue swelling and abnormal appearance of the first metatarsal head as well as the adjacent proximal phalanx suspicious for a further characterization is warranted, MRI of the foot with and without contrast is recommended. infection (osteomyelitis). Recommend clinical correlation. 1. Dictated by: Last Blandon RRFoster Interpreted: Taylor Mckay MD on 01/02/2017 at 10:55 Assessment & Plan 81-year-old male who presents to the hospital from wound care due to worsening right diabetic foot ulcer with concern for osteomyelitis. #Right foot diabetic ulcer with concern for osteomyelitis with leukocytosis; present on admission; ongoing -Sent over from wound clinic; discussion with Dr. Cortez's staff-plan to take patient to OR for debridement today -Swab nares and wound for MRSA -Blood cultures x2 negative -Ceftriaxone, Vanco, and Flagyl; continue with that for now -c/w 100 mL/hour normal saline, discontinue after surgery -NPO for procedure -ID consult placed #Diabetes mellitus 2 with severe neuropathy; present on admission; ongoing -Home dose is Lantus 13 units -Lantus 10 units hs tonight -Low correctional correctional lispro - A1c 7.7 -Diabetic/heart healthy diet #Chronic atrial fibrillation, POA; ongoing -Will hold Coumadin -Debridement today -Continued metoprolol #Elevated transaminases; present on admission; ongoing -Alkaline phosphatase of 225 and mild elevation in AST/ALT -patient does not complain of any pain -Right upper quadrant ultrasound normal #Hypertension-hold lisinopril until after procedure #Peripheral arterial disease Disposition: Discharge in 2- 3 days Full code VTE Mechanical Devices: Intermittant Pneumatic CD Resuscitation Status: CPR: Attempt Resuscitation Marcus Mcdonald MD Jan 04, 2017 13:44
--- NOTE | 2017-01-04 14:15 | NUR ---
ANGIE signed. Chandni Moody CONTENT CREATION MANAGER
--- NOTE | 2017-01-04 16:02 | NUR ---
Social Work- Initial Assessment/ Multidisciplinary Rounds Data: See Initial Assessment. Pt is a 81 year old male admitted 01/02/17 for diabetic foot infection per H&P. ID is following. Pt's insurance is [facility]. Pt's PCP is Reginaldo Perrin MD. Pt is currently open with [facility] for wound care and receives care at the wound care clinic. Pt was recently admitted at the end of October, pt discharged to [facility] for IV abx and wound care needs. Pt was also recently admitted 11/23-11/28, discharged home with resumption of [facility] through [place]. SW met with pt at bedside regarding discharge plan, SW role explained. Pt alert and oriented x3. Pt's capacity for self-care assessed. Pt resides in [facility], where he remains independent with ADLs and self-care. Pt uses a bike or bus for transportation. Pt has a cane and walker at home for ambulation but is typically independent without DME. Pt does not drive. Pt has SNF history at [facility]. Pt has HH history with [facility]. Pt has no LT insurance or VA benefits. Pt is currently open with [facility] services. Buddy Vaughan at [facility] updated of pt's admission. Pt to go to OR today for debridment. No SW orders have been placed at this time. SW provided discharge planning phone number on whiteboard. SW provided discharge planning checklist at bedside. SW will continue to follow for discharge planning needs, including IV abx, HH, or SNF. Assessment: Pt who is currently open with [facility] for wound care Plan: Pt currently open with [facility], pt will require order for resume [facility] if medically indicated. Pt's discharge plan is evolving pending surgery, R/O IV abx, SNF. SW will continue to follow. BERTO Florence Addendum: 01/04/17 at 1605 by PEPE BRAUN Amended: Links added.
--- NOTE | 2017-01-04 16:38 | NUR ---
To OR Patient to OR in bed. IV saline locked. Report given to GOPAL Hughes in the OR.
[2017-01-04] MEDS ORDERED: Lactated Ringer's 500 ML IV PRN (17:24)
[2017-01-04] MEDS ORDERED: Lactated Ringer's 1,000 ML IV SCH (17:24)
--- NOTE | 2017-01-04 17:24 | PCM.HPANE ---
Patient Data Surgeon Admitting Provider:Migue Garcia Attending Provider:Marcus Mcdonald MD Primary Care Physician:Nopcp Other Provider: Reason for Visit Diabetic Foot Infection(Left) Ht/WT & BMI Height (Feet): 5 Height (Inches): 11.00 Weight (Kilograms): 89.800 Body Mass Index 27.72 Allergies Coded Allergies: No Known Allergies (Unverified , 01/02/17) Past Anesthesia History Anesthesia History: Denies:: Abnormal Airway, Anesthesia Reactions, Difficult Intubation, Fam Anesthesia Reaction, Fam Malignant Hypertherm, Malignant Hyperthermia Diabetes History Hx Diabetes?: Yes Current Bedside Blood Glucose: 196 MRSA MRSA: No Medications Active Scripts Insulin Glargine (Lantus U100 Insulin Vial)100 Unit/Ml Vial13 Unit SUBQ HS 30 Days Prov:Luis Kauffman MD 11/29/16 Reported Medications Warfarin Sodium 5 Mg Tablet7.5 Mg PO Mon,,,Fr,Sa 30 Days Ref 0 01/02/17 Lisinopril 10 Mg [id number] Mg PO HS 30 Days Ref 0 10/13/16 Warfarin Sodium (Coumadin)5 Mg Tablet5 Mg PO Monday and Monday 30 Days Ref 0 10/13/16 Metoprolol Succinate ER 50 Mg Tab.[id number] Mg PO HS Ref 0 10/13/16 Discontinued Reported Medications Metformin ER 500 Mg [id number] Mg PO QAM Ref 0 10/13/16 Metformin ER 500 Mg Tablet1,000 Mg PO HS Ref 0 10/13/16 Warfarin Sodium (Coumadin)7.5 Mg Tablet7.5 Mg PO DIRECTED 30 Days Ref 0 10/13/16 Discontinued Scripts Syring W-O Ndl,Disp,Insul, 1Ml (Insulin Syringe)1 Each Disp.syrin #60 Each Mc Prov:uLis Kauffman MD 11/29/16 Clindamycin 300 Mg [id number] Mg PO QID 21 Days Ref 0 Prov:Luis Kauffman MD 11/29/16 History History of ENT Problems?: No HEENT History: Denies:: Abnormal Airway Cataracts Difficult Intubation Dysphagia Glaucoma Hearing Problem Sinus Problem TMJ Denture Type: None Teeth Condition: Within Normal Limits Hx of Heart Problems?: Yes Cardiovascular History: Positive for:: Atrial Fibrillation Hypertension Irregular Heartbeat Denies:: Cardiac Surgery Chest Pain Congestive Heart Failure Edema Heart Murmur Pacemaker Thrombophlebitis Hx of Respiratory Problem?: No Respiratory History: Denies:: Asthma COPD Chest Surgery Cough Dyspnea Emphysema Hemoptysis Oxygen Administration Pneumonia Pulmonary Embolism Tuberculosis Use of C-PAP Machine Hx Neurologic Problems?: No Neurological History: Denies:: Alzheimer's Disease CVA Dementia Dizziness Headaches Multiple Sclerosis Parkinson's Disease Seizures Hx of GI Problems?: No Hx of Problems?: No Genitourinary History: Denies:: HX of Hemodialysis Kidney Stones Urinary Tract Infection HX of Peritoneal Dialysis: No Male Hx: Denies:: Prostate Problems Scrotal Mass Testicular Surgery Skin History: Denies:: History Skin Disorders? Pressure Ulcers Hx Musculoskeletal Problems?: No Musculoskeletal History: Denies:: Back Injury Degenerative Joint Joint Replacement Musculoskeletal Trauma Systemic Lupus Hx of Psycho/Social Problems?: No Psycho Social History: Denies:: Anxiety Bipolar Disorder Hx Depression Suicide Attempt Hx Surgeries?: Yes (appendix, biopsy right toe wound) Hx Any Other Health Problems?: Yes Other History: Positive for:: Hospitalization ("Horse broke my pelvis once - no surgery") Denies:: Cancer Endocrine Disease Thyroid Disease History Blood Transfusions: Positive for:: Accept Blood Products? Denies:: Blood Transfuse Reaction Blood Transfusions Hx Diabetes: YesBedside Blood Glucose: 196 Hx Alcohol Use: NoHx Substance Use: No Smoking Status: Never Smoker Have You Smoked inLast 12 mo: No Stop/Bang Treated for Sleep Apnea?: No Do You Have a CPAP Machine?: No S-Snoring: Do You Snore Loudly: No T-Tired: feel tired, fatigued: No O-Obsered: Observed not breath: No P-Blood Pressure: treated: Yes B- Body Mass Index > 35 kg/m2: No A- Age over 50: Yes N- Neck Large Circumference: No G- Gender Male: Yes PATSY Total Score: 2 PATSY Risk Assessment: Low Risk, <3 Yes Risk Assessment Category Category 1A: Patient has history of documented sleep apnea, and HAS NOT received any narcotic, sedative or anesthesia administration during this stay. Category 1B: Patient has history of documented sleep apnea, and HAS received any narcotic , sedative or anesthesia administration during this stay Category 2: Patient has SUSPECTED Obstructive Sleep Apnea, and HAS received any narcotic , sedative or anesthesia administration during this stay. Category 3: Patient has SUSPECTED Obstructive Sleep Apnea and HAS NOT received narcotic, sedative or anesthesia administration during this stay. Category 4: Outpatient in Procedural Areas with known sleep apnea or who screen positive for High Risk via the STOP/BANG questionnaire. Exam Exam General Appearance: Alert HEENT/AIRWAY: MP 1, Neck Movement (from, 3 fb) Lungs: Clear to Auscultation Heart: Regular Rate/Rhythm Meds/Labs/Diagnostics Bedside Blood Glucose: 196 Labs Test 01/02/17 14:30 01/03/17 05:25 01/04/17 05:40 Urine Color Dark yellow (YELLOW) Urine Appearance Hazy (CLEAR,HAZY) Urine pH 5.5 (5.0-8.0) Urine Specific [place] 1.025 (1.003-1.035) Urine Protein 30mg/dL (NEG,TRACE) Urine Glucose (UA) 500mg/dL (NEGATIVE) Urine Ketones Negativemg/dL (NEGATIVE) Urine Occult Blood Small (NEGATIVE) Urine Nitrite Negative (NEGATIVE) Urine Bilirubin Negative (NEGATIVE) Urine Urobilinogen Normalmg/dL (NORMAL) Urine Leukocyte Esterase Negative (NEGATIVE) Urine RBC 0-2/hpf (0-2) Urine WBC 0-5/hpf (0-5) Urine Epithelial Cells Occasional/hpf (NONE-MOD) Urine Crystals None seen (NONE SEEN) Urine Bacteria Few/hpf (NONE-FEW) Urine Hyaline Casts None/lpf (NONE) Urine Granular Casts None seen (NONE SEEN) Urine Waxy Casts None seen (NONE SEEN) Urine Red Blood Cell Casts None seen (NONE SEEN) Urine White Blood Cell Casts None seen (NONE SEEN) Urine Mucus Present (None Seen) Urine Trichomonas None seen (NONE SEEN) Urine Yeast None (NONE SEEN) Urinalysis Comment None Urine Culture Reflexed Not indicated Hemoglobin A1c 7.7% (4.8-5.6) White Blood Count 6.0th/mm3 (3.8-10.1) Red Blood Count 3.80mil/mm3 (4.40-5.80) Hemoglobin 10.4g/dL (13.8-17.2) Hematocrit 31.9% (41.0-50.0) Mean Corpuscular Volume 83.9fL (81-100) Mean Corpuscular Hemoglobin 27.4pg (27.0-35.0) Mean Corpuscular Hemoglobin Concent 32.6% (32.0-37.0) Red Cell Distribution Width 14.1% (12.3-15.4) Platelet Count 311bil/L (150-400) Neutrophils (%) (Auto) 69.8% (40-74) Lymphocytes (%) (Auto) 14.2% (14-46) Monocytes (%) (Auto) 12.0% (4-12) Eosinophils (%) (Auto) 3.0% (0-5) Basophils (%) (Auto) 0.3% (0-3) Erythrocyte Sedimentation Rate 70mm/hr (0-30) Sodium Level 137mEq/L (134-144) Potassium Level 4.4mEq/L (3.5-5.2) Chloride Level 102mEq/L (97-108) Carbon Dioxide Level 21mmol/L (18-29) Blood Urea Nitrogen 10mg/dL (8-27) Creatinine 0.52mg/dL (0.76-1.27) Estimat Glomerular Filtration Rate 162mL/min (>59) Glucose Level 119mg/dL (60-99) Calcium Level 8.1mg/dL (8.5-10.1) Magnesium Level 1.9mg/dL (1.6-2.6) Total Bilirubin 0.5mg/dL (0.0-1.2) Aspartate Amino Transf (AST/SGOT) 104U/L (0-50) Alanine Aminotransferase (ALT/SGPT) 56U/L (0-44) Alkaline Phosphatase 266U/L (25-160) Total Protein 5.3g/dL (6.4-8.4) Albumin 2.7g/dL (3.4-5.0) Procalcitonin 0.06ng/mL (0.00-0.08) Plan Impression Patient chart reviewed, patient interviewed and anesthestic plan with risks, benefits, and alternatives discussed, and informed consent obtained. NPO per Anesth. Guidelines: Yes ASA Physical Status: ASA3 Severe Disease Anesthetic Plan: MAC Bene/Risks/Altern/Consents: Yes HP Complete Prior to Induction: Yes Jose Gomez MD Jan 04, 2017 17:24
[2017-01-04] MEDS ORDERED: Phenylephrine 10,000 mCg/mL Inj IVPUSH PRN (17:25)
[2017-01-04] MEDS ORDERED: MetoCLOpramide 5 mg/mL 2 mL Inj IVPUSH PRN (17:25)
[2017-01-04] MEDS ORDERED: EPHEDrine Sulfate 50 mg/mL Inj IVPUSH PRN (17:25)
[2017-01-04] MEDS ORDERED: Ondansetron 2 mg/mL 2 mL Inj IVPUSH PRN (17:25)
[2017-01-04] MEDS ORDERED: HYDROmorphone 1 mg/mL Inj IVPUSH PRN (17:25)
[2017-01-04] MEDS ORDERED: fentaNYL-PF 50 mCg/mL 2 mL Inj IVPUSH PRN (17:25)
[2017-01-04] MEDS ORDERED: Dexamethasone 4 mg/mL Inj IVPUSH PRN (17:25)
[2017-01-04] MEDS ORDERED: Lactated Ringer's 1,000 ML IV ONE (17:26)
[2017-01-04] MEDS ORDERED: Bupivacaine-MPF 0.5% W/EPI 30 mL Inj INFILTRATE ONE (17:35)
[2017-01-04 18:24] VITALS: BP 127/87; PULSE 74; RESP 12; O2SAT 99
--- NOTE | 2017-01-04 18:28 | PCM.PODPO ---
Podiatry Operative Report Date of Service: Jan 04, 2017 Date of Service Jan 04, 2017 Pre Operative Diagnosis Osteomyelitis right first metatarsal and great toe Post Operative Diagnosis Same as preoperative diagnoses Procedure Partial first ray resection right foot Surgeon Surgeon: Marcus Mcdonald MD Assistants: None Indication for Procedure Osteomyelitis of right first metatarsal and great toe Findings Pathologic fracture of the right first metatarsal head with osseous degeneration and necrosis of the base of the right proximal phalanx Details of Procedure Patient was identified in the preoperative holding area preoperative comorbidities and allergies were identified and thoroughly discussed. The patient was transported into the operating room and placed on the operating room table in the normal supine position a preoperative block consisting of 10 mL half percent Marcaine with epinephrine was given around the base of the first metatarsal in a Snow type block fashion. The patient was then prepped and draped in the normal aseptic technique and placed under Mac anesthesia by the anesthesia service. Attention was first paid to the dorsal aspect of the right first metatarsal phalangeal joint. The previous bone biopsy incision was utilized extending from the midshaft of the first metatarsal in a racquet type fashion surrounding the base of the great toe. This incision was carried directly down to bone. The first metatarsophalangeal joint was identified and sharply dissected removing the right hallux from the foot in total. Inspection of the base of the right hallux revealed osteonecrosis with discoloration of the medial and plantar surface. Dissection was then carried proximally exposing the distal aspect of the first metatarsal and the first metatarsal head. The metatarsal head was found to be fractured the fracture fragment was removed and sent for pathologic identification. Previously removed right hallux was sent for culture. A rongeur was utilized to resect all nonviable and necrotic soft tissue until only healthy bleeding tissue remained. A sagittal saw was then utilized to resect approximately an additional 2 cm portion of the distal aspect of the first metatarsal insuring clean margin of infection. The sesamoids were identified and removed. Inspection of the tibial and fibular sesamoid revealed normal appearance color and bone quality. This wound was again closely flushed with normal saline. A curet was then utilized to resect all fibrotic and nonviable soft tissue from the plantar and medial ulcerations which communicate with the newly formed amputation site wound. Again the wound was copiously flushed with large amounts of normal saline. Retention sutures were placed along the proximal aspect of the metatarsal shaft incision to the level of the metatarsophalangeal joint. The remainder of the incision and ulcerations were left open to drain. These wounds were then packed with normal gauze Betadine soaked gauze was placed interdigitally covered by dry sterile gauze AVD pad fluff Kerlix with mild compression of the first metatarsal phalangeal joint and a mildly compressive four-inch Nicanor bandage. No complications occurred during this procedure. The patient was then awoken by anesthesia and transported out of the operating room. Grafts, Implants: None Complications There were no periprocedural complications identified. Condition Stable Anesthetic Administered: MAC Catheters: None Output, Estimated Blood Loss: 75 Blood Admin during surgery: No Surgical Cast or Splint: None Surgical Specimen Removed: Yes Specimen sent to Pathology: Yes Surgical Specimen description: First metatarsal head Post Operative Plan Return to floors when stable Advance diet as tolerated Restart inpatient medications per hospitalist service recommendation Continue IV antibiotic therapy per Dr. Zhu recommendations Plan for daily dressing changes by the podiatry service only Patient will likely be stable for discharge within 48-72 hours to home with weekly wound care Nonweightbearing right foot Buster Cortez DPM Jan 04, 2017 18:28
[2017-01-04 18:30] VITALS: BP 124/82; PULSE 73; RESP 14; O2SAT 99
--- NOTE | 2017-01-04 18:35 | PCM.ANEP1 ---
Post Anesthesia PACU Phase 1 Assessment Vital Signs Vital Signs Date Time Temp Pulse Resp B/P Pulse Ox O2 Delivery O2 Flow Rate FiO2 01/04/17 18:24 36.1 74 12 127/87 99 Room Air Anesthetic Administered: MAC Level of Alertness: Awake, talking BURGESS's with Equal Strength: Yes Pain: No Nausea or Vomiting: No CV Function & Hydration Stable: Yes Airway Device: Oxygen Delivery: Room Air Lungs: Clear to Auscultation PACU Phase 2 Assessment Complications: No Follow up Care: N/A Patient Instructions Provided: N/A Jose Gomez MD Jan 04, 2017 18:35
--- NOTE | 2017-01-04 18:49 | NUR ---
From OR Patient back from OR in bed. IV fluids infusing, on room air, alert and oriented. Report received from [employer]. Addendum: 01/04/17 at 1859 by LISSA HAQUE RN Patient denies pain. Right foot wrapped in dressing. Patient sitting up, eating dinner.
[2017-01-04 18:50] VITALS: BP 126/72; PULSE 75; RESP 14; O2SAT 99
[2017-01-04 18:53] VITALS: BP 148/71; PULSE 80; RESP 18; O2SAT 99
[2017-01-04] MEDS: cefTRIAXone Inj 2,000 MG in Dextrose 5% Minibag Plus 50 ML IV SCH (19:43)
[2017-01-04] MEDS: MeTOProlol XL 50 mg ER24 Tablet PO SCH (21:26)
[2017-01-04] MEDS: Insulin GLARgine 100 Unit/mL Syringe SUBQ SCH (21:28)
[2017-01-04] MEDS ORDERED: Vancomycin Serum Trough XX ONE (22:30)
[2017-01-05 00:18] VITALS: BP 127/78; PULSE 82; RESP 17; O2SAT 98
[2017-01-05] MEDS: Vancomycin Inj 1,000 MG in IV Premix 1 EACH IV SCH ×3 (00:49→17:39)
[2017-01-05] MEDS: Heparin 5,000 Unit/mL Inj SUBQ SCH ×3 (00:49→16:39)
[2017-01-05] MEDS: metroNIDAZOLE Inj 500 MG in IV Premix 1 EACH IV SCH (03:06)
[2017-01-05] MEDS: 0.9% Sodium Chloride 1,000 ML IV SCH (03:06)
--- NOTE | 2017-01-05 03:28 | NUR ---
IV site/Activity IV on left wrist/forearm occluded, asymptomatic otherwise. DC's site and new IV inserted into left forearm, proximal to old IV site. Asymptomatic, IV fluids and antibiotics running. Pt has had no c/o pain/N/V this shift. Has not been OOB, has movement and sensation to lower right foot/toes. Dr. Cortez to see pt this morning to re-bandage and possibly suture incision site from right big toe amputation. 0300 FBS check was 138, pt requesting apple juice. Discussed with pt diabetic diet/disease process. Pt questions "well what am I left with to eat then?" Pt appears to have has some denial regarding diabetes. Continue pt teaching. Addendum: 01/05/17 at 0728 by LUZ ELENA CHAPMAN RN Night hospitalist notified: Lab results for blood culture- positive for gram positive cocci, probably staff. No new orders at this time.
[2017-01-05 05:32] LABS: BASOPHILS % (AUTO) 0.3 % (0-3); EOSINOPHILS % (AUTO) 3.7 % (0-5); Mean Corpuscular Hemoglobin 26.9 pg (27.0-35.0); Mean Corpuscular Volume 84.1 fL (81-100); NEUTROPHILS % (AUTO) 71.8 % (40-74); Platelet Count 346 bil/L (150-400)
[2017-01-05 05:40] VITALS: BP 138/88; PULSE 85; RESP 17; O2SAT 98
--- NOTE | 2017-01-05 06:03 | PCM.PHAPRO ---
Progress Date of Service: Jan 05, 2017 Foot ulcer VANCOMYCIN MANAGEMENT A\ 81YO M WITH DIABETIC FOOT INFECTION VANCOMYCIN GOAL =15-20 CURRENT VANCOMYCIN TROUGH=7.4 SCR=0.52 KYHP=367 WBC=7.1 AFEBRILE P\ WILL INCREASE VANCOMYCIN 1000MG IV Q8H STARTING 01/05 0900 AND DRAW A VANCOMYCIN TROUGH 0030 01/06 TO MONITOR LEVEL Felipe [facility] Jan 05, 2017 06:03
[2017-01-05 07:52] VITALS: BP 119/79; PULSE 85; RESP 17; O2SAT 98
[2017-01-05] MEDS: Vancomycin Dose per Pharmacist XX SCH (08:30)
[2017-01-05] MEDS: Insulin LISPRO 300 Unit/3 mL Inj SUBQ SCH ×4 (08:48→22:25)
[2017-01-05] MEDS: Nystatin 100,000 Unit/Gm 15 Gm Powder TOPICAL SCH ×2 (08:50→19:58)
[2017-01-05 11:08] LABS: INR 1.68 ratio
--- NOTE | 2017-01-05 11:56 | PCM.PNMED ---
Subjective Date of Service Jan 05, 2017 Subjective No new complaints. Does not complain of pain. Underwent Partial first ray resection right foot,1 out of 2 blood cultures growing gram-positive coccus Exam Vital Signs Vital Sign - Last Date Time Temp Pulse Resp B/P Pulse Ox O2 Delivery O2 Flow Rate FiO2 01/05/17 07:52 36.8 85 17 119/79 98 Room Air Intake and Output 01/04/17 01/04/17 01/05/17 Cumulative From/Thru 15:00 23:00 07:00 01/02/17 13:45 - 01/05/17 05:44 Intake Total 1828 ml 1921 ml 2726 ml 58933 ml Output Total 1600 ml 750 ml 7325 ml Balance 1828 ml 321 ml 1976 ml 6099 ml Intake Oral 800 ml 1600 ml 5636 ml IV Total 1828 ml 1121 ml 1126 ml 7788 ml Output Urine Total 1450 ml 750 ml 7175 ml Estimated Blood Loss 150 ml 150 ml # Bowel Movements 0 0 2 Exam General: Cooperative age-appropriate male in no acute distress HEENT: PERRLA, EOMI, nonicteric, membranes moist Lymph: No lymphadenopathy Cardio: Regular Respiratory: CTA bilaterally, no wheezes, no crackles Abdomen: Soft, positive bowel sounds, nontender, nondistended Extremities: No edema, right lower extremity heavily bandaged but no moisture or bleeding through bandages Psych: Appropriate mood and affect Neuro: CN II through XII grossly intact, sensation intact throughout Skin: No rash IVs and Medications Medications Reviewed: Medications were reviewed in detail Lab and Diagnostics Result Diagram: 01/05/17 0505 01/05/17 0505 X-Rays, CTs and MRIs PROCEDURE: X-RAY RIGHT FOOT COMPLETE, MINIMUM THREE VIEWS ([id number]) INDICATIONS: RIGHT FIRST TOE PAIN IMPRESSION: 1. Marked soft tissue swelling and abnormal appearance of the first metatarsal head as well as the adjacent proximal phalanx suspicious for a further characterization is warranted, MRI of the foot with and without contrast is recommended. infection (osteomyelitis). Recommend clinical correlation. 1. Dictated by: Last ROMEO Interpreted: Taylor Mckay MD on 01/02/2017 at 10:55 Additional Diagnostics Date of Service Jan 04, 2017 Pre Operative Diagnosis Osteomyelitis right first metatarsal and great toe Post Operative Diagnosis Same as preoperative diagnoses Procedure Partial first ray resection right foot Surgeon Surgeon: Marcus Mcdonald MD Assistants: None Indication for Procedure Osteomyelitis of right first metatarsal and great toe Findings Pathologic fracture of the right first metatarsal head with osseous degeneration and necrosis of the base of the right proximal phalanx Assessment & Plan 81-year-old male who presents to the hospital from wound care due to worsening right diabetic foot ulcer with concern for osteomyelitis. #Right foot diabetic ulcer with osteomyelitis ; present on admission; ongoing -Underwent Partial first ray resection right foot 8/2 -nares positive for MRSA -Blood cultures 1/2 growing gram-positive coccus,probab contaminant -continue Ceftriaxone, Vanco, -c/w 100 mL/hour normal saline, discontinue after surgery -NPO for procedure -ID consult placed #Gram-positive bacteremia,probably contaminant -probably contaminant ,patient did not come with sepsis sxs . he was sent due to worsening foot infection from wound clinic.procal negative -Blood cultures 1/2 growing gram-positive coccus -repeat blood cx requested #Diabetes mellitus 2 with severe neuropathy; present on admission; ongoing -continue Home dose Lantus 13 units -Low correctional correctional lispro - A1c 7.7 -Diabetic/heart healthy diet #Chronic atrial fibrillation, POA; ongoing -resume Coumadin -Continued metoprolol #Elevated transaminases; present on admission; ongoing -Alkaline phosphatase of 225 and mild elevation in AST/ALT -patient does not complain of any pain -Right upper quadrant ultrasound normal #Hypertension-hold lisinopril until after procedure #Peripheral arterial disease Disposition: Discharge in 2- 3 days Full code VTE Mechanical Devices: Intermittant Pneumatic CD Resuscitation Status: CPR: Attempt Resuscitation Marcus Mcdonald MD Jan 05, 2017 11:56 Marcus Mcdonald MD Jan 05, 2017 11:56
--- NOTE | 2017-01-05 12:21 | PCM.CONPHA ---
Subjective Date of Service: Jan 05, 2017 Warfarin dosing Reason for Pharmacy Consult: Anticoagulation Management Objective Vital Signs Date Time Temp Pulse Resp B/P Pulse Ox O2 Delivery O2 Flow Rate FiO2 01/05/17 07:52 36.8 85 17 119/79 98 Room Air 01/05/17 05:40 36.7 85 17 138/88 98 Room Air 01/05/17 00:18 36.6 82 17 127/78 98 Room Air 01/04/17 18:53 36.6 80 18 148/71 99 Room Air 01/04/17 18:50 75 14 126/72 99 Room Air 01/04/17 18:35 Room Air 01/04/17 18:30 73 14 124/82 99 Room Air 01/04/17 18:24 36.1 74 12 127/87 99 Room Air Intake and Output 01/03/17 01/04/17 01/05/17 00:00 00:00 00:00 Intake Total 661 ml 4688 ml 5349 ml Output Total 625 ml 2550 ml 3400 ml Balance 36 ml 2138 ml 1949 ml Weight (Kilograms): 89.800 Height (Feet): 5 Height (Inches): 11.00 Test 01/02/17 14:30 01/03/17 05:25 01/04/17 05:40 01/04/17 22:35 Urine Color Dark yellow (YELLOW) Urine Appearance Hazy (CLEAR,HAZY) Urine pH 5.5 (5.0-8.0) Urine Specific [place] 1.025 (1.003-1.035) Urine Protein 30mg/dL (NEG,TRACE) Urine Glucose (UA) 500mg/dL (NEGATIVE) Urine Ketones Negativemg/dL (NEGATIVE) Urine Occult Blood Small (NEGATIVE) Urine Nitrite Negative (NEGATIVE) Urine Bilirubin Negative (NEGATIVE) Urine Urobilinogen Normalmg/dL (NORMAL) Urine Leukocyte Esterase Negative (NEGATIVE) Urine RBC 0-2/hpf (0-2) Urine WBC 0-5/hpf (0-5) Urine Epithelial Cells Occasional/hpf (NONE-MOD) Urine Crystals None seen (NONE SEEN) Urine Bacteria Few/hpf (NONE-FEW) Urine Hyaline Casts None/lpf (NONE) Urine Granular Casts None seen (NONE SEEN) Urine Waxy Casts None seen (NONE SEEN) Urine Red Blood Cell Casts None seen (NONE SEEN) Urine White Blood Cell Casts None seen (NONE SEEN) Urine Mucus Present (None Seen) Urine Trichomonas None seen (NONE SEEN) Urine Yeast None (NONE SEEN) Urinalysis Comment None Urine Culture Reflexed Not indicated Hemoglobin A1c 7.7% (4.8-5.6) Erythrocyte Sedimentation Rate 70mm/hr (0-30) Magnesium Level 1.9mg/dL (1.6-2.6) Procalcitonin 0.06ng/mL (0.00-0.08) Vancomycin Level Trough 7.4mcg/mL Test 01/05/17 05:05 01/05/17 10:31 White Blood Count 7.1th/mm3 (3.8-10.1) Red Blood Count 4.02mil/mm3 (4.40-5.80) Hemoglobin 10.8g/dL (13.8-17.2) Hematocrit 33.8% (41.0-50.0) Mean Corpuscular Volume 84.1fL (81-100) Mean Corpuscular Hemoglobin 26.9pg (27.0-35.0) Mean Corpuscular Hemoglobin Concent 32.0% (32.0-37.0) Red Cell Distribution Width 14.0% (12.3-15.4) Platelet Count 346bil/L (150-400) Neutrophils (%) (Auto) 71.8% (40-74) Lymphocytes (%) (Auto) 12.8% (14-46) Monocytes (%) (Auto) 11.0% (4-12) Eosinophils (%) (Auto) 3.7% (0-5) Basophils (%) (Auto) 0.3% (0-3) Sodium Level 137mEq/L (134-144) Potassium Level 4.4mEq/L (3.5-5.2) Chloride Level 102mEq/L (97-108) Carbon Dioxide Level 22mmol/L (18-29) Blood Urea Nitrogen 9mg/dL (8-27) Creatinine 0.52mg/dL (0.76-1.27) Estimat Glomerular Filtration Rate 162mL/min (>59) Glucose Level 147mg/dL (60-99) Calcium Level 7.9mg/dL (8.5-10.1) Total Bilirubin 0.4mg/dL (0.0-1.2) Aspartate Amino Transf (AST/SGOT) 43U/L (0-50) Alanine Aminotransferase (ALT/SGPT) 38U/L (0-44) Alkaline Phosphatase 250U/L (25-160) Total Protein 5.0g/dL (6.4-8.4) Albumin 2.7g/dL (3.4-5.0) Prothrombin Time 18.2sec (8.1-12.5) Prothromb Time International Ratio 1.68ratio Assessment/Plan Assessment/Plan Date INR 1.68 INR change Warf Dose 5 mg Odalis Mckeon PharmD Jan 05, 2017 12:21
--- NOTE | 2017-01-05 13:56 | NUR ---
Inpatient Wound Nurse Conversation completed with Dr. Cortez who stated that no inpatient wound care is needed at this time, he would prefer to provide wound care. Patient will not be followed by [facility] unless further requests are made.
--- NOTE | 2017-01-05 15:17 | PCM.PNPOD ---
Subjective Date of Service: Jan 05, 2017 Date of Service: Jan 05, 2017 Visit Information: Reason for Visit Diabetic Foot Infection(Left) Surgery/Surgery Date Post-Op Day # 1 Date of Admission: Jan 02, 2017 at 13:21 Hospital Day #3 Subjective: 81-year-old male evaluated resting comfortably in bed in no acute distress. Patient denies any new issues or complaints today. No recent history of fevers chills nausea or vomiting. This patient is 1 day status post amputation of his right great toe and partial first metatarsal amputation. His dressing is clean dry and intact. Patient states that he has settled some issues regarding his home with his neighbor indicating that he does not need to urgently be discharged from the hospital. Postop General: No Complaints Gastrointestinal: Good Appetite Pain Management: No or Minimal Pain Postop Activity: Other (nonweightbearing right foot) Objective Vital Sign - Last Date Time Temp Pulse Resp B/P Pulse Ox O2 Delivery O2 Flow Rate FiO2 01/05/17 07:52 36.8 85 17 119/79 98 Room Air Intake and Output 01/04/17 01/04/17 01/05/17 Cumulative From/Thru 15:00 23:00 07:00 01/02/17 13:45 - 01/05/17 05:44 Intake Total 1828 ml 1921 ml 2726 ml 88664 ml Output Total 1600 ml 750 ml 7325 ml Balance 1828 ml 321 ml 1976 ml 6099 ml Intake Oral 800 ml 1600 ml 5636 ml IV Total 1828 ml 1121 ml 1126 ml 7788 ml Output Urine Total 1450 ml 750 ml 7175 ml Estimated Blood Loss 150 ml 150 ml # Bowel Movements 0 0 2 Result Diagram: 01/05/17 0505 01/05/17 0505 Lab Test 01/02/17 14:30 01/03/17 05:25 01/04/17 05:40 01/04/17 22:35 Urine Color Dark yellow (YELLOW) Urine Appearance Hazy (CLEAR,HAZY) Urine pH 5.5 (5.0-8.0) Urine Specific [place] 1.025 (1.003-1.035) Urine Protein 30mg/dL (NEG,TRACE) Urine Glucose (UA) 500mg/dL (NEGATIVE) Urine Ketones Negativemg/dL (NEGATIVE) Urine Occult Blood Small (NEGATIVE) Urine Nitrite Negative (NEGATIVE) Urine Bilirubin Negative (NEGATIVE) Urine Urobilinogen Normalmg/dL (NORMAL) Urine Leukocyte Esterase Negative (NEGATIVE) Urine RBC 0-2/hpf (0-2) Urine WBC 0-5/hpf (0-5) Urine Epithelial Cells Occasional/hpf (NONE-MOD) Urine Crystals None seen (NONE SEEN) Urine Bacteria Few/hpf (NONE-FEW) Urine Hyaline Casts None/lpf (NONE) Urine Granular Casts None seen (NONE SEEN) Urine Waxy Casts None seen (NONE SEEN) Urine Red Blood Cell Casts None seen (NONE SEEN) Urine White Blood Cell Casts None seen (NONE SEEN) Urine Mucus Present (None Seen) Urine Trichomonas None seen (NONE SEEN) Urine Yeast None (NONE SEEN) Urinalysis Comment None Urine Culture Reflexed Not indicated Hemoglobin A1c 7.7% (4.8-5.6) Erythrocyte Sedimentation Rate 70mm/hr (0-30) Magnesium Level 1.9mg/dL (1.6-2.6) Procalcitonin 0.06ng/mL (0.00-0.08) Vancomycin Level Trough 7.4mcg/mL Test 01/05/17 05:05 01/05/17 10:31 White Blood Count 7.1th/mm3 (3.8-10.1) Red Blood Count 4.02mil/mm3 (4.40-5.80) Hemoglobin 10.8g/dL (13.8-17.2) Hematocrit 33.8% (41.0-50.0) Mean Corpuscular Volume 84.1fL (81-100) Mean Corpuscular Hemoglobin 26.9pg (27.0-35.0) Mean Corpuscular Hemoglobin Concent 32.0% (32.0-37.0) Red Cell Distribution Width 14.0% (12.3-15.4) Platelet Count 346bil/L (150-400) Neutrophils (%) (Auto) 71.8% (40-74) Lymphocytes (%) (Auto) 12.8% (14-46) Monocytes (%) (Auto) 11.0% (4-12) Eosinophils (%) (Auto) 3.7% (0-5) Basophils (%) (Auto) 0.3% (0-3) Sodium Level 137mEq/L (134-144) Potassium Level 4.4mEq/L (3.5-5.2) Chloride Level 102mEq/L (97-108) Carbon Dioxide Level 22mmol/L (18-29) Blood Urea Nitrogen 9mg/dL (8-27) Creatinine 0.52mg/dL (0.76-1.27) Estimat Glomerular Filtration Rate 162mL/min (>59) Glucose Level 147mg/dL (60-99) Calcium Level 7.9mg/dL (8.5-10.1) Total Bilirubin 0.4mg/dL (0.0-1.2) Aspartate Amino Transf (AST/SGOT) 43U/L (0-50) Alanine Aminotransferase (ALT/SGPT) 38U/L (0-44) Alkaline Phosphatase 250U/L (25-160) Total Protein 5.0g/dL (6.4-8.4) Albumin 2.7g/dL (3.4-5.0) Prothrombin Time 18.2sec (8.1-12.5) Prothromb Time International Ratio 1.68ratio Exam General: Alert, Oriented X3, Cooperative Lungs: Clear to Auscultation Lower Extremities: Right: Edema localized Extremity warm Lower Extremity Pulses: Palpable: Right Dorsalis Pedis Right Posterior Tibal Podiatry WOUND : Wound Location/Description Full-thickness wound of the right first ray. Dorsal sutures are intact and in place. There is minimal surrounding erythema and minimal local edema. Previous interdigital maceration of the second third and fourth webspace has cleared. Sanguinous drainage is present. The wound base is 100% granular. There is no exposed bone. Surgical Cast or Splint: None Assessment & Plan Impression Stable status post partial first ray amputation Problems: Plan Dressing change today. The wound was packed with moist to dry sterile 4 x 4 gauze and dressed with dry sterile gauze, Betadine soaked gauze was placed interdigitally AVD pads were used to cover the incision site which was then dressed with Kerlix and a mildly compressive Nicanor bandage. This dressing is to be changed every 24-48 hours by the podiatry service only Nonweightbearing right lower extremity Continue to follow Dr. Zhu recommendations for antibiotic therapy Plan of care is to follow up wound and tissue cultures which were taken yesterday in the operating room until an outpatient antibiotic plan can be determined. This patient will be stable from a wound care and podiatry standpoint for discharge to outpatient therapy within the next 24-48 hours Podiatry will continue to follow daily Buster Cortez DPM Jan 05, 2017 15:17
--- NOTE | 2017-01-05 16:01 | PROG NOTE ---
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 INTERVAL HISTORY: The patient reports he feels fine this morning. He as always denies all complaints including fevers, chills, sweats, cough, nausea, vomiting, or diarrhea. He says he has no pain whatsoever in his right foot at the amputation site and is anxious to get out of the hospital. PHYSICAL EXAMINATION: Reveals an afebrile gentleman, temperature 36.6, pulse 85, respiratory rate 17, blood pressure 119/79, saturating well on room air. He is in no acute distress. His lungs are clear. Abdomen benign. Right foot is in a large postop dressing which I did not remove. LABORATORIES: Include white count 7100, which has completely normalized. His creatinine is 0.52. Alk phos 250 and declining. Procalcitonin 0 and we should stop measuring those. Urinalysis with 5 white cells. One of four blood cultures from admission is growing a gram-positive organism which appears to be a Staph. Identification is expected tomorrow. The followup blood cultures are pending. A MRSA screen from admission is positive. Culture of the toe done in surgery yesterday shows many gram-positive cocci, and we await the culture on that tomorrow. IMPRESSION: This is an unfortunate gentleman with a rather recalcitrant right diabetic foot infection. He has been treated twice already this year for this infection and ultimately failed and he required resection of the right great toe. He is MRSA positive, at least in the nares, and we await identification of the one positive blood culture as well as the culture from the toe. RECOMMENDATIONS: 1. Will continue with the same antibiotics including ceftriaxone, vancomycin, and Flagyl. 2. We will need to closely watch his vancomycin trough as this is a quite a large dose of vancomycin for an older gentleman. 3. A final decision on antibiotic duration will be based upon the final culture results. Thank you very much.
[2017-01-05 16:44] VITALS: BP 139/86; PULSE 85; RESP 16; O2SAT 98
--- NOTE | 2017-01-05 19:27 | NUR ---
BG BG today at lunchtime 231; 3units SQ insulin given. BG dinner time 162, 1 unit SQ insulin given. Will continue to monitor with frequent rounds. Addendum: 01/06/17 at 0517 by CY MERRITT RN wrong nurse on prior note
[2017-01-05] MEDS: cefTRIAXone Inj 2,000 MG in Dextrose 5% Minibag Plus 50 ML IV SCH (19:57)
[2017-01-05] MEDS: MeTOProlol XL 50 mg ER24 Tablet PO SCH (19:57)
[2017-01-05 20:18] VITALS: BP 128/80; PULSE 78; RESP 17; O2SAT 96
[2017-01-05] MEDS ORDERED: Insulin GLARgine 100 Unit/mL Syringe SUBQ SCH ×2 (21:00)
[2017-01-06] MEDS ORDERED: Vancomycin Serum Trough XX ONE (00:30)
[2017-01-06] MEDS: Heparin 5,000 Unit/mL Inj SUBQ SCH ×3 (00:44→18:28)
[2017-01-06] MEDS: Vancomycin Inj 1,000 MG in IV Premix 1 EACH IV SCH ×3 (01:54→18:34)
--- NOTE | 2017-01-06 01:59 | PCM.PHAPRO ---
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
[2017-01-06 04:40] VITALS: BP 107/67; PULSE 63; RESP 17; O2SAT 97
--- NOTE | 2017-01-06 05:17 | NUR ---
Activity Pt slept all night, waking only for care and labs. IV antibiotics running, 0 c/o NV. Pt states he has no pain due to neuropathy, dressing to left foot CDI. Pt tolerating PO intake. Care continues
[2017-01-06 06:20] LABS: BASOPHILS % (AUTO) 0.2 % (0-3); EOSINOPHILS % (AUTO) 4.2 % (0-5); MONOCYTES % (AUTO) 13.2 % (4-12); NEUTROPHILS % (AUTO) 64.2 % (40-74); Platelet Count 359 bil/L (150-400)
[2017-01-06 06:28] LABS: INR 1.54 ratio
[2017-01-06] MEDS: Insulin LISPRO 300 Unit/3 mL Inj SUBQ SCH ×4 (08:00→22:00)
[2017-01-06 08:20] VITALS: BP 109/70; PULSE 86; RESP 17; O2SAT 99
[2017-01-06] MEDS: Nystatin 100,000 Unit/Gm 15 Gm Powder TOPICAL SCH ×2 (11:29→21:04)
[2017-01-06] MEDS: Vancomycin Dose per Pharmacist XX SCH (11:30)
[2017-01-06 13:33] VITALS: BP 126/79; PULSE 81; RESP 18; O2SAT 98
--- NOTE | 2017-01-06 13:53 | PCM.PNMED ---
Subjective Date of Service Jan 06, 2017 Subjective No new complaints or events. Awaiting final culture results of wound culture and blood culture. Exam Vital Signs Vital Sign - Last Date Time Temp Pulse Resp B/P Pulse Ox O2 Delivery O2 Flow Rate FiO2 01/06/17 13:33 36.7 81 18 126/79 98 Room Air Intake and Output 01/05/17 01/05/17 01/06/17 Cumulative From/Thru 15:00 23:00 07:00 01/02/17 13:45 - 01/06/17 05:58 Intake Total 1608 ml 1142 ml 03672 ml Output Total 1300 ml 2400 ml 94132 ml Balance 308 ml -1258 ml 5149 ml Intake Oral 1400 ml 836 ml 7872 ml IV Total 208 ml 306 ml 8302 ml Output Urine Total 1300 ml 2400 ml 63293 ml Estimated Blood Loss 150 ml # Bowel Movements 1 0 3 Exam General: Cooperative age-appropriate male in no acute distress HEENT: PERRLA, EOMI, nonicteric, membranes moist Lymph: No lymphadenopathy Cardio: Regular Respiratory: CTA bilaterally, no wheezes, no crackles Abdomen: Soft, positive bowel sounds, nontender, nondistended Extremities: No edema, right lower extremity heavily bandaged but no moisture or bleeding through bandages.per podiatry note " Full-thickness wound of the right first ray. Dorsal sutures are intact and in place. There is minimal surrounding erythema and minimal local edema. Previous interdigital maceration of the second third and fourth webspace has cleared. Sanguinous drainage is present. The wound base is 100% granular. There is no exposed bone." Psych: Appropriate mood and affect Neuro: CN II through XII grossly intact, sensation intact throughout Skin: No rash IVs and Medications Medications Reviewed: Medications were reviewed in detail Lab and Diagnostics Result Diagram: 01/06/1751901/06/17 05 X-Rays, CTs and MRIs PROCEDURE: X-RAY RIGHT FOOT COMPLETE, MINIMUM THREE VIEWS ([id number]) INDICATIONS: RIGHT FIRST TOE PAIN IMPRESSION: 1. Marked soft tissue swelling and abnormal appearance of the first metatarsal head as well as the adjacent proximal phalanx suspicious for a further characterization is warranted, MRI of the foot with and without contrast is recommended. infection (osteomyelitis). Recommend clinical correlation. 1. Dictated by: Last Choffel RRA Interpreted: Taylor Mckay MD on 01/02/2017 at 10:55 Additional Diagnostics Date of Service Jan 04, 2017 Pre Operative Diagnosis Osteomyelitis right first metatarsal and great toe Post Operative Diagnosis Same as preoperative diagnoses Procedure Partial first ray resection right foot Surgeon Surgeon: Marcus Mcdonald MD Assistants: None Indication for Procedure Osteomyelitis of right first metatarsal and great toe Findings Pathologic fracture of the right first metatarsal head with osseous degeneration and necrosis of the base of the right proximal phalanx Assessment & Plan 81-year-old male who presents to the hospital from wound care due to worsening right diabetic foot ulcer with concern for osteomyelitis. #Right foot diabetic ulcer with osteomyelitis ; present on admission; ongoing -Underwent Partial first ray resection right foot 01/04 -nares positive for MRSA -Blood cultures 1/2 growing gram-positive coccus,probab contaminant -continue Ceftriaxone, Vanco,flagyl -c/w 100 mL/hour normal saline, discontinue after surgery -NPO for procedure -ID consult placed #Gram-positive bacteremia,probably contaminant -probably contaminant ,patient did not come with sepsis sxs . he was sent due to worsening foot infection from wound clinic.procal negative -Blood cultures 1/2 growing gram-positive coccus -repeat blood cx sent #Diabetes mellitus 2 with severe neuropathy; present on admission; ongoing -Home dose Lantus 13 units,increased to 15 on 01/06 -Low correctional correctional lispro - A1c 7.7 -Diabetic/heart healthy diet #Chronic atrial fibrillation, POA; ongoing -resume Coumadin -Continued metoprolol #Elevated transaminases; present on admission; ongoing -Alkaline phosphatase of 225 and mild elevation in AST/ALT -patient does not complain of any pain -Right upper quadrant ultrasound normal #Hypertension-hold lisinopril until after procedure #Peripheral arterial disease Disposition: Discharge in 2- 3 days Full code VTE Mechanical Devices: Intermittant Pneumatic CD Resuscitation Status: CPR: Attempt Resuscitation Marcus Mcdonald MD Jan 06, 2017 13:53
--- NOTE | 2017-01-06 14:58 | PCM.PHAPRO ---
Progress Date of Service: Jan 06, 2017 Warfarin dosing Date -Jan 06-Jan INR 1.68 1.54 INR change -0.14 Warf Dose 5 mg 7.5 MG Ean Mackey Jan 06, 2017 14:58
--- NOTE | 2017-01-06 15:55 | PROG NOTE ---
[address] [address] PROGRESS NOTE PATIENT: RUSTY SILVESTRE : 1935 MR#: [id number] ADMIT: 01/02/2017 JOB ID: [id number] DATE: 01/06/2017 REASON FOR FOLLOWUP: Staph aureus bacteremia with severe right diabetic foot infection and osteomyelitis. INTERVAL HISTORY: The patient reports he feels fine but is becoming very discouraged because of his recurrent right foot infections. He denies fevers, chills, or sweats overnight. No sore throat, cough or chest pain. No abdominal complaint. PHYSICAL EXAMINATION: Reveals an afebrile gentleman, in no acute distress, but he is depressed. Temperature 36.6, pulse 81, respiratory rate 16, blood pressure 126/79. He is saturating well on room air. Examination of his head is unremarkable, though his mood is decreased and his affect is flat. He has bilateral facial flushing. His lungs are clear. Cardiac tones without any murmur, but it is very difficult to hear with the isolation room stethoscope The abdomen is benign. The right foot is wrapped in a large postoperative dressing. LABORATORIES: Include white count 6100, normal diff. Creatinine 0.52. LFTs basically normal. Urinalysis without white cells. The vancomycin trough this morning was 13, which is reasonable given his age and renal function. His micro studies include a single positive blood culture from admission which is growing what is definitively identified as Staphylococcus aureus. Recall that his MRSA screen of the nares was negative, too. Repeat blood cultures were done yesterday and we await those results. Culture from the toe has a growth of what is likely going to be Staph but neither the Staph aureus in the blood nor the cultures arising from the toe have susceptibilities yet. IMPRESSION: This is an unfortunate gentleman who has had an off-and-on right diabetic foot infection now for months. He originally had methicillin-sensitive Staphylococcus aureus in his blood, and we have provided a long course of intravenous antibiotics aimed at both his right diabetic foot infection as well as his bacteremia. Unfortunately, this has now worsened and he has lost his right great toe and some of the 1st metatarsal head. He once again has a single positive blood culture and I assume this is arising from the osteo in his right foot, which has now been debrided. Nevertheless, we must be careful to exclude the possibility of endocarditis and so will need serial blood cultures as well as echocardiography. RECOMMENDATIONS: 1. I have ordered an echo. 2. We await the followup blood cultures. 3. Will continue to closely follow this patient with you. If the organism in his blood is not MRSA, we can probably modify his antibiotics substantially. If on the other hand, this is now a MRSA bacteremia and/or MRSA osteo based on the foot cultures, will have to continue with either vancomycin, ceftaroline, or daptomycin going forward.
[2017-01-06] MEDS ORDERED: Warfarin 5 MG, Warfarin 2.5 MG PO ONE ×2 (17:00)
[2017-01-06 18:23] VITALS: BP 123/75; PULSE 79; RESP 18; O2SAT 98
[2017-01-06 19:34] VITALS: BP 137/71; PULSE 75; RESP 18; O2SAT 97
[2017-01-06] MEDS: cefTRIAXone Inj 2,000 MG in Dextrose 5% Minibag Plus 50 ML IV SCH (21:04)
[2017-01-06] MEDS: MeTOProlol XL 50 mg ER24 Tablet PO SCH (21:04)
[2017-01-06] MEDS: Insulin GLARgine 100 Unit/mL Syringe SUBQ SCH (21:12)
[2017-01-07] MEDS: Heparin 5,000 Unit/mL Inj SUBQ SCH ×3 (01:08→17:19)
[2017-01-07] MEDS: Vancomycin Inj 1,000 MG in IV Premix 1 EACH IV SCH ×3 (01:58→18:04)
--- NOTE | 2017-01-07 04:32 | NUR ---
Wound/pain/BG Pt wound dressing on Rt foot is clean and intact with minimal drainage noted. Denies any pain or discomfort on this shift. Blood sugar on this shift 188 & 155 and insulin lantus administered per order with no s/s of hypoglycemia or hyperglycemia. No sliding scale insulin administered. Pt is sleeping soundly and call light w/in reach.
[2017-01-07 06:05] VITALS: BP 127/78; PULSE 87; RESP 18; O2SAT 98
[2017-01-07 06:30] LABS: INR 1.43 ratio
[2017-01-07 07:57] VITALS: BP 136/82; PULSE 85; RESP 18; O2SAT 98
[2017-01-07] MEDS: Vancomycin Dose per Pharmacist XX SCH (08:30)
--- NOTE | 2017-01-07 08:43 | PCM.PNPOD ---
Subjective Date of Service: Jan 06, 2017 Date of Service: Jan 06, 2017 Visit Information: Reason for Visit Diabetic Foot Infection(Left) Surgery/Surgery Date Post-Op Day # Date of Admission: Jan 02, 2017 at 13:21 Hospital Day # Postop General: No Complaints Gastrointestinal: Good Appetite Pain Management: No or Minimal Pain Objective Vital Sign - Last Date Time Temp Pulse Resp B/P Pulse Ox O2 Delivery O2 Flow Rate FiO2 01/07/17 07:57 36.7 85 18 136/82 98 Room Air Intake and Output 01/06/17 01/06/17 01/07/17 Cumulative From/Thru 15:00 23:00 07:00 01/02/17 13:45 - 01/07/17 06:38 Intake Total 2080 ml 1627 ml 96426 ml Output Total 1450 ml 2975 ml 42525 ml Balance 630 ml -1348 ml 4431 ml Intake Oral 2080 ml 1100 ml 72647 ml IV Total 527 ml 8829 ml Output Urine Total 1450 ml 2975 ml 29467 ml Estimated Blood Loss 150 ml # Bowel Movements 0 0 3 Result Diagram: 01/06/17 0520 01/07/17 0530 Lab Test 01/02/17 14:30 01/03/17 05:25 01/04/17 05:40 01/06/17 00:32 Urine Color Dark yellow (YELLOW) Urine Appearance Hazy (CLEAR,HAZY) Urine pH 5.5 (5.0-8.0) Urine Specific [place] 1.025 (1.003-1.035) Urine Protein 30mg/dL (NEG,TRACE) Urine Glucose (UA) 500mg/dL (NEGATIVE) Urine Ketones Negativemg/dL (NEGATIVE) Urine Occult Blood Small (NEGATIVE) Urine Nitrite Negative (NEGATIVE) Urine Bilirubin Negative (NEGATIVE) Urine Urobilinogen Normalmg/dL (NORMAL) Urine Leukocyte Esterase Negative (NEGATIVE) Urine RBC 0-2/hpf (0-2) Urine WBC 0-5/hpf (0-5) Urine Epithelial Cells Occasional/hpf (NONE-MOD) Urine Crystals None seen (NONE SEEN) Urine Bacteria Few/hpf (NONE-FEW) Urine Hyaline Casts None/lpf (NONE) Urine Granular Casts None seen (NONE SEEN) Urine Waxy Casts None seen (NONE SEEN) Urine Red Blood Cell Casts None seen (NONE SEEN) Urine White Blood Cell Casts None seen (NONE SEEN) Urine Mucus Present (None Seen) Urine Trichomonas None seen (NONE SEEN) Urine Yeast None (NONE SEEN) Urinalysis Comment None Urine Culture Reflexed Not indicated Hemoglobin A1c 7.7% (4.8-5.6) Erythrocyte Sedimentation Rate 70mm/hr (0-30) Magnesium Level 1.9mg/dL (1.6-2.6) Procalcitonin 0.06ng/mL (0.00-0.08) Vancomycin Level Trough 12.6mcg/mL Test 01/06/17 05:20 01/07/17 05:30 White Blood Count 6.1th/mm3 (3.8-10.1) Red Blood Count 4.18mil/mm3 (4.40-5.80) Hemoglobin 11.3g/dL (13.8-17.2) Hematocrit 35.1% (41.0-50.0) Mean Corpuscular Volume 84.0fL (81-100) Mean Corpuscular Hemoglobin 27.0pg (27.0-35.0) Mean Corpuscular Hemoglobin Concent 32.2% (32.0-37.0) Red Cell Distribution Width 14.1% (12.3-15.4) Platelet Count 359bil/L (150-400) Neutrophils (%) (Auto) 64.2% (40-74) Lymphocytes (%) (Auto) 16.9% (14-46) Monocytes (%) (Auto) 13.2% (4-12) Eosinophils (%) (Auto) 4.2% (0-5) Basophils (%) (Auto) 0.2% (0-3) Sodium Level 140mEq/L (134-144) Potassium Level 4.6mEq/L (3.5-5.2) Chloride Level 104mEq/L (97-108) Carbon Dioxide Level 23mmol/L (18-29) Blood Urea Nitrogen 8mg/dL (8-27) Estimat Glomerular Filtration Rate 162mL/min (>59) Glucose Level 138mg/dL (60-99) Calcium Level 8.3mg/dL (8.5-10.1) Total Bilirubin 0.4mg/dL (0.0-1.2) Aspartate Amino Transf (AST/SGOT) 37U/L (0-50) Alanine Aminotransferase (ALT/SGPT) 32U/L (0-44) Alkaline Phosphatase 257U/L (25-160) Total Protein 5.2g/dL (6.4-8.4) Albumin 2.8g/dL (3.4-5.0) Prothrombin Time 15.4sec (8.1-12.5) Prothromb Time International Ratio 1.43ratio Creatinine 0.58mg/dL (0.76-1.27) Exam General: Alert, Oriented X3, Cooperative Lungs: Clear to Auscultation Lower Extremities: Right: Edema localized Extremity warm Lower Extremity Pulses: Palpable: Right Dorsalis Pedis Right Posterior Tibal Podiatry WOUND : Wound Location/Description right 1st metatarsal ulcer status post partial 1st ray resection . no mal odor. mild sanguinous drainage. no exposed bone. decreased edema. no signs of infection. previous interdigital maceration has resolved. wound is 100% granular. Surgical Cast or Splint: None Assessment & Plan Impression improving right 1st metatarsal ulcer status post 1st ray resection Problems: Plan dressing changed today. wound packed with betadine soaked gauze. wound dressed with dry sterile gauze, ABD pads, kerlix and Nicanor wrap. dressing to be changed by podiatry daily. non weightbearing right foot awaiting wound cultures taken during surgery to decide on outpatient antibiotic plan Stable for discharge once outpatient antibiotic plan has been formed. Buster Cortez DPM Jan 07, 2017 08:43
--- NOTE | 2017-01-07 09:22 | PCM.PHAPRO ---
Progress Date of Service: Jan 07, 2017 Warfarin dosing Date -Jan 06-Jan 07-Jan INR 1.68 1.54 1.43 INR change -0.14 -0.11 Warf Dose 5 mg 7.5 MG 7.5MG Ean Mackey Jan 07, 2017 09:22
[2017-01-07] MEDS: Insulin LISPRO 300 Unit/3 mL Inj SUBQ SCH ×4 (10:17→22:00)
[2017-01-07] MEDS: Nystatin 100,000 Unit/Gm 15 Gm Powder TOPICAL SCH ×2 (10:18→22:11)
--- NOTE | 2017-01-07 12:48 | PCM.PNMED ---
Subjective Date of Service Jan 07, 2017 Subjective No new complaints or events. Initial Blood culture 1/2 and wound culture growing MRSA. Exam Vital Signs Vital Sign - Last Date Time Temp Pulse Resp B/P Pulse Ox O2 Delivery O2 Flow Rate FiO2 01/07/17 07:57 36.7 85 18 136/82 98 Room Air Intake and Output 01/06/17 01/06/17 01/07/17 Cumulative From/Thru 15:00 23:00 07:00 01/02/17 13:45 - 01/07/17 06:38 Intake Total 2080 ml 1627 ml 61176 ml Output Total 1450 ml 2975 ml 46961 ml Balance 630 ml -1348 ml 4431 ml Intake Oral 2080 ml 1100 ml 38365 ml IV Total 527 ml 8829 ml Output Urine Total 1450 ml 2975 ml 38871 ml Estimated Blood Loss 150 ml # Bowel Movements 0 0 3 Exam General: Cooperative age-appropriate male in no acute distress HEENT: PERRLA, EOMI, nonicteric, membranes moist Lymph: No lymphadenopathy Cardio: Regular Respiratory: CTA bilaterally, no wheezes, no crackles Abdomen: Soft, positive bowel sounds, nontender, nondistended Extremities: No edema, right lower extremity heavily bandaged but no moisture or bleeding through bandages.per podiatry note " Full-thickness wound of the right first ray. Dorsal sutures are intact and in place. There is minimal surrounding erythema and minimal local edema. Previous interdigital maceration of the second third and fourth webspace has cleared. Sanguinous drainage is present. The wound base is 100% granular. There is no exposed bone." Psych: Appropriate mood and affect Neuro: CN II through XII grossly intact, sensation intact throughout Skin: No rash IVs and Medications Medications Reviewed: Medications were reviewed in detail Lab and Diagnostics Result Diagram: 01/06/17 0520 01/07/17 0530 X-Rays, CTs and MRIs PROCEDURE: X-RAY RIGHT FOOT COMPLETE, MINIMUM THREE VIEWS ([id number]) INDICATIONS: RIGHT FIRST TOE PAIN IMPRESSION: 1. Marked soft tissue swelling and abnormal appearance of the first metatarsal head as well as the adjacent proximal phalanx suspicious for a further characterization is warranted, MRI of the foot with and without contrast is recommended. infection (osteomyelitis). Recommend clinical correlation. 1. Dictated by: Last Choffel RRA Interpreted: Taylor Mckay MD on 01/02/2017 at 10:55 Additional Diagnostics Date of Service Jan 04, 2017 Pre Operative Diagnosis Osteomyelitis right first metatarsal and great toe Post Operative Diagnosis Same as preoperative diagnoses Procedure Partial first ray resection right foot Surgeon Surgeon: Marcus Mcdonald MD Assistants: None Indication for Procedure Osteomyelitis of right first metatarsal and great toe Findings Pathologic fracture of the right first metatarsal head with osseous degeneration and necrosis of the base of the right proximal phalanx Assessment & Plan 81-year-old male who presents to the hospital from wound care due to worsening right diabetic foot ulcer with concern for osteomyelitis. #Right foot diabetic ulcer with osteomyelitis ; present on admission; ongoing -Underwent Partial first ray resection right foot 01/04 -nares positive for MRSA -Blood cultures 1/2 growing gram-positive coccus,probab contaminant -continue Ceftriaxone, Vanco,flagyl -ID consulted and managing antibiotics # MRSA bacteremia, -patient did not come with sepsis sxs . .procal negative -Blood cultures 1/2 growing MRSA, wound culture also growing MRSA -repeat blood cx 01/05 no growth.will order PICC after 3 days of negative blood culture, probably Monday or Monday -echo pending #Diabetes mellitus 2 with severe neuropathy; present on admission; ongoing -Home dose Lantus 13 units,increased to 15 on 01/06 -Low correctional correctional lispro - A1c 7.7 -Diabetic/heart healthy diet #Chronic atrial fibrillation, POA; ongoing -resume Coumadin -Continued metoprolol #Elevated transaminases; present on admission; ongoing -Alkaline phosphatase of 225 and mild elevation in AST/ALT -patient does not complain of any pain -Right upper quadrant ultrasound normal #Hypertension-hold lisinopril until after procedure #Peripheral arterial disease Disposition: Discharge in 2- 3 days with IV antibiotics via PICC ,probably to SNF Full code VTE Mechanical Devices: Intermittant Pneumatic CD Resuscitation Status: CPR: Attempt Resuscitation Marcus Mcdonald MD Jan 07, 2017 12:48 Marcus Mcdonald MD Jan 07, 2017 12:48
[2017-01-07 13:23] VITALS: BP 116/70; PULSE 96; RESP 16; O2SAT 96
--- NOTE | 2017-01-07 13:23 | PROG NOTE ---
[address] [address] PROGRESS NOTE PATIENT: RUSTY SILVESTRE : 1935 MR#: [id number] ADMIT: 01/02/2017 JOB ID: [id number] DATE: 01/07/2017 INFECTIOUS DISEASE FOLLOWUP NOTE: REASON FOR FOLLOWUP: Bacteremic MRSA right diabetic foot infection with osteomyelitis. INTERVAL HISTORY: The patient has felt well overnight. No fevers, no chills, no sweats. He just underwent the echo, but it was finished just minutes ago and there is no report yet available. He denies cough, shortness of breath, nausea, vomiting, or diarrhea. 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 PHYSICAL EXAMINATION: Reveals an afebrile gentleman, temperature 36.7, pulse 85, respiratory rate 18, blood pressure 136/82. He is saturating well on room air and in no acute distress. Head: Without trauma. Eyes: Without conjunctivitis. Oral cavity is negative. Lungs: Clear. Abdomen: Benign. Right foot is in a large dressing and the bag shop worker has asked that it not be changed again until tomorrow. LABORATORIES: Include a white count which normalized as of yesterday 6100. Creatinine 0.58. LFTs basically normal. Vancomycin trough 12.6, and recall that this patient has required unusually heavy doses of vancomycin for his age, which is worrisome. Micro studies include positive blood cultures for MRSA and this was found in one of four bottles from admission. In addition his toe has grown MRSA, as well as a probable light growth of Pseudomonas, with no susceptibilities yet. IMPRESSION: This is a bacteremic MRSA diabetic foot infection in a patient who not long ago had a similar MSSA infection. This clearly represents a new infection as it was not a feature of his admission earlier this year with a similar problem. At this point will need to exclude the possibility of MRSA endocarditis and make sure we have persistently negative blood cultures before we insert a PICC line. The duration of therapy here for the MRSA bacteremia and osteomyelitis will be six weeks with close followup. The patient has indicated he is not averse to returning to [facility]. The best choice of antibiotics here is a bit unclear. Vancomycin would be a traditional agent but we are having to use very frequent heavy doses to maintain good levels in this patient. I do not like to use such high doses of vancomycin in such elderly patients, but this would be the most cost effective option. Other possibilities might include daptomycin or ceftaroline but these are certainly going to cost more money. As to the Pseudomonas found in light growth in the foot culture, I would suspect it is of no great clinical significance but will await susceptibilities. RECOMMENDATIONS: 1. We await the followup blood culture final report as well as the echo. 2. Will continue on vancomycin for now. 3. Will check a CRP with tomorrow's blood test. 4. Will ignore this Pseudomonas for now, with the thought to come back to that, perhaps depending on how things change with respect to his overall progress. 5. I will be following this patient up on January 09. Thank you very much.
[2017-01-07] MEDS ORDERED: Warfarin 5 MG, Warfarin 2.5 MG PO ONE ×2 (17:00)
[2017-01-07 18:21] VITALS: BP 129/72; PULSE 87; RESP 18; O2SAT 87
--- NOTE | 2017-01-07 19:53 | PCM.PNPOD ---
Subjective Date of Service: Jan 07, 2017 Date of Service: Jan 07, 2017 Visit Information: Reason for Visit Diabetic Foot Infection(Left) Surgery/Surgery Date Post-Op Day # Date of Admission: Jan 02, 2017 at 13:21 Hospital Day # Subjective: patient evaluated resting comfortably in bed in NAD. no new events overnight. Patients wound cultures have returned positive for MRSA. No complaints of pain to his foot. no recent history of fever chills nausea or vomiting. Postop General: No Complaints Gastrointestinal: Good Appetite Pain Management: No or Minimal Pain Objective Vital Sign - Last Date Time Temp Pulse Resp B/P Pulse Ox O2 Delivery O2 Flow Rate FiO2 01/07/17 18:21 36.8 87 18 129/72 87 Room Air Intake and Output 01/06/17 01/06/17 01/07/17 Cumulative From/Thru 15:00 23:00 07:00 01/02/17 13:45 - 01/07/17 06:38 Intake Total 2080 ml 1627 ml 42743 ml Output Total 1450 ml 2975 ml 80949 ml Balance 630 ml -1348 ml 4431 ml Intake Oral 2080 ml 1100 ml 41854 ml IV Total 527 ml 8829 ml Output Urine Total 1450 ml 2975 ml 97785 ml Estimated Blood Loss 150 ml # Bowel Movements 0 0 3 Result Diagram: 01/06/17 0520 01/07/17 0530 Lab Test 01/02/17 14:30 01/03/17 05:25 01/04/17 05:40 01/06/17 00:32 Urine Color Dark yellow (YELLOW) Urine Appearance Hazy (CLEAR,HAZY) Urine pH 5.5 (5.0-8.0) Urine Specific [place] 1.025 (1.003-1.035) Urine Protein 30mg/dL (NEG,TRACE) Urine Glucose (UA) 500mg/dL (NEGATIVE) Urine Ketones Negativemg/dL (NEGATIVE) Urine Occult Blood Small (NEGATIVE) Urine Nitrite Negative (NEGATIVE) Urine Bilirubin Negative (NEGATIVE) Urine Urobilinogen Normalmg/dL (NORMAL) Urine Leukocyte Esterase Negative (NEGATIVE) Urine RBC 0-2/hpf (0-2) Urine WBC 0-5/hpf (0-5) Urine Epithelial Cells Occasional/hpf (NONE-MOD) Urine Crystals None seen (NONE SEEN) Urine Bacteria Few/hpf (NONE-FEW) Urine Hyaline Casts None/lpf (NONE) Urine Granular Casts None seen (NONE SEEN) Urine Waxy Casts None seen (NONE SEEN) Urine Red Blood Cell Casts None seen (NONE SEEN) Urine White Blood Cell Casts None seen (NONE SEEN) Urine Mucus Present (None Seen) Urine Trichomonas None seen (NONE SEEN) Urine Yeast None (NONE SEEN) Urinalysis Comment None Urine Culture Reflexed Not indicated Hemoglobin A1c 7.7% (4.8-5.6) Erythrocyte Sedimentation Rate 70mm/hr (0-30) Magnesium Level 1.9mg/dL (1.6-2.6) Procalcitonin 0.06ng/mL (0.00-0.08) Vancomycin Level Trough 12.6mcg/mL Test 01/06/17 05:20 01/07/17 05:30 White Blood Count 6.1th/mm3 (3.8-10.1) Red Blood Count 4.18mil/mm3 (4.40-5.80) Hemoglobin 11.3g/dL (13.8-17.2) Hematocrit 35.1% (41.0-50.0) Mean Corpuscular Volume 84.0fL (81-100) Mean Corpuscular Hemoglobin 27.0pg (27.0-35.0) Mean Corpuscular Hemoglobin Concent 32.2% (32.0-37.0) Red Cell Distribution Width 14.1% (12.3-15.4) Platelet Count 359bil/L (150-400) Neutrophils (%) (Auto) 64.2% (40-74) Lymphocytes (%) (Auto) 16.9% (14-46) Monocytes (%) (Auto) 13.2% (4-12) Eosinophils (%) (Auto) 4.2% (0-5) Basophils (%) (Auto) 0.2% (0-3) Sodium Level 140mEq/L (134-144) Potassium Level 4.6mEq/L (3.5-5.2) Chloride Level 104mEq/L (97-108) Carbon Dioxide Level 23mmol/L (18-29) Blood Urea Nitrogen 8mg/dL (8-27) Estimat Glomerular Filtration Rate 162mL/min (>59) Glucose Level 138mg/dL (60-99) Calcium Level 8.3mg/dL (8.5-10.1) Total Bilirubin 0.4mg/dL (0.0-1.2) Aspartate Amino Transf (AST/SGOT) 37U/L (0-50) Alanine Aminotransferase (ALT/SGPT) 32U/L (0-44) Alkaline Phosphatase 257U/L (25-160) Total Protein 5.2g/dL (6.4-8.4) Albumin 2.8g/dL (3.4-5.0) Prothrombin Time 15.4sec (8.1-12.5) Prothromb Time International Ratio 1.43ratio Creatinine 0.58mg/dL (0.76-1.27) Exam General: Alert, Oriented X3, Cooperative Lungs: Clear to Auscultation Lower Extremities: Right: Edema localized Extremity warm Lower Extremity Pulses: Palpable: Right Dorsalis Pedis Right Posterior Tibal Podiatry WOUND : Wound Location/Description no strikethrough noted on dressing. Surgical Cast or Splint: None Assessment & Plan Impression stable status post partial first ray resection, MRSA positive Problems: Plan no dressing change needed today. next dressing change tomorrow by podiatry service. continue antibiotic recs per Dr. Zhu Patient stable for discharge pending outpatient antibiotic plan. Buster Cortez DPM Jan 07, 2017 19:53
[2017-01-07 20:30] VITALS: BP 134/76; PULSE 50; RESP 16; O2SAT 96
[2017-01-07] MEDS: Insulin GLARgine 100 Unit/mL Syringe SUBQ SCH (22:15)
[2017-01-07] MEDS: MeTOProlol XL 50 mg ER24 Tablet PO SCH (22:25)
[2017-01-07 22:27] VITALS: PULSE 79
[2017-01-08] MEDS: Heparin 5,000 Unit/mL Inj SUBQ SCH ×4 (00:45→23:28)
[2017-01-08] MEDS: Vancomycin Inj 1,000 MG in IV Premix 1 EACH IV SCH ×3 (00:45→17:59)
[2017-01-08 04:26] VITALS: BP 161/83; PULSE 93; RESP 18; O2SAT 99
--- NOTE | 2017-01-08 04:41 | NUR ---
Pain/Heart Rate On initial assessment, patient denied left foot pain. Minimal drainage on delfin wrap. Per patient, dressing will be changed on 01/08. Patient had fluctuating pulse rate throughout shift ranging from 50-93. Metroprolol administered during pm med pass. Per patient, rest is what is desired. VSS except for heart rate. Call light within reach. Care continues.
[2017-01-08 06:15] VITALS: BP 135/80; PULSE 75
[2017-01-08 06:45] LABS: INR 1.46 ratio
[2017-01-08] MEDS: Insulin LISPRO 300 Unit/3 mL Inj SUBQ SCH ×5 (08:00→22:00)
[2017-01-08] MEDS: Vancomycin Dose per Pharmacist XX SCH (08:30)
[2017-01-08 08:39] LABS: Mean Corpuscular Hemoglobin 27.1 pg (27.0-35.0); NEUTROPHILS % (AUTO) 67.5 % (40-74); Platelet Count 400 bil/L (150-400)
[2017-01-08 08:40] LABS: BASOPHILS % (AUTO) 0.3 % (0-3); EOSINOPHILS % (AUTO) 3.7 % (0-5)
--- NOTE | 2017-01-08 09:27 | PCM.PHAPRO ---
Progress Date of Service: Jan 08, 2017 Warfarin dosing Date Jan 06-Jan 07-Jan 08-Jan INR 1.68 1.54 1.43 1.46 INR change -0.14 -0.11 0.03 Warf Dose 5 MG 7.5 MG 7.5 MG 10 MG Ean Mackey Jan 08, 2017 09:27
--- NOTE | 2017-01-08 10:08 | PCM.PNMED ---
Subjective Date of Service Jan 08, 2017 Subjective no new complaints or events Exam Vital Signs Vital Sign - Last Date Time Temp Pulse Resp B/P Pulse Ox O2 Delivery O2 Flow Rate FiO2 01/08/17 06:15 75 135/80 01/08/17 04:26 36.8 18 99 Room Air Intake and Output 01/07/17 01/07/17 01/08/17 Cumulative From/Thru 15:00 23:00 07:00 01/02/17 13:45 - 01/08/17 06:25 Intake Total 1287 ml 1287 ml 88774 ml Output Total 1375 ml 2100 ml 76943 ml Balance -88 ml -813 ml 3530 ml Intake Oral 1037 ml 800 ml 92439 ml IV Total 250 ml 487 ml 9566 ml Output Urine Total 1375 ml 2100 ml 84536 ml Estimated Blood Loss 150 ml # Bowel Movements 1 4 Exam General: Cooperative age-appropriate male in no acute distress HEENT: PERRLA, EOMI, nonicteric, membranes moist Lymph: No lymphadenopathy Cardio: Regular Respiratory: CTA bilaterally, no wheezes, no crackles Abdomen: Soft, positive bowel sounds, nontender, nondistended Extremities: No edema, right lower extremity heavily bandaged but no moisture or bleeding through bandages.per podiatry note " Full-thickness wound of the right first ray. Dorsal sutures are intact and in place. There is minimal surrounding erythema and minimal local edema. Previous interdigital maceration of the second third and fourth webspace has cleared. Sanguinous drainage is present. The wound base is 100% granular. There is no exposed bone." Psych: Appropriate mood and affect Neuro: CN II through XII grossly intact, sensation intact throughout Skin: No rash IVs and Medications Medications Reviewed: Medications were reviewed in detail Lab and Diagnostics Result Diagram: 01/08/17 0601/08/17 0600 X-Rays, CTs and MRIs PROCEDURE: X-RAY RIGHT FOOT COMPLETE, MINIMUM THREE VIEWS ([id number]) INDICATIONS: RIGHT FIRST TOE PAIN IMPRESSION: 1. Marked soft tissue swelling and abnormal appearance of the first metatarsal head as well as the adjacent proximal phalanx suspicious for a further characterization is warranted, MRI of the foot with and without contrast is recommended. infection (osteomyelitis). Recommend clinical correlation. 1. Dictated by: Last ROMEO Interpreted: Taylor Mckay MD on 01/02/2017 at 10:55 Additional Diagnostics Date of Service Jan 04, 2017 Pre Operative Diagnosis Osteomyelitis right first metatarsal and great toe Post Operative Diagnosis Same as preoperative diagnoses Procedure Partial first ray resection right foot Surgeon Surgeon: Marcus Mcdonald MD Assistants: None Indication for Procedure Osteomyelitis of right first metatarsal and great toe Findings Pathologic fracture of the right first metatarsal head with osseous degeneration and necrosis of the base of the right proximal phalanx Assessment & Plan 81-year-old male who presents to the hospital from wound care due to worsening right diabetic foot ulcer with concern for osteomyelitis. #Right foot diabetic ulcer with osteomyelitis ; present on admission; ongoing -Underwent Partial first ray resection right foot 01/04 -nares positive for MRSA -Blood cultures 1/2 growing MRSA -continue Vanco and flagyl -ID consulted and managing antibiotics # MRSA bacteremia, -patient did not come with sepsis sxs . .procal negative -Blood cultures 1/2 growing MRSA, wound culture also growing MRSA -repeat blood cx 01/05 no growth.will order PICC on Monday -echo pending #Diabetes mellitus 2 with severe neuropathy; present on admission; ongoing -Home dose Lantus 13 units,increased to 15 on 01/06 -Low correctional correctional lispro - A1c 7.7 -Diabetic/heart healthy diet #Chronic atrial fibrillation, POA; ongoing -resume Coumadin -Continued metoprolol #Elevated transaminases; present on admission; ongoing -Alkaline phosphatase of 225 and mild elevation in AST/ALT -patient does not complain of any pain -Right upper quadrant ultrasound normal #Hypertension-hold lisinopril until after procedure #Peripheral arterial disease Disposition: Discharge tomorrow on IV antibiotics via PICC ,probably to SNF Full code VTE Mechanical Devices: Intermittant Pneumatic CD Resuscitation Status: CPR: Attempt Resuscitation Marcus Mcdonald MD Jan 08, 2017 10:08
[2017-01-08] MEDS: Nystatin 100,000 Unit/Gm 15 Gm Powder TOPICAL SCH ×2 (10:58→20:14)
--- NOTE | 2017-01-08 10:59 | PCM.PNPOD ---
Subjective Date of Service: Jan 08, 2017 Date of Service: Jan 08, 2017 Visit Information: Reason for Visit Diabetic Foot Infection(Left) Surgery/Surgery Date Post-Op Day # Date of Admission: Jan 02, 2017 at 13:21 Hospital Day # Subjective: Patient evaluated resting n bed in No acute distress. no new events overnight. patient states that he is concerned about being discharged to a SNF because they will not allow him to leave the facility as he pleases to take care of his bills and visit the library. Postop General: No Complaints Gastrointestinal: Good Appetite Pain Management: PO Objective Vital Sign - Last Date Time Temp Pulse Resp B/P Pulse Ox O2 Delivery O2 Flow Rate FiO2 01/08/17 06:15 75 135/80 01/08/17 04:26 36.8 18 99 Room Air Intake and Output 01/07/17 01/07/17 01/08/17 Cumulative From/Thru 15:00 23:00 07:00 01/02/17 13:45 - 01/08/17 06:25 Intake Total 1287 ml 1287 ml 73184 ml Output Total 1375 ml 2100 ml 23317 ml Balance -88 ml -813 ml 3530 ml Intake Oral 1037 ml 800 ml 40874 ml IV Total 250 ml 487 ml 9566 ml Output Urine Total 1375 ml 2100 ml 49604 ml Estimated Blood Loss 150 ml # Bowel Movements 1 4 Result Diagram: 01/08/17 0600 01/08/17 06 Lab Test 01/02/17 14:30 01/03/17 05:25 01/04/17 05:40 01/06/17 00:32 Urine Color Dark yellow (YELLOW) Urine Appearance Hazy (CLEAR,HAZY) Urine pH 5.5 (5.0-8.0) Urine Specific [place] 1.025 (1.003-1.035) Urine Protein 30mg/dL (NEG,TRACE) Urine Glucose (UA) 500mg/dL (NEGATIVE) Urine Ketones Negativemg/dL (NEGATIVE) Urine Occult Blood Small (NEGATIVE) Urine Nitrite Negative (NEGATIVE) Urine Bilirubin Negative (NEGATIVE) Urine Urobilinogen Normalmg/dL (NORMAL) Urine Leukocyte Esterase Negative (NEGATIVE) Urine RBC 0-2/hpf (0-2) Urine WBC 0-5/hpf (0-5) Urine Epithelial Cells Occasional/hpf (NONE-MOD) Urine Crystals None seen (NONE SEEN) Urine Bacteria Few/hpf (NONE-FEW) Urine Hyaline Casts None/lpf (NONE) Urine Granular Casts None seen (NONE SEEN) Urine Waxy Casts None seen (NONE SEEN) Urine Red Blood Cell Casts None seen (NONE SEEN) Urine White Blood Cell Casts None seen (NONE SEEN) Urine Mucus Present (None Seen) Urine Trichomonas None seen (NONE SEEN) Urine Yeast None (NONE SEEN) Urinalysis Comment None Urine Culture Reflexed Not indicated Hemoglobin A1c 7.7% (4.8-5.6) Erythrocyte Sedimentation Rate 70mm/hr (0-30) Magnesium Level 1.9mg/dL (1.6-2.6) Procalcitonin 0.06ng/mL (0.00-0.08) Vancomycin Level Trough 12.6mcg/mL Test 01/06/17 05:20 01/08/17 06:00 Estimat Glomerular Filtration Rate 162mL/min (>59) Total Bilirubin 0.4mg/dL (0.0-1.2) White Blood Count 7.9th/mm3 (3.8-10.1) Corrected White Blood Count th/mm3 (3.8-10.1) Red Blood Count 4.42mil/mm3 (4.40-5.80) Hemoglobin 12.0g/dL (13.8-17.2) Hematocrit 38.0% (41.0-50.0) Mean Corpuscular Volume 86.0fL (81-100) Mean Corpuscular Hemoglobin 27.1pg (27.0-35.0) Mean Corpuscular Hemoglobin Concent 31.6% (32.0-37.0) Red Cell Distribution Width 14.5% (12.3-15.4) Platelet Count 400bil/L (150-400) Neutrophils (%) (Auto) 67.5% (40-74) Lymphocytes (%) (Auto) 16.3% (14-46) Monocytes (%) (Auto) 9.0% (4-12) Eosinophils (%) (Auto) 3.7% (0-5) Basophils (%) (Auto) 0.3% (0-3) Prothrombin Time 15.7sec (8.1-12.5) Prothromb Time International Ratio 1.46ratio Sodium Level 139mEq/L (134-144) Potassium Level 4.5mEq/L (3.5-5.2) Chloride Level 102mEq/L (97-108) Carbon Dioxide Level 23mmol/L (18-29) Blood Urea Nitrogen 12mg/dL (8-27) Creatinine 0.49mg/dL (0.76-1.27) Glucose Level 144mg/dL (60-99) Calcium Level 8.5mg/dL (8.5-10.1) Aspartate Amino Transf (AST/SGOT) 41U/L (0-50) Alanine Aminotransferase (ALT/SGPT) 27U/L (0-44) Alkaline Phosphatase 244U/L (25-160) C-Reactive Protein 1.7mg/dL (0.0-0.5) Total Protein 5.7g/dL (6.4-8.4) Albumin 3.0g/dL (3.4-5.0) Exam General: Alert, Oriented X3, Cooperative Lungs: Clear to Auscultation Lower Extremities: Right: Edema localized Extremity warm Lower Extremity Pulses: Palpable: Right Dorsalis Pedis Right Posterior Tibal Podiatry WOUND : Wound Location/Description right 1st metatarsal wound without exposed bone no mal odor. sanguinous drainage is present, the wound bed appears 100%granular without any signs of necrosis. no surrounding erythema. decreased edema. Surgical Cast or Splint: None Assessment & Plan Impression improving right 1st metatarsal wound status post 1st ray resection, MRSA infection. Problems: Plan dressing changed today. wound packed with betadine soaked gauze dressed with 4x4 kerlix and delfin wrap. Dressing changed daily. outpatient wound care orders as as follows: daily dressing changes with wound flush, pack wound with iodoform packing gauze, cover with dry sterile gauze kerlix and delfin wrap. patient stable for discharge to outpatient care with weekly wound care visits. following dressing change tomorrow Buster Cortez DPM Jan 08, 2017 10:59
[2017-01-08 11:56] VITALS: BP 117/57; PULSE 70; RESP 16; O2SAT 99
--- NOTE | 2017-01-08 15:15 | NUR ---
Social Work: Continued Discharge Planning/Multidisciplinary Rounds D: EMR reviewed. Pt is on day 6 of hospitalization. SW received T/C from pt requesting to see SW. SW met with pt to discuss pt's concerns regarding discharge. Pt stated he knows what the future is going to look like and he wanted to update SW ahead of time on what he will and won't do at discharge. Pt stated he knows he needs 6 weeks of IVABX. Pt stated [place] [facility] [place] pt [place] not drive and states it's too much trouble for him to get to hospital for [place] [facility] [place] 6 [place]. Pt stated he will not go home and pay for infusion services for IVABX. Pt stated he is only willing to go to SNF and would prefer [facility]. He also would like a private room with a TV if possible - he asked that SW make that request when referring pt to SNF. SW stated that his discharge plan is still pending ID. Pt agreeable. Pt recently went to [facility] and understand the process. SW confirmed that pt's discharge options will be determined by MD and ID once results from blood cultures return. Pt discussed in multidisciplinary rounds. Per MD, pt to have repeat blood culture test (currently pending results). Pt is positive for MRSA. Pt likely to discharge in 1-2 days, pending results and ID recommendations. SW will discuss pt's concerns in multidisciplinary rounds tomorrow and determine if SNF if medically necessary - if so, SW will request MD order to coordinate SNF. Pt recently had a MCR stay at [facility]. SW will determine when pt was discharged from [facility] and if he has had a 60-day wellness period from time of discharge at [facility] to time of admit to [facility]. If pt has had a 60-day wellness period, pt will qualify for 100 day stay. If not, SW will determine how many MCR days pt will have remaining for SNF stay for possible new SNF admit. A: Pt who is independent at baseline, has capacity for self-care, and for whom 6 weeks of IVABX are required. P: Pt will need 6 weeks IVABX at discharge. SW to consult with MD/ID to determine medical need for SNF and request orders if providers agreeable. SW to follow-up with date discharge from [facility] to date of admit to hospital - regarding 60-day wellness period for Medicare. BERTO Westfall
[2017-01-08] MEDS ORDERED: Vancomycin Serum Trough XX ONE (16:30)
--- NOTE | 2017-01-08 16:44 | NUR ---
Dressing Patient with bandage to left foot that was changed today by orthopedic brace maker. Patient denies pain when asked. Patient states " Im going stir crazy in here". Patient cooperative with care despite slight gruffness in voice. Plan is still to have picc line placed tomorrow for out patient abx therapy. Addendum: 01/08/17 at 1906 by LOW CONNORS RN Meal time insulin, pt was to receive 1 unit lispro for glusoce level of 141 but did not want to waken from his nap at this time .
--- NOTE | 2017-01-08 18:13 | PCM.PHAPRO ---
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
--- NOTE | 2017-01-08 18:23 | NUR ---
Warfarin Patient received warfarin dose as scheduled but received called from pharmacy after dose had been given to hold tonights dose. Pharmacist will call Dr and inform him of this.
[2017-01-08] MEDS: MeTOProlol XL 50 mg ER24 Tablet PO SCH (20:15)
[2017-01-08] MEDS: Insulin GLARgine 100 Unit/mL Syringe SUBQ SCH (20:20)
[2017-01-08 23:00] VITALS: BP 132/75; PULSE 91; RESP 18; O2SAT 100
--- NOTE | 2017-01-09 00:12 | NUR ---
Agitation On initial assessment, patient was agitated with nursing care. Patient denied pain . Nursing care clustered as to let patient rest. VSS. Call light within reach. Care continues.
[2017-01-09] MEDS: Vancomycin Inj 1,000 MG in IV Premix 1 EACH IV SCH ×3 (01:20→18:51)
[2017-01-09 05:58] LABS: INR 1.55 ratio
[2017-01-09 06:37] VITALS: BP 136/85; PULSE 84; RESP 16; O2SAT 100
[2017-01-09] MEDS: Insulin LISPRO 300 Unit/3 mL Inj SUBQ SCH ×4 (08:00→21:24)
[2017-01-09] MEDS: Vancomycin Dose per Pharmacist XX SCH (08:30)
--- NOTE | 2017-01-09 09:23 | PCM.PHAPRO ---
Progress Warfarin Management by Pharmacy: -Indication: afib -Home Dose: warfarin 5mg on We,Quiles and 7.5mg all other days -Goal Inr: 2-3 -Drug Interactions: pt currently receiving metronidazole -Concurrent Anticoagulation: heparin 5000 units subq q8 -Coagulation Trends: -Jan 06-Jan 07-Jan 08-Jan 09-Jan 1.68 1.54 1.43 1.46 1.55 -0.14 -0.11 0.03 0.09 5 mg 7.5 MG 7.5MG 10MG 7.5mg -Plan: will continue with home dose of warfarin 7.5mg. will need to follow closely as pt is on metronidazole Daisy Valdez [facility] Jan 09, 2017 09:23
[2017-01-09] MEDS: Heparin 5,000 Unit/mL Inj SUBQ SCH ×2 (10:01→18:08)
[2017-01-09] MEDS: Nystatin 100,000 Unit/Gm 15 Gm Powder TOPICAL SCH ×2 (10:02→21:12)
[2017-01-09] MEDS ORDERED: Sodium Chloride LOK Flush 10 mL Syringe IVFLUSH PRN ×2 (10:15)
--- NOTE | 2017-01-09 11:54 | PROG NOTE ---
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 INTERVAL HISTORY: Over the weekend, the patient has been stable. He denies fevers, chills, or sweats. No cough, shortness of breath, nausea, vomiting, or diarrhea. No real pain in his right foot. PHYSICAL EXAMINATION: Reveals a consistently afebrile gentleman. Temperature 36.9, pulse 84, respiratory rate 16, blood pressure 136/86, saturating 100% on room air. He is sitting up, doing crossword puzzles and getting all the answers right without use of a dictionary or cellular phone. Mental status is clear. Oral cavity negative. Lungs relatively clear. Cardiac tones without murmur. Abdomen negative. His right foot is wrapped in a large dressing, and was changed yesterday by Podiatry, so I did not do anything with it today. LABORATORIES: Include white count 7900 yesterday, totally normal differential. Creatinine 0.49 yesterday. Alk phos 244, AST and ALT both normal. CRP 1.7. Vancomycin trough 16. Micro studies include the foot culture which grew primarily Staph aureus, but also a small amount of Pseudomonas aeruginosa. That Pseudomonas proved to be sensitive to Cipro, very sensitive, while the MRSA was resistant to clindamycin, sensitive to other standard agents, and was also very sensitive to daptomycin. The single positive blood culture of MRSA had similar susceptibilities. Blood culture followups from the 3rd are negative at four days. The echocardiogram done back on the 4th has not been read yet. IMPRESSION: This is an unfortunate gentleman with a recurrent severe right diabetic foot infection who is now status post surgery and loss of the great toe on the right, as well as 1st metatarsal head. The Podiatry attending reports he is doing well with respect to his local wound. One positive blood culture was positive and followups are negative. Assuming his transthoracic echo was negative, I do not think we need to proceed to a transesophageal echo as there is no evidence of heart failure and the patient is looking quite well. He will require a very prolonged course of IV antibiotic therapy in any event, so whether or not he might have a subtle vegetation present on the valve is probably of no great consequence at this point. The role of the Pseudomonas in the culture is unclear. Many diabetic foot experts are not impressed by Pseudomonas unless it grows heavily in a pure culture. Despite that, I think that having found this organism and demonstrating that it is very susceptible to Cipro, it is reasonable to provide a short course of ciprofloxacin therapy. This will require very close followup on the patient's INR as there will be a drug interaction between Coumadin and Cipro. RECOMMENDATIONS: 1. If the echo read comes back today and is negative, the patient can then receive his PICC line today. 2. Once he has the PICC line, he is cleared for discharge from an Infectious Disease point of view. 3. I would continue the IV vancomycin until February 15, at which time we can stop in the middle of that day and discharge the patient from the intermediate facility if he remains stable. 4. Close monitoring will be needed to the patient's vancomycin dosing and levels, as he is currently receiving quite a substantial dose at 1 g q.8 h., which is a lot for a man in his 80s. I would consider checking vancomycin troughs and creatinine twice a week, at least for the first couple of weeks, to make sure there is absolute stability of the dose and then perhaps could back off to once a week vancomycin troughs and creatinine. 5. For the Pseudomonas, I prescribed Cipro 500 b.i.d., and I would use that for about three weeks, which would take us through February 01. I am not so convinced that the Pseudomonas is playing a major role in this infection, but a three week or so course would seem reasonable for any residual soft tissue contiguous infection. 6. INR will need to be checked twice a week at least in the beginning because of the interaction between Cipro and his oral anticoagulation. 7. ID will go ahead and sign off at this time, as I do not see any additional active issues, unless of course, his transthoracic echo report shows something surprising or there are other unanticipated developments. 8. ID will be signing off. Please call me if there is any more problems with this patient. Note that I do not anticipate following his vancomycin levels at the intermediate facility, as the pharmacist there usually takes care of it, but if there is any need for me to see this patient in followup in my clinic or to help with monitoring vancomycin levels, I would be happy to do so. 9. If the patient runs into trouble with vancomycin toxicity or dosing issues, daptomycin is the easy alternative in a dose of about 8 mg/kg or 750 mg once a day, to be given through February 15. The main issue with that daptomycin would simply be cost. If daptomycin is used instead of vancomycin, will need to monitor CPK levels weekly.
[2017-01-09 14:18] VITALS: BP 113/63; PULSE 62; RESP 16; O2SAT 100
--- NOTE | 2017-01-09 14:57 | PCM.PNMED ---
Subjective Date of Service Jan 09, 2017 Subjective No new complaints or events today. Awaiting PICC line. INR 1.55 Exam Vital Signs Vital Sign - Last Date Time Temp Pulse Resp B/P Pulse Ox O2 Delivery O2 Flow Rate FiO2 01/09/17 14:18 36.7 62 16 113/63 100 Room Air Intake and Output 01/08/17 01/08/17 01/09/17 Cumulative From/Thru 15:00 23:00 07:00 01/02/17 13:45 - 01/09/17 06:37 Intake Total 1833 ml 1314 ml 09585 ml Output Total 1500 ml 2100 ml 04285 ml Balance 333 ml -786 ml 3077 ml Intake Oral 1511 ml 800 ml 73303 ml IV Total 322 ml 514 ml 95318 ml Output Urine Total 1500 ml 2100 ml 84766 ml Estimated Blood Loss 150 ml # Bowel Movements 1 0 5 Exam General: Cooperative age-appropriate male in no acute distress HEENT: PERRLA, EOMI, nonicteric, membranes moist Lymph: No lymphadenopathy Cardio: Regular Respiratory: CTA bilaterally, no wheezes, no crackles Abdomen: Soft, positive bowel sounds, nontender, nondistended Extremities: No edema, right lower extremity heavily bandaged but no moisture or bleeding through bandages.per podiatry note " Full-thickness wound of the right first ray. Dorsal sutures are intact and in place. There is minimal surrounding erythema and minimal local edema. Previous interdigital maceration of the second third and fourth webspace has cleared. Sanguinous drainage is present. The wound base is 100% granular. There is no exposed bone." Psych: Appropriate mood and affect Neuro: CN II through XII grossly intact, sensation intact throughout Skin: No rash IVs and Medications Medications Reviewed: Medications were reviewed in detail Lab and Diagnostics Result Diagram: 01/08/17 0600 01/08/17 0600 X-Rays, CTs and MRIs PROCEDURE: X-RAY RIGHT FOOT COMPLETE, MINIMUM THREE VIEWS ([id number]) INDICATIONS: RIGHT FIRST TOE PAIN IMPRESSION: 1. Marked soft tissue swelling and abnormal appearance of the first metatarsal head as well as the adjacent proximal phalanx suspicious for a further characterization is warranted, MRI of the foot with and without contrast is recommended. infection (osteomyelitis). Recommend clinical correlation. 1. Dictated by: Last ROMEO Interpreted: Taylor Mckay MD on 01/02/2017 at 10:55 Additional Diagnostics Date of Service Jan 04, 2017 Pre Operative Diagnosis Osteomyelitis right first metatarsal and great toe Post Operative Diagnosis Same as preoperative diagnoses Procedure Partial first ray resection right foot Surgeon Surgeon: Marcus Mcdonald MD Assistants: None Indication for Procedure Osteomyelitis of right first metatarsal and great toe Findings Pathologic fracture of the right first metatarsal head with osseous degeneration and necrosis of the base of the right proximal phalanx Assessment & Plan 81-year-old male who presents to the hospital from wound care due to worsening right diabetic foot ulcer with concern for osteomyelitis. #Right foot diabetic ulcer with osteomyelitis ; present on admission; ongoing -Underwent Partial first ray resection right foot 01/04 -nares positive for MRSA -Blood cultures 1/2 growing MRSA -will discharge on vancomycin 1 g q.8h. per ID, recommend checking vancomycin troughs and creatinine twice a week, at least for the first couple of weeks vanco thru February 15 -Ciprofloxacin 500 mg po bid thru February 01 for Pseudomonas growing in wound culture -I appreciate ID Dr. Zhu for his time close follow-up and expertise # MRSA bacteremia, -patient did not come with sepsis sxs . .procal negative -Blood cultures 1/2 growing MRSA, wound culture also growing MRSA -repeat blood cx 01/05 no growth. ordered PICC - echo unremarkable #Diabetes mellitus 2 with severe neuropathy; present on admission; ongoing -Home dose Lantus 13 units,increased to 15 on 01/06 -Low correctional correctional lispro -A1c 7.7 -Diabetic/heart healthy diet #Chronic atrial fibrillation, POA; ongoing -resume Coumadin .will hold tonight if PICC line is not placed for some reason -Continued metoprolol -INR will need to be checked twice a week at least in the beginning because of the interaction between Cipro and his oral anticoagulation #Elevated transaminases; present on admission; ongoing -Alkaline phosphatase of 225 and mild elevation in AST/ALT -patient does not complain of any pain -Right upper quadrant ultrasound normal #Hypertension-resume lisinopril #Peripheral arterial disease Disposition: Discharge tomorrow on IV antibiotics via PICC , to SNF Full code VTE Mechanical Devices: Intermittant Pneumatic CD Resuscitation Status: CPR: Attempt Resuscitation Marcus Mcdonald MD Jan 09, 2017 14:57
--- NOTE | 2017-01-09 15:52 | NUR ---
NUTRITION FOLLOW-UP: ASSESS: 81 YO male admitted with infected diabetic foot ulcer. Pt with history of osteomyelitis. Pt s/p surgery on 01/04 for 1st ray resection and debridement. PO intake is 100% of meals. Pt to have PICC line place and then will likely discharge 01/10 to SNF for completion of IV antibiotics per notes. PMHx: NIDDM, chronic A-fib requiring Coumadin. DIET: Consistent carb, Gelatein plus BID (03/06). PO intake of 100% of meals. LABS: Reviewed. Alk phos 244, Alb 3.0, Glu 144. MEDICATIONS: Reviewed. GI symptoms / stool: BM x 1 (01/08) Skin Integrity: R 1st metatarsal amputation. ANTHROPOMETRICS: Current Wt: 92.8 kg ESTIMATED NEEDS (WOUNDS): Calories: 2073-2778 kcal (25 - 30 kcal / kg BW) Protein: 110-135 g protein (1.2 - 1.5 g / kg BW) NUTRITION DIAGNOSIS: 1.) Increased nutrient needs related to increased demand for nutrients as evidenced by chronic diabetic foot ulcer--PERSISTS. INTERVENTION: 1.) Continue gelatein plus BID between meals. MONITOR/EVALUATE: PO intake, labs, wounds, GI/nutrition status. Follow per moderate nutrition risk guidelines.
[2017-01-09] MEDS ORDERED: Warfarin 5 MG, Warfarin 2.5 MG PO SCH ×2 (17:00)
--- NOTE | 2017-01-09 18:00 | PATH ---
SURGICAL PATHOLOGY Attending Physician:Buster Cortez, CASE STATUS: Signed Out PATIENT NAME: RUSTY SILVESTRE PID: [id number] : 1935 DATE COLLECTED:01/04/2017 00:00 SPECIMEN: Extremity Amputation, Non-Traumatic CLINICAL HISTORY: RIGHT DIABETIC FOOT INFECTION; PATHOLOGIC FRACTURE 1). 1ST METATARSAL HEAD RIGHT GREAT TOE FINAL DIAGNOSIS: 1.FIRST METATARSAL HEAD, RIGHT GREAT TOE, AMPUTATION: BONE WITH FIBROSIS AND SUPPURATIVE INFLAMMATION CONSISTENT WITH OSTEOMYELITIS. CHANGES EXTEND TO THE RESECTION MARGIN. ICD10 M86.9 GROSS DESCRIPTION: The specimen is received in formalin, labeled with the patient's name, sublabeled as 1st metatarsal head of right great toe and consists of a resected piece of bone (2.4 x 2.0 x 1.5 cm) and a concave piece of bone (3.5 x 2.8 x 0.5 cm) with an irregular resection margin. The resected piece of bone is hard and cannot be sliced with a scalpel. The cut surface is mejia with a soft red-brown center. The concave piece of bone has a pale mejia smooth shiny flat exterior surface. The piece is hard with focally friable areas. No nodules, masses or lesions are identified. Ink code: black-resection margin. Section code: (A, B) resected bone, resection margin; (C) resected bone, serially sectioned, community relations representative; (D) concave bone, serially sectioned, community relations representative. Note: The bone sections have been decalcified. 01/05/17 MICRO DESCRIPTION: See diagnosis. ICD-9 CODES: CPT CODES: 1: 23817, 42244 Electronically Signed Out Shivam Wilcox MD, Ph.D. [facility] [address], [place] [address] Technical component performed at [facility], [address] [place] [address] Ave[address], [place], [address]
--- NOTE | 2017-01-09 18:13 | NUR ---
Picc Picc line placed this afternoon. Patient anticipates discharge tomorrow to extended care facility. Dressing changed by podiatry today.
--- NOTE | 2017-01-09 20:03 | DRSVH ---
PROCEDURE: X-RAY PICC LINE PLACEMENT BY NURSE ([id number]) INDICATIONS: Prolonged antibiotics. COMPARISON: [facility], CR, XR PICC LINE PLACE BY NURSE, 10/20/2016, 10:26. FINDINGS: PICC was placed by the intravenous therapy team from the right side. Fluoroscopic spot fi lm demonstrates tip projected over the lower SVC. IMPRESSION: Tip of PICC projected over the lower SVC. Dictated by: Last ROMEO Interpreted: Kenny Chapman MD on 01/09/2017 at 16:38 Transcribed by: ROMMEL on 01/09/2017 at 23:03 Approved by: Kenny Chapman M.D. on 01/09/2017 at 20:39
[2017-01-09 20:10] VITALS: BP 142/70; PULSE 79; RESP 17; O2SAT 96
[2017-01-09] MEDS: MeTOProlol XL 50 mg ER24 Tablet PO SCH (21:11)
[2017-01-09] MEDS: Insulin GLARgine 100 Unit/mL Syringe SUBQ SCH (21:25)
[2017-01-10] MEDS: Heparin 5,000 Unit/mL Inj SUBQ SCH ×2 (01:18→08:35)
[2017-01-10] MEDS: Vancomycin Inj 1,000 MG in IV Premix 1 EACH IV SCH ×2 (01:19→09:59)
[2017-01-10 05:05] VITALS: BP 122/65; PULSE 61; RESP 17; O2SAT 98
[2017-01-10 05:15] LABS: INR 1.67 ratio
--- NOTE | 2017-01-10 05:48 | NUR ---
Sleep Patient asked that his cares be grouped together so that he could get more sleep throughout the night. Nurse attempted to combine care with REGULATORY COORDINATOR whenever possible as to not disturb patient when sleeping. Patient picc line patent and NS running TKO. Vitals stable. Patient up to bathroom independent for BM last night. Patient states he is having no pain.
[2017-01-10] MEDS: Vancomycin Dose per Pharmacist XX SCH (08:30)
[2017-01-10] MEDS: Insulin LISPRO 300 Unit/3 mL Inj SUBQ SCH ×2 (08:35→11:16)
[2017-01-10 08:38] VITALS: BP 131/77; PULSE 79; RESP 20; O2SAT 99
--- NOTE | 2017-01-10 09:11 | PCM.PHAPRO ---
Progress Warfarin Management by Pharmacy: -Indication: afib -Home Dose: warfarin 5mg on We Quiles and 7.5mg all other days -Inr Goal: 2-3 -Concurrent anticoagulation: heparin 5000 units subq q8hrs -Drug Interactions: metronidazole 500mg po q8h and ciprofloxacin 500mg po bid ( new start yesterday for cipro) -Coagulation Trends: Jan 06-Jan 07-Jan 08-Jan 09-Jan 10-Jan 1.68 1.54 1.43 1.46 1.55 1.67 -0.14 -0.11 0.03 0.09 0.12 5 mg 7.5 MG 7.5MG 10MG 7.5mg 7.5MG Plan: inr is slow to progress. since ciprofloxacin was added to regimen yesterday, will not increase the dose of warfarin this evening but will continue with his home dose of 7.5mg and follow Daisy Valdez [facility] Jan 10, 2017 09:11
[2017-01-10 09:36] LABS: Vancomycin, Trough 15.4 mcg/mL
[2017-01-10] MEDS: Nystatin 100,000 Unit/Gm 15 Gm Powder TOPICAL SCH (09:59)
--- NOTE | 2017-01-10 10:24 | PCM.DIMED ---
Discharge Instructions Date of Service Jan 10, 2017 Dates of Hospitalization Jan 02, 2017 at 13:21 Discharge Diagnosis Discharge Diagnosis #Right foot diabetic ulcer with osteomyelitis ; present on admission; ongoing -Underwent Partial first ray resection right foot 01/04 # MRSA bacteremia, #Diabetes mellitus 2 with severe neuropathy; present on admission; ongoing #Chronic atrial fibrillation, POA; ongoing #Elevated transaminases; present on admission; ongoing #Hypertension #Peripheral arterial disease Diet Discharge Diet: Low fat, Low Sodium, Heart Healthy, Diabetic Activity Discharge Activity: Other (continue PT ) Call your provider Call your provider for: Fever or Chills, Shortness of breath, Bleeding, Chest pain, Vomitting, Excessive diarrhea, Weakness (unilateral) Patient Instructions Patient Instructions You were hospitalized due to right foot diabetic ulcer with MRSA and pseudomonas osteomyelitis and underwent Partial first ray resection right foot 01/04. You also had MRSA bactremia . Please continue vancomycin 1 g q.8h . Recommend checking vancomycin troughs and creatinine twice a week, at least for the first couple of weeks . Continue vancomycin thru February 15. Continue Ciprofloxacin 500 mg po bid thru February 01 for Pseudomonas growing in wound culture. Due to possible interaction between ciprofloxacin and warfarin please check INR/pro time twice weekly until end of January. Podiatric recommendation of wound care -daily dressing changes with wound flush, pack wound with iodoform packing gauze , cover with dry sterile gauze kerlix and delfin wrap -needs to follow-up with wound care clinic weekly Follow-up with PCP in: 1 week (1 week after discharge from retirement facility) Provider: Buster Cortez DPM Follow-up in: 1 week Marcus Mcdonald MD Jan 10, 2017 10:24
[2017-01-10] MEDS ORDERED: VANC1VIA13 IV (10:26)
[2017-01-10] MEDS ORDERED: CIPR-231 PO (10:26)
[2017-01-10] MEDS ORDERED: INSU100I13 SUBQ (10:54)
--- NOTE | 2017-01-10 10:54 | PCM.DC.MED ---
Discharge Summary Date of Service Jan 10, 2017 Dates of Hospitalization Date of Hospital Admission Jan 02, 2017 at 13:21 Date of Discharge: Jan 10, 2017 Providers: Admitting Physician: Migue Garcia Primary Care Physician: La Nena Attending Physician: Marcus Nicole MD Diagnosis at Time of Discharge Diagnosis at Time of Discharge #Right foot diabetic ulcer with osteomyelitis ; present on admission; ongoing -Underwent Partial first ray resection right foot 01/04 # MRSA bacteremia, #Diabetes mellitus 2 with severe neuropathy; present on admission; ongoing #Chronic atrial fibrillation, POA; ongoing #Elevated transaminases; present on admission; ongoing #Hypertension #Peripheral arterial disease Consultations ID Dr Zhu podiatry Dr meza Procedures XRay, CTs & MRIs PROCEDURE: X-RAY RIGHT FOOT COMPLETE, MINIMUM THREE VIEWS ([id number]) INDICATIONS: RIGHT FIRST TOE PAIN IMPRESSION: 1. Marked soft tissue swelling and abnormal appearance of the first metatarsal head as well as the adjacent proximal phalanx suspicious for a further characterization is warranted, MRI of the foot with and without contrast is recommended. infection (osteomyelitis). Recommend clinical correlation. 1. Dictated by: Last Blandon [facility] Interpreted: Taylor Mckay MD on 01/02/2017 at 10:55 Other Diagnostics Date of Service Jan 04, 2017 Pre Operative Diagnosis Osteomyelitis right first metatarsal and great toe Post Operative Diagnosis Same as preoperative diagnoses Procedure Partial first ray resection right foot Surgeon Surgeon: Marcus Nicole MD Assistants: None Indication for Procedure Osteomyelitis of right first metatarsal and great toe Findings Pathologic fracture of the right first metatarsal head with osseous degeneration and necrosis of the base of the right proximal phalanx Brief History per HPI 81-year-old male with history of type II diabetes and severe neuropathy who is been admitted here twice in the last 2 months due to a chronic right foot infection for which she has been following wound care. Today he was seeing Dr. Cortez and after his assessment he was directed to the hospital for admission and evaluation for ongoing osteomyelitis. After his admission in October he went to [facility] longterm facility and completed a 21 day course of antibiotics. However, [place] [facility] [place] worsening infection which he had to be admitted to the hospital for additional debridement. 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 However the patient was discharged in improved condition has been doing better since that time until he was seen today at wound care. Patient states that he does not been having fevers chills, nausea, vomiting, diarrhea, lightheadedness, dizziness, or other signs of possible sepsis. The patient does seem to be a little slow cognitively. Patient states he is compliant with his diabetic medication. He was directly admitted to the floor. Spoke with podiatry's office and they will plan for a debridement tomorrow. Hospital Course 81-year-old male who presents to the hospital from wound care due to worsening right diabetic foot ulcer with concern for osteomyelitis. #Right foot diabetic ulcer with osteomyelitis ; present on admission; ongoing -Underwent Partial first ray resection right foot 01/04 -nares positive for MRSA -Blood cultures 1/2 growing MRSA -will discharge on vancomycin 1 g q.8h. per ID, recommend checking vancomycin troughs and creatinine twice a week, at least for the first couple of weeks .continue vanco thru February 15 -Ciprofloxacin 500 mg po bid thru February 01 for Pseudomonas growing in wound culture.INR will need to be checked twice a week at least in the beginning because of the interaction between Cipro and his oral anticoagulation -I appreciate ID Dr. Zhu for his time close follow-up and expertise # MRSA bacteremia, -patient did not come with sepsis sxs . .procal negative -Blood cultures 1/2 growing MRSA, wound culture also growing MRSA and pseudomonas -repeat blood cx 01/05 no growth. PICC placed 01/09 - echo unremarkable #Diabetes mellitus 2 with severe neuropathy; present on admission; ongoing -Home dose Lantus 13 units,increased to 15 on 01/06,discharge on 16u hs. may adjust dose if needed outpatient -A1c 7.7 -Diabetic/heart healthy diet #Chronic atrial fibrillation, POA; ongoing -resume Coumadin . -Continued metoprolol -INR will need to be checked twice a week at least in the beginning because of the interaction between Cipro and his oral anticoagulation #Elevated transaminases; present on admission; ongoing -Alkaline phosphatase of 225 and mild elevation in AST/ALT -patient does not complain of any pain -Right upper quadrant ultrasound normal #Hypertension-resume lisinopril #Peripheral arterial disease Disposition: [facility] on IV antibiotics via PICC , to [facility] Full code Exam Vital Signs (Last) Date Time Temp Pulse Resp B/P Pulse Ox O2 Delivery O2 Flow Rate FiO2 01/10/17 08:38 37.7 79 20 131/77 99 Room Air Exam General: Cooperative age-appropriate male in no acute distress HEENT: PERRLA, EOMI, nonicteric, membranes moist Lymph: No lymphadenopathy Cardio: Regular Respiratory: CTA bilaterally, no wheezes, no crackles Abdomen: Soft, positive bowel sounds, nontender, nondistended Extremities: No edema, right lower extremity heavily bandaged but no moisture or bleeding through bandages.per podiatry note " Full-thickness wound of the right first ray. Dorsal sutures are intact and in place. There is minimal surrounding erythema and minimal local edema. Previous interdigital maceration of the second third and fourth webspace has cleared. Sanguinous drainage is present. The wound base is 100% granular. There is no exposed bone." Psych: Appropriate mood and affect Neuro: CN II through XII grossly intact, sensation intact throughout Skin: No rash Test 01/02/17 14:30 01/03/17 05:25 01/04/17 05:40 01/06/17 05:20 Urine Color Dark yellow (YELLOW) Urine Appearance Hazy (CLEAR,HAZY) Urine pH 5.5 (5.0-8.0) Urine Specific [place] 1.025 (1.003-1.035) Urine Protein 30mg/dL (NEG,TRACE) Urine Glucose (UA) 500mg/dL (NEGATIVE) Urine Ketones Negativemg/dL (NEGATIVE) Urine Occult Blood Small (NEGATIVE) Urine Nitrite Negative (NEGATIVE) Urine Bilirubin Negative (NEGATIVE) Urine Urobilinogen Normalmg/dL (NORMAL) Urine Leukocyte Esterase Negative (NEGATIVE) Urine RBC 0-2/hpf (0-2) Urine WBC 0-5/hpf (0-5) Urine Epithelial Cells Occasional/hpf (NONE-MOD) Urine Crystals None seen (NONE SEEN) Urine Bacteria Few/hpf (NONE-FEW) Urine Hyaline Casts None/lpf (NONE) Urine Granular Casts None seen (NONE SEEN) Urine Waxy Casts None seen (NONE SEEN) Urine Red Blood Cell Casts None seen (NONE SEEN) Urine White Blood Cell Casts None seen (NONE SEEN) Urine Mucus Present (None Seen) Urine Trichomonas None seen (NONE SEEN) Urine Yeast None (NONE SEEN) Urinalysis Comment None Urine Culture Reflexed Not indicated Hemoglobin A1c 7.7% (4.8-5.6) Erythrocyte Sedimentation Rate 70mm/hr (0-30) Magnesium Level 1.9mg/dL (1.6-2.6) Procalcitonin 0.06ng/mL (0.00-0.08) Estimat Glomerular Filtration Rate 162mL/min (>59) Total Bilirubin 0.4mg/dL (0.0-1.2) Test 01/08/17 06:00 01/10/17 04:45 01/10/17 08:30 White Blood Count 7.9th/mm3 (3.8-10.1) Corrected White Blood Count th/mm3 (3.8-10.1) Red Blood Count 4.42mil/mm3 (4.40-5.80) Hemoglobin 12.0g/dL (13.8-17.2) Hematocrit 38.0% (41.0-50.0) Mean Corpuscular Volume 86.0fL (81-100) Mean Corpuscular Hemoglobin 27.1pg (27.0-35.0) Mean Corpuscular Hemoglobin Concent 31.6% (32.0-37.0) Red Cell Distribution Width 14.5% (12.3-15.4) Platelet Count 400bil/L (150-400) Neutrophils (%) (Auto) 67.5% (40-74) Lymphocytes (%) (Auto) 16.3% (14-46) Monocytes (%) (Auto) 9.0% (4-12) Eosinophils (%) (Auto) 3.7% (0-5) Basophils (%) (Auto) 0.3% (0-3) Sodium Level 139mEq/L (134-144) Potassium Level 4.5mEq/L (3.5-5.2) Chloride Level 102mEq/L (97-108) Carbon Dioxide Level 23mmol/L (18-29) Blood Urea Nitrogen 12mg/dL (8-27) Glucose Level 144mg/dL (60-99) Calcium Level 8.5mg/dL (8.5-10.1) Aspartate Amino Transf (AST/SGOT) 41U/L (0-50) Alanine Aminotransferase (ALT/SGPT) 27U/L (0-44) Alkaline Phosphatase 244U/L (25-160) C-Reactive Protein 1.7mg/dL (0.0-0.5) Total Protein 5.7g/dL (6.4-8.4) Albumin 3.0g/dL (3.4-5.0) Prothrombin Time 18.1sec (8.1-12.5) Prothromb Time International Ratio 1.67ratio Creatinine 0.45mg/dL (0.76-1.27) Vancomycin Level Trough 15.4mcg/mL Discharge Medications Discharge Medications Ciprofloxacin (Cipro) 500 Mg Tablet 500 MG PO BID Prescribed by: MARCUS NICOLE MD Insulin Glargine (Lantus U100 Solostar Insulin Pen) 100 Unit/1 Ml Insuln.pen 16 UNIT SUBQ HS Prescribed by: MARCUS NICOLE MD Lisinopril (Lisinopril) 10 Mg Tablet 10 MG PO HS (Reported) Metoprolol Succinate ER (Metoprolol Succinate ER) 50 Mg Tab.er.24h 50 MG PO HS ( Reported) Vancomycin (Vancomycin) 1 Gm Vial 1 GM IV TID Prescribed by: MARCUS NICOLE MD Warfarin Sodium (Coumadin) 5 Mg Tablet 5 MG PO Monday and Monday (Reported) Warfarin Sodium (Warfarin Sodium) 5 Mg Tablet 7.5 MG PO Mon,,,,Sa ( Reported) Followup Plan Disposition: longterm facility [facility] Discharge Diet: Low fat, Low Sodium, Heart Healthy, Diabetic Discharge Activity: Other (continue PT ) Patient Instructions You were hospitalized due to right foot diabetic ulcer with MRSA and pseudomonas osteomyelitis and underwent Partial first ray resection right foot 01/04. You also had MRSA bactremia . Please continue vancomycin 1 g q.8h . Recommend checking vancomycin troughs and creatinine twice a week, at least for the first couple of weeks . Continue vancomycin thru February 15. Continue Ciprofloxacin 500 mg po bid thru February 01 for Pseudomonas growing in wound culture. Due to possible interaction between ciprofloxacin and warfarin please check INR/pro time twice weekly until end of January. Podiatric recommendation of wound care -daily dressing changes with wound flush, pack wound with iodoform packing gauze , cover with dry sterile gauze kerlix and delfin wrap -needs to follow-up with wound care clinic weekly Follow-up with PCP in: 1 week (1 week after discharge from longterm facility) Provider: Buster Cortez DPM Follow-up in: 1 week Time spent 35 minutes copies to: Buster Cortez DPM, Melaku MD Jan 10, 2017 10:54
--- NOTE | 2017-01-10 11:01 | NUR ---
Social Work- Readiness for D/C Data: EMR reviewed. Pt is on day 8 of hospitalization for diabetic foot infection. Pt discussed in multidisciplinary rounds. Pt is medically stable for d/c to [facility] with IV abx until February 15. Discharge orders are active. SNF order has been received, pt has expressed preference for [facility] in [place]. SW met with pt and bedside to confirm this preference, pt confirmed. Referral made to [facility], T/T [facility] regarding acceptance and Adryan confirms that pt is able to be accepted today. Adryan informed ENGINEERING GEOLOGIST that pt has a copay of 164.50 per day through [facility]. Pt has no supplemental insurance at this time. Pt informed of co-pay and instructed to speak to ENGINEERING GEOLOGIST at [facility] for assistance in obtaining [facility] Supplement. Pt is agreeable to this plan. Pt requested his bike to be transported with him to [facility]. Pt's bike has been stored in Wound Center conference room. T/T Wound Center who confirms that pt's bike is there and they will bring over bike to pt's room prior to pt's transport. Paperwork in pt's chart. SW to fax PAS[facility]. Pt updated and agreeable to plan. Pt anticipated to d/c at 1430 to [facility], SW will continue to follow. Assessment: Pt for whom SNF is medically necessary Plan: Pt to d/c to [facility] SNF via wheelchair van at 1430. [facility] will transport pt and his bike, also confirmed that ENGINEERING GEOLOGIST at [facility] will assist pt with [facility] application. [facility] to be faxed. All updated and agreeable to plan. Pt anticipated to d/c at 1430 to [facility], [facility] will continue to follow. Chandni Moody MSW
--- NOTE | 2017-01-10 11:02 | NUR ---
LONGTERM TRANSFER: Gave access and called [facility] to let them know patient is ready for discharge today. Faxed facesheet and let them know patient is on IV Vanco and Oral Cipro. Updated IRON CARRIER
--- NOTE | 2017-01-10 13:33 | PCM.PHADCC ---
Subjective Clinical Pharmacist Consult: Discharge Counseling (SPOKE WITH PT REGARDING WARFARIN. HE IS RECEIVING BOTH CIPRO AND METRONIDAZOLE AND WILL NEED MONITORING UPON DISCHARGE) Objective Vital Signs Date Time Temp Pulse Resp B/P Pulse Ox O2 Delivery O2 Flow Rate FiO2 01/10/17 08:38 37.7 79 20 131/77 99 Room Air 01/10/17 05:05 36.7 61 17 122/65 98 Room Air 01/09/17 20:10 36.7 79 17 142/70 96 Room Air 01/09/17 14:18 36.7 62 16 113/63 100 Room Air Intake and Output 01/08/17 01/09/17 01/10/17 00:00 00:00 00:00 Intake Total 2914 ml 3120 ml 2744 ml Output Total 4350 ml 3600 ml 4050 ml Balance -1436 ml -480 ml -1306 ml Weight (Kilograms): 93.000 Height (Feet): 5 Height (Inches): 11.00 Test 01/02/17 14:30 01/03/17 05:25 01/04/17 05:40 01/06/17 05:20 Urine Color Dark yellow (YELLOW) Urine Appearance Hazy (CLEAR,HAZY) Urine pH 5.5 (5.0-8.0) Urine Specific [place] 1.025 (1.003-1.035) Urine Protein 30mg/dL (NEG,TRACE) Urine Glucose (UA) 500mg/dL (NEGATIVE) Urine Ketones Negativemg/dL (NEGATIVE) Urine Occult Blood Small (NEGATIVE) Urine Nitrite Negative (NEGATIVE) Urine Bilirubin Negative (NEGATIVE) Urine Urobilinogen Normalmg/dL (NORMAL) Urine Leukocyte Esterase Negative (NEGATIVE) Urine RBC 0-2/hpf (0-2) Urine WBC 0-5/hpf (0-5) Urine Epithelial Cells Occasional/hpf (NONE-MOD) Urine Crystals None seen (NONE SEEN) Urine Bacteria Few/hpf (NONE-FEW) Urine Hyaline Casts None/lpf (NONE) Urine Granular Casts None seen (NONE SEEN) Urine Waxy Casts None seen (NONE SEEN) Urine Red Blood Cell Casts None seen (NONE SEEN) Urine White Blood Cell Casts None seen (NONE SEEN) Urine Mucus Present (None Seen) Urine Trichomonas None seen (NONE SEEN) Urine Yeast None (NONE SEEN) Urinalysis Comment None Urine Culture Reflexed Not indicated Hemoglobin A1c 7.7% (4.8-5.6) Erythrocyte Sedimentation Rate 70mm/hr (0-30) Magnesium Level 1.9mg/dL (1.6-2.6) Procalcitonin 0.06ng/mL (0.00-0.08) Estimat Glomerular Filtration Rate 162mL/min (>59) Total Bilirubin 0.4mg/dL (0.0-1.2) Test 01/08/17 06:00 01/10/17 04:45 01/10/17 08:30 White Blood Count 7.9th/mm3 (3.8-10.1) Corrected White Blood Count th/mm3 (3.8-10.1) Red Blood Count 4.42mil/mm3 (4.40-5.80) Hemoglobin 12.0g/dL (13.8-17.2) Hematocrit 38.0% (41.0-50.0) Mean Corpuscular Volume 86.0fL (81-100) Mean Corpuscular Hemoglobin 27.1pg (27.0-35.0) Mean Corpuscular Hemoglobin Concent 31.6% (32.0-37.0) Red Cell Distribution Width 14.5% (12.3-15.4) Platelet Count 400bil/L (150-400) Neutrophils (%) (Auto) 67.5% (40-74) Lymphocytes (%) (Auto) 16.3% (14-46) Monocytes (%) (Auto) 9.0% (4-12) Eosinophils (%) (Auto) 3.7% (0-5) Basophils (%) (Auto) 0.3% (0-3) Sodium Level 139mEq/L (134-144) Potassium Level 4.5mEq/L (3.5-5.2) Chloride Level 102mEq/L (97-108) Carbon Dioxide Level 23mmol/L (18-29) Blood Urea Nitrogen 12mg/dL (8-27) Glucose Level 144mg/dL (60-99) Calcium Level 8.5mg/dL (8.5-10.1) Aspartate Amino Transf (AST/SGOT) 41U/L (0-50) Alanine Aminotransferase (ALT/SGPT) 27U/L (0-44) Alkaline Phosphatase 244U/L (25-160) C-Reactive Protein 1.7mg/dL (0.0-0.5) Total Protein 5.7g/dL (6.4-8.4) Albumin 3.0g/dL (3.4-5.0) Prothrombin Time 18.1sec (8.1-12.5) Prothromb Time International Ratio 1.67ratio Creatinine 0.45mg/dL (0.76-1.27) Vancomycin Level Trough 15.4mcg/mL Daisy Valdez [facility] Jan 10, 2017 13:33
[2017-01-10] MEDS ORDERED: Pharmacy Discharge Counseling XX SCH (13:35)
--- NOTE | 2017-01-10 14:12 | NUR ---
Social Work- Discharge Data: EMR reviewed. Pt to d/c today to [facility]. [facility] agreeable to accepting pt today. 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 [facility] created packet and faxed orders. Pt declined STAFF NURSE ICU RESOURCE TEAM contacting family or friends at d/c. [facility] TITUS, RN, pt all updated and agreeable to plan. Assessment: Pt for whom SNF is medically necessary Plan: Pt to d/c to [facility] at 1430 via wheelchair van. Paperwork complete, [facility] faxed. [facility] TITUS, RN, pt all updated and agreeable to plan. Chandni Moody, STAFF NURSE ICU RESOURCE TEAM
--- NOTE | 2017-01-10 14:47 | NUR ---
DISCHARGE Patient denies pain. Tolerating liquids PO and his diet well. Denies nausea. No emesis noted. Denies SOB. Patient has been ambulating independently in the room. Gait is steady. Ortho boot in place. Voiding without any problems. Dressing was changed by Dr. Cortez this morning. IV saline lock d/cd. PICC line 1 lumen has brisk blood draw and flushes without any problems. Report given to Narcisa in [facility]. Discharged to [facility] via cabulance.
[2017-01-10] MEDS ORDERED: Warfarin 5 MG, Warfarin 2.5 MG PO SCH ×2 (17:00)
== END 2017-01-10 14:35 | DRG 617 ==
LOC: EDSTATUS 13:19 → OSC 13:21
PROVIDERS: ADMIT Internal Medicine; ATTEND Internal Medicine
PROC: 0Y6P0Z0 Detachment at Right 1st Toe, Complete, Open Approach (ICD-10-PCS; principal; 2017-01-04 17:00)
DX: E11.621 Type 2 diabetes mellitus with foot ulcer (principal); M87.9 Osteonecrosis, unspecified; R78.81 Bacteremia; E11.40 Type 2 diabetes mellitus with diabetic neuropathy, unspecified; B95.62 Methicillin resistant Staphylococcus aureus infection as the cause of diseases classified elsewhere; Z79.4 Long term (current) use of insulin; Z79.01 Long term (current) use of anticoagulants; R74.0 Nonspecific elevation of levels of transaminase and lactic acid dehydrogenase [LDH]; I48.2 Chronic atrial fibrillation; B96.5 Pseudomonas (aeruginosa) (mallei) (pseudomallei) as the cause of diseases classified elsewhere; I73.9 Peripheral vascular disease, unspecified

== ENCOUNTER 2017-02-07 10:45 | Emergency (ER) | payer MEDICARE ==
[~2017-02-07] VITALS: Ht 180.3 cm; Wt 94.1 kg
[~2017-02-07 10:45] MED LIST changes: +CIPR-231 PO; -CLIN-78 PO; +INSU100I13 SUBQ; -INSU100V7 SUBQ; -METF-495 PO; -METF500T7 PO; -METO-272 PO; +METO-369 PO; -SYRI-1324 MC; +VANC1VIA13 IV; +WARF5TAB7 PO; -WARF7.5T PO
[2017-02-07 11:07] VITALS: BP 129/82; PULSE 68; RESP 15; O2SAT 97
--- NOTE | 2017-02-07 11:16 | ED.REPORT ---
HPI-Extremity Problem Upper Date of Service Feb 07, 2017 ED Provider: Ozzy Mcrae MD An 81 year old male with a history of atrial fibrillation and diabetes is referred to the ED from Urgent Care due for PICC line replacement. The pt had a 43 cm PICC line placed in his right arm on 01/08/2017 for six weeks of antibiotic use. He felt that the line was insecure last night but the clinic was closed at the time. When he woke this morning, the line had been pulled out approximately 35 cm. He suspects that the line was caught and pulled by a sheet while he was sleeping. The line is not leaking and the pt denies any arm pain. Nursing Notes Stated Complaint: NEW PICC LINE PLACEMENT Chief Complaint: General Complaint Nursing Notes Reviewed: Yes Allergies: Coded Allergies: No Known Allergies (Unverified , 01/02/17) Scheduled Ciprofloxacin (Cipro) 500 Mg Tablet 500 MG PO BID Insulin Glargine (Lantus U100 Solostar Insulin Pen) 100 Unit/1 Ml Insuln.pen 16 UNIT SUBQ HS Lisinopril (Lisinopril) 10 Mg Tablet 10 MG PO HS Metoprolol Succinate ER (Metoprolol Succinate ER) 50 Mg Tab.er.24h 50 MG PO HS Vancomycin (Vancomycin) 1 Gm Vial 1 GM IV TID Warfarin Sodium (Coumadin) 5 Mg Tablet 5 MG PO Monday and Monday Warfarin Sodium (Warfarin Sodium) 5 Mg Tablet 7.5 MG PO Mon,,,Fr,Sa General Time Seen by MD: 11:16 Chief Complaint Other (PICC line issue) Hx Obtained From: Patient Arrived By: Walk-in Onset Occurred: 1 - 4 hours ago Symptom Duration: Since onset Recent Healthcare: Recent doctor visit Similar Sx Previous: No Past Medical History Past Medical History Reports: Diabetes mellitus Reports: Atrial fibrillation Past Surgical History none reported Smoking History Never Smoker Social History Other Social History: Good social support Ambulatory Status Independent Review of Systems Review of Systems Note: PICC line out of place Musculoskeletal: Denies: Extremity pain, Neck pain Skin: Denies Rash Complete sys rev & neg: except as marked. Respiratory: Denies: Non-productive cough, Shortness of breath Cardiovascular: Denies: Chest pain GI: Denies: Abdominal pain, Vomiting Physical Exam Initial Vital Signs Vital Signs (First) Date Time Temp Pulse Resp B/P Pulse Ox O2 Delivery O2 Flow Rate FiO2 02/07/17 11:07 36.8 68 15 129/82 97 Room Air Initial VS: Reviewed General/Constitutional: Awake, Alert Neck: Atraumatic, Supple, Full range of motion Respiratory / Chest: Atraumatic, Breath sounds NL, Breath sounds = bilat, No respiratory distress Cardiovascular: Heart rate NL, Regular rhythm, Heart sounds NL Upper Extremity / MS: Full range of motion, Neurologic intact, Vascular intact PICC line in right upper arm no bleeding surrounding skin clean and dry with no signs of infection line partially removed but still appears to be through the skin Skin: Color NL, No rash, Warm, Dry Neurologic: Oriented X3, Speech NL, No motor deficits, No sensory deficits Head / Eyes: Atraumatic, Normocephalic, PERRL, EOMI ENT: Atraumatic, Airway patent, Mucous membranes moist Abdomen: Atraumatic, Soft, Non-tender Back: Atraumatic, Full range of motion Lower Extremity / Pelvis / MS: Atraumatic, Full range of motion Psychiatric: Affect NL, Mood NL Re-Eval/Medical Decision Med Decision/Clinical Course PICC line evaluated by IV therapy, thought to be in satisfactory position for IV antibiotic use. No other complaints. Return and follow-up precautions given. Source of Hx: Old records Re-Evaluation/Progress : Time of Eval: 11:16 Patient Status: Condition improved Re-Evaluation/Progress Note: Pt informed of the diagnosis and plan for discharge during the initial interview. The pt understands and agrees with the plan. All questions are addressed at this time. Counseled Regarding: Diagnosis, Need for follow-up, When/why to return to ED Discharge & Departure Impression: Primary Impression: PIC line (peripherally inserted central catheter) flush Disposition: Home Discharge Condition All VS Reviewed: Yes Condition: Stable Additional Instructions: PICC line was evaluated by the nurse who placed it and felt to be functioning normally. Keep a dressing on it at all times to prevent infection and to prevent it from coming out further. Follow-up with your doctor as planned. Return to the ER as needed. Referrals: Shaun Zhu MD Scribe Attestation Portions of this note were transcribed by Kraig Koch. I, Dr. Mcrae personally performed the history, physical exam and medical decision-making; I reviewed and confirmed the accuracy of the information in the transcribed note. copies to: Shaun Zhu MD, Timothy S DO Feb 07, 2017 11:16 KRAIG KOCH Feb 07, 2017 11:28
== END 2017-02-07 11:47 | disposition home or self-care (01) ==
LOC: SED 10:45
DX: Z45.2 Encounter for adjustment and management of vascular access device (principal); I48.91 Unspecified atrial fibrillation; E11.9 Type 2 diabetes mellitus without complications; Z79.4 Long term (current) use of insulin; Z79.01 Long term (current) use of anticoagulants